=== PATIENT | female | born 1935 | race Hispanic/Latino ===

== ENCOUNTER 2019-07-14 15:23 | Inpatient (IN) | payer MEDICARE ==
[~2019-07-14] VITALS: Ht 154.9 cm; Wt 62.1 kg
--- OUTSIDE RECORDS SUMMARY | 2019-07-14 15:27 | XMS REPORT ---
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 Allergies, Adverse Reactions, Alerts Allergy Name Allergy Type Status Severity Reaction(s) Onset Date Inactive Date Treating Clinician Comments No Known Allergies DA Active U 2013-03-26 00:00:00 Medications This patient has no known medications. Results Test Description Test Time Test Comments Text Results Atomic Results Result Comments GALLBLADDER 2018-11-18 13:09:00 RUN DATE: 11/18/18 [employer] [facility] PAGE 1 RUN TIME: 1309 Specimen Inquiry RUN USER: INTERFACE PATIENT: NICOLE TAN LOC: BRODIE Moul[place] #: [id number] AGE/SX: 83/F ROOM: 2055 RE11/06/18REG DR: Jerman Haas MD : 33 BED: B DIS: STATUS: ADM IN TLOC: SPEC #: [id number] RECD: 11/17/18 STATUS: SAMAN RE #: [id number] APRIL: 11/16/181504 [facility] DR: Daniele Purdy MD ENTERED: 11/17/18 SP TYPE: GALLBLADD OTHR DR: Juan Anguiano MD, William W DO Gopalakrishnan, Thandavarajan M Hampel, Ori Z MD Lam, David N MDORDERED: GROSS COPIES TO: Juan Anguiano MD [address] [facility] [place] [address] [place] [address] Tyler Ye DO [address] [place] [address] Hallie Emmanuel [address] [place] [address] Vernon Tineo MD [address] [place] [address] Daniele Purdy MD [address] [place] [address] MARKERS: ABNORMAL TISSUE, GALLBLADDER PROCEDURES: GROSS (11/18/18) TISSUES: GALLBLADDER, NOS CONTINUED ON NEXT PAGE RUN DATE: 11/18/18 [employer] [facility] PAGE 2 RUN TIME: 1309 Specimen Inquiry RUN USER: INTERFACE SPEC #: [id number] PATIENT: NICOLE TAN #[id number] (Continued) CLINICAL HISTORY COLLECTION DATE: 11/16/2018 CHOLECYSTITIS FINAL DIAGNOSIS Gallbladder, cholecystectomy: ACUTE AND CHRONIC CHOLECYSTITIS WITH ULCERATION AND NECROSIS, EXTENDING TO THE CYSTIC DUCT MARGIN ONE PARACYSTIC DUCT BENIGN LYMPH NODE IDENTIFIED (0/1) CHOLELITHIASIS NEGATIVE FOR MALIGNANCY FA/sm A 68439 MACROSCOPIC The specimen is received in formalin, labeled with the patient's name, and identified as "gallbladder". It consists of a gallbladder which has a mottled appearance and has been previously incised. It measures 7.3 x 4.5 x 1.3 cm. Within the gallbladder there is a curled teal colored catheter measuring 14 cm in length by 0.3 cm in diameter. It has five openings. Also present within the gallbladder is a portion of thread like material measuring 17 cm in length. The gallbladder contains multiple black irregular pigment-type gallstones measuring from less than 0.1 to 0.9 cm. The gallbladder mucosa is partially smooth and partially velvety. The gallbladder wall measures from 0.2 to 0.8 cm in thickness. 1.2 cm of cystic duct is attached to the gallbladder. Samples of the specimen are submitted for microscopic evaluation in cassettes (1A 1B). GROSS PERFORMED AT [facility] [address] [facility] [place] [address] (p)[phone] MICROSCOPIC Sections of the gallbladder shows acute and chronic inflammatory infiltrates, mucosal necrosis, extensive ulceration, rare thrombosed vessels, microhemorrhage and vascular congestion. The inflammation extends to the cystic duct margin. No malignancy is identified. All of the stains, including any controls performed, stain CONTINUED ON NEXT PAGE RUN DATE: 11/18/18 [employer] [facility] PAGE 3 RUN TIME: 1309 Specimen Inquiry RUN USER: INTERFACE SPEC #: [id number] PATIENT: NICOLE TAN #[id number] (Continued) MICROSCOPIC (Continued) appropriately. MICROSCOPIC PERFORMED AT [facility] [address] [facility] [place] [address] [phone])[phone] PERFORMING SITE Diagnosis performed at: [facility] [address] [place] [address] Signed SIGNATURE ON FILE Jf Rodriguez MD 11/18/18 1309 END OF REPORT COMPREHENSIVE METABOLIC PANEL 2018-11-17 06:19:00 SODIUM (test code=NA) 144 mmol/L 136-145 POTASSIUM (test code=K) 4.7 mmol/L 3.5-5.1 CHLORIDE (test code=CL) 110.0 mmol/L 98-107 CARBON DIOXIDE (test code=CO2) 26.0 mmol/L 21-32 ANION GAP (test code=GAP) 12.7 10-20 GLUCOSE (test code=GLU) 172 mg/dL 74-106 BLOOD UREA NITROGEN (test code=BUN) 17 mg/dL 7-18 GLOMERULAR FILTRATION RATE (test code=GFR) 47 mL/min >=60 Estimated GFR by using Modified MDRD formula.Chronic kidney disease is defined as either kidney damageor GFR <60 mL/min/1.73 m2 for >3 months. CREATININE (test code=CREAT) 1.10 mg/dL 0.55-1.02 Note change in reference range due to change in reagent. BUN/CREATININE RATIO (test code=BUN/CREA) 15.5 10-20 TOTAL PROTEIN (test code=PROT) 5.0 gram/dL 6.4-8.2 ALBUMIN (test code=ALB) 1.7 g/dL 3.4-5.0 GLOBULIN (test code=GLOB) 3.3 gram/dL 2.7-4.2 ALBUMIN/GLOBULIN RATIO (test code=A/G) 0.5 0.75-1.50 CALCIUM (test code=CA) 7.3 mg/dL 8.5-10.1 BILIRUBIN TOTAL (test code=BILT) 0.20 mg/dL 0.0-1.0 SGOT/AST (test code=AST) 51 IUnit/L 15-37 SGPT/ALT (test code=ALT) 38 IUnit/L 12-78 ALKALINE PHOSPHATASE TOTAL (test code=ALKP) 59 IUnit/L 45-117 Note change in reference range due to change in reagent. [id number] 06:19:00* Test Item Value Reference Range Comments MAGNESIUM (test code=MAG) 1.8 mg/dL 1.8-2.4 CBC W/O [id number] 05:00:00* Test Item Value Reference Range Comments WHITE BLOOD CELL (test code=WBC) 10.2 K/mm3 4.5-12.5 RED BLOOD CELL (test code=RBC) 2.64 mill/mm3 3.7-5.2 HEMOGLOBIN (test code=HGB) 8.6 gram/dL 11.5-15.5 HEMATOCRIT (test code=HCT) 28.1 % 36.0-46.0 MEAN CELL VOLUME (test code=MCV) 106.4 fL 80-98 MEAN CELL HGB (test code=MCH) 32.6 picogram 27.0-33.0 MEAN CELL HGB CONCETRATION (test code=MCHC) 30.6 gram/dL 33.0-36.0 RED CELL DISTRIBUTION WIDTH (test code=RDW) 15.4 % 11.6-16.2 PLATELET COUNT (test code=PLT) 239 K/mm3 150-450 MEAN PLATELET VOLUME (test code=MPV) 11.3 fL 6.7-11.0 BASIC METABOLIC [id number] 11:38:00* Test Item Value Reference Range Comments SODIUM (test code=NA) 142 mmol/L 136-145 POTASSIUM (test code=K) 3.4 mmol/L 3.5-5.1 CHLORIDE (test code=CL) 109.0 mmol/L 98-107 CARBON DIOXIDE (test code=CO2) 28.0 mmol/L 21-32 ANION GAP (test code=GAP) 8.4 10-20 GLUCOSE (test code=GLU) 127 mg/dL 74-106 BLOOD UREA NITROGEN (test code=BUN) 17 mg/dL 7-18 GLOMERULAR FILTRATION RATE (test code=GFR) 53 mL/min >=60 Estimated GFR by using Modified MDRD formula.Chronic kidney disease is defined as either kidney damageor GFR <60 mL/min/1.73 m2 for >3 months. CREATININE (test code=CREAT) 1.00 mg/dL 0.55-1.02 Note change in reference range due to change in reagent. BUN/CREATININE RATIO (test code=BUN/CREA) 17.9 10-20 CALCIUM (test code=CA) 7.4 mg/dL 8.5-10.1 COME BACK TARAS ARZOLA V.LAB.[facility] 11/15/18 [id number] 11:38:00* Test Item Value Reference Range Comments PHOSPHORUS (test code=PHOS) 2.2 mg/dL 2.5-4.9 COME BACK TARAS ARZOLA [facility] 11/15/18 [id number] 11:38:00* Test Item Value Reference Range Comments MAGNESIUM (test code=MAG) 1.8 mg/dL 1.8-2.4 COME BACK TARAS ARZOLA [facility] 11/15/18 0607FE W/TOTAL IRON BINDING CAP.2018-11-15 11:38:00* Test Item Value Reference Range Comments SERUM IRON (test code=IRON) 45 ug/dL 50-175 TOTAL IRON BINDING CAPACITY (test code=TIBC) 273 mcg/dL 250-450 IRON SATURATION (test code=FESAT) 16.48 % 13-45 COME BACK TARAS ARZOLA [facility] 11/15/18 0607VITAMIN [id number] 11:38:00* Test Item Value Reference Range Comments VITAMIN B12 (test code=VITB12) 354 pg/mL 193-986 COME BACK TARAS ARZOLA [facility] 11/15/18 0607FOLIC [id number] 11:38:00* Test Item Value Reference Range Comments FOLIC ACID (test code=FOL) 4.5 ng/mL 3.10-17.50 COME BACK TARAS LovettLAB.[facility] 11/15/18 0607THYROID PROFILE [id number] 11:38:00* Test Item Value Reference Range Comments T3 UPTAKE (test code=T3UP) 36.0 % 30.0-40.0 T4 (THYROXINE) (test code=T4) 5.2 ug/dL 4.5-13.9 T7 (FREE THYROXINE INDEX) (test code=T7) 1.87 FTI 1.3-5.1 THYROID STIMULATING HORMONE (test code=TSH) 3.540 uIU/mL 0.36-3.74 TSH REFERENCE RANGES: EUTHYROID: 0.35 - 4.3 mIU/mL HYPO : > 5.5 mIU/mL HYPER : < 0.35 mIU/mL COME BACK TARAS [facility]ettLAB.[facility] 11/15/18 [id number] 11:38:00* Test Item Value Reference Range Comments FERRITIN (test code=JONH) 248 ng/mL 8-388 COME BACK TARAS [facility]ett[facility] 11/15/18 0607PROTHROMBIN [id number] 11:05:00* Test Item Value Reference Range Comments PROTHROMBIN TIME PATIENT (test code=PTP) 12.4 seconds 9.0-14.0 INTERNATIONAL NORMAL RATIO (test code=INR) 1.1 0.8-1.2 The therapeutic range for oral anticoagulant therapy formost indications is an international normalized ratio (INR)of between 2.0 and 3.0. The recommended therapeutic INRrange for various clinical situations is listed below: Clinical Situation INR range Pulmonary e mbolism treatment (2.0-3.0)Venous thrombosis treatmentVenous thrombosis prophylaxis (high risk surgery)Prevention of systemic embolism from: Acute myocardial infarction Valvular heart disease Atrial fibrillation Mechanical prosthetic heart valves (2.5-3.5) COME BACK TARAS ZIMMERMAN.[facility] 11/15/18 0608IS PATIENT ON ANTICOAGULANTS? N THROMBOPLASTIN TIME [id number] 11:05:00* Test Item Value Reference Range Comments THROMBOPLASTIN TIME PARTIAL (test code=PTT) 27.0 seconds 25.0-36.5 COME BACK TARAS ZIMMERMAN.[facility] 11/15/18 0608IS PATIENT ON ANTICOAGULANTS? NBASIC METABOLIC [id number] 11:03:00* Test Item Value Reference Range Comments SODIUM (test code=NA) 142 mmol/L 136-145 POTASSIUM (test code=K) 3.4 mmol/L 3.5-5.1 CHLORIDE (test code=CL) 109.0 mmol/L 98-107 CARBON DIOXIDE (test code=CO2) mmol/L 21-32 ANION GAP (test code=GAP) 10-20 GLUCOSE (test code=GLU) mg/dL 74-106 BLOOD UREA NITROGEN (test code=BUN) mg/dL 7-18 GLOMERULAR FILTRATION RATE (test code=GFR) mL/min >=60 CREATININE (test code=CREAT) mg/dL 0.55-1.02 BUN/CREATININE RATIO (test code=BUN/CREA) 10-20 CALCIUM (test code=CA) mg/dL 8.5-10.1 COME BACK TARAS ZIMMERMAN.[facility] 11/15/18 [id number] 11:03:00* Test Item Value Reference Range Comments PHOSPHORUS (test code=PHOS) mg/dL 2.5-4.9 COME BACK TARAS ZIMMERMAN.[facility] 11/15/18 [id number] 11:03:00* Test Item Value Reference Range Comments MAGNESIUM (test code=MAG) mg/dL 1.8-2.4 COME BACK TARAS ZIMMERMAN.[facility] 11/15/18 0607FE W/TOTAL IRON BINDING CAP.2018-11-15 11:03:00* Test Item Value Reference Range Comments SERUM IRON (test code=IRON) ug/dL 50-175 TOTAL IRON BINDING CAPACITY (test code=TIBC) mcg/dL 250-450 IRON SATURATION (test code=FESAT) % 13-45 COME BACK [facility] V.LAB.[facility] 11/15/18 0607VITAMIN [id number] 11:03:00* Test Item Value Reference Range Comments VITAMIN B12 (test code=VITB12) pg/mL 193-986 COME BACK [facility] 11/15/18 0607FOLIC [id number] 11:03:00* Test Item Value Reference Range Comments FOLIC ACID (test code=FOL) ng/mL 3.10-17.50 COME BACK [facility] 11/15/18 0607THYROID PROFILE [id number] 11:03:00* Test Item Value Reference Range Comments T3 UPTAKE (test code=T3UP) % 30.0-40.0 T4 (THYROXINE) (test code=T4) ug/dL 4.5-13.9 T7 (FREE THYROXINE INDEX) (test code=T7) FTI 1.3-5.1 THYROID STIMULATING HORMONE (test code=TSH) uIU/mL 0.36-3.74 COME BACK [facility] 11/15/18 [id number] 11:03:00* Test Item Value Reference Range Comments FERRITIN (test code=JONH) ng/mL 8-388 COME BACK [facility] 11/15/18 0607- XR CHEST 1 [id number] 08:07:00 FAX: Juan Beavers MD [phone] [place]: St: [facility] FAX: Jerman Rodriguez I [phone] FAX: Lele Romero MD [phone] --------- Name: NICOLE TAN [facility] : 1935 Age/S: 83/F [address] it #: [id number] Loc: V.2055 [place] [address] Phys: Lele Rosa MD Acct: [id number] Dis Date: Status: ADM IN ONE #: [phone] Exam Date: 11/15/2018 0751 FAX #: [phone] Reason: chf EXAMS: CPT CODE: [id number] XR CHEST 1 V 18364 HISTORY: chf TECHNIQUE: AP chest x-ray COMPARISON: 11/06/18 FINDINGS: Low lung volumes. No airspace consolidation or pl eural effusion. Elevated right hemidiaphragm with basilar subsegmental ate lectasis. Normal heart size. Tortuous thoracic aorta with vascular c alcification. Thoracic spondylosis. Implanted left vagal nerve stimulator. IMPRESSION: No acute findings or significant interval change. 19 at 0807 Reported and signed by: Georgette Franco D.O. CC: Juan Anguiano; Jerman Haas MD; Lele Rosa MD Techno logist: LEONID VALLE JR; STUDENT TECHNOLOGIST Trnscrd Date/Time /By: 11/15/2018 (0807) : By: [email or web address] Orig Print D/T: S: 11/15/2018 ( 0810) PAGE 1 Signed Report BASIC METABOLIC [id number] 06:21:00* Test Item Value Reference Range Comments SODIUM (test code=NA) 144 mmol/L 136-145 POTASSIUM (test code=K) 3.2 mmol/L 3.5-5.1 CHLORIDE (test code=CL) 108.0 mmol/L 98-107 CARBON DIOXIDE (test code=CO2) 27.0 mmol/L 21-32 ANION GAP (test code=GAP) 12.2 10-20 GLUCOSE (test code=GLU) 207 mg/dL 74-106 BLOOD UREA NITROGEN (test code=BUN) 19 mg/dL 7-18 GLOMERULAR FILTRATION RATE (test code=GFR) 47 mL/min >=60 Estimated GFR by using Modified MDRD formula.Chronic kidney disease is defined as either kidney damageor GFR <60 mL/min/1.73 m2 for >3 months. CREATININE (test code=CREAT) 1.10 mg/dL 0.55-1.02 Note change in reference range due to change in reagent. BUN/CREATININE RATIO (test code=BUN/CREA) 16.7 10-20 CALCIUM (test code=CA) 7.6 mg/dL 8.5-10.1 [id number] 06:21:00* Test Item Value Reference Range Comments PHOSPHORUS (test code=PHOS) 0.7 mg/dL 2.5-4.9 [id number] 06:21:00* Test Item Value Reference Range Comments MAGNESIUM (test code=MAG) 1.5 mg/dL 1.8-2.4 CBC W/AUTO [id number] 06:00:00* Test Item Value Reference Range Comments WHITE BLOOD CELL (test code=WBC) 5.8 K/mm3 4.5-12.5 RED BLOOD CELL (test code=RBC) 2.80 mill/mm3 3.7-5.2 HEMOGLOBIN (test code=HGB) 9.1 gram/dL 11.5-15.5 RESULT VERIFIED BY REPEAT ANALYSIS HEMATOCRIT (test code=HCT) 28.1 % 36.0-46.0 MEAN CELL VOLUME (test code=MCV) 100.4 fL 80-98 RESULT VERIFIED BY REPEAT ANALYSIS MEAN CELL HGB (test code=MCH) 32.5 picogram 27.0-33.0 MEAN CELL HGB CONCETRATION (test code=MCHC) 32.4 gram/dL 33.0-36.0 RED CELL DISTRIBUTION WIDTH (test code=RDW) 15.0 % 11.6-16.2 RED CELL DISTRIBUTION WIDTH SD (test code=RDW-SD) 55.0 fL 37.0-51.0 PLATELET COUNT (test code=PLT) 190 K/mm3 150-450 MEAN PLATELET VOLUME (test code=MPV) 10.5 fL 6.7-11.0 NEUTROPHIL % (test code=NT%) 66.9 % 39.0-69.0 IMMATURE GRANULOCYTE % (test code=IG%) 0.7 % 0.0-5.0 LYMPHOCYTE % (test code=LY%) 23.1 % 25.0-55.0 MONOCYTE % (test code=MO%) 7.1 % 0.0-10.0 EOSINOPHIL % (test code=EO%) 1.9 % 0.0-5.0 BASOPHIL % (test code=BA%) 0.3 % 0.0-1.0 NUCLEATED RBC % (test code=NRBC%) 0.0 % 0-0 NEUTROPHIL # (test code=NT#) 3.87 K/mm3 1.8-7.7 IMMATURE GRANULOCYTE # (test code=IG#) 0.04 x10 3/uL 0-0.03 LYMPHOCYTE # (test code=LY#) 1.34 K/mm3 1.0-5.0 MONOCYTE # (test code=MO#) 0.41 K/mm3 0-0.8 EOSINOPHIL # (test code=EO#) 0.11 K/mm3 0.0-0.5 BASOPHIL # (test code=BA#) 0.02 K/mm3 0.0-0.2 NUCLEATED RBC # (test code=NRBC#) 0.00 K/mm3 0.0-0.1 BASIC METABOLIC [id number] 11:03:00* Test Item Value Reference Range Comments SODIUM (test code=NA) 142 mmol/L 136-145 POTASSIUM (test code=K) 2.7 mmol/L 3.5-5.1 Results called to JENNY [id number] by ALEXIS 11/13/18 1059Critical results verified and read back by Nurse? Y CHLORIDE (test code=CL) 110.0 mmol/L 98-107 CARBON DIOXIDE (test code=CO2) 26.0 mmol/L 21-32 ANION GAP (test code=GAP) 8.7 10-20 GLUCOSE (test code=GLU) 120 mg/dL 74-106 BLOOD UREA NITROGEN (test code=BUN) 13 mg/dL 7-18 GLOMERULAR FILTRATION RATE (test code=GFR) 49 mL/min >=60 Estimated GFR by using Modified MDRD formula.Chronic kidney disease is defined as either kidney damageor GFR <60 mL/min/1.73 m2 for >3 months. CREATININE (test code=CREAT) 1.07 mg/dL 0.55-1.02 Note change in reference range due to change in reagent. BUN/CREATININE RATIO (test code=BUN/CREA) 12.1 10-20 CALCIUM (test code=CA) 7.7 mg/dL 8.5-10.1 [id number] 11:03:00* Test Item Value Reference Range Comments PHOSPHORUS (test code=PHOS) 0.7 mg/dL 2.5-4.9 [id number] 11:03:00* Test Item Value Reference Range Comments MAGNESIUM (test code=MAG) 1.5 mg/dL 1.8-2.4 CBC W/AUTO [id number] 08:29:00* Test Item Value Reference Range Comments WHITE BLOOD CELL (test code=WBC) 12.3 K/mm3 4.5-12.5 RED BLOOD CELL (test code=RBC) 3.82 mill/mm3 3.7-5.2 HEMOGLOBIN (test code=HGB) 11.2 gram/dL 11.5-15.5 HEMATOCRIT (test code=HCT) 35.8 % 36.0-46.0 MEAN CELL VOLUME (test code=MCV) 93.7 fL 80-98 MEAN CELL HGB (test code=MCH) 29.3 picogram 27.0-33.0 MEAN CELL HGB CONCETRATION (test code=MCHC) 31.3 gram/dL 33.0-36.0 RED CELL DISTRIBUTION WIDTH (test code=RDW) 13.4 % 11.6-16.2 RED CELL DISTRIBUTION WIDTH SD (test code=RDW-SD) 46.2 fL 37.0-51.0 PLATELET COUNT (test code=PLT) 184 K/mm3 150-450 MEAN PLATELET VOLUME (test code=MPV) 11.2 fL 6.7-11.0 NEUTROPHIL % (test code=NT%) 85.1 % 39.0-69.0 IMMATURE GRANULOCYTE % (test code=IG%) 0.7 % 0.0-5.0 LYMPHOCYTE % (test code=LY%) 6.5 % 25.0-55.0 MONOCYTE % (test code=MO%) 7.5 % 0.0-10.0 EOSINOPHIL % (test code=EO%) 0.0 % 0.0-5.0 BASOPHIL % (test code=BA%) 0.2 % 0.0-1.0 NUCLEATED RBC % (test code=NRBC%) 0.0 % 0-0 NEUTROPHIL # (test code=NT#) 10.47 K/mm3 1.8-7.7 IMMATURE GRANULOCYTE # (test code=IG#) 0.08 x10 3/uL 0-0.03 LYMPHOCYTE # (test code=LY#) 0.80 K/mm3 1.0-5.0 MONOCYTE # (test code=MO#) 0.92 K/mm3 0-0.8 EOSINOPHIL # (test code=EO#) 0.00 K/mm3 0.0-0.5 BASOPHIL # (test code=BA#) 0.02 K/mm3 0.0-0.2 NUCLEATED RBC # (test code=NRBC#) 0.00 K/mm3 0.0-0.1 BASIC METABOLIC [id number] 05:46:00* Test Item Value Reference Range Comments SODIUM (test code=NA) 145 mmol/L 136-145 POTASSIUM (test code=K) 2.6 mmol/L 3.5-5.1 Results called to [id number] by V.LAB.AG1 11/12/18 0544Critical results verified and read back by Nurse? Y CHLORIDE (test code=CL) 112.0 mmol/L 98-107 CARBON DIOXIDE (test code=CO2) 26.0 mmol/L 21-32 ANION GAP (test code=GAP) 9.6 10-20 GLUCOSE (test code=GLU) 188 mg/dL 74-106 BLOOD UREA NITROGEN (test code=BUN) 15 mg/dL 7-18 GLOMERULAR FILTRATION RATE (test code=GFR) 39 mL/min >=60 Estimated GFR by using Modified MDRD formula.Chronic kidney disease is defined as either kidney damageor GFR <60 mL/min/1.73 m2 for >3 months. CREATININE (test code=CREAT) 1.30 mg/dL 0.55-1.02 Note change in reference range due to change in reagent. BUN/CREATININE RATIO (test code=BUN/CREA) 11.5 10-20 CALCIUM (test code=CA) 7.7 mg/dL 8.5-10.1 [id number] 05:46:00* Test Item Value Reference Range Comments PHOSPHORUS (test code=PHOS) 1.1 mg/dL 2.5-4.9 [id number] 05:46:00* Test Item Value Reference Range Comments MAGNESIUM (test code=MAG) 1.8 mg/dL 1.8-2.4 CBC W/AUTO [id number] 05:18:00* Test Item Value Reference Range Comments WHITE BLOOD CELL (test code=WBC) 5.3 K/mm3 4.5-12.5 RED BLOOD CELL (test code=RBC) 2.93 mill/mm3 3.7-5.2 HEMOGLOBIN (test code=HGB) 9.4 gram/dL 11.5-15.5 HEMATOCRIT (test code=HCT) 28.7 % 36.0-46.0 MEAN CELL VOLUME (test code=MCV) 98.0 fL 80-98 MEAN CELL HGB (test code=MCH) 32.1 picogram 27.0-33.0 MEAN CELL HGB CONCETRATION (test code=MCHC) 32.8 gram/dL 33.0-36.0 RED CELL DISTRIBUTION WIDTH (test code=RDW) 14.8 % 11.6-16.2 RED CELL DISTRIBUTION WIDTH SD (test code=RDW-SD) 53.3 fL 37.0-51.0 PLATELET COUNT (test code=PLT) 160 K/mm3 150-450 RESULT VERIFIED BY REPEAT ANALYSIS MEAN PLATELET VOLUME (test code=MPV) 10.9 fL 6.7-11.0 NEUTROPHIL % (test code=NT%) 69.4 % 39.0-69.0 IMMATURE GRANULOCYTE % (test code=IG%) 0.4 % 0.0-5.0 LYMPHOCYTE % (test code=LY%) 18.8 % 25.0-55.0 MONOCYTE % (test code=MO%) 9.5 % 0.0-10.0 EOSINOPHIL % (test code=EO%) 1.5 % 0.0-5.0 BASOPHIL % (test code=BA%) 0.4 % 0.0-1.0 NUCLEATED RBC % (test code=NRBC%) 0.0 % 0-0 NEUTROPHIL # (test code=NT#) 3.65 K/mm3 1.8-7.7 IMMATURE GRANULOCYTE # (test code=IG#) 0.02 x10 3/uL 0-0.03 LYMPHOCYTE # (test code=LY#) 0.99 K/mm3 1.0-5.0 MONOCYTE # (test code=MO#) 0.50 K/mm3 0-0.8 EOSINOPHIL # (test code=EO#) 0.08 K/mm3 0.0-0.5 BASOPHIL # (test code=BA#) 0.02 K/mm3 0.0-0.2 NUCLEATED RBC # (test code=NRBC#) 0.00 K/mm3 0.0-0.1 BASIC METABOLIC [id number] 06:06:00* Test Item Value Reference Range Comments SODIUM (test code=NA) 145 mmol/L 136-145 POTASSIUM (test code=K) 2.4 mmol/L 3.5-5.1 Results called to [id number] by [email or web address] 11/11/18 0605Critical results verified and read back by Nurse? Y CHLORIDE (test code=CL) 113.0 mmol/L 98-107 CARBON DIOXIDE (test code=CO2) 23.0 mmol/L 21-32 ANION GAP (test code=GAP) 11.4 10-20 GLUCOSE (test code=GLU) 75 mg/dL 74-106 BLOOD UREA NITROGEN (test code=BUN) 12 mg/dL 7-18 GLOMERULAR FILTRATION RATE (test code=GFR) 47 mL/min >=60 Estimated GFR by using Modified MDRD formula.Chronic kidney disease is defined as either kidney damageor GFR <60 mL/min/1.73 m2 for >3 months. CREATININE (test code=CREAT) 1.10 mg/dL 0.55-1.02 Note change in reference range due to change in reagent. BUN/CREATININE RATIO (test code=BUN/CREA) 10.8 10-20 CALCIUM (test code=CA) 7.5 mg/dL 8.5-10.1 [id number] 06:06:00* Test Item Value Reference Range Comments PHOSPHORUS (test code=PHOS) 2.3 mg/dL 2.5-4.9 [id number] 06:06:00* Test Item Value Reference Range Comments MAGNESIUM (test code=MAG) 2.0 mg/dL 1.8-2.4 CBC W/AUTO [id number] 05:38:00* Test Item Value Reference Range Comments WHITE BLOOD CELL (test code=WBC) 6.7 K/mm3 4.5-12.5 RED BLOOD CELL (test code=RBC) 2.68 mill/mm3 3.7-5.2 HEMOGLOBIN (test code=HGB) 8.7 gram/dL 11.5-15.5 HEMATOCRIT (test code=HCT) 26.7 % 36.0-46.0 MEAN CELL VOLUME (test code=MCV) 99.6 fL 80-98 MEAN CELL HGB (test code=MCH) 32.5 picogram 27.0-33.0 MEAN CELL HGB CONCETRATION (test code=MCHC) 32.6 gram/dL 33.0-36.0 RED CELL DISTRIBUTION WIDTH (test code=RDW) 14.9 % 11.6-16.2 RED CELL DISTRIBUTION WIDTH SD (test code=RDW-SD) 54.4 fL 37.0-51.0 PLATELET COUNT (test code=PLT) 123 K/mm3 150-450 MEAN PLATELET VOLUME (test code=MPV) 10.7 fL 6.7-11.0 NEUTROPHIL % (test code=NT%) 69.0 % 39.0-69.0 IMMATURE GRANULOCYTE % (test code=IG%) 0.4 % 0.0-5.0 LYMPHOCYTE % (test code=LY%) 16.9 % 25.0-55.0 MONOCYTE % (test code=MO%) 12.3 % 0.0-10.0 EOSINOPHIL % (test code=EO%) 1.0 % 0.0-5.0 BASOPHIL % (test code=BA%) 0.4 % 0.0-1.0 NUCLEATED RBC % (test code=NRBC%) 0.0 % 0-0 NEUTROPHIL # (test code=NT#) 4.61 K/mm3 1.8-7.7 IMMATURE GRANULOCYTE # (test code=IG#) 0.03 x10 3/uL 0-0.03 LYMPHOCYTE # (test code=LY#) 1.13 K/mm3 1.0-5.0 MONOCYTE # (test code=MO#) 0.82 K/mm3 0-0.8 EOSINOPHIL # (test code=EO#) 0.07 K/mm3 0.0-0.5 BASOPHIL # (test code=BA#) 0.03 K/mm3 0.0-0.2 NUCLEATED RBC # (test code=NRBC#) 0.00 K/mm3 0.0-0.1 BASIC METABOLIC [id number] 08:03:00* Test Item Value Reference Range Comments SODIUM (test code=NA) 144 mmol/L 136-145 POTASSIUM (test code=K) 3.0 mmol/L 3.5-5.1 CHLORIDE (test code=CL) 112.0 mmol/L 98-107 CARBON DIOXIDE (test code=CO2) 25.0 mmol/L 21-32 ANION GAP (test code=GAP) 10.0 10-20 GLUCOSE (test code=GLU) 74 mg/dL 74-106 BLOOD UREA NITROGEN (test code=BUN) 14 mg/dL 7-18 GLOMERULAR FILTRATION RATE (test code=GFR) 53 mL/min >=60 Estimated GFR by using Modified MDRD formula.Chronic kidney disease is defined as either kidney damageor GFR <60 mL/min/1.73 m2 for >3 months. CREATININE (test code=CREAT) 1.00 mg/dL 0.55-1.02 Note change in reference range due to change in reagent. BUN/CREATININE RATIO (test code=BUN/CREA) 13.5 10-20 CALCIUM (test code=CA) 7.7 mg/dL 8.5-10.1 [id number] 08:03:00* Test Item Value Reference Range Comments PHOSPHORUS (test code=PHOS) 2.5 mg/dL 2.5-4.9 [id number] 08:03:00* Test Item Value Reference Range Comments MAGNESIUM (test code=MAG) 2.2 mg/dL 1.8-2.4 BASIC METABOLIC [id number] 07:36:00* Test Item Value Reference Range Comments SODIUM (test code=NA) 144 mmol/L 136-145 POTASSIUM (test code=K) 3.0 mmol/L 3.5-5.1 CHLORIDE (test code=CL) 112.0 mmol/L 98-107 CARBON DIOXIDE (test code=CO2) mmol/L 21-32 ANION GAP (test code=GAP) 10-20 GLUCOSE (test code=GLU) mg/dL 74-106 BLOOD UREA NITROGEN (test code=BUN) mg/dL 7-18 GLOMERULAR FILTRATION RATE (test code=GFR) mL/min >=60 CREATININE (test code=CREAT) mg/dL 0.55-1.02 BUN/CREATININE RATIO (test code=BUN/CREA) 10-20 CALCIUM (test code=CA) mg/dL 8.5-10.1 [id number] 07:36:00* Test Item Value Reference Range Comments PHOSPHORUS (test code=PHOS) mg/dL 2.5-4.9 [id number] 07:36:00* Test Item Value Reference Range Comments MAGNESIUM (test code=MAG) mg/dL 1.8-2.4 CBC W/MANUAL [id number] 07:31:00* Test Item Value Reference Range Comments WHITE BLOOD CELL (test code=WBC) 6.8 K/mm3 4.5-12.5 RED BLOOD CELL (test code=RBC) 2.92 mill/mm3 3.7-5.2 HEMOGLOBIN (test code=HGB) 9.4 gram/dL 11.5-15.5 HEMATOCRIT (test code=HCT) 28.6 % 36.0-46.0 MEAN CELL VOLUME (test code=MCV) 97.9 fL 80-98 MEAN CELL HGB (test code=MCH) 32.2 picogram 27.0-33.0 MEAN CELL HGB CONCETRATION (test code=MCHC) 32.9 gram/dL 33.0-36.0 RED CELL DISTRIBUTION WIDTH (test code=RDW) 14.9 % 11.6-16.2 RED CELL DISTRIBUTION WIDTH SD (test code=RDW-SD) 53.9 fL 37.0-51.0 PLATELET COUNT (test code=PLT) 141 K/mm3 150-450 MEAN PLATELET VOLUME (test code=MPV) 11.0 fL 6.7-11.0 IMMATURE GRANULOCYTE % (test code=IG%) 0.3 % 0.0-5.0 NUCLEATED RBC % (test code=NRBC%) 0.0 % 0-0 NEUTROPHIL # (test code=NT#) 5.33 K/mm3 1.8-7.7 IMMATURE GRANULOCYTE # (test code=IG#) 0.02 x10 3/uL 0-0.03 LYMPHOCYTE # (test code=LY#) 0.89 K/mm3 1.0-5.0 MONOCYTE # (test code=MO#) 0.49 K/mm3 0-0.8 EOSINOPHIL # (test code=EO#) 0.07 K/mm3 0.0-0.5 BASOPHIL # (test code=BA#) 0.02 K/mm3 0.0-0.2 NUCLEATED RBC # (test code=NRBC#) 0.00 K/mm3 0.0-0.1 MANUAL DIFF REQUIRED (test code=MDIFF) YES STAIN ACCEPTABILITY (test code=STN ACCEPTABLE) STAIN ACCEPTABLE TOTAL CELLS COUNTED (test code=TCC) 115 #CELLS SEGMENTED NEUTROPHILS (test code=SEG) 80.0 % 39-69 BAND NEUTROPHIL (test code=BAND) 7.0 % 0-10 LYMPHOCYTE (test code=LYMPH) 7.8 % 25-55 REACTIVE LYMPH (test code=RELYMPH) 0 % MONOCYTE (test code=MON) 4.3 % 0-10 EOSINOPHIL (test code=EOS) 0 % 0.0-5.0 BASOPHIL (test code=BASO) 0.9 % 0-1.0 METAMYELOCYTE (test code=META) 0 % 0-0 MYELOCYTE (test code=MYELO) 0 % 0.0-0.0 PROMYELOCYTE (test code=PROM) 0 % 0-0 POIKILOCYTOSIS (test code=POIK) 2+ ANISOCYTOSIS (test code=ANISO) 1+ MACROCYTOSIS (test code=MACR) 1+ PLATELET ESTIMATE (test code=PLTEST) ADEQUATE PLATELET MORPHOLOGY (test code=PLTMORPH) NORMAL IMMATURE FORMS (test code=IMMAT) 0 % 0-0 CBC W/MANUAL [id number] 06:55:00* Test Item Value Reference Range Comments WHITE BLOOD CELL (test code=WBC) 6.8 K/mm3 4.5-12.5 RED BLOOD CELL (test code=RBC) 2.92 mill/mm3 3.7-5.2 HEMOGLOBIN (test code=HGB) 9.4 gram/dL 11.5-15.5 HEMATOCRIT (test code=HCT) 28.6 % 36.0-46.0 MEAN CELL VOLUME (test code=MCV) 97.9 fL 80-98 MEAN CELL HGB (test code=MCH) 32.2 picogram 27.0-33.0 MEAN CELL HGB CONCETRATION (test code=MCHC) 32.9 gram/dL 33.0-36.0 RED CELL DISTRIBUTION WIDTH (test code=RDW) 14.9 % 11.6-16.2 RED CELL DISTRIBUTION WIDTH SD (test code=RDW-SD) 53.9 fL 37.0-51.0 PLATELET COUNT (test code=PLT) 141 K/mm3 150-450 MEAN PLATELET VOLUME (test code=MPV) 11.0 fL 6.7-11.0 IMMATURE GRANULOCYTE % (test code=IG%) 0.3 % 0.0-5.0 NUCLEATED RBC % (test code=NRBC%) 0.0 % 0-0 NEUTROPHIL # (test code=NT#) 5.33 K/mm3 1.8-7.7 IMMATURE GRANULOCYTE # (test code=IG#) 0.02 x10 3/uL 0-0.03 LYMPHOCYTE # (test code=LY#) 0.89 K/mm3 1.0-5.0 MONOCYTE # (test code=MO#) 0.49 K/mm3 0-0.8 EOSINOPHIL # (test code=EO#) 0.07 K/mm3 0.0-0.5 BASOPHIL # (test code=BA#) 0.02 K/mm3 0.0-0.2 NUCLEATED RBC # (test code=NRBC#) 0.00 K/mm3 0.0-0.1 MANUAL DIFF REQUIRED (test code=MDIFF) YES STAIN ACCEPTABILITY (test code=STN ACCEPTABLE) TOTAL CELLS COUNTED (test code=TCC) #CELLS SEGMENTED NEUTROPHILS (test code=SEG) % 39-69 LYMPHOCYTE (test code=LYMPH) % 25-55 MONOCYTE (test code=MON) % 0-10 EOSINOPHIL (test code=EOS) % 0.0-5.0 CABOT RINGS (test code=CAB) MORPHOLOGY COMMENT (test code=MOC) PLATELET ESTIMATE (test code=PLTEST) PLATELET MORPHOLOGY (test code=PLTMORPH) CBC W/MANUAL [id number] 06:55:00* Test Item Value Reference Range Comments WHITE BLOOD CELL (test code=WBC) 6.8 K/mm3 4.5-12.5 RED BLOOD CELL (test code=RBC) 2.92 mill/mm3 3.7-5.2 HEMOGLOBIN (test code=HGB) 9.4 gram/dL 11.5-15.5 HEMATOCRIT (test code=HCT) 28.6 % 36.0-46.0 MEAN CELL VOLUME (test code=MCV) 97.9 fL 80-98 MEAN CELL HGB (test code=MCH) 32.2 picogram 27.0-33.0 MEAN CELL HGB CONCETRATION (test code=MCHC) 32.9 gram/dL 33.0-36.0 RED CELL DISTRIBUTION WIDTH (test code=RDW) 14.9 % 11.6-16.2 RED CELL DISTRIBUTION WIDTH SD (test code=RDW-SD) 53.9 fL 37.0-51.0 PLATELET COUNT (test code=PLT) 141 K/mm3 150-450 MEAN PLATELET VOLUME (test code=MPV) 11.0 fL 6.7-11.0 IMMATURE GRANULOCYTE % (test code=IG%) 0.3 % 0.0-5.0 NUCLEATED RBC % (test code=NRBC%) 0.0 % 0-0 NEUTROPHIL # (test code=NT#) 5.33 K/mm3 1.8-7.7 IMMATURE GRANULOCYTE # (test code=IG#) 0.02 x10 3/uL 0-0.03 LYMPHOCYTE # (test code=LY#) 0.89 K/mm3 1.0-5.0 MONOCYTE # (test code=MO#) 0.49 K/mm3 0-0.8 EOSINOPHIL # (test code=EO#) 0.07 K/mm3 0.0-0.5 BASOPHIL # (test code=BA#) 0.02 K/mm3 0.0-0.2 NUCLEATED RBC # (test code=NRBC#) 0.00 K/mm3 0.0-0.1 MANUAL DIFF REQUIRED (test code=MDIFF) YES STAIN ACCEPTABILITY (test code=STN ACCEPTABLE) TOTAL CELLS COUNTED (test code=TCC) #CELLS SEGMENTED NEUTROPHILS (test code=SEG) % 39-69 LYMPHOCYTE (test code=LYMPH) % 25-55 MONOCYTE (test code=MON) % 0-10 EOSINOPHIL (test code=EOS) % 0.0-5.0 CABOT RINGS (test code=CAB) MORPHOLOGY COMMENT (test code=MOC) PLATELET ESTIMATE (test code=PLTEST) PLATELET MORPHOLOGY (test code=PLTMORPH) CBC W/MANUAL [id number] 06:55:00* Test Item Value Reference Range Comments WHITE BLOOD CELL (test code=WBC) 6.8 K/mm3 4.5-12.5 RED BLOOD CELL (test code=RBC) 2.92 mill/mm3 3.7-5.2 HEMOGLOBIN (test code=HGB) 9.4 gram/dL 11.5-15.5 HEMATOCRIT (test code=HCT) 28.6 % 36.0-46.0 MEAN CELL VOLUME (test code=MCV) 97.9 fL 80-98 MEAN CELL HGB (test code=MCH) 32.2 picogram 27.0-33.0 MEAN CELL HGB CONCETRATION (test code=MCHC) 32.9 gram/dL 33.0-36.0 RED CELL DISTRIBUTION WIDTH (test code=RDW) 14.9 % 11.6-16.2 RED CELL DISTRIBUTION WIDTH SD (test code=RDW-SD) 53.9 fL 37.0-51.0 PLATELET COUNT (test code=PLT) 141 K/mm3 150-450 MEAN PLATELET VOLUME (test code=MPV) 11.0 fL 6.7-11.0 IMMATURE GRANULOCYTE % (test code=IG%) 0.3 % 0.0-5.0 NUCLEATED RBC % (test code=NRBC%) 0.0 % 0-0 NEUTROPHIL # (test code=NT#) 5.33 K/mm3 1.8-7.7 IMMATURE GRANULOCYTE # (test code=IG#) 0.02 x10 3/uL 0-0.03 LYMPHOCYTE # (test code=LY#) 0.89 K/mm3 1.0-5.0 MONOCYTE # (test code=MO#) 0.49 K/mm3 0-0.8 EOSINOPHIL # (test code=EO#) 0.07 K/mm3 0.0-0.5 BASOPHIL # (test code=BA#) 0.02 K/mm3 0.0-0.2 NUCLEATED RBC # (test code=NRBC#) 0.00 K/mm3 0.0-0.1 MANUAL DIFF REQUIRED (test code=MDIFF) YES STAIN ACCEPTABILITY (test code=STN ACCEPTABLE) TOTAL CELLS COUNTED (test code=TCC) #CELLS SEGMENTED NEUTROPHILS (test code=SEG) % 39-69 LYMPHOCYTE (test code=LYMPH) % 25-55 MONOCYTE (test code=MON) % 0-10 EOSINOPHIL (test code=EOS) % 0.0-5.0 MORPHOLOGY COMMENT (test code=MOC) PLATELET ESTIMATE (test code=PLTEST) PLATELET MORPHOLOGY (test code=PLTMORPH) CBC W/MANUAL [id number] 06:55:00* Test Item Value Reference Range Comments WHITE BLOOD CELL (test code=WBC) 6.8 K/mm3 4.5-12.5 RED BLOOD CELL (test code=RBC) 2.92 mill/mm3 3.7-5.2 HEMOGLOBIN (test code=HGB) 9.4 gram/dL 11.5-15.5 HEMATOCRIT (test code=HCT) 28.6 % 36.0-46.0 MEAN CELL VOLUME (test code=MCV) 97.9 fL 80-98 MEAN CELL HGB (test code=MCH) 32.2 picogram 27.0-33.0 MEAN CELL HGB CONCETRATION (test code=MCHC) 32.9 gram/dL 33.0-36.0 RED CELL DISTRIBUTION WIDTH (test code=RDW) 14.9 % 11.6-16.2 RED CELL DISTRIBUTION WIDTH SD (test code=RDW-SD) 53.9 fL 37.0-51.0 PLATELET COUNT (test code=PLT) 141 K/mm3 150-450 MEAN PLATELET VOLUME (test code=MPV) 11.0 fL 6.7-11.0 IMMATURE GRANULOCYTE % (test code=IG%) 0.3 % 0.0-5.0 NUCLEATED RBC % (test code=NRBC%) 0.0 % 0-0 NEUTROPHIL # (test code=NT#) 5.33 K/mm3 1.8-7.7 IMMATURE GRANULOCYTE # (test code=IG#) 0.02 x10 3/uL 0-0.03 LYMPHOCYTE # (test code=LY#) 0.89 K/mm3 1.0-5.0 MONOCYTE # (test code=MO#) 0.49 K/mm3 0-0.8 EOSINOPHIL # (test code=EO#) 0.07 K/mm3 0.0-0.5 BASOPHIL # (test code=BA#) 0.02 K/mm3 0.0-0.2 NUCLEATED RBC # (test code=NRBC#) 0.00 K/mm3 0.0-0.1 MANUAL DIFF REQUIRED (test code=MDIFF) YES STAIN ACCEPTABILITY (test code=STN ACCEPTABLE) TOTAL CELLS COUNTED (test code=TCC) #CELLS SEGMENTED NEUTROPHILS (test code=SEG) % 39-69 LYMPHOCYTE (test code=LYMPH) % 25-55 MONOCYTE (test code=MON) % 0-10 MORPHOLOGY COMMENT (test code=MOC) PLATELET ESTIMATE (test code=PLTEST) PLATELET MORPHOLOGY (test code=PLTMORPH) CBC W/MANUAL [id number] 06:55:00* Test Item Value Reference Range Comments WHITE BLOOD CELL (test code=WBC) 6.8 K/mm3 4.5-12.5 RED BLOOD CELL (test code=RBC) 2.92 mill/mm3 3.7-5.2 HEMOGLOBIN (test code=HGB) 9.4 gram/dL 11.5-15.5 HEMATOCRIT (test code=HCT) 28.6 % 36.0-46.0 MEAN CELL VOLUME (test code=MCV) 97.9 fL 80-98 MEAN CELL HGB (test code=MCH) 32.2 picogram 27.0-33.0 MEAN CELL HGB CONCETRATION (test code=MCHC) 32.9 gram/dL 33.0-36.0 RED CELL DISTRIBUTION WIDTH (test code=RDW) 14.9 % 11.6-16.2 RED CELL DISTRIBUTION WIDTH SD (test code=RDW-SD) 53.9 fL 37.0-51.0 PLATELET COUNT (test code=PLT) 141 K/mm3 150-450 MEAN PLATELET VOLUME (test code=MPV) 11.0 fL 6.7-11.0 IMMATURE GRANULOCYTE % (test code=IG%) 0.3 % 0.0-5.0 NUCLEATED RBC % (test code=NRBC%) 0.0 % 0-0 NEUTROPHIL # (test code=NT#) 5.33 K/mm3 1.8-7.7 IMMATURE GRANULOCYTE # (test code=IG#) 0.02 x10 3/uL 0-0.03 LYMPHOCYTE # (test code=LY#) 0.89 K/mm3 1.0-5.0 MONOCYTE # (test code=MO#) 0.49 K/mm3 0-0.8 EOSINOPHIL # (test code=EO#) 0.07 K/mm3 0.0-0.5 BASOPHIL # (test code=BA#) 0.02 K/mm3 0.0-0.2 NUCLEATED RBC # (test code=NRBC#) 0.00 K/mm3 0.0-0.1 MANUAL DIFF REQUIRED (test code=MDIFF) YES STAIN ACCEPTABILITY (test code=STN ACCEPTABLE) TOTAL CELLS COUNTED (test code=TCC) #CELLS SEGMENTED NEUTROPHILS (test code=SEG) % 39-69 LYMPHOCYTE (test code=LYMPH) % 25-55 MONOCYTE (test code=MON) % 0-10 EOSINOPHIL (test code=EOS) % 0.0-5.0 CABOT RINGS (test code=CAB) MORPHOLOGY COMMENT (test code=MOC) PLATELET ESTIMATE (test code=PLTEST) PLATELET MORPHOLOGY (test code=PLTMORPH) CBC W/MANUAL [id number] 08:52:00* Test Item Value Reference Range Comments WHITE BLOOD CELL (test code=WBC) 7.2 K/mm3 4.5-12.5 RED BLOOD CELL (test code=RBC) 2.83 mill/mm3 3.7-5.2 HEMOGLOBIN (test code=HGB) 9.1 gram/dL 11.5-15.5 HEMATOCRIT (test code=HCT) 28.6 % 36.0-46.0 MEAN CELL VOLUME (test code=MCV) 101.1 fL 80-98 MEAN CELL HGB (test code=MCH) 32.2 picogram 27.0-33.0 MEAN CELL HGB CONCETRATION (test code=MCHC) 31.8 gram/dL 33.0-36.0 RED CELL DISTRIBUTION WIDTH (test code=RDW) 14.8 % 11.6-16.2 RED CELL DISTRIBUTION WIDTH SD (test code=RDW-SD) 55.0 fL 37.0-51.0 PLATELET COUNT (test code=PLT) 134 K/mm3 150-450 MEAN PLATELET VOLUME (test code=MPV) 11.1 fL 6.7-11.0 IMMATURE GRANULOCYTE % (test code=IG%) 0.6 % 0.0-5.0 NUCLEATED RBC % (test code=NRBC%) 0.0 % 0-0 NEUTROPHIL # (test code=NT#) 6.09 K/mm3 1.8-7.7 IMMATURE GRANULOCYTE # (test code=IG#) 0.04 x10 3/uL 0-0.03 LYMPHOCYTE # (test code=LY#) 0.70 K/mm3 1.0-5.0 MONOCYTE # (test code=MO#) 0.34 K/mm3 0-0.8 EOSINOPHIL # (test code=EO#) 0.03 K/mm3 0.0-0.5 BASOPHIL # (test code=BA#) 0.02 K/mm3 0.0-0.2 NUCLEATED RBC # (test code=NRBC#) 0.00 K/mm3 0.0-0.1 MANUAL DIFF REQUIRED (test code=MDIFF) YES STAIN ACCEPTABILITY (test code=STN ACCEPTABLE) STAIN ACCEPTABLE TOTAL CELLS COUNTED (test code=TCC) 114 #CELLS SEGMENTED NEUTROPHILS (test code=SEG) 84.2 % 39-69 BAND NEUTROPHIL (test code=BAND) 3.5 % 0-10 LYMPHOCYTE (test code=LYMPH) 8.8 % 25-55 REACTIVE LYMPH (test code=RELYMPH) 0 % MONOCYTE (test code=MON) 1.7 % 0-10 EOSINOPHIL (test code=EOS) 0.9 % 0.0-5.0 BASOPHIL (test code=BASO) 0.9 % 0-1.0 METAMYELOCYTE (test code=META) 0 % 0-0 MYELOCYTE (test code=MYELO) 0 % 0.0-0.0 PROMYELOCYTE (test code=PROM) 0 % 0-0 POIKILOCYTOSIS (test code=POIK) 2+ ANISOCYTOSIS (test code=ANISO) 2+ MACROCYTOSIS (test code=MACR) 1+ CRENATED CELLS (test code=CREN) 1+ SAMMY CELLS (test code=SAMMY) 2+ NONE PLATELET ESTIMATE (test code=PLTEST) ADEQUATE PLATELET MORPHOLOGY (test code=PLTMORPH) NORMAL IMMATURE FORMS (test code=IMMAT) 0 % 0-0 COMPREHENSIVE METABOLIC [id number] 07:40:00* Test Item Value Reference Range Comments SODIUM (test code=NA) 143 mmol/L 136-145 POTASSIUM (test code=K) 2.7 mmol/L 3.5-5.1 Results called to [id number] by QING 11/09/18 0740Critical results verified and read back by Nurse? Y CHLORIDE (test code=CL) 112.0 mmol/L 98-107 CARBON DIOXIDE (test code=CO2) 23.0 mmol/L 21-32 ANION GAP (test code=GAP) 10.7 10-20 GLUCOSE (test code=GLU) 114 mg/dL 74-106 BLOOD UREA NITROGEN (test code=BUN) 17 mg/dL 7-18 GLOMERULAR FILTRATION RATE (test code=GFR) 53 mL/min >=60 Estimated GFR by using Modified MDRD formula.Chronic kidney disease is defined as either kidney damageor GFR <60 mL/min/1.73 m2 for >3 months. CREATININE (test code=CREAT) 1.00 mg/dL 0.55-1.02 Note change in reference range due to change in reagent. BUN/CREATININE RATIO (test code=BUN/CREA) 17.3 10-20 TOTAL PROTEIN (test code=PROT) 5.2 gram/dL 6.4-8.2 ALBUMIN (test code=ALB) 1.7 g/dL 3.4-5.0 GLOBULIN (test code=GLOB) 3.5 gram/dL 2.7-4.2 ALBUMIN/GLOBULIN RATIO (test code=A/G) 0.5 0.75-1.50 CALCIUM (test code=CA) 7.5 mg/dL 8.5-10.1 BILIRUBIN TOTAL (test code=BILT) 0.50 mg/dL 0.0-1.0 SGOT/AST (test code=AST) 66 IUnit/L 15-37 SGPT/ALT (test code=ALT) 24 IUnit/L 12-78 ALKALINE PHOSPHATASE TOTAL (test code=ALKP) 68 IUnit/L 45-117 Note change in reference range due to change in reagent. [id number] 07:40:00* Test Item Value Reference Range Comments PHOSPHORUS (test code=PHOS) 2.7 mg/dL 2.5-4.9 [id number] 07:40:00* Test Item Value Reference Range Comments MAGNESIUM (test code=MAG) 2.2 mg/dL 1.8-2.4 CBC W/MANUAL [id number] 07:28:00* Test Item Value Reference Range Comments WHITE BLOOD CELL (test code=WBC) 7.2 K/mm3 4.5-12.5 RED BLOOD CELL (test code=RBC) 2.83 mill/mm3 3.7-5.2 HEMOGLOBIN (test code=HGB) 9.1 gram/dL 11.5-15.5 HEMATOCRIT (test code=HCT) 28.6 % 36.0-46.0 MEAN CELL VOLUME (test code=MCV) 101.1 fL 80-98 MEAN CELL HGB (test code=MCH) 32.2 picogram 27.0-33.0 MEAN CELL HGB CONCETRATION (test code=MCHC) 31.8 gram/dL 33.0-36.0 RED CELL DISTRIBUTION WIDTH (test code=RDW) 14.8 % 11.6-16.2 RED CELL DISTRIBUTION WIDTH SD (test code=RDW-SD) 55.0 fL 37.0-51.0 PLATELET COUNT (test code=PLT) 134 K/mm3 150-450 MEAN PLATELET VOLUME (test code=MPV) 11.1 fL 6.7-11.0 IMMATURE GRANULOCYTE % (test code=IG%) 0.6 % 0.0-5.0 NUCLEATED RBC % (test code=NRBC%) 0.0 % 0-0 NEUTROPHIL # (test code=NT#) 6.09 K/mm3 1.8-7.7 IMMATURE GRANULOCYTE # (test code=IG#) 0.04 x10 3/uL 0-0.03 LYMPHOCYTE # (test code=LY#) 0.70 K/mm3 1.0-5.0 MONOCYTE # (test code=MO#) 0.34 K/mm3 0-0.8 EOSINOPHIL # (test code=EO#) 0.03 K/mm3 0.0-0.5 BASOPHIL # (test code=BA#) 0.02 K/mm3 0.0-0.2 NUCLEATED RBC # (test code=NRBC#) 0.00 K/mm3 0.0-0.1 MANUAL DIFF REQUIRED (test code=MDIFF) YES STAIN ACCEPTABILITY (test code=STN ACCEPTABLE) TOTAL CELLS COUNTED (test code=TCC) #CELLS SEGMENTED NEUTROPHILS (test code=SEG) % 39-69 LYMPHOCYTE (test code=LYMPH) % 25-55 MONOCYTE (test code=MON) % 0-10 EOSINOPHIL (test code=EOS) % 0.0-5.0 CABOT RINGS (test code=CAB) MORPHOLOGY COMMENT (test code=MOC) PLATELET ESTIMATE (test code=PLTEST) PLATELET MORPHOLOGY (test code=PLTMORPH) CBC W/MANUAL [id number] 07:28:00* Test Item Value Reference Range Comments WHITE BLOOD CELL (test code=WBC) 7.2 K/mm3 4.5-12.5 RED BLOOD CELL (test code=RBC) 2.83 mill/mm3 3.7-5.2 HEMOGLOBIN (test code=HGB) 9.1 gram/dL 11.5-15.5 HEMATOCRIT (test code=HCT) 28.6 % 36.0-46.0 MEAN CELL VOLUME (test code=MCV) 101.1 fL 80-98 MEAN CELL HGB (test code=MCH) 32.2 picogram 27.0-33.0 MEAN CELL HGB CONCETRATION (test code=MCHC) 31.8 gram/dL 33.0-36.0 RED CELL DISTRIBUTION WIDTH (test code=RDW) 14.8 % 11.6-16.2 RED CELL DISTRIBUTION WIDTH SD (test code=RDW-SD) 55.0 fL 37.0-51.0 PLATELET COUNT (test code=PLT) 134 K/mm3 150-450 MEAN PLATELET VOLUME (test code=MPV) 11.1 fL 6.7-11.0 IMMATURE GRANULOCYTE % (test code=IG%) 0.6 % 0.0-5.0 NUCLEATED RBC % (test code=NRBC%) 0.0 % 0-0 NEUTROPHIL # (test code=NT#) 6.09 K/mm3 1.8-7.7 IMMATURE GRANULOCYTE # (test code=IG#) 0.04 x10 3/uL 0-0.03 LYMPHOCYTE # (test code=LY#) 0.70 K/mm3 1.0-5.0 MONOCYTE # (test code=MO#) 0.34 K/mm3 0-0.8 EOSINOPHIL # (test code=EO#) 0.03 K/mm3 0.0-0.5 BASOPHIL # (test code=BA#) 0.02 K/mm3 0.0-0.2 NUCLEATED RBC # (test code=NRBC#) 0.00 K/mm3 0.0-0.1 MANUAL DIFF REQUIRED (test code=MDIFF) YES STAIN ACCEPTABILITY (test code=STN ACCEPTABLE) TOTAL CELLS COUNTED (test code=TCC) #CELLS SEGMENTED NEUTROPHILS (test code=SEG) % 39-69 LYMPHOCYTE (test code=LYMPH) % 25-55 MONOCYTE (test code=MON) % 0-10 EOSINOPHIL (test code=EOS) % 0.0-5.0 CABOT RINGS (test code=CAB) MORPHOLOGY COMMENT (test code=MOC) PLATELET ESTIMATE (test code=PLTEST) PLATELET MORPHOLOGY (test code=PLTMORPH) CBC W/MANUAL [id number] 07:28:00* Test Item Value Reference Range Comments WHITE BLOOD CELL (test code=WBC) 7.2 K/mm3 4.5-12.5 RED BLOOD CELL (test code=RBC) 2.83 mill/mm3 3.7-5.2 HEMOGLOBIN (test code=HGB) 9.1 gram/dL 11.5-15.5 HEMATOCRIT (test code=HCT) 28.6 % 36.0-46.0 MEAN CELL VOLUME (test code=MCV) 101.1 fL 80-98 MEAN CELL HGB (test code=MCH) 32.2 picogram 27.0-33.0 MEAN CELL HGB CONCETRATION (test code=MCHC) 31.8 gram/dL 33.0-36.0 RED CELL DISTRIBUTION WIDTH (test code=RDW) 14.8 % 11.6-16.2 RED CELL DISTRIBUTION WIDTH SD (test code=RDW-SD) 55.0 fL 37.0-51.0 PLATELET COUNT (test code=PLT) 134 K/mm3 150-450 MEAN PLATELET VOLUME (test code=MPV) 11.1 fL 6.7-11.0 IMMATURE GRANULOCYTE % (test code=IG%) 0.6 % 0.0-5.0 NUCLEATED RBC % (test code=NRBC%) 0.0 % 0-0 NEUTROPHIL # (test code=NT#) 6.09 K/mm3 1.8-7.7 IMMATURE GRANULOCYTE # (test code=IG#) 0.04 x10 3/uL 0-0.03 LYMPHOCYTE # (test code=LY#) 0.70 K/mm3 1.0-5.0 MONOCYTE # (test code=MO#) 0.34 K/mm3 0-0.8 EOSINOPHIL # (test code=EO#) 0.03 K/mm3 0.0-0.5 BASOPHIL # (test code=BA#) 0.02 K/mm3 0.0-0.2 NUCLEATED RBC # (test code=NRBC#) 0.00 K/mm3 0.0-0.1 MANUAL DIFF REQUIRED (test code=MDIFF) YES STAIN ACCEPTABILITY (test code=STN ACCEPTABLE) TOTAL CELLS COUNTED (test code=TCC) #CELLS SEGMENTED NEUTROPHILS (test code=SEG) % 39-69 LYMPHOCYTE (test code=LYMPH) % 25-55 MONOCYTE (test code=MON) % 0-10 EOSINOPHIL (test code=EOS) % 0.0-5.0 MORPHOLOGY COMMENT (test code=MOC) PLATELET ESTIMATE (test code=PLTEST) PLATELET MORPHOLOGY (test code=PLTMORPH) CBC W/MANUAL [id number] 07:28:00* Test Item Value Reference Range Comments WHITE BLOOD CELL (test code=WBC) 7.2 K/mm3 4.5-12.5 RED BLOOD CELL (test code=RBC) 2.83 mill/mm3 3.7-5.2 HEMOGLOBIN (test code=HGB) 9.1 gram/dL 11.5-15.5 HEMATOCRIT (test code=HCT) 28.6 % 36.0-46.0 MEAN CELL VOLUME (test code=MCV) 101.1 fL 80-98 MEAN CELL HGB (test code=MCH) 32.2 picogram 27.0-33.0 MEAN CELL HGB CONCETRATION (test code=MCHC) 31.8 gram/dL 33.0-36.0 RED CELL DISTRIBUTION WIDTH (test code=RDW) 14.8 % 11.6-16.2 RED CELL DISTRIBUTION WIDTH SD (test code=RDW-SD) 55.0 fL 37.0-51.0 PLATELET COUNT (test code=PLT) 134 K/mm3 150-450 MEAN PLATELET VOLUME (test code=MPV) 11.1 fL 6.7-11.0 IMMATURE GRANULOCYTE % (test code=IG%) 0.6 % 0.0-5.0 NUCLEATED RBC % (test code=NRBC%) 0.0 % 0-0 NEUTROPHIL # (test code=NT#) 6.09 K/mm3 1.8-7.7 IMMATURE GRANULOCYTE # (test code=IG#) 0.04 x10 3/uL 0-0.03 LYMPHOCYTE # (test code=LY#) 0.70 K/mm3 1.0-5.0 MONOCYTE # (test code=MO#) 0.34 K/mm3 0-0.8 EOSINOPHIL # (test code=EO#) 0.03 K/mm3 0.0-0.5 BASOPHIL # (test code=BA#) 0.02 K/mm3 0.0-0.2 NUCLEATED RBC # (test code=NRBC#) 0.00 K/mm3 0.0-0.1 MANUAL DIFF REQUIRED (test code=MDIFF) YES STAIN ACCEPTABILITY (test code=STN ACCEPTABLE) TOTAL CELLS COUNTED (test code=TCC) #CELLS SEGMENTED NEUTROPHILS (test code=SEG) % 39-69 LYMPHOCYTE (test code=LYMPH) % 25-55 MONOCYTE (test code=MON) % 0-10 MORPHOLOGY COMMENT (test code=MOC) PLATELET ESTIMATE (test code=PLTEST) PLATELET MORPHOLOGY (test code=PLTMORPH) CBC W/MANUAL [id number] 07:28:00* Test Item Value Reference Range Comments WHITE BLOOD CELL (test code=WBC) 7.2 K/mm3 4.5-12.5 RED BLOOD CELL (test code=RBC) 2.83 mill/mm3 3.7-5.2 HEMOGLOBIN (test code=HGB) 9.1 gram/dL 11.5-15.5 HEMATOCRIT (test code=HCT) 28.6 % 36.0-46.0 MEAN CELL VOLUME (test code=MCV) 101.1 fL 80-98 MEAN CELL HGB (test code=MCH) 32.2 picogram 27.0-33.0 MEAN CELL HGB CONCETRATION (test code=MCHC) 31.8 gram/dL 33.0-36.0 RED CELL DISTRIBUTION WIDTH (test code=RDW) 14.8 % 11.6-16.2 RED CELL DISTRIBUTION WIDTH SD (test code=RDW-SD) 55.0 fL 37.0-51.0 PLATELET COUNT (test code=PLT) 134 K/mm3 150-450 MEAN PLATELET VOLUME (test code=MPV) 11.1 fL 6.7-11.0 IMMATURE GRANULOCYTE % (test code=IG%) 0.6 % 0.0-5.0 NUCLEATED RBC % (test code=NRBC%) 0.0 % 0-0 NEUTROPHIL # (test code=NT#) 6.09 K/mm3 1.8-7.7 IMMATURE GRANULOCYTE # (test code=IG#) 0.04 x10 3/uL 0-0.03 LYMPHOCYTE # (test code=LY#) 0.70 K/mm3 1.0-5.0 MONOCYTE # (test code=MO#) 0.34 K/mm3 0-0.8 EOSINOPHIL # (test code=EO#) 0.03 K/mm3 0.0-0.5 BASOPHIL # (test code=BA#) 0.02 K/mm3 0.0-0.2 NUCLEATED RBC # (test code=NRBC#) 0.00 K/mm3 0.0-0.1 MANUAL DIFF REQUIRED (test code=MDIFF) YES STAIN ACCEPTABILITY (test code=STN ACCEPTABLE) TOTAL CELLS COUNTED (test code=TCC) #CELLS SEGMENTED NEUTROPHILS (test code=SEG) % 39-69 LYMPHOCYTE (test code=LYMPH) % 25-55 MONOCYTE (test code=MON) % 0-10 EOSINOPHIL (test code=EOS) % 0.0-5.0 CABOT RINGS (test code=CAB) MORPHOLOGY COMMENT (test code=MOC) PLATELET ESTIMATE (test code=PLTEST) PLATELET MORPHOLOGY (test code=PLTMORPH) BODY FLUID CELL [id number] 13:52:00* Test Item Value Reference Range Comments FLUID SOURCE (test code=SOURCEFL) BILE FLUID COLOR (test code=COLFL) BROWN COLORLESS FLUID APPEARANCE (test code=APPFL) HAZY FLUID UNCORR WBC (test code=UNCWBCFL) 0 per mm3 FLUID WBC (test code=WBCFL) 4 per mm3 0-150 QC performed - Cell count on both sides of chamber agreeswithin 20% ? Y FLUID RBC (test code=RBCFL) 7 per mm3 0-50 FLUID POLY (test code=POLYFL) 0.0 % FLUID LYMPHOCYTE (test code=LYMPHFL) 100.0 % TOTAL CELLS COUNTED ON DIFF (test code=TOTCELLFL) 7 cells REVIEWED BY (test code=REVIEW) PATHOLOGIST Reviewed by Pathologist, Dr PARRY. BACTERIA PRESENT (? CONTAMINATION) SPECIMEN COMMENTS: BILE- CT ABD PELVIS W/O [id number] 12:05:00 Name: NICOLE TAN [facility] : 1935 Age/S: 83 / F [address] [facility] Unit #: [id number] Loc: [place] [address] Phys: Shahid Gonzalez Acct: [id number] Di s Date: Status: ADM IN PHONE #: Exam Date: 11/08/2018 1149 FAX #: [phone] Reason: abdominal pain, abd distention, dilation colon/ EXAMS: CPT CODE: [id number] CT ABD PELVIS W/O CONT [id number] HISTORY: Abdominal pain a nd distention with dilatation of the colon and rectum. FREDERICK RISON: CT scan from November 06, 2018. CT of abdomen and pelvis: Stone protocol. Automated exposure control. CT of abdomen: The lung bases demonstrating small bilateral pleural effusions with biba shawna segmental atelectasis, greater on the right. The hepatic paren chyma is extensively obscured by artifact from patient's arm resulting in extensive beam hardening artifact. No gross parenchymal mass on this nonco ntrast exam. The liver measured 15 cm in length. Pigtail catheter within t he gallbladder which is decompressed when compared to the previous examina tion. Unremarkable spleen. The stomach distended incompletely yeboah kristy it is normal in appearance. The noncontrast pancreas and adrenals are normal with hyperplasia on the left. Kidneys a re free from hydroureteronephrosis. Enhancement is noted from prior contra st administration suggesting medical renal disease with renal insufficienc y. Correlate with renal function tests. No pathologic adenopathy. Heavy atherosclerotic change of the abdominal and pelvic vasculature. No bowel obstruction or colitis or diverticulitis or enteritis. Constipation. CT PELVIS: Appendix is now seen but no inflammation. Pelvic bowel loops are unobstructed. Mild fecal impaction in the rectosigmoid colon with mild wall thickening suggestive of chronic s tercoral colitis. Decompressed urinary bladder with Lopez catheter and contrast material. Patient is post hysterectomy. Small free fluid. No free air is noted. Phleboliths. No pelvic pathologic adenopathy. Mild subcutaneous edema of the subcutaneous tissues. Battery pack in P AGE 1 Signed Report (CONTINUED) Name : NIOCLE TAN [facility] : [birth year] Age/S: 83 / F [address] [facility] Unit #: [id number] Loc: [place] [address] Phys: Camron Gonzalez Acct: [id number] Dis Date: Status: ADM IN PHONE #: [phone] Exam Date: 11/08/2018 1149 FAX #: [phone] Reason: abdominal pain, abd distention, dilation colon/ EXAMS: CPT CODE: [id number] CT ABD PELVIS W/O CONT 68332 <Continued> the anterior left abdominal wall without drainable fluid collection. No lytic or blastic lesions are noted within the bony skeleton DJD and osteoporosis. IMPRESSION: No bowel obstruction. No bowel distention. Stercoral colitis with wall thickening of chronic fecal impaction. Appendix is not seen but no inflammation. Small bowel loops are unremarkable Decompressed gallbladder with pigtail catheter. No drainable fluid collection. Small free fluid. No free air. at 1207 Reported and signed by: Neil Casiano M.D. CC: Juan Anguiano; Camron Gonzalez; Jerman Haas MD Technologist:Jovanna Xiong,RT(R),CT CTDI: DLP: Trnscb Date/Time: 11/08/2018 (5248) [email or web address] Orig Print D/T: S: 11/08/2018 (1575) PAGE 2 Signed Report - XR ABDOMEN AP 1 [id number] 10:25:00 FAX: Juan Beavers MD [phone] [place]: St: ADM FAX: Daniele New MD [phone] FAX: Jerman Rodriguez I [phone] Name: NICOLE TAN [facility] : 1935 Age/S: 83/F [address] [facility] Unit #: [id number] Loc: V.S17 [place] [address] Phys: Daniele Purdy MD Acct: [id number] Dis Date: Status: ADM IN [facility] #: [phone] Exam Date: 11/08/2018 1010 FAX #: [phone] Reason: lower abdominal pain EXAMS: CPT CODE: [id number] XR ABDOMEN AP 1 V [id number] HISTORY: Septic shock. COMPARISON: CT abdomen and pelvis from November 06, 2018. Left battery pack within the lead extending to the upper abdominal location which is not included. Mild distention of the large b owel. No small bowel distention. No bowel obstruction. No pathologic calci fications. IMPRESSION: No bowel obstruction. M ild constipation. Electronically Signed by Radha Casiano on 10/25 at 1025 Reported and signed by: Jose Elias Sosa CC: Juan Anguiano; Daniele Purdy MD; Jerman Lam MD Technologist: RT HELEN(R) Trnsc rd Date/Time/By: 11/08/2018 (1025) : By: [email or web address] Orig Print D/T: S: 11/08/2018 (1027) PAGE 1 Signed R eport - USG NDL PLACEMENT (Bxg/Asp)2018-11-08 08:58:00 Name: NICOLE TAN [facility] : 1935 Age/S: 83 / F [address] [facility] Unit #: [id number] Loc: [place] [address] Phys: Bert Patel MD Acct: [id number] Dis Date: Status: ADM IN PHONE #: [phone] Exam Date: 11/07/2018 0100 FAX #: [phone] Reason: CHOLECYSTOMY TUBE PLACEMENT EXAMS: CPT CODE: [id number] USG NDL PLACEMENT (Bxg/Asp) [id number] REASON FOR EXAM: Sepsis, acute cholecystitis EXAM ORDER DATE: 11/07/2018 12:06 AM Attending Radha: Linden Linton MD Anesthesia: General Anesthesiologist: Dr. Godoy PROCEDURE: Percutaneous placement of cholecystostomy tube FINDINGS: The patient was brought to special procedures and placed supine on the table. Informed consent was obtained from patient's son prior to the procedure. The abdomen was prepped and draped in the usual sterile fashion. Ultrasound demonstrates a moderately distended gallbladder with thickened wall. Under direct ultrasound guidance, an 18-gauge Chiba needle was advanced directly into the dilated gallbladder. Cloudy infected appearing fluid was obtained. Samples were submitted to the lab for analysis. A guidewire was inserted and the tract was dilated to accept a 10 [place] drainage tube. The tube was sutured to the subcutaneous tissue and connected to a drainage bag. The patient was transported to ICU in stable condition. MEDICATIONS: None Complications: No immediate Blood loss: Less than 5 cc IMPRESSION: Successful placement of a 10 [place]une[place] drainage tube for treatment of acute cholecystitis at 0858 Reported and signed by: Linden Linton M.D. CC: Juan Anguiano; Bert Patel MD Technologist: Susanna Myrick RT(S), RDUT Trnprb Date/Time: 11/08/2018 (08) Rukhsana Orig Print D/T: S: 11/08/2018 (901) Probe: PAGE 1 Signed Report - [facility] BILIARY [id number] 08:58:00 Name: NICOLE TAN [facility] : 1935 Age/S: 83 / F [address] [facility] Unit #: [id number] Loc: [place] [address] Phys: Bert Patel MD Acct: [id number] Dis Date: Status: ADM IN PHONE #: [phone] Exam Date: 11/07/2018 0107 FAX #: [phone] Reason: CHOLY TUBE PLACEMENT EXAMS: CPT CODE: [id number] [facility] BILIARY CATH 26091 Fluoro Time: 43 DAP (Gy m2): 2.77 Air Kerma (mGy): 6 REASON FOR EXAM: Sepsis, acute cholecystitis EXAM ORDER DATE: 11/07/2018 12:06 AM Attending Radha: Linden Linton MD Anesthesia: General Anesthesiologist: Dr. Godoy PROCEDURE: Percutaneous placement of cholecystostomy tube FINDINGS: The patient was brought to special procedures and placed supine on the table. Informed consent was obtained from patient's son prior to the procedure. The abdomen was prepped and draped in the usual sterile fashion. Ultrasound demonstrates a moderately distended gallbladder with thickened wall. Under direct ultrasound guidance, an 18-gauge Chiba needle was advanced directly into the dilated gallbladder. Cloudy infected appearing fluid was obtained. Samples were submitted to the lab for analysis. A guidewire was inserted and the tract was dilated to accept a 10 [place]une[place] drainage tube. The tube was sutured to the subcutaneous tissue and connected to a drainage bag. The patient was transported to ICU in stable condition. MEDICATIONS: None Complications: No imme diate Blood loss: Less than 5 cc IMPRESSION: Succe ssful placement of a 10 Brune[place] drainage tube for treatment of acute chol ecystitis at 085 8 Reported and signed by: Linden Linton M.D. CC: Juan Ellis; Bert Patel MD Technologist: Jackson Marcial RT(R) Trnscb Date/Time: 11/08/2018 (0858) t. [email or web address].VTL Orig Print D/T: S: 11/08/2018 (09) PAGE 1 Signed Report - INJ CHOLANG EXST ACCES [id number] 08:58:00 Name: NICOLE TAN [facility] : 1935 Age/S: 83 / F [address] [facility] Unit #: [id number] Loc: [place] [address] Phys: Bert Patel MD Acct: [id number] Dis Date: Status: ADM IN PHONE #: [phone] Exam Date: 11/07/2018 0107 FAX #: [phone] Reason: CHOLY TUBE PLACEMENT EXAMS: CPT CODE: [id number] [place] [address] Fluoro Time: 43 DAP (Gy m2): 2.77 Air Kerma (mGy): 6 REASON FOR EXAM: Sepsis, acute cholecystitis EXAM ORDER DATE: 11/07/2018 12:06 AM Attending Radha: Linden Linton MD Anesthesia: General Anesthesiologist: Dr. Godoy PROCEDURE: Percutaneous placement of cholecystostomy tube FINDINGS: The patient was brought to special procedures and placed supine on the table. Informed consent was obtained from patient's son prior to the procedure. The abdomen was prepped and draped in the usual sterile fashion. Ultrasound demonstrates a moderately distended gallbladder with thickened wall. Under direct ultrasound guidance, an 18-gauge Chiba needle was advanced directly into the dilated gallbladder. Cloudy infected appearing fluid was obtained. Samples were submitted to the lab for analysis. A guidewire was inserted and the tract was dilated to accept a 10 [place]une[place] drainage tube. The tube was sutured to the subcutaneous tissue and connected to a drainage bag. The patient was transported to ICU in stable condition. MEDICATIONS: None Complications: No imme diate Blood loss: Less than 5 cc IMPRESSION: Succe ssful placement of a 10 Brune[place] drainage tube for treatment of acute chol ecystitis at 085 8 Reported and signed by: Linden Linton M.D. CC: Juan Ellis; Bert Patel MD Technologist: Jackson Marcial RT(R) Trnscb Date/Time: 11/08/2018 (0858) tJosh [email or web address] Orig Print D/T: S: 11/08/2018 (0902) PAGE 1 Signed Report - US ABDOMEN [id number] 08:58:00 Name: NICOLE TAN [facility] : 1935 Age/S: 83 / F [address] [facility] Unit #: [id number] Loc: [place] [address] Phys: Linden Linton MD Acct: [id number] Dis Date: Status: ADM IN PHONE #: [phone] Exam Date: 11/07/2018 0100 FAX #: [phone] Reason: CHOLECYSTOMY TUBE PLACEMENT. EXAMS: CPT CODE: [id number] ABDOMEN LTD 18[address] REASON FOR EXAM: Sepsis, acute cholecystitis EXAM ORDER DATE: 11/07/2018 12:06 AM Attending Radha: Linden Linton MD Anesthesia: General Anesthesiologist: Dr. Godoy PROCEDURE: Percutaneous placement of cholecystostomy tube FINDINGS: The patient was brought to special procedures and placed supine on the table. Informed consent was obtained from patient's son prior to the procedure. The abdomen was prepped and draped in the usual sterile fashion. Ultrasound demonstrates a moderately distended gallbladder with thickened wall. Under direct ultrasound guidance, an 18-gauge Chiba needle was advanced directly into the dilated gallbladder. Cloudy infected appearing fluid was obtained. Samples were submitted to the lab for analysis. A guidewire was inserted and the tract was dilated to accept a 10 [place]une[place] drainage tube. The tube was sutured to the subcutaneous tissue and connected to a drainage bag. The patient was transported to ICU in stable condition. MEDICATIONS: None Complications: No immediate Blood loss: Less than 5 cc IMPRESSION: Successful placement of a 10 [place]une[place] drainage tube for treatment of acute cholecystitis at 0858 Reported and signed by: Linden Linton M.D. CC: Juan Anguiano; Bert Patel MD Technologist: Susanna Myrick RT(S), KYLER Trnscb Date/Time: 11/08/2018 (0858) [email or web address] Orig Print D/T: S: 11/08/2018 (901) Probe: PAGE 1 Signed Report CBC W/MANUAL [id number] 06:16:00* Test Item Value Reference Range Comments WHITE BLOOD CELL (test code=WBC) 12.3 K/mm3 4.5-12.5 RED BLOOD CELL (test code=RBC) 3.22 mill/mm3 3.7-5.2 HEMOGLOBIN (test code=HGB) 10.5 gram/dL 11.5-15.5 HEMATOCRIT (test code=HCT) 33.2 % 36.0-46.0 MEAN CELL VOLUME (test code=MCV) 103.1 fL 80-98 MEAN CELL HGB (test code=MCH) 32.6 picogram 27.0-33.0 MEAN CELL HGB CONCETRATION (test code=MCHC) 31.6 gram/dL 33.0-36.0 RED CELL DISTRIBUTION WIDTH (test code=RDW) 14.7 % 11.6-16.2 RED CELL DISTRIBUTION WIDTH SD (test code=RDW-SD) 55.6 fL 37.0-51.0 PLATELET COUNT (test code=PLT) 186 K/mm3 150-450 MEAN PLATELET VOLUME (test code=MPV) 10.6 fL 6.7-11.0 IMMATURE GRANULOCYTE % (test code=IG%) 1.1 % 0.0-5.0 NUCLEATED RBC % (test code=NRBC%) 0.0 % 0-0 NEUTROPHIL # (test code=NT#) 10.27 K/mm3 1.8-7.7 IMMATURE GRANULOCYTE # (test code=IG#) 0.13 x10 3/uL 0-0.03 LYMPHOCYTE # (test code=LY#) 1.17 K/mm3 1.0-5.0 MONOCYTE # (test code=MO#) 0.65 K/mm3 0-0.8 EOSINOPHIL # (test code=EO#) 0.01 K/mm3 0.0-0.5 BASOPHIL # (test code=BA#) 0.05 K/mm3 0.0-0.2 NUCLEATED RBC # (test code=NRBC#) 0.00 K/mm3 0.0-0.1 MANUAL DIFF REQUIRED (test code=MDIFF) YES STAIN ACCEPTABILITY (test code=STN ACCEPTABLE) STAIN ACCEPTABLE TOTAL CELLS COUNTED (test code=TCC) 115 #CELLS SEGMENTED NEUTROPHILS (test code=SEG) 78.3 % 39-69 BAND NEUTROPHIL (test code=BAND) 7.8 % 0-10 LYMPHOCYTE (test code=LYMPH) 10.4 % 25-55 REACTIVE LYMPH (test code=RELYMPH) 0 % MONOCYTE (test code=MON) 3.5 % 0-10 EOSINOPHIL (test code=EOS) 0 % 0.0-5.0 BASOPHIL (test code=BASO) 0 % 0-1.0 METAMYELOCYTE (test code=META) 0 % 0-0 MYELOCYTE (test code=MYELO) 0 % 0.0-0.0 PROMYELOCYTE (test code=PROM) 0 % 0-0 POIKILOCYTOSIS (test code=POIK) 1+ SAMMY CELLS (test code=SAMMY) 1+ NONE PLATELET ESTIMATE (test code=PLTEST) ADEQUATE PLATELET MORPHOLOGY (test code=PLTMORPH) NORMAL IMMATURE FORMS (test code=IMMAT) 0 % 0-0 COMPREHENSIVE METABOLIC [id number] 05:41:00* Test Item Value Reference Range Comments SODIUM (test code=NA) 143 mmol/L 136-145 POTASSIUM (test code=K) 3.0 mmol/L 3.5-5.1 CHLORIDE (test code=CL) 112.0 mmol/L 98-107 CARBON DIOXIDE (test code=CO2) 20.0 mmol/L 21-32 ANION GAP (test code=GAP) 14.0 10-20 GLUCOSE (test code=GLU) 141 mg/dL 74-106 BLOOD UREA NITROGEN (test code=BUN) 18 mg/dL 7-18 GLOMERULAR FILTRATION RATE (test code=GFR) 53 mL/min >=60 Estimated GFR by using Modified MDRD formula.Chronic kidney disease is defined as either kidney damageor GFR <60 mL/min/1.73 m2 for >3 months. CREATININE (test code=CREAT) 1.00 mg/dL 0.55-1.02 Note change in reference range due to change in reagent. BUN/CREATININE RATIO (test code=BUN/CREA) 18.0 10-20 TOTAL PROTEIN (test code=PROT) 5.6 gram/dL 6.4-8.2 ALBUMIN (test code=ALB) 2.0 g/dL 3.4-5.0 GLOBULIN (test code=GLOB) 3.6 gram/dL 2.7-4.2 ALBUMIN/GLOBULIN RATIO (test code=A/G) 0.6 0.75-1.50 CALCIUM (test code=CA) 7.4 mg/dL 8.5-10.1 BILIRUBIN TOTAL (test code=BILT) 0.50 mg/dL 0.0-1.0 SGOT/AST (test code=AST) 29 IUnit/L 15-37 SGPT/ALT (test code=ALT) 14 IUnit/L 12-78 ALKALINE PHOSPHATASE TOTAL (test code=ALKP) 62 IUnit/L 45-117 Note change in reference range due to change in reagent. [id number] 05:41:00* Test Item Value Reference Range Comments PHOSPHORUS (test code=PHOS) 3.7 mg/dL 2.5-4.9 [id number] 05:41:00* Test Item Value Reference Range Comments MAGNESIUM (test code=MAG) 1.6 mg/dL 1.8-2.4 COMPREHENSIVE METABOLIC [id number] 05:25:00* Test Item Value Reference Range Comments SODIUM (test code=NA) 143 mmol/L 136-145 POTASSIUM (test code=K) 3.0 mmol/L 3.5-5.1 CHLORIDE (test code=CL) 112.0 mmol/L 98-107 CARBON DIOXIDE (test code=CO2) mmol/L 21-32 ANION GAP (test code=GAP) 10-20 GLUCOSE (test code=GLU) mg/dL 74-106 BLOOD UREA NITROGEN (test code=BUN) mg/dL 7-18 GLOMERULAR FILTRATION RATE (test code=GFR) mL/min >=60 CREATININE (test code=CREAT) mg/dL 0.55-1.02 BUN/CREATININE RATIO (test code=BUN/CREA) 10-20 TOTAL PROTEIN (test code=PROT) gram/dL 6.4-8.2 ALBUMIN (test code=ALB) g/dL 3.4-5.0 GLOBULIN (test code=GLOB) gram/dL 2.7-4.2 ALBUMIN/GLOBULIN RATIO (test code=A/G) 0.75-1.50 CALCIUM (test code=CA) mg/dL 8.5-10.1 BILIRUBIN TOTAL (test code=BILT) mg/dL 0.0-1.0 SGOT/AST (test code=AST) IUnit/L 15-37 SGPT/ALT (test code=ALT) IUnit/L 12-78 ALKALINE PHOSPHATASE TOTAL (test code=ALKP) IUnit/L 45-117 [id number] 05:25:00* Test Item Value Reference Range Comments PHOSPHORUS (test code=PHOS) mg/dL 2.5-4.9 [id number] 05:25:00* Test Item Value Reference Range Comments MAGNESIUM (test code=MAG) mg/dL 1.8-2.4 CBC W/MANUAL [id number] 05:04:00* Test Item Value Reference Range Comments WHITE BLOOD CELL (test code=WBC) 12.3 K/mm3 4.5-12.5 RED BLOOD CELL (test code=RBC) 3.22 mill/mm3 3.7-5.2 HEMOGLOBIN (test code=HGB) 10.5 gram/dL 11.5-15.5 HEMATOCRIT (test code=HCT) 33.2 % 36.0-46.0 MEAN CELL VOLUME (test code=MCV) 103.1 fL 80-98 MEAN CELL HGB (test code=MCH) 32.6 picogram 27.0-33.0 MEAN CELL HGB CONCETRATION (test code=MCHC) 31.6 gram/dL 33.0-36.0 RED CELL DISTRIBUTION WIDTH (test code=RDW) 14.7 % 11.6-16.2 RED CELL DISTRIBUTION WIDTH SD (test code=RDW-SD) 55.6 fL 37.0-51.0 PLATELET COUNT (test code=PLT) 186 K/mm3 150-450 MEAN PLATELET VOLUME (test code=MPV) 10.6 fL 6.7-11.0 IMMATURE GRANULOCYTE % (test code=IG%) 1.1 % 0.0-5.0 NUCLEATED RBC % (test code=NRBC%) 0.0 % 0-0 NEUTROPHIL # (test code=NT#) 10.27 K/mm3 1.8-7.7 IMMATURE GRANULOCYTE # (test code=IG#) 0.13 x10 3/uL 0-0.03 LYMPHOCYTE # (test code=LY#) 1.17 K/mm3 1.0-5.0 MONOCYTE # (test code=MO#) 0.65 K/mm3 0-0.8 EOSINOPHIL # (test code=EO#) 0.01 K/mm3 0.0-0.5 BASOPHIL # (test code=BA#) 0.05 K/mm3 0.0-0.2 NUCLEATED RBC # (test code=NRBC#) 0.00 K/mm3 0.0-0.1 MANUAL DIFF REQUIRED (test code=MDIFF) YES STAIN ACCEPTABILITY (test code=STN ACCEPTABLE) TOTAL CELLS COUNTED (test code=TCC) #CELLS SEGMENTED NEUTROPHILS (test code=SEG) % 39-69 LYMPHOCYTE (test code=LYMPH) % 25-55 MONOCYTE (test code=MON) % 0-10 EOSINOPHIL (test code=EOS) % 0.0-5.0 CABOT RINGS (test code=CAB) MORPHOLOGY COMMENT (test code=MOC) PLATELET ESTIMATE (test code=PLTEST) PLATELET MORPHOLOGY (test code=PLTMORPH) CBC W/MANUAL [id number] 05:04:00* Test Item Value Reference Range Comments WHITE BLOOD CELL (test code=WBC) 12.3 K/mm3 4.5-12.5 RED BLOOD CELL (test code=RBC) 3.22 mill/mm3 3.7-5.2 HEMOGLOBIN (test code=HGB) 10.5 gram/dL 11.5-15.5 HEMATOCRIT (test code=HCT) 33.2 % 36.0-46.0 MEAN CELL VOLUME (test code=MCV) 103.1 fL 80-98 MEAN CELL HGB (test code=MCH) 32.6 picogram 27.0-33.0 MEAN CELL HGB CONCETRATION (test code=MCHC) 31.6 gram/dL 33.0-36.0 RED CELL DISTRIBUTION WIDTH (test code=RDW) 14.7 % 11.6-16.2 RED CELL DISTRIBUTION WIDTH SD (test code=RDW-SD) 55.6 fL 37.0-51.0 PLATELET COUNT (test code=PLT) 186 K/mm3 150-450 MEAN PLATELET VOLUME (test code=MPV) 10.6 fL 6.7-11.0 IMMATURE GRANULOCYTE % (test code=IG%) 1.1 % 0.0-5.0 NUCLEATED RBC % (test code=NRBC%) 0.0 % 0-0 NEUTROPHIL # (test code=NT#) 10.27 K/mm3 1.8-7.7 IMMATURE GRANULOCYTE # (test code=IG#) 0.13 x10 3/uL 0-0.03 LYMPHOCYTE # (test code=LY#) 1.17 K/mm3 1.0-5.0 MONOCYTE # (test code=MO#) 0.65 K/mm3 0-0.8 EOSINOPHIL # (test code=EO#) 0.01 K/mm3 0.0-0.5 BASOPHIL # (test code=BA#) 0.05 K/mm3 0.0-0.2 NUCLEATED RBC # (test code=NRBC#) 0.00 K/mm3 0.0-0.1 MANUAL DIFF REQUIRED (test code=MDIFF) YES STAIN ACCEPTABILITY (test code=STN ACCEPTABLE) TOTAL CELLS COUNTED (test code=TCC) #CELLS SEGMENTED NEUTROPHILS (test code=SEG) % 39-69 LYMPHOCYTE (test code=LYMPH) % 25-55 MONOCYTE (test code=MON) % 0-10 EOSINOPHIL (test code=EOS) % 0.0-5.0 CABOT RINGS (test code=CAB) MORPHOLOGY COMMENT (test code=MOC) PLATELET ESTIMATE (test code=PLTEST) PLATELET MORPHOLOGY (test code=PLTMORPH) CBC W/MANUAL [id number] 05:04:00* Test Item Value Reference Range Comments WHITE BLOOD CELL (test code=WBC) 12.3 K/mm3 4.5-12.5 RED BLOOD CELL (test code=RBC) 3.22 mill/mm3 3.7-5.2 HEMOGLOBIN (test code=HGB) 10.5 gram/dL 11.5-15.5 HEMATOCRIT (test code=HCT) 33.2 % 36.0-46.0 MEAN CELL VOLUME (test code=MCV) 103.1 fL 80-98 MEAN CELL HGB (test code=MCH) 32.6 picogram 27.0-33.0 MEAN CELL HGB CONCETRATION (test code=MCHC) 31.6 gram/dL 33.0-36.0 RED CELL DISTRIBUTION WIDTH (test code=RDW) 14.7 % 11.6-16.2 RED CELL DISTRIBUTION WIDTH SD (test code=RDW-SD) 55.6 fL 37.0-51.0 PLATELET COUNT (test code=PLT) 186 K/mm3 150-450 MEAN PLATELET VOLUME (test code=MPV) 10.6 fL 6.7-11.0 IMMATURE GRANULOCYTE % (test code=IG%) 1.1 % 0.0-5.0 NUCLEATED RBC % (test code=NRBC%) 0.0 % 0-0 NEUTROPHIL # (test code=NT#) 10.27 K/mm3 1.8-7.7 IMMATURE GRANULOCYTE # (test code=IG#) 0.13 x10 3/uL 0-0.03 LYMPHOCYTE # (test code=LY#) 1.17 K/mm3 1.0-5.0 MONOCYTE # (test code=MO#) 0.65 K/mm3 0-0.8 EOSINOPHIL # (test code=EO#) 0.01 K/mm3 0.0-0.5 BASOPHIL # (test code=BA#) 0.05 K/mm3 0.0-0.2 NUCLEATED RBC # (test code=NRBC#) 0.00 K/mm3 0.0-0.1 MANUAL DIFF REQUIRED (test code=MDIFF) YES STAIN ACCEPTABILITY (test code=STN ACCEPTABLE) TOTAL CELLS COUNTED (test code=TCC) #CELLS SEGMENTED NEUTROPHILS (test code=SEG) % 39-69 LYMPHOCYTE (test code=LYMPH) % 25-55 MONOCYTE (test code=MON) % 0-10 EOSINOPHIL (test code=EOS) % 0.0-5.0 MORPHOLOGY COMMENT (test code=MOC) PLATELET ESTIMATE (test code=PLTEST) PLATELET MORPHOLOGY (test code=PLTMORPH) CBC W/MANUAL [id number] 05:04:00* Test Item Value Reference Range Comments WHITE BLOOD CELL (test code=WBC) 12.3 K/mm3 4.5-12.5 RED BLOOD CELL (test code=RBC) 3.22 mill/mm3 3.7-5.2 HEMOGLOBIN (test code=HGB) 10.5 gram/dL 11.5-15.5 HEMATOCRIT (test code=HCT) 33.2 % 36.0-46.0 MEAN CELL VOLUME (test code=MCV) 103.1 fL 80-98 MEAN CELL HGB (test code=MCH) 32.6 picogram 27.0-33.0 MEAN CELL HGB CONCETRATION (test code=MCHC) 31.6 gram/dL 33.0-36.0 RED CELL DISTRIBUTION WIDTH (test code=RDW) 14.7 % 11.6-16.2 RED CELL DISTRIBUTION WIDTH SD (test code=RDW-SD) 55.6 fL 37.0-51.0 PLATELET COUNT (test code=PLT) 186 K/mm3 150-450 MEAN PLATELET VOLUME (test code=MPV) 10.6 fL 6.7-11.0 IMMATURE GRANULOCYTE % (test code=IG%) 1.1 % 0.0-5.0 NUCLEATED RBC % (test code=NRBC%) 0.0 % 0-0 NEUTROPHIL # (test code=NT#) 10.27 K/mm3 1.8-7.7 IMMATURE GRANULOCYTE # (test code=IG#) 0.13 x10 3/uL 0-0.03 LYMPHOCYTE # (test code=LY#) 1.17 K/mm3 1.0-5.0 MONOCYTE # (test code=MO#) 0.65 K/mm3 0-0.8 EOSINOPHIL # (test code=EO#) 0.01 K/mm3 0.0-0.5 BASOPHIL # (test code=BA#) 0.05 K/mm3 0.0-0.2 NUCLEATED RBC # (test code=NRBC#) 0.00 K/mm3 0.0-0.1 MANUAL DIFF REQUIRED (test code=MDIFF) YES STAIN ACCEPTABILITY (test code=STN ACCEPTABLE) TOTAL CELLS COUNTED (test code=TCC) #CELLS SEGMENTED NEUTROPHILS (test code=SEG) % 39-69 LYMPHOCYTE (test code=LYMPH) % 25-55 MONOCYTE (test code=MON) % 0-10 MORPHOLOGY COMMENT (test code=MOC) PLATELET ESTIMATE (test code=PLTEST) PLATELET MORPHOLOGY (test code=PLTMORPH) CBC W/MANUAL [id number] 05:04:00* Test Item Value Reference Range Comments WHITE BLOOD CELL (test code=WBC) 12.3 K/mm3 4.5-12.5 RED BLOOD CELL (test code=RBC) 3.22 mill/mm3 3.7-5.2 HEMOGLOBIN (test code=HGB) 10.5 gram/dL 11.5-15.5 HEMATOCRIT (test code=HCT) 33.2 % 36.0-46.0 MEAN CELL VOLUME (test code=MCV) 103.1 fL 80-98 MEAN CELL HGB (test code=MCH) 32.6 picogram 27.0-33.0 MEAN CELL HGB CONCETRATION (test code=MCHC) 31.6 gram/dL 33.0-36.0 RED CELL DISTRIBUTION WIDTH (test code=RDW) 14.7 % 11.6-16.2 RED CELL DISTRIBUTION WIDTH SD (test code=RDW-SD) 55.6 fL 37.0-51.0 PLATELET COUNT (test code=PLT) 186 K/mm3 150-450 MEAN PLATELET VOLUME (test code=MPV) 10.6 fL 6.7-11.0 IMMATURE GRANULOCYTE % (test code=IG%) 1.1 % 0.0-5.0 NUCLEATED RBC % (test code=NRBC%) 0.0 % 0-0 NEUTROPHIL # (test code=NT#) 10.27 K/mm3 1.8-7.7 IMMATURE GRANULOCYTE # (test code=IG#) 0.13 x10 3/uL 0-0.03 LYMPHOCYTE # (test code=LY#) 1.17 K/mm3 1.0-5.0 MONOCYTE # (test code=MO#) 0.65 K/mm3 0-0.8 EOSINOPHIL # (test code=EO#) 0.01 K/mm3 0.0-0.5 BASOPHIL # (test code=BA#) 0.05 K/mm3 0.0-0.2 NUCLEATED RBC # (test code=NRBC#) 0.00 K/mm3 0.0-0.1 MANUAL DIFF REQUIRED (test code=MDIFF) YES STAIN ACCEPTABILITY (test code=STN ACCEPTABLE) TOTAL CELLS COUNTED (test code=TCC) #CELLS SEGMENTED NEUTROPHILS (test code=SEG) % 39-69 LYMPHOCYTE (test code=LYMPH) % 25-55 MONOCYTE (test code=MON) % 0-10 EOSINOPHIL (test code=EOS) % 0.0-5.0 CABOT RINGS (test code=CAB) MORPHOLOGY COMMENT (test code=MOC) PLATELET ESTIMATE (test code=PLTEST) PLATELET MORPHOLOGY (test code=PLTMORPH) CBC W/MANUAL [id number] 07:35:00* Test Item Value Reference Range Comments WHITE BLOOD CELL (test code=WBC) 9.1 K/mm3 4.5-12.5 RED BLOOD CELL (test code=RBC) 3.04 mill/mm3 3.7-5.2 HEMOGLOBIN (test code=HGB) 10.0 gram/dL 11.5-15.5 HEMATOCRIT (test code=HCT) 32.0 % 36.0-46.0 MEAN CELL VOLUME (test code=MCV) 105.3 fL 80-98 MEAN CELL HGB (test code=MCH) 32.9 picogram 27.0-33.0 MEAN CELL HGB CONCETRATION (test code=MCHC) 31.3 gram/dL 33.0-36.0 RED CELL DISTRIBUTION WIDTH (test code=RDW) 14.7 % 11.6-16.2 RED CELL DISTRIBUTION WIDTH SD (test code=RDW-SD) 57.0 fL 37.0-51.0 PLATELET COUNT (test code=PLT) 155 K/mm3 150-450 MEAN PLATELET VOLUME (test code=MPV) 10.4 fL 6.7-11.0 IMMATURE GRANULOCYTE % (test code=IG%) 0.7 % 0.0-5.0 NUCLEATED RBC % (test code=NRBC%) 0.0 % 0-0 NEUTROPHIL # (test code=NT#) 7.71 K/mm3 1.8-7.7 IMMATURE GRANULOCYTE # (test code=IG#) 0.06 x10 3/uL 0-0.03 LYMPHOCYTE # (test code=LY#) 1.00 K/mm3 1.0-5.0 MONOCYTE # (test code=MO#) 0.33 K/mm3 0-0.8 EOSINOPHIL # (test code=EO#) 0.00 K/mm3 0.0-0.5 BASOPHIL # (test code=BA#) 0.02 K/mm3 0.0-0.2 NUCLEATED RBC # (test code=NRBC#) 0.00 K/mm3 0.0-0.1 MANUAL DIFF REQUIRED (test code=MDIFF) YES STAIN ACCEPTABILITY (test code=STN ACCEPTABLE) STAIN ACCEPTABLE TOTAL CELLS COUNTED (test code=TCC) 115 #CELLS SEGMENTED NEUTROPHILS (test code=SEG) 72.2 % 39-69 BAND NEUTROPHIL (test code=BAND) 13.0 % 0-10 LYMPHOCYTE (test code=LYMPH) 9.6 % 25-55 REACTIVE LYMPH (test code=RELYMPH) 0 % MONOCYTE (test code=MON) 5.2 % 0-10 EOSINOPHIL (test code=EOS) 0 % 0.0-5.0 BASOPHIL (test code=BASO) 0 % 0-1.0 METAMYELOCYTE (test code=META) 0 % 0-0 MYELOCYTE (test code=MYELO) 0 % 0.0-0.0 PROMYELOCYTE (test code=PROM) 0 % 0-0 HYPOCHROMIA (test code=HYPO) 1+ POIKILOCYTOSIS (test code=POIK) 1+ ANISOCYTOSIS (test code=ANISO) 1+ MACROCYTOSIS (test code=MACR) 1+ PLATELET ESTIMATE (test code=PLTEST) ADEQUATE PLATELET MORPHOLOGY (test code=PLTMORPH) NORMAL IMMATURE FORMS (test code=IMMAT) 0 % 0-0 COMPREHENSIVE METABOLIC [id number] 06:33:00* Test Item Value Reference Range Comments SODIUM (test code=NA) 143 mmol/L 136-145 POTASSIUM (test code=K) 3.1 mmol/L 3.5-5.1 CHLORIDE (test code=CL) 113.0 mmol/L 98-107 CARBON DIOXIDE (test code=CO2) 22.0 mmol/L 21-32 ANION GAP (test code=GAP) 11.1 10-20 GLUCOSE (test code=GLU) 140 mg/dL 74-106 BLOOD UREA NITROGEN (test code=BUN) 20 mg/dL 7-18 GLOMERULAR FILTRATION RATE (test code=GFR) > 60 mL/min >=60 Estimated GFR by using Modified MDRD formula.Chronic kidney disease is defined as either kidney damageor GFR <60 mL/min/1.73 m2 for >3 months. CREATININE (test code=CREAT) 0.80 mg/dL 0.55-1.02 Note change in reference range due to change in reagent. BUN/CREATININE RATIO (test code=BUN/CREA) 25.0 10-20 TOTAL PROTEIN (test code=PROT) 5.4 gram/dL 6.4-8.2 ALBUMIN (test code=ALB) 1.9 g/dL 3.4-5.0 GLOBULIN (test code=GLOB) 3.5 gram/dL 2.7-4.2 ALBUMIN/GLOBULIN RATIO (test code=A/G) 0.5 0.75-1.50 CALCIUM (test code=CA) 6.9 mg/dL 8.5-10.1 BILIRUBIN TOTAL (test code=BILT) 0.50 mg/dL 0.0-1.0 SGOT/AST (test code=AST) 27 IUnit/L 15-37 SGPT/ALT (test code=ALT) 12 IUnit/L 12-78 ALKALINE PHOSPHATASE TOTAL (test code=ALKP) 57 IUnit/L 45-117 Note change in reference range due to change in reagent. [id number] 06:33:00* Test Item Value Reference Range Comments PHOSPHORUS (test code=PHOS) 2.1 mg/dL 2.5-4.9 [id number] 06:33:00* Test Item Value Reference Range Comments MAGNESIUM (test code=MAG) 1.5 mg/dL 1.8-2.4 LACTIC [id number] 06:33:00* Test Item Value Reference Range Comments LACTIC ACID (test code=LACT) 1.6 mmol/L 0.4-1.9 CBC W/MANUAL [id number] 06:22:00* Test Item Value Reference Range Comments WHITE BLOOD CELL (test code=WBC) 9.1 K/mm3 4.5-12.5 RED BLOOD CELL (test code=RBC) 3.04 mill/mm3 3.7-5.2 HEMOGLOBIN (test code=HGB) 10.0 gram/dL 11.5-15.5 HEMATOCRIT (test code=HCT) 32.0 % 36.0-46.0 MEAN CELL VOLUME (test code=MCV) 105.3 fL 80-98 MEAN CELL HGB (test code=MCH) 32.9 picogram 27.0-33.0 MEAN CELL HGB CONCETRATION (test code=MCHC) 31.3 gram/dL 33.0-36.0 RED CELL DISTRIBUTION WIDTH (test code=RDW) 14.7 % 11.6-16.2 RED CELL DISTRIBUTION WIDTH SD (test code=RDW-SD) 57.0 fL 37.0-51.0 PLATELET COUNT (test code=PLT) 155 K/mm3 150-450 MEAN PLATELET VOLUME (test code=MPV) 10.4 fL 6.7-11.0 IMMATURE GRANULOCYTE % (test code=IG%) 0.7 % 0.0-5.0 NUCLEATED RBC % (test code=NRBC%) 0.0 % 0-0 NEUTROPHIL # (test code=NT#) 7.71 K/mm3 1.8-7.7 IMMATURE GRANULOCYTE # (test code=IG#) 0.06 x10 3/uL 0-0.03 LYMPHOCYTE # (test code=LY#) 1.00 K/mm3 1.0-5.0 MONOCYTE # (test code=MO#) 0.33 K/mm3 0-0.8 EOSINOPHIL # (test code=EO#) 0.00 K/mm3 0.0-0.5 BASOPHIL # (test code=BA#) 0.02 K/mm3 0.0-0.2 NUCLEATED RBC # (test code=NRBC#) 0.00 K/mm3 0.0-0.1 MANUAL DIFF REQUIRED (test code=MDIFF) YES STAIN ACCEPTABILITY (test code=STN ACCEPTABLE) TOTAL CELLS COUNTED (test code=TCC) #CELLS SEGMENTED NEUTROPHILS (test code=SEG) % 39-69 LYMPHOCYTE (test code=LYMPH) % 25-55 MONOCYTE (test code=MON) % 0-10 EOSINOPHIL (test code=EOS) % 0.0-5.0 CABOT RINGS (test code=CAB) MORPHOLOGY COMMENT (test code=MOC) PLATELET ESTIMATE (test code=PLTEST) PLATELET MORPHOLOGY (test code=PLTMORPH) CBC W/MANUAL [id number] 06:22:00* Test Item Value Reference Range Comments WHITE BLOOD CELL (test code=WBC) 9.1 K/mm3 4.5-12.5 RED BLOOD CELL (test code=RBC) 3.04 mill/mm3 3.7-5.2 HEMOGLOBIN (test code=HGB) 10.0 gram/dL 11.5-15.5 HEMATOCRIT (test code=HCT) 32.0 % 36.0-46.0 MEAN CELL VOLUME (test code=MCV) 105.3 fL 80-98 MEAN CELL HGB (test code=MCH) 32.9 picogram 27.0-33.0 MEAN CELL HGB CONCETRATION (test code=MCHC) 31.3 gram/dL 33.0-36.0 RED CELL DISTRIBUTION WIDTH (test code=RDW) 14.7 % 11.6-16.2 RED CELL DISTRIBUTION WIDTH SD (test code=RDW-SD) 57.0 fL 37.0-51.0 PLATELET COUNT (test code=PLT) 155 K/mm3 150-450 MEAN PLATELET VOLUME (test code=MPV) 10.4 fL 6.7-11.0 IMMATURE GRANULOCYTE % (test code=IG%) 0.7 % 0.0-5.0 NUCLEATED RBC % (test code=NRBC%) 0.0 % 0-0 NEUTROPHIL # (test code=NT#) 7.71 K/mm3 1.8-7.7 IMMATURE GRANULOCYTE # (test code=IG#) 0.06 x10 3/uL 0-0.03 LYMPHOCYTE # (test code=LY#) 1.00 K/mm3 1.0-5.0 MONOCYTE # (test code=MO#) 0.33 K/mm3 0-0.8 EOSINOPHIL # (test code=EO#) 0.00 K/mm3 0.0-0.5 BASOPHIL # (test code=BA#) 0.02 K/mm3 0.0-0.2 NUCLEATED RBC # (test code=NRBC#) 0.00 K/mm3 0.0-0.1 MANUAL DIFF REQUIRED (test code=MDIFF) YES STAIN ACCEPTABILITY (test code=STN ACCEPTABLE) TOTAL CELLS COUNTED (test code=TCC) #CELLS SEGMENTED NEUTROPHILS (test code=SEG) % 39-69 LYMPHOCYTE (test code=LYMPH) % 25-55 MONOCYTE (test code=MON) % 0-10 EOSINOPHIL (test code=EOS) % 0.0-5.0 MORPHOLOGY COMMENT (test code=MOC) PLATELET ESTIMATE (test code=PLTEST) PLATELET MORPHOLOGY (test code=PLTMORPH) CBC W/MANUAL [id number] 06:22:00* Test Item Value Reference Range Comments WHITE BLOOD CELL (test code=WBC) 9.1 K/mm3 4.5-12.5 RED BLOOD CELL (test code=RBC) 3.04 mill/mm3 3.7-5.2 HEMOGLOBIN (test code=HGB) 10.0 gram/dL 11.5-15.5 HEMATOCRIT (test code=HCT) 32.0 % 36.0-46.0 MEAN CELL VOLUME (test code=MCV) 105.3 fL 80-98 MEAN CELL HGB (test code=MCH) 32.9 picogram 27.0-33.0 MEAN CELL HGB CONCETRATION (test code=MCHC) 31.3 gram/dL 33.0-36.0 RED CELL DISTRIBUTION WIDTH (test code=RDW) 14.7 % 11.6-16.2 RED CELL DISTRIBUTION WIDTH SD (test code=RDW-SD) 57.0 fL 37.0-51.0 PLATELET COUNT (test code=PLT) 155 K/mm3 150-450 MEAN PLATELET VOLUME (test code=MPV) 10.4 fL 6.7-11.0 IMMATURE GRANULOCYTE % (test code=IG%) 0.7 % 0.0-5.0 NUCLEATED RBC % (test code=NRBC%) 0.0 % 0-0 NEUTROPHIL # (test code=NT#) 7.71 K/mm3 1.8-7.7 IMMATURE GRANULOCYTE # (test code=IG#) 0.06 x10 3/uL 0-0.03 LYMPHOCYTE # (test code=LY#) 1.00 K/mm3 1.0-5.0 MONOCYTE # (test code=MO#) 0.33 K/mm3 0-0.8 EOSINOPHIL # (test code=EO#) 0.00 K/mm3 0.0-0.5 BASOPHIL # (test code=BA#) 0.02 K/mm3 0.0-0.2 NUCLEATED RBC # (test code=NRBC#) 0.00 K/mm3 0.0-0.1 MANUAL DIFF REQUIRED (test code=MDIFF) YES STAIN ACCEPTABILITY (test code=STN ACCEPTABLE) TOTAL CELLS COUNTED (test code=TCC) #CELLS SEGMENTED NEUTROPHILS (test code=SEG) % 39-69 LYMPHOCYTE (test code=LYMPH) % 25-55 MONOCYTE (test code=MON) % 0-10 MORPHOLOGY COMMENT (test code=MOC) PLATELET ESTIMATE (test code=PLTEST) PLATELET MORPHOLOGY (test code=PLTMORPH) COMPREHENSIVE METABOLIC [id number] 06:21:00* Test Item Value Reference Range Comments SODIUM (test code=NA) 143 mmol/L 136-145 POTASSIUM (test code=K) 3.1 mmol/L 3.5-5.1 CHLORIDE (test code=CL) 113.0 mmol/L 98-107 CARBON DIOXIDE (test code=CO2) mmol/L 21-32 ANION GAP (test code=GAP) 10-20 GLUCOSE (test code=GLU) mg/dL 74-106 BLOOD UREA NITROGEN (test code=BUN) mg/dL 7-18 GLOMERULAR FILTRATION RATE (test code=GFR) mL/min >=60 CREATININE (test code=CREAT) mg/dL 0.55-1.02 BUN/CREATININE RATIO (test code=BUN/CREA) 10-20 TOTAL PROTEIN (test code=PROT) gram/dL 6.4-8.2 ALBUMIN (test code=ALB) g/dL 3.4-5.0 GLOBULIN (test code=GLOB) gram/dL 2.7-4.2 ALBUMIN/GLOBULIN RATIO (test code=A/G) 0.75-1.50 CALCIUM (test code=CA) mg/dL 8.5-10.1 BILIRUBIN TOTAL (test code=BILT) mg/dL 0.0-1.0 SGOT/AST (test code=AST) IUnit/L 15-37 SGPT/ALT (test code=ALT) IUnit/L 12-78 ALKALINE PHOSPHATASE TOTAL (test code=ALKP) IUnit/L 45-117 [id number] 06:21:00* Test Item Value Reference Range Comments PHOSPHORUS (test code=PHOS) mg/dL 2.5-4.9 [id number] 06:21:00* Test Item Value Reference Range Comments MAGNESIUM (test code=MAG) mg/dL 1.8-2.4 CBC W/MANUAL [id number] 06:21:00* Test Item Value Reference Range Comments WHITE BLOOD CELL (test code=WBC) 9.1 K/mm3 4.5-12.5 RED BLOOD CELL (test code=RBC) 3.04 mill/mm3 3.7-5.2 HEMOGLOBIN (test code=HGB) 10.0 gram/dL 11.5-15.5 HEMATOCRIT (test code=HCT) 32.0 % 36.0-46.0 MEAN CELL VOLUME (test code=MCV) 105.3 fL 80-98 MEAN CELL HGB (test code=MCH) 32.9 picogram 27.0-33.0 MEAN CELL HGB CONCETRATION (test code=MCHC) 31.3 gram/dL 33.0-36.0 RED CELL DISTRIBUTION WIDTH (test code=RDW) 14.7 % 11.6-16.2 RED CELL DISTRIBUTION WIDTH SD (test code=RDW-SD) 57.0 fL 37.0-51.0 PLATELET COUNT (test code=PLT) 155 K/mm3 150-450 MEAN PLATELET VOLUME (test code=MPV) 10.4 fL 6.7-11.0 IMMATURE GRANULOCYTE % (test code=IG%) 0.7 % 0.0-5.0 NUCLEATED RBC % (test code=NRBC%) 0.0 % 0-0 NEUTROPHIL # (test code=NT#) 7.71 K/mm3 1.8-7.7 IMMATURE GRANULOCYTE # (test code=IG#) 0.06 x10 3/uL 0-0.03 LYMPHOCYTE # (test code=LY#) 1.00 K/mm3 1.0-5.0 MONOCYTE # (test code=MO#) 0.33 K/mm3 0-0.8 EOSINOPHIL # (test code=EO#) 0.00 K/mm3 0.0-0.5 BASOPHIL # (test code=BA#) 0.02 K/mm3 0.0-0.2 NUCLEATED RBC # (test code=NRBC#) 0.00 K/mm3 0.0-0.1 MANUAL DIFF REQUIRED (test code=MDIFF) YES STAIN ACCEPTABILITY (test code=STN ACCEPTABLE) TOTAL CELLS COUNTED (test code=TCC) #CELLS SEGMENTED NEUTROPHILS (test code=SEG) % 39-69 LYMPHOCYTE (test code=LYMPH) % 25-55 MONOCYTE (test code=MON) % 0-10 EOSINOPHIL (test code=EOS) % 0.0-5.0 CABOT RINGS (test code=CAB) MORPHOLOGY COMMENT (test code=MOC) PLATELET ESTIMATE (test code=PLTEST) PLATELET MORPHOLOGY (test code=PLTMORPH) CBC W/MANUAL [id number] 06:21:00* Test Item Value Reference Range Comments WHITE BLOOD CELL (test code=WBC) 9.1 K/mm3 4.5-12.5 RED BLOOD CELL (test code=RBC) 3.04 mill/mm3 3.7-5.2 HEMOGLOBIN (test code=HGB) 10.0 gram/dL 11.5-15.5 HEMATOCRIT (test code=HCT) 32.0 % 36.0-46.0 MEAN CELL VOLUME (test code=MCV) 105.3 fL 80-98 MEAN CELL HGB (test code=MCH) 32.9 picogram 27.0-33.0 MEAN CELL HGB CONCETRATION (test code=MCHC) 31.3 gram/dL 33.0-36.0 RED CELL DISTRIBUTION WIDTH (test code=RDW) 14.7 % 11.6-16.2 RED CELL DISTRIBUTION WIDTH SD (test code=RDW-SD) 57.0 fL 37.0-51.0 PLATELET COUNT (test code=PLT) 155 K/mm3 150-450 MEAN PLATELET VOLUME (test code=MPV) 10.4 fL 6.7-11.0 IMMATURE GRANULOCYTE % (test code=IG%) 0.7 % 0.0-5.0 NUCLEATED RBC % (test code=NRBC%) 0.0 % 0-0 NEUTROPHIL # (test code=NT#) 7.71 K/mm3 1.8-7.7 IMMATURE GRANULOCYTE # (test code=IG#) 0.06 x10 3/uL 0-0.03 LYMPHOCYTE # (test code=LY#) 1.00 K/mm3 1.0-5.0 MONOCYTE # (test code=MO#) 0.33 K/mm3 0-0.8 EOSINOPHIL # (test code=EO#) 0.00 K/mm3 0.0-0.5 BASOPHIL # (test code=BA#) 0.02 K/mm3 0.0-0.2 NUCLEATED RBC # (test code=NRBC#) 0.00 K/mm3 0.0-0.1 MANUAL DIFF REQUIRED (test code=MDIFF) YES STAIN ACCEPTABILITY (test code=STN ACCEPTABLE) TOTAL CELLS COUNTED (test code=TCC) #CELLS SEGMENTED NEUTROPHILS (test code=SEG) % 39-69 LYMPHOCYTE (test code=LYMPH) % 25-55 MONOCYTE (test code=MON) % 0-10 EOSINOPHIL (test code=EOS) % 0.0-5.0 CABOT RINGS (test code=CAB) MORPHOLOGY COMMENT (test code=MOC) PLATELET ESTIMATE (test code=PLTEST) PLATELET MORPHOLOGY (test code=PLTMORPH) BODY FLUID CELL [id number] 04:27:00* Test Item Value Reference Range Comments FLUID SOURCE (test code=SOURCEFL) BILE FLUID COLOR (test code=COLFL) BROWN COLORLESS FLUID APPEARANCE (test code=APPFL) HAZY FLUID UNCORR WBC (test code=UNCWBCFL) 0 per mm3 FLUID WBC (test code=WBCFL) 4 per mm3 0-150 QC performed - Cell count on both sides of chamber agreeswithin 20% ? Y FLUID RBC (test code=RBCFL) 7 per mm3 0-50 FLUID POLY (test code=POLYFL) 0.0 % FLUID LYMPHOCYTE (test code=LYMPHFL) 100.0 % TOTAL CELLS COUNTED ON DIFF (test code=TOTCELLFL) 7 cells REVIEWED BY (test code=REVIEW) PATHOLOGIST SPECIMEN COMMENTS: BILEBODY FLUID CELL [id number] 04:26:00* Test Item Value Reference Range Comments FLUID SOURCE (test code=SOURCEFL) FLUID COLOR (test code=COLFL) COLORLESS FLUID APPEARANCE (test code=APPFL) FLUID WBC (test code=WBCFL) per mm3 0-150 FLUID RBC (test code=RBCFL) per mm3 0-50 FLUID POLY (test code=POLYFL) 0.0 % FLUID LYMPHOCYTE (test code=LYMPHFL) 100.0 % TOTAL CELLS COUNTED ON DIFF (test code=TOTCELLFL) 7 cells REVIEWED BY (test code=REVIEW) PATHOLOGIST SPECIMEN COMMENTS: BILELACTIC [id number] 03:31:00* Test Item Value Reference Range Comments LACTIC ACID (test code=LACT) 2.0 mmol/L 0.4-1.9 Results called to [id number] by V.LAB.RADHA 11/07/18 0328Critical results verified and read back by Nurse? Y LACTIC [id number] 01:18:00* Test Item Value Reference Range Comments LACTIC ACID (test code=LACT) 2.3 mmol/L 0.4-1.9 Results called to [id number] by V.LAB.RADHA 11/07/18 0118Critical results verified and read back by Nurse? YSPECIMEN 4+ HEMOLYSIS - XR CHEST 1 [id number] 23:05:00 FAX: Juan Beavers MD [phone] [place]: St: ADM FAX: Heriberto Monroe MD [phone] FAX: Bert Patel MD [phone] Name: NICOLE TAN [facility] : 1935 Age/S: 83/F [address] Unit #: [id number] Loc: [place] [address] Phys: Heriberto Monroe MD Acct: [id number] Dis Date: Status: ADM IN PH ONE #: [phone] Exam Date: 11/06/2018 2301 FAX #: [phone] Reason: cough EXAMS: CPT CODE: [id number] XR CHEST 1 V 16823 HISTOR Y: Cough Location: C3 COMPARISON:11/06/2018 FINDINGS: Left approach central line is present with tip overlying the SVC. Aortic calcifications are present. Heart mildly prominent. Perihilar and streaky basilar opacities are noted. No pneumothorax. No other ch anges. IMPRESSION: 1. Interval placement of le ft approach central line. No pneumothorax. 2. Vascular and perihilar p rominence slightly increased from prior exam. at 2305 Report ed and signed by: Darrel Matamoros MD CC: Juan Anguiano; Heriberto Monroe MD; Bert Patel MD Technologist: DANILO CARNES, RT(R); [facility]Randi Lewis Trnscrd Date/Time/By: 11/06/2018 (2305) : By: [email or web address] Orig Print D/T: S: 11/06/2018 (3112) PAGE 1 Signed Report - US ABDOMEN LTD 2018-11-06 21:54:00 Name: NICOLE TAN [facility] : 1935 Age/S: 83 / F [address] Unit #: [id number] Loc: [place] [address] Phys: Donnell Junior MD Acct: [id number] Dis Date: Status: ADM IN PHONE #: [phone] Exam Date: 11/06/20182108 FAX #: [phone] Reason: PER RADS DILATED GB EXAMS: CPT CODE: [id number] US ABDOMEN LTD 86820 HISTORY: Dilated gallbladder. COMPARISON: CT scan from same day. The liver is mildly hyperechogenic suggesting mild fibrofatty infiltration which limited evaluation for intrahepatic mass however no discrete lesions. The liver is suboptimally visualized on this exam due to patient debility. No intrahepatic biliary ductal dilatation. CBD measures 9.4 mm which is within normal limits for patient's age. No obstructing stones are visible but correlate with lab values as well. Markedly distended gallbladder with mildly thickened wall at 4 mm. No gallstones. This could represent acalculus cholecystitis. No ascites. Main portal vein is patent with hepatopedal flow and normal spectral waveform. Rest of the exam is limited due to patient debility. Right kidney is not visible. The aorta, pancreas and IVC are not visible. IMPRESSION: Limited examination due to patient's debility. Markedly distended gallbladder with thickened wall at 4 mm. No gallstones are visible. This could suggest acalculus cholecystitis. Correlate with lab values. CBD measures 9.4 mm which could be within normal limits for patient's age. But correlate with lab values. Rest of the detail is very limited on this exam. at 2154 Reported and signed by: Neil Casiano M.D. CC: Juan Anguiano; Donnell Junior MD Technologist: Susanna Myrick RT(S), RDMS Trnscb Date/Time: 11/06/2018 (2153) [email or web address] Orig Print D/T: S: 11/06/2018 (890) Probe: PAGE 1 Signed Report URINALYSIS [id number] 20:07:00* Test Item Value Reference Range Comments UA COLOR (test code=COLU) Light-Yellow YELLOW UA APPEARANCE (test code=APPU) CLEAR CLEAR UA GLUCOSE DIPSTICK (test code=DGLUU) NEGATIVE mg/dL NEGATIVE UA BILIRUBIN DIPSTICK (test code=BILU) NEGATIVE mg/dL NEGATIVE UA KETONE DIPSTICK (test code=KETU) NEGATIVE mg/dL NEGATIVE UA SPECIFIC GRAVITY (test code=SGU) 1.032 1.001-1.035 UA BLOOD DIPSTICK (test code=CHRISTINE) 0.1 mg/dL (1+) mg/dL NEGATIVE UA PH DIPSTICK (test code=DALILA) 6.5 5.0-8.0 UA PROTEIN DIPSTICK (test code=PROU) 30 (1+) mg/dL NEGATIVE UA UROBILINIOGEN DIPSTICK (test code=URO) Normal mg/dL NEGATIVE UA NITRITE DIPSTICK (test code=LELA) NEGATIVE NEGATIVE UA LEUKOCYTE ESTERASE W REFLEX (test code=LEUUR) NEGATIVE Rayshawn/uL NEGATIVE UA WBC (test code=WBCU) 0-5 per HPF 0-5 UA RBC (test code=RBCU) 6-10 #/HPF 0-5 UA EPITHELIAL CELLS (test code=EPIU) FEW per HPF FEW UA BACTERIA (test code=BACU) NONE SEEN #/HPF NONE UA MUCUS (test code=MUCU) FEW #/LPF FEW Urine Source? Clean CatchURINALYSIS [id number] 20:01:00* Test Item Value Reference Range Comments UA COLOR (test code=COLU) Light-Yellow YELLOW UA APPEARANCE (test code=APPU) CLEAR CLEAR UA GLUCOSE DIPSTICK (test code=DGLUU) NEGATIVE mg/dL NEGATIVE UA BILIRUBIN DIPSTICK (test code=BILU) NEGATIVE mg/dL NEGATIVE UA KETONE DIPSTICK (test code=KETU) NEGATIVE mg/dL NEGATIVE UA SPECIFIC GRAVITY (test code=SGU) 1.032 1.001-1.035 UA BLOOD DIPSTICK (test code=CHRISTINE) 0.1 mg/dL (1+) mg/dL NEGATIVE UA PH DIPSTICK (test code=DALILA) 6.5 5.0-8.0 UA PROTEIN DIPSTICK (test code=PROU) 30 (1+) mg/dL NEGATIVE UA UROBILINIOGEN DIPSTICK (test code=URO) Normal mg/dL NEGATIVE UA NITRITE DIPSTICK (test code=LELA) NEGATIVE NEGATIVE UA LEUKOCYTE ESTERASE W REFLEX (test code=LEUUR) NEGATIVE Rayshawn/uL NEGATIVE UA WBC (test code=WBCU) per HPF 0-5 UA RBC (test code=RBCU) per HPF 0-5 UA EPITHELIAL CELLS (test code=EPIU) per HPF Few UA BACTERIA (test code=BACU) per HPF NONE Urine Source? Clean CatchLACTIC [id number] 19:30:00* Test Item Value Reference Range Comments LACTIC ACID (test code=LACT) 4.7 mmol/L 0.4-1.9 Results called to [id number] by [email or web address] 11/06/181929Critical results verified and read back by Nurse? Y - CT ABD PELVIS [id number] 18:36:00 Name: NICOLE TAN [facility] : 1935 Age/S: 83 / F [address] [facility] Unit #: [id number] Loc: [place] [address] Phys: Donnell Junior MD Acct: [id number] Dis Date: Status: REG ER PHONE #: [phone] Exam Date: 11/06/2018 1810 FAX #: [phone] Reason: abd pain, sesis EXAMS: CPT CODE: [id number] CT ABD PELVIS W/CONT 73335 HISTORY: Abdominal pain and sepsis. COMPARISON: None available. CT of abdomen and pelvis with IV contrast: 100 mL of Isovue-370. Automated exposure control. CT of abdomen: The lung bases demonstrating dependent changes bilaterally. Hepatic parenchyma demonstrating patchy fatty infiltration. No discrete parenchymal mass. Study is limited due to beam hardening artifact from patient's arms. Liver measured 16 cm in length. Portal vein and hepatic artery remain patent. Markedly distended gallbladder measuring 10 cm in length. No radiopaque stones seen. Correlate for cholecystitis. Unremarkable spleen. Low-attenuation lesion in the inferior pole of the spleen posteriorly measuring 2.2 cm may represent a splenic hemangioma. Average Hounsfield unit measurement of 12. Stomach is well distended with fluid and is unremarkable. Pancreas is enhancing homogeneously. Hyperplastic left adrenal. Right adrenal is unremarkable. No hydroureteronephrosis with homogeneous enhancement. Bilateral excretion. Bosniak 2 lesion in the posterior right interpolar region measuring 1.8 cm with average Hounsfield unit measurement ranging up to 20. Subcentimeter lesion is well in the anterior lateral right interpolar region is too small to characterize. No pathologic adenopathy. Heavy atherosclerotic calcifications of the abdominal and pelvic vasculature. No bowel obstruction or colitis or diverticulitis or enteritis. Constipation. CT PELVIS: Appendix is not visible with certainty but no inflammation. Pelvic bowel loops are unobstructed unobstructed. Constipation with fecal impaction in the rectosigmoid colon. Patient is post hysterectomy. Unremarkable urinary bladder. PAGE 1 Signed Report (CONTINUED) Name: NICOLE TAN [facility] : 1935 Age/S: 83 / F [address] [facility] Unit #: [id number] Loc: [facility] [place] [address] Phys: Donnell Junior MD Acct: [id number] Dis Date: Status: REG ER PHONE #: [phone] Exam Date: 11/06/2018 1810 FAX #: [phone] Reason: abd pain, sesis EXAMS: CPT CODE: [id number] CT ABD PELVIS W/CONT 11281 < Continued> Phleboliths. No pelvic pathologic adenopathy. No free fluid or free air or abscess. Subcutaneous tissues and the musculature are normal with battery pack within the left anterior abdominal wall. Battery pack as well within the left anterior chest wall. No lytic or blastic lesions are noted within the bony skeleton. DJD. IMPRESSION: Markedly distended gallbladder measuring 10 cm in length without radiopaque stones. Correlate for acalculus cholecystitis however correlate with ultrasound to evaluate for gallstones. Appendix is not visible but no inflammation. Fecal impaction in the rectosigmoid colon. No bowel obstruction or colitis or diverticulitis or enteritis. No free fluid or free air or abscess either. at 1836 Reported and signed by: Neil Casiano M.D. CC: Juan Anguiano; Donnell Junior MD Technologist:Malu Hines RT(R),CT CTDI: DLP: Trnscb Date/Time: 11/06/2018 (1835) Sun.TH4 Orig Print D/T: S: 11/06/2018 (1838) PAGE 2 Signed Report PROCALCITONIN (PCT)2018-11-06 17:30:00* Test Item Value Reference Range Comments PROCALCITONIN (PCT) (test code=PROCAL) 1.74 ng/ml Concentration Interpretation (ng/mL) <0.51 Sepsis is not likely. Local bacterial infection is possible. (LOW RISK for progression to Sepsis) 0.51 - 2.00 Sepsis is possible, but other conditions are known to elevate PCT as well. (MODERATE RISK for progression to Sepsis) > 2.00 Sepsis is likely, unless other causes are known. (HIGH RISK for progression to Severe Sepsis or Septic Shock) 10.00 High likelihood of Severe Sepsis or Septic or higher Shock. *Increased PCT levels may not always be related to systemic bacterial infection.*Low PCT levels do not automatically exclude the presence of bacterial infection.*All results should be interpreted taking into account the patients history. POC LACTIC [id number] 16:56:00* Test Item Value Reference Range Comments POC LACTIC ACID (test code=POCLAC) 2.09 MMOL/L 0.4-2.2 BASIC METABOLIC [id number] 16:56:00* Test Item Value Reference Range Comments SODIUM (test code=NA) 139 mmol/L 136-145 POTASSIUM (test code=K) 2.2 mmol/L 3.5-5.1 Results called to [id number] by PARIS 11/06/18 1654Critical results verified and read back by Nurse? Y CHLORIDE (test code=CL) 102.0 mmol/L 98-107 CARBON DIOXIDE (test code=CO2) 28.0 mmol/L 21-32 ANION GAP (test code=GAP) 11.2 10-20 GLUCOSE (test code=GLU) 198 mg/dL 74-106 BLOOD UREA NITROGEN (test code=BUN) 23 mg/dL 7-18 GLOMERULAR FILTRATION RATE (test code=GFR) 60 mL/min >=60 Estimated GFR by using Modified MDRD formula.Chronic kidney disease is defined as either kidney damageor GFR <60 mL/min/1.73 m2 for >3 months. CREATININE (test code=CREAT) 0.90 mg/dL 0.55-1.02 Note change in reference range due to change in reagent. BUN/CREATININE RATIO (test code=BUN/CREA) 25.6 10-20 CALCIUM (test code=CA) 7.7 mg/dL 8.5-10.1 HEPATIC FUNCTION [id number] 16:56:00* Test Item Value Reference Range Comments TOTAL PROTEIN (test code=PROT) 6.2 gram/dL 6.4-8.2 ALBUMIN (test code=ALB) 2.3 g/dL 3.4-5.0 GLOBULIN (test code=GLOB) 3.9 gram/dL 2.7-4.2 ALBUMIN/GLOBULIN RATIO (test code=A/G) 0.6 0.75-1.50 BILIRUBIN TOTAL (test code=BILT) 0.50 mg/dL 0.0-1.0 BILIRUBIN DIRECT (test code=BILD) 0.22 mg/dL 0.0-0.20 SGOT/AST (test code=AST) 16 IUnit/L 15-37 SGPT/ALT (test code=ALT) 9 IUnit/L 12-78 ALKALINE PHOSPHATASE TOTAL (test code=ALKP) 70 IUnit/L 45-117 Note change in reference range due to change in reagent. [id number] 16:56:00* Test Item Value Reference Range Comments TROPONIN-I (test code=TROPI) 0.024 ng/mL 0-0.045 LACTIC [id number] 16:56:00* Test Item Value Reference Range Comments LACTIC ACID (test code=LACT) 2.0 mmol/L 0.4-1.9 Results called to [id number] by [email or web address] 11/06/18 1656Critical results verified and read back by Nurse? Y CBC W/AUTO [id number] 16:31:00* Test Item Value Reference Range Comments WHITE BLOOD CELL (test code=WBC) 11.9 K/mm3 4.5-12.5 RED BLOOD CELL (test code=RBC) 3.19 mill/mm3 3.7-5.2 HEMOGLOBIN (test code=HGB) 10.4 gram/dL 11.5-15.5 HEMATOCRIT (test code=HCT) 32.3 % 36.0-46.0 MEAN CELL VOLUME (test code=MCV) 101.3 fL 80-98 MEAN CELL HGB (test code=MCH) 32.6 picogram 27.0-33.0 MEAN CELL HGB CONCETRATION (test code=MCHC) 32.2 gram/dL 33.0-36.0 RED CELL DISTRIBUTION WIDTH (test code=RDW) 14.3 % 11.6-16.2 RED CELL DISTRIBUTION WIDTH SD (test code=RDW-SD) 52.5 fL 37.0-51.0 PLATELET COUNT (test code=PLT) 155 K/mm3 150-450 MEAN PLATELET VOLUME (test code=MPV) 10.0 fL 6.7-11.0 NEUTROPHIL % (test code=NT%) 85.5 % 39.0-69.0 IMMATURE GRANULOCYTE % (test code=IG%) 0.8 % 0.0-5.0 LYMPHOCYTE % (test code=LY%) 4.7 % 25.0-55.0 MONOCYTE % (test code=MO%) 8.8 % 0.0-10.0 EOSINOPHIL % (test code=EO%) 0.0 % 0.0-5.0 BASOPHIL % (test code=BA%) 0.2 % 0.0-1.0 NUCLEATED RBC % (test code=NRBC%) 0.0 % 0-0 NEUTROPHIL # (test code=NT#) 10.15 K/mm3 1.8-7.7 IMMATURE GRANULOCYTE # (test code=IG#) 0.10 x10 3/uL 0-0.03 LYMPHOCYTE # (test code=LY#) 0.56 K/mm3 1.0-5.0 MONOCYTE # (test code=MO#) 1.05 K/mm3 0-0.8 EOSINOPHIL # (test code=EO#) 0.00 K/mm3 0.0-0.5 BASOPHIL # (test code=BA#) 0.02 K/mm3 0.0-0.2 NUCLEATED RBC # (test code=NRBC#) 0.00 K/mm3 0.0-0.1 - XR CHEST 1 [id number] 16:15:00 FAX: Juan Beavers MD [phone] [place]: St: REG FAX: Donnell Junior MD [phone] Name: NICOLE TAN [facility] : 1935 Age/S: 83/F [address] Unit #: [id number] Loc: [place] [address] Phys: Donnell Junior MD Acct: [id number] Dis Date: Status: REG ER PHONE #: [phone] Exam Date: 11/06/2018 1602 FAX #: [phone] Reason: CODE SEPSIS EXAMS: CPT CODE: [id number] XR CHEST 1 V 82241 HISTORY: Sepsis. COMPARISON: May 06, 2013. Left ICD is unchanged in position. No acute infiltrates, effusion or congestion is noted. Suboptimal inspiration with dependent changes. With elevated right hemidiaphragm. Cardiomegaly. IMPRESSION: No acute infiltrates, effusion or congestion. at 1615 Reported and signed by: Neil Casiano M.D. CC: Juan Anguiano; Donnell Junior MD Technologist: Randi Gallegos Trnscrd Date/Time/By: 11/06/2018 (9588) : By: [email or web address] Orig Print D/T: S: 11/06/2018 (6456) PAGE 1 Signed Report
[2019-07-14 15:53] LABS: BASOPHILS % 0.5 % (0.0-1.0); EOSINOPHILS # (AUTO) 0.1 (0.0-0.4); EOSINOPHILS % 1.3 % (0.0-6.0); HEMOGLOBIN 8.4 g/dL (12.0-16.0); LYMPHOCYTES # (AUTO) 1.5 (1.0-3.2); LYMPHOCYTES % 19.6 % (18.0-39.1); MEAN CORPUSCULAR HEMOGLOBIN 31.9 pg (28-32); MEAN CORPUSCULAR HGB CONC 32.3 g/dL (31-35); MEAN CORPUSCULAR VOLUME 98.9 fL (81-99); MONOCYTES # (AUTO) 0.5 (0.2-0.8); MONOCYTES % 6.3 % (4.4-11.3); NEUTROPHILS # (AUTO) 5.6 (2.1-6.9); NEUTROPHILS % 71.8 % (38.7-80.0); PLATELET COUNT 252 x10e3/uL (140-360); RED BLOOD COUNT 2.63 x10e6/uL (3.6-5.1)
[2019-07-14 16:18] LABS: ALBUMIN 2.4 g/dL (3.5-5.0); ALBUMIN/GLOBULIN RATIO 0.6 (0.8-2.0); ALKALINE PHOSPHATASE 102 IU/L (40-150); ANION GAP 12.6 mmol/L (8-16); BLOOD UREA NITROGEN 23 mg/dL (7-26); BUN/CREATININE RATIO 15 (6-25); CALCIUM 7.9 mg/dL (8.4-10.2); CARBON DIOXIDE 34 mmol/L (22-29); CHLORIDE 91 mmol/L (98-107); CREATINE KINASE 46 IU/L (29-168); CREATININE, SERUM 1.57 mg/dL (0.57-1.11); EST GLOMERULAR FILTRATION RATE 31 ML/MIN (60-); GLUCOSE 120 mg/dL (74-118); SODIUM 135 mmol/L (136-145)
[2019-07-14] MEDS ORDERED: SODIUM CHLORIDE 0.9% 1000ML 1,000 ML IV STA (16:39)
[2019-07-14 16:44] LABS: ALANINE AMINOTRANSFERASE < 6 IU/L (0-55)
[2019-07-14 16:45] LABS: POTASSIUM 2.6 mmol/L (3.5-5.1)
[2019-07-14] MEDS ORDERED: ESIDRIX25 MG (16:53)
[2019-07-14] MEDS ORDERED: PAROXETINE HCL10 MG (16:53)
[2019-07-14] MEDS ORDERED: CARBIDOPA-LEVO1 EAC1 (16:53)
[2019-07-14] MEDS ORDERED: OMEPRAZOLE20 MG (16:53)
[2019-07-14] MEDS ORDERED: JANUVIA50 MG (16:53)
[2019-07-14] MEDS ORDERED: MYSOLINE50 MG (16:53)
[2019-07-14] MEDS ORDERED: ROSUVASTATIN CA40 MG (16:53)
[2019-07-14] MEDS ORDERED: METOPROLOL SUCC25 MG (16:53)
[2019-07-14] MEDS ORDERED: LEVOTHYROXINE125 MCG (16:53)
[2019-07-14] MEDS ORDERED: FLUCONAZOLE150 MG (16:53)
[2019-07-14] MEDS ORDERED: ALLOPURINOL300 MG (16:53)
[2019-07-14] MEDS ORDERED: POTASSIUM CHLORIDE 20MEQ/15ML UDC PO ONE (17:00)
[2019-07-14] MEDS ORDERED: PIPER-TAZ 3.375 GM 50 ML IV SCH (18:00)
[2019-07-14] MEDS ORDERED: POTASSIUM CHLORIDE 10MEQ/100ML 100 ML IV ONE (18:00)
--- NOTE | 2019-07-14 18:00 | NUR ---
pt arrived to unit via stretcher, resp even unlabored, no distress noted at this time. pt accompanied by her daughter , pt oriented to room and call light, bed rail sup x2, be in lowest position, call light in reach.
[2019-07-14 18:18] VITALS: BP 98/58
--- NOTE | 2019-07-14 19:00 | NUR ---
Patient visited in room during nursing rounds. Patient was a new admit from ED and arrived around 1800 as reported by [facility] nurse (Victorina). Pt is alert and oriented x0-1 and cambodian speaking only. Pt is bed bound and both feet contracted. Multiple wound noted: Sacrum stage 3 ulcer, small ulcer on left calf and DTI on both heels. Will change and apply new Allevyn foam dressings tonight. Plan to transfer pt to [facility] to be closer to the nurse's station and for patient safety. Bed alarm active. Call gaona within reach.
--- NOTE | 2019-07-14 19:28 | Diagnostic Imaging Report ---
EXAM: CHEST SINGLE (PORTABLE) DATE: 07/14/2019 6:10 PM INDICATION: ^WEAK COMPARISON: None FINDINGS: Lines and tubes: There is an implanted generator device projected on the left lower chest. The lead appears to extend cephalad toward cervical region. There is also tubing vertically traversing the left hemithorax which may be outside the patient or may represent a ventriculoperitoneal shunt. The heart is upper normal size allowing for low lung volumes. There is no focal pulmonary opacity, pleural effusion or pneumothorax. The left lung base is partially obscured by the overlying electronic device. Upper abdomen unremarkable. Cholecystectomy clips are seen. No acute bony abnormality. IMPRESSION: No evidence for acute disease. Signed by: Dr. Donnell Trevino M.D. on 07/14/2019 7:24 PM
--- NOTE | 2019-07-14 19:30 | NUR ---
After notifying Twisting Frame Changer (Julisa Elias), pt was successfully transferred from Rm 289 to Rm 299. Pt was cleaned perineally and sacral wound covered with Allevyn foam dressing before new diaper was put on. Wound on left calf with clean Allevyn foam. Deep tissue injury (DTI) to bilateral heels covered with Allevyn foam, kerlix and applied with heel support. Both legs were elevated with pillow.
[2019-07-14 20:00] VITALS: BP 87/42
--- NOTE | 2019-07-14 20:00 | NUR ---
Nurse (Carlos) spoke with Santana Torres (emergency personal consultant) and obtained patient medical information since pt is confused (i.e. poor historian) and speaks khmer language only. Santana mentioned he will let his brother (Alex Torres) bring tomorrow patient's home medication list to update in system.
[2019-07-14] MEDS: SODIUM CHLORIDE 0.9% 1000ML 1,000 ML IV SCH (20:03)
--- NOTE | 2019-07-14 20:07 | NUR ---
walking rounds complete, report given to oncoming nurse.
--- NOTE | 2019-07-14 20:22 | NUR ---
Nurse (Carlos) spoke with Dr. Celeste ( covering for Dr. Razo) and was notified of new consult order regarding renal failure. Dr Celeste stated she will see patient tomorrow and order Mg level tomorrow morning.
[2019-07-14 21:00] VITALS: BP 87/42
--- NOTE | 2019-07-14 22:10 | NUR ---
Pt clearly confused and ripped off peripheral IV (20g left FA). New IV (22 gauge) on left forearm placed and was wrapped with kerlix for extra protection from pulling.
[2019-07-15] VITALS (7 sets, daily range): BP systolic 83–106; BP diastolic 42–53
[2019-07-15] MEDS: PIPER-TAZ 3.375 GM 50 ML IV SCH ×4 (01:56→20:00)
[2019-07-15] MEDS: SODIUM CHLORIDE 0.9% 1000ML 1,000 ML IV SCH ×2 (05:50→16:46)
[2019-07-15 06:14] LABS: BASOPHILS % 0.7 % (0.0-1.0); EOSINOPHILS # (AUTO) 0.1 (0.0-0.4); HEMATOCRIT 23.5 % (34.2-44.1); HEMOGLOBIN 7.5 g/dL (12.0-16.0); LYMPHOCYTES # (AUTO) 1.4 (1.0-3.2); LYMPHOCYTES % 23.4 % (18.0-39.1); MEAN CORPUSCULAR HEMOGLOBIN 31.9 pg (28-32); MEAN CORPUSCULAR HGB CONC 31.9 g/dL (31-35); MONOCYTES # (AUTO) 0.5 (0.2-0.8); MONOCYTES % 7.4 % (4.4-11.3); PLATELET COUNT 228 x10e3/uL (140-360); RED BLOOD COUNT 2.35 x10e6/uL (3.6-5.1); RED CELL DISTRIBUTION WIDTH 15.1 % (11.7-14.4)
[2019-07-15 06:30] LABS: ALBUMIN 2.1 g/dL (3.5-5.0); ALBUMIN/GLOBULIN RATIO 0.6 (0.8-2.0); ALKALINE PHOSPHATASE 91 IU/L (40-150); ANION GAP 9.9 mmol/L (8-16); BLOOD UREA NITROGEN 20 mg/dL (7-26); BUN/CREATININE RATIO 15 (6-25); CALCIUM 7.6 mg/dL (8.4-10.2); CARBON DIOXIDE 33 mmol/L (22-29); CHLORIDE 97 mmol/L (98-107); CREATININE, SERUM 1.33 mg/dL (0.57-1.11); EST GLOMERULAR FILTRATION RATE 38 ML/MIN (60-); GLUCOSE 97 mg/dL (74-118); SODIUM 137 mmol/L (136-145)
[2019-07-15 06:35] LABS: CREATINE KINASE MB 0.9 ng/mL (0-5.0)
[2019-07-15 06:38] LABS: ALANINE AMINOTRANSFERASE < 6 IU/L (0-55); POTASSIUM 2.9 mmol/L (3.5-5.1)
--- NOTE | 2019-07-15 07:35 | NUR ---
PATIENT IN BED RESTING WITH HEAD OF BED ELEVATED. MULTIPLE WOUNDS TO BODY. LOWER EXTREMITIES CONTRACTED, HEEL PROTECTOR APPLIED. BED IN LOWER POSITION, CALL LIGHT AT REACH.
[2019-07-15] MEDS ORDERED: POTASSIUM CHLORIDE 20MEQ/100ML 100 ML IV ONE ×3 (09:30→15:00)
--- NOTE | 2019-07-15 10:00 | NUR ---
NOTIFIED OF ABNORMAL LAB RESULT, NEW ORDER RECEIVED.
--- NOTE | 2019-07-15 12:33 | NUR ---
WOUND CARE NURSE INITIAL CONSULTATION. 83 YEAR OLD FEMALE ADMITTED TO [facility] WITH DX OF WEAKNESS AND HYPOKALEMIA. HEAD TO TOE SKIN ASSESSMENT PERFORMED. PT PRESENTS WITH 1X1CM LEFT HEEL HEALING DTI, 0.5X0.5X0.1CM LEFT POSTERIOR CALF ABRASION, 4.5X6X0.2 UNSTAGEABLE PRESSURE ULCER, SACRUM, 100% SLOUGH WITH DTI TO SURROUNDING TISSUE, 1X1CM UNSTAGEABLE PRESSURE ULCER, RIGHT BUTTOCK. 100% FIBRIN/SLOUGH. 2X1X0.2CM UNSTAGEABLE PRESSURE ULCER, LEFT BUTTOCK WITH A 7x2CM DTI SURROUNDING TISSUE. THERE ARE NO OTHER AREAS OF CONCERN NOTED AT THIS TIME. NO S/S OF ACTIVE INFECTION NOTED. LABS: WBC:6.06 ALB: 2.1 GLUCOSE: 96 RECOMMENDATIONS: PROVIDE PT ALTERNATING LOW AIR LOSS MATTRESS. CONTINUE WITH BILATERAL HEEL PROTECTORS AND PILLOW SUSPENSIONS. REPOSITION PT EVERY TWO HOURS AND PRN. APPLY VENELEX OINTMENT TO LEFT HEEL AND LEFT POSTERIOR CALF ABRASION DAILY. CLEAN BILATERAL BUTTOCKS, AND SACRAL PRESSURE ULCERS WITH NS, APPLY SANTYL TO NECROTIC AREAS AND VENELEX OINTMENT TO DTI AREAS THEN COVE WITH ALLEVYN FOAM. CHANGE DRESSING DAILY AND PRN. THANKS FOR THIS CONSULTATION. Addendum: 07/15/19 at 1245 by Gina Baugh RN Amended: Links added.
[2019-07-15] MEDS: COLLAGENASE OINTMENT 30 GM TUBE TP SCH (15:04)
[2019-07-15] MEDS: BALSAM PERU/CASTOR OIL 60 GM OINT...G. TP SCH (15:04)
--- NOTE | 2019-07-15 19:52 | NUR ---
RECEIVED PT IN BED AOX1 .NO RESPIRATORY DISTRESS NOTED STAGE 3 CALL LIGHT WITH IN REACH ..CONTINUE TO MONITOR
--- NOTE | 2019-07-15 19:55 | Consultation ---
DATE OF CONSULTATION: REASON FOR CONSULTATION: Acute kidney injury, hypokalemia. HISTORY OF PRESENT ILLNESS: The patient is an 83-year-old female with past medical history of hypertension, dementia, and Parkinson disease, was admitted with generalized weakness and found to have hypokalemia with potassium of 2.7 and acute kidney injury with creatinine of 1.57. The patient was started on IV fluid and was given a potassium supplement. This morning, potassium was 2.9 and creatinine came down to 1.33. The patient was on hydrochlorothiazide at home, which was put on hold. The patient was also running low blood pressure, although blood pressure medicine put on hold. The patient denies having any nausea, vomiting, or diarrhea. PAST MEDICAL HISTORY: As above. PAST SURGICAL HISTORY: Brain surgery. SOCIAL HISTORY: Lives at home. No history of tobacco, alcohol, or intravenous drug abuse. ALLERGIES: NO KNOWN DRUG ALLERGIES. FAMILY HISTORY: No history of any kidney disease. MEDICATIONS: Allopurinol, carbidopa, hydrochlorothiazide, Levoxyl, metoprolol, omeprazole, paroxetine, primidone, rosuvastatin, and Januvia. REVIEW OF SYSTEMS: GENERAL: Positive fatigue. No fever. No chills. HEENT: No headache. No blurry vision. NECK: No dysphagia. CARDIOVASCULAR: No chest pain, PND, or orthopnea. RESPIRATORY: No shortness of breath. No dyspnea on exertion. No cough or hemoptysis. GI: No nausea, vomiting, diarrhea, constipation, hematemesis, or melena. MUSCULOSKELETAL: No ankle swelling. NEUROLOGIC: No numbness or tingling. SKIN: No new rash. PHYSICAL EXAMINATION: VITAL SIGNS: Blood pressure 92/44, pulse of 87, respirations 20, temperature 98.6, and 98% on room air. GENERAL: Awake and alert, not in apparent distress. HEENT: PERRLA. Extraocular muscles are intact. NECK: No elevated JVD. HEART: S1 and S2. LUNGS: Clear to auscultate bilaterally. ABDOMEN: Soft and nontender. Bowel sounds positive. EXTREMITIES: No edema. NEUROLOGICAL: No focal deficit. SKIN: No new rash. LABORATORY DATA: Sodium 137, potassium 2.9, chloride 97, CO2 33, BUN 20, creatinine 1.33, glucose 97, calcium 7.6, and albumin 2.1. LFTs within normal range. White count 6.06, hemoglobin 7.5, and platelet count is 228. Chest x-ray, no acute disease. Magnesium 1.5. ASSESSMENT AND PLAN: 1. Acute kidney injury, likely secondary to prerenal insufficiency from diuretics and poor p.o. intake. Hold hydrochlorothiazide. Currently, creatinine is improving. Continue with IV fluids for now. Repeat the labs in the morning. Avoid nephrotoxic medication. 2. Hypokalemia, likely secondary to poor p.o. intake and hydrochlorothiazide. Hydrochlorothiazide is on hold. Replace p.o. and IV. Repeat lab in the morning. 3. Hypertension. BP currently is low. Hold blood pressure medicines for now. 4. History of gout. Continue with the allopurinol. Thank you, Dr. Polanco, for the consult. MD SANDRA Menendez/MODL /[id number]
[2019-07-15] MEDS ORDERED: BISACODYL 5 MG TAB EC PO ONE ×3 (22:45→23:45)
[2019-07-16] VITALS (7 sets, daily range): BP systolic 106–128; BP diastolic 50–58
[2019-07-16] MEDS: PIPER-TAZ 3.375 GM 50 ML IV SCH ×4 (02:32→21:00)
[2019-07-16] MEDS: SODIUM CHLORIDE 0.9% 1000ML 1,000 ML IV SCH ×4 (02:32→22:46)
[2019-07-16] MEDS ORDERED: CITRATE OF MAGNESIA 300ML BOTTLE PO ONE (05:00)
--- NOTE | 2019-07-16 06:39 | NUR ---
PT RESTED DURING THE NIGHT .PT IS NPO AFTER BREAKFAST FOR EGD.PT REFUSED DUCOLAX AND MAG CITRATE .DR STOUT KNEW ABOUT IT .CALL LIGHT WITH IN REACH BEDSIDE REPORT GIVEN TO THE ONCOMING NURSE
--- NOTE | 2019-07-16 07:22 | NUR ---
PATIENT IN BED RESTING WITH EYES CLOSED, NO S/S OF DISTRESS NOTED. BED IN LOWER POSITION AND LOCKED, CALL LIGHT AT REACH. BED ALARM ACTIVATED.
[2019-07-16 07:40] LABS: BASOPHILS % 0.9 % (0.0-1.0); EOSINOPHILS # (AUTO) 0.1 (0.0-0.4); HEMATOCRIT 23.2 % (34.2-44.1); HEMOGLOBIN 7.3 g/dL (12.0-16.0); LYMPHOCYTES # (AUTO) 1.4 (1.0-3.2); LYMPHOCYTES % 30.2 % (18.0-39.1); MEAN CORPUSCULAR HEMOGLOBIN 31.7 pg (28-32); MEAN CORPUSCULAR HGB CONC 31.5 g/dL (31-35); MEAN CORPUSCULAR VOLUME 100.9 fL (81-99); MONOCYTES # (AUTO) 0.4 (0.2-0.8); MONOCYTES % 8.3 % (4.4-11.3); NEUTROPHILS # (AUTO) 2.7 (2.1-6.9); NEUTROPHILS % 57.2 % (38.7-80.0); PLATELET COUNT 217 x10e3/uL (140-360); RED CELL DISTRIBUTION WIDTH 15.2 % (11.7-14.4); RETICULOCYTE % 1.8 % (0.8-2.2)
[2019-07-16 08:04] LABS: ANION GAP 8.6 mmol/L (8-16); CALCIUM 7.6 mg/dL (8.4-10.2); CREATININE, SERUM 1.16 mg/dL (0.57-1.11); MAGNESIUM 1.5 MG/DL (1.3-2.1)
[2019-07-16 08:10] LABS: POTASSIUM 2.6 mmol/L (3.5-5.1)
[2019-07-16 08:44] LABS: FERRITIN 201.51 ng/mL (4.63-204.00)
--- NOTE | 2019-07-16 09:11 | NUR ---
SPOKE WITH MD REGARDING ABNORMAL LAB RESULT. NEW ORDER RECEIVED.
[2019-07-16] MEDS ORDERED: POTASSIUM CHLORIDE 20MEQ/100ML 100 ML IV ONE ×3 (09:30→14:30)
[2019-07-16] MEDS: BALSAM PERU/CASTOR OIL 60 GM OINT...G. TP SCH (10:18)
[2019-07-16] MEDS: COLLAGENASE OINTMENT 30 GM TUBE TP SCH (10:18)
--- NOTE | 2019-07-16 11:26 | NUR ---
TREATMENT DONE TO MULTIPLE WOUNDS ORDERED. PATIENT REPOSITIONED IN BED. CALL LIGHT AT REACH.
--- NOTE | 2019-07-16 14:24 | NUR ---
Day 2 observation. Meets inpatient status, and have requested inpatient order. Awaiting response
--- NOTE | 2019-07-16 15:02 | Progress Note ---
DATE: Internal Medicine Progress Note SUBJECTIVE: The patient came here with anemia. EGD has been postponed because of hypokalemia, potassium has been replaced. We are going to recheck the potassium today and then most likely EGD will be done tomorrow. We will do a CBC tomorrow. The patient also has no clinical evidence of any bleeding. No vomiting of blood. No blood in the stools. No black stools. No abdominal pain. PHYSICAL EXAMINATION: VITAL SIGNS: Blood pressure 107/51, temperature 97.3, heart rate 88 per minute, respiratory rate 18 per minute, and oxygen saturation 98%. HEART: Regular rhythm. Normal S1 and S2 sound. LUNGS: Clear bilaterally. ABDOMEN: Soft. EXTREMITIES: No evidence of cyanosis or hematoma. LABORATORY DATA: On the BMP; sodium 139, potassium 2.6, chloride 103, CO2 of 30, BUN 14, creatinine 1.16, and glucose 78. On CBC, white blood count 4.70, hemoglobin 7.3, hematocrit 23.2, and platelet count 217,000. AST 15, ALT 6, total bilirubin 0.2, and alkaline phosphatase 91. FINAL IMPRESSION: 1. Acute anemia, rule out gastrointestinal bleed. 2. Hypertension. 3. Parkinson disease. 4. Severe hypokalemia. PLAN OF TREATMENT: As I said, we are going to do an EGD tomorrow once the potassium back to normal. Continue potassium supplement. Continue normal saline 125 mL an hour. Balsam Holden/castor oil one application daily. 5 g daily. We are going to recheck potassium and magnesium levels and colonoscopy hopefully tomorrow. MD SABINO Higginbotham/CHEMAL /[id number]
--- NOTE | 2019-07-16 15:21 | NUR ---
PATIENT'S PROCEDURE CANCELLED DUE TO LOW POTASSIUM. IV POTASSIUM IN PROGRESS.
--- NOTE | 2019-07-16 16:14 | NUR ---
Nutrition Screen Note RD Recommendation for Physician: - Continue cardiac diet as ordered Plan of Care: RD following, monitoring for tolerance and adequacy Nutrition reason for involvement: Nutrition Risk Trigger MST Primary Diagnose(s): Acute anemia, rule out gastrointestinal bleed PMH: hypertension, dementia, and Parkinson disease Ht: 61in Wt: 134lb BMI: 25.3kg/m2 IBW: 105lb +/-10% RD Assessment: (07/15) Chart reviewed. Labs and meds reviewed. 83yo F, who was admitted for acute anemia. EGD has been postponed because of hypokalemia, potassium has been replaced. Visited pt in the room. Pt ate >50% of her lunch today. Poor historian, unable to obtain much info. No family on bedside. PCT stated that pt ate fine without any GI complains. +BM. Please consult if nutrition status changes. Current Diet: cardiac diet Malnutrition Evaluation (07/16/2019) Unable to evaluate poor historian, no family on bedside Diet Education Needs Assessment: Diet education not indicated. Nutrition Care Level: low Signed: Jenifer Peters, , RD, LD
--- NOTE | 2019-07-16 18:15 | NUR ---
Received patient transfer from [facility] to room 104. Respiration even and unlabored without SOB.
--- NOTE | 2019-07-16 18:20 | NUR ---
PATIENT TRANSFERRED TO MED SURG 1 . REPORT CALLED AND GIVEN TO RECEIVING NURSE. ALL PERSONAL ITEMS TAKEN WITH PATIENT.
[2019-07-16] MEDS ORDERED: ACETAMINOPHEN 325 MG TAB PO PRN (19:00)
[2019-07-16 19:02] LABS: CALCIUM 7.7 mg/dL (8.4-10.2); CREATININE, SERUM 1.11 mg/dL (0.57-1.11)
--- NOTE | 2019-07-16 19:10 | NUR ---
Report given to night nurse. respiration even and unlabored without SOB. Call light in reach.
--- NOTE | 2019-07-16 20:36 | NUR ---
SPOKE TO DR. GEORGES AT THIS TIME REGARDING PATIENT BMP RESULT. NO NEW ORDER.
[2019-07-16] MEDS: HYDROCODONE/APAP 5MG-325MG TAB PO PRN (21:20)
--- NOTE | 2019-07-16 22:00 | NUR ---
NOTIFIED DR. Jael STOUT OF PATIENT COMPLAINING OF NAUSEA. NEW ORDER RECEIVED FOR PRN IV ZOFRAN
[2019-07-16] MEDS: ONDANSETRON HCL INJ 2MG/ML 2ML 2 MG/ML VIAL IV PRN (22:27)
[2019-07-17] VITALS (8 sets, daily range): BP systolic 104–129; BP diastolic 48–72
[2019-07-17] MEDS ORDERED: CYANOCOBALAMIN INJ 1,000 MCG/ML VIAL IM STA (02:28)
[2019-07-17] MEDS: PIPER-TAZ 3.375 GM 50 ML IV SCH ×4 (02:30→23:00)
--- NOTE | 2019-07-17 07:00 | NUR ---
Lying in bed with eyes open. Respiration even and unlabored without SOB. Call light in reach.
[2019-07-17 07:05] LABS: BASOPHILS # (AUTO) 0.1 (0.0-0.1); BASOPHILS % 0.8 % (0.0-1.0); EOSINOPHILS # (AUTO) 0.2 (0.0-0.4); EOSINOPHILS % 2.7 % (0.0-6.0); HEMATOCRIT 25.5 % (34.2-44.1); HEMOGLOBIN 7.9 g/dL (12.0-16.0); LYMPHOCYTES # (AUTO) 1.8 (1.0-3.2); LYMPHOCYTES % 30.7 % (18.0-39.1); MEAN CORPUSCULAR HEMOGLOBIN 31.6 pg (28-32); MONOCYTES # (AUTO) 0.6 (0.2-0.8); MONOCYTES % 9.6 % (4.4-11.3); NEUTROPHILS # (AUTO) 3.3 (2.1-6.9); PLATELET COUNT 237 x10e3/uL (140-360); RED CELL DISTRIBUTION WIDTH 15.6 % (11.7-14.4)
[2019-07-17 07:21] LABS: ANION GAP 13.1 mmol/L (8-16); CALCIUM 7.7 mg/dL (8.4-10.2); CREATININE, SERUM 1.12 mg/dL (0.57-1.11); POTASSIUM 3.1 mmol/L (3.5-5.1)
--- NOTE | 2019-07-17 08:40 | NUR ---
Notified Dr. Celeste about potassium level of 3.1. Verbal order to give KCL 20meq IV times 3 doses.
[2019-07-17] MEDS: COLLAGENASE OINTMENT 30 GM TUBE TP SCH (09:04)
[2019-07-17] MEDS: CYANOCOBALAMIN INJ 1,000 MCG/ML VIAL IM SCH (09:04)
[2019-07-17] MEDS: BALSAM PERU/CASTOR OIL 60 GM OINT...G. TP SCH (09:05)
[2019-07-17] MEDS: POTASSIUM CHLORIDE 20MEQ/100ML 100 ML IV SCH ×3 (10:35→14:30)
[2019-07-17] MEDS ORDERED: POTASSIUM CHLORIDE 20 MEQ TAB CR PO NR (12:11)
--- NOTE | 2019-07-17 13:01 | Progress Note ---
DATE: Internal Medicine Progress Note SUBJECTIVE: The patient is doing well, little bit confused today. PHYSICAL EXAMINATION: HEART: Showed regular rhythm. Normal S1, S2 sounds. LUNGS: Clear bilaterally. ABDOMEN: Soft. VITAL SIGNS: Blood pressure 111/48, temperature 98, heart rate 87 per minute, respiratory rate 18 per minute, oxygen saturation 100%. LABORATORY DATA: On the CBC, white blood count 5.96, hemoglobin 7.9, hematocrit 25.5, MCV is 102, platelet count 237,000. On the BMP; sodium 143, potassium 3.1, chloride 109, CO2 of 24, BUN 11, creatinine 1.12, glucose 72, calcium 7.7. IMPRESSION: 1. Acute anemia. 2. Hypertension. 3. Parkinson disease. 4. Hypokalemia. PLAN OF TREATMENT: Potassium is going to be replaced. We are going to recheck the potassium level today. Magnesium level is normal. Normal saline has been discontinued. Continue Zosyn 3.375 g IV q.6 hours, collagenase ointment daily, vitamin B12 1000 mcg IM has been given daily, Hundred 5/325 q.4 hours as needed for severe pain, Zofran 4 mg IV q.4 hours as needed. She is scheduled to have EGD and colonoscopy tomorrow by Dr. Alan Zamudio. MD SABINO Higginbotham/KAROLINA /[id number]
[2019-07-17] MEDS: HYDROCODONE/APAP 5MG-325MG TAB PO PRN ×2 (16:39→23:00)
[2019-07-17 18:07] LABS: CALCIUM 7.6 mg/dL (8.4-10.2); CREATININE, SERUM 1.08 mg/dL (0.57-1.11)
[2019-07-17] MEDS ORDERED: CITRATE OF MAGNESIA 300ML BOTTLE PO NR ×2 (18:31→20:00)
--- NOTE | 2019-07-17 18:38 | NUR ---
Verbal order given by Dr. Luann Zamudio to give magnesium citrate times two bottle.
--- NOTE | 2019-07-17 19:13 | NUR ---
Report given to night nurse. respiration even and unlabored without SOB. Call light in reach.
[2019-07-17] MEDS: ONDANSETRON HCL INJ 2MG/ML 2ML 2 MG/ML VIAL IV PRN (23:50)
[2019-07-18] VITALS (8 sets, daily range): BP systolic 83–119; BP diastolic 49–71
[2019-07-18] MEDS: PIPER-TAZ 3.375 GM 50 ML IV SCH ×4 (04:46→22:36)
--- NOTE | 2019-07-18 07:27 | NUR ---
MD CHAVARRIA INTO SEE PT,DISCUSSED POC
--- NOTE | 2019-07-18 07:59 | Progress Note ---
DATE: 07/18/2019 SUBJECTIVE: Ms. Torres is an 83-year-old female with history of hypertension, dementia, Parkinson disease, multiple decubiti, who came to the emergency room because she was feeling weak. She was found to be hypokalemic, had several multiple decubiti, anemic. She is going to go for EGD and colonoscopy today. PHYSICAL EXAMINATION: GENERAL: She is awake and alert. She follows commands. She answers questions. VITAL SIGNS: Temperature is 96.2 and blood pressure 98/57. HEART: Regular rate. LUNGS: Poor inspiratory effort. ABDOMEN: Distended and soft. LABORATORY DATA: On the blood work, white count is 5.96, hemoglobin 7.9, hematocrit 25.5. Potassium 4.0, creatinine is 1.08. Stool culture came back negative. Chest x-ray on admission shows no acute findings. ASSESSMENT: 1. Hypokalemia, resolved. 2. Anemia. 3. Parkinson disease. 4. Multiple decubiti. 5. Dementia. PLAN: At the present time is to continue to monitor hemoglobin and hematocrit. Replace potassium as needed. Renal function improved. Potassium through. The patient is still anemic. She is going to go for EGD and colonoscopy today. Continue wound care. This patient is going to need a placement when stable, but she looks better. MD DAGMAR Johnson/KAROLINA /[id number]
[2019-07-18] MEDS: CYANOCOBALAMIN INJ 1,000 MCG/ML VIAL IM SCH (09:00)
[2019-07-18] MEDS: BALSAM PERU/CASTOR OIL 60 GM OINT...G. TP SCH (09:00)
--- NOTE | 2019-07-18 09:10 | NUR ---
TELEPHONED MD CHAVARRIA TO MAKE AWARE OF GLUCOSE AT 76 AND NO FLUIDS, PT IS NPO PENDING EGD/COLONOSCOPY, AWAITING CALL BACK
[2019-07-18] MEDS ORDERED: SODIUM CHLORIDE 0.9% 1000ML 1,000 ML ONE (09:48)
[2019-07-18] MEDS: COLLAGENASE OINTMENT 30 GM TUBE TP SCH (10:00)
--- NOTE | 2019-07-18 10:30 | NUR ---
2ND CALL TO DR LEMONS TO MAKE AWARE OF LOW GLUCOSE, AWAITING CALL BACK
--- NOTE | 2019-07-18 11:33 | NUR ---
PT WHEELED OFF UNIT VIA BED FOR EGD/COLONSCOPY, NO CHANGE IN CONDITION, OR TECH SPOKE WITH FAMILY, "SON IS SUPPOSED TO CALL BACK"
[2019-07-18] MEDS ORDERED: DEXTROSE 5%/0.45% SOD CHL 1,000 ML IV ONE (11:43)
--- NOTE | 2019-07-18 12:44 | NUR ---
PT RETURNED TO UNIT VIA STRETCHER , PER OR NURSE PER ANESTHESIOLOGIST PT MUST HAVE A NOTE FROM ATTENDING STATING THAT THE ITEM IN CHEST IS NOT A PACEMAKER AND OKAY TO HAVE EGD/COLONOSCOPY, TELEPHONED MD CHAVARRIA AGAIN, AWAITING CALL BACK, ACCORDING TO SON PT HAS "NERVE STIMULATOR PLACED IN [place] AND HAS BEEN DEACTIVATED FOR OVER 10 YEARS ", "NOT A PACEMAKER", ARASH GRAJEDA IN OR NOTIFIED TO LET ANESTHESIOLOGIST KNOW Addendum: 07/18/19 at 1250 by Antonette Kramer RN PT AWAKENS TO VOICE, GLUCOSE 79 THIS TIME Addendum: 07/18/19 at 1909 by Antonette Kramer RN SONNY ([facility]) [phone] CON[facility] ([facility]) [phone]
--- NOTE | 2019-07-18 15:05 | NUR ---
SPOKE WITH DR Jael STOUT, MADE AWARE THAT WE ARE STILL PENDING CALL BACK FROM DR BOYLE FOR A NOTE FOR OR TO DO EGD/COLONOSCOPY, ORDERS NOTED FOR CLEAR LIQUID
[2019-07-18] MEDS ORDERED: SODIUM CHLORIDE 0.9% 250ML 250 ML ONE (18:01)
--- NOTE | 2019-07-18 19:16 | NUR ---
Received bedside report from day nurse. Patient resting in bed with both eyes closed, arousable via touch and voice, no s/s of distress at this time. Bed locked and in low position, call light placed within reach. All safety measures in place. Will continue to monitor.
--- NOTE | 2019-07-18 23:27 | NUR ---
Dr. Zamudio on unit. Received orders to consult Dr. Cardenas in the morning to identify device implanted in left chest.
[2019-07-19] VITALS (8 sets, daily range): BP systolic 92–119; BP diastolic 49–60
[2019-07-19] MEDS: COLLAGENASE OINTMENT 30 GM TUBE TP SCH (04:34)
[2019-07-19] MEDS: BALSAM PERU/CASTOR OIL 60 GM OINT...G. TP SCH (04:34)
[2019-07-19] MEDS: PIPER-TAZ 3.375 GM 50 ML IV SCH ×4 (04:53→22:22)
--- NOTE | 2019-07-19 06:16 | NUR ---
Spoke with Dr. Tyler Xiong regarding routine consult for Dr. Cardenas. Stated someone will be in to see patient.
--- NOTE | 2019-07-19 07:00 | NUR ---
received bedside report. pt is sleeping, no s/s of distress. call light within reach and bed safety in place
--- NOTE | 2019-07-19 07:03 | NUR ---
Bedside report given to day nurse. Patient resting in bed, no s/s of distress at this time. Bed locked and in low position, call light placed within reach. All safety measures in place.
[2019-07-19 08:24] LABS: HEMATOCRIT 24.4 % (34.2-44.1); HEMOGLOBIN 7.7 g/dL (12.0-16.0); MEAN CORPUSCULAR HEMOGLOBIN 31.8 pg (28-32); MEAN CORPUSCULAR HGB CONC 31.6 g/dL (31-35); MEAN CORPUSCULAR VOLUME 100.8 fL (81-99); PLATELET COUNT 206 x10e3/uL (140-360); RED BLOOD COUNT 2.42 x10e6/uL (3.6-5.1)
[2019-07-19 08:47] LABS: CALCIUM 8.2 mg/dL (8.4-10.2); CREATININE, SERUM 1.09 mg/dL (0.57-1.11)
[2019-07-19] MEDS: HYDROCODONE/APAP 5MG-325MG TAB PO PRN (08:54)
--- NOTE | 2019-07-19 08:57 | Progress Note ---
DATE: 07/19/2019 SUBJECTIVE: Ms. Torres is an 83-year-old female with history of Parkinson disease, dementia, hypertension, bedridden with multiple decubiti, who came to the emergency room because she was feeling weak. She was found to be hypokalemic and have several multiple decubiti as well as anemic. Stool guaiac came back negative. Apparently they found yesterday. An EGD and colonoscopy were put on hold. PHYSICAL EXAMINATION: GENERAL: Today, she is awake and alert. She is complaining of pain of her foot. VITAL SIGNS: Temperature is 97.8, blood pressure 92/49. HEART: Regular rate. LUNGS: Poor inspiratory effort. ABDOMEN: Soft. She has a stage III decubitus in the sacral area. EXTREMITIES: She has multiple decubiti in the calf and on her heels. She has contracture of her lower extremities. LABORATORY DATA: On the blood work, white count 5.96, hemoglobin 7.9, hematocrit 25.5. Sugar was 93. ASSESSMENT AND PLAN: 1. Hypokalemia, resolved. 2. Anemia. 3. Parkinson disease. 4. Multiple decubiti. 5. Dementia. 6. Bedridden. PLAN: At present time is to repeat the CBC. EGD and colonoscopy are on hold. If hemoglobin and hematocrit are stable and since stool guaiac is negative, we may hold the EGD and colonoscopy and do them as an outpatient. Continue wound care. Continue pain management. All this was discussed with nurse. All questions were answered to satisfaction. MD DAGMAR Johnson/MODL /[id number]
--- NOTE | 2019-07-19 10:18 | NUR ---
SPOKE WITH PT, SHE IS CONFUSED AND DOESNT REMEMBER WHERE SHE LIVES, CALLED AND LEFT VOICE MAIL FOR SON SONNY FOR SNF CHOICE. [phone]. LEFT COVID ASSESSMENT ON CHART FOR MD SIGNATURE.
--- NOTE | 2019-07-19 10:32 | NUR ---
CALLED AND LEFT MESSAGE FOR [facility] SON [phone] TO RETURN CALL.
[2019-07-19] MEDS: CYANOCOBALAMIN INJ 1,000 MCG/ML VIAL IM SCH (11:53)
--- NOTE | 2019-07-19 15:20 | NUR ---
Nutrition Intervention Note RD Recommendation(s) for Physician: - Recommend Ensure Clear TID while on CL diet for adequacy - When feasible, ADAT to goal of GI Soft, Low Sodium diet, change supplement to Ensure Compact TID - Recommend Arsh 1 packet BID to promote wound healing - Recommend MVI with minerals, Vitamin C, and Zinc Sulfate to promote wound healing Plan of Care: RD following, monitoring for tolerance and adequacy, diet and ONS rec's Nutrition reason for involvement: PU documented RD Assessment 07/18: Follow up. Pt with stage III sacral decub documented. Pt currently on CL diet x 1 day, EGD and colonoscopy postponed. Pt sleeping at time of visit and poor historian, no family at bedside. Chart reviewed. Pt discussed during am MDR. Will continue to monitor. (07/15) Chart reviewed. Labs and meds reviewed. 83yo F, who was admitted for acute anemia. EGD has been postponed because of hypokalemia, potassium has been replaced. Visited pt in the room. Pt ate >50% of her lunch today. Poor historian, unable to obtain much info. No family on bedside. PCT stated that pt ate fine without any GI complains. +BM. Please consult if nutrition status changes. Primary Diagnose(s): Acute anemia, rule out gastrointestinal bleed PMH: hypertension, dementia, and Parkinson disease GI: LBM 07/18- liquid Skin: sacral stage III PU Labs: 07/18: Na 141, K 3, BUN 7, Cr 1.09, Gluc 65, Ca 8.2 Meds: vitamin B12, abx, norco, zofran Ht: 61in Wt: 134lb BMI: 25.3kg/m2 IBW: 105lb +/-10% Malnutrition Evaluation (07/16/19) The patient does not meet criteria for a specified degree of malnutrition at this time. Will re-evaluate at follow-up as appropriate. Unable to evaluate poor historian, no family on bedside Nutrition Prescription (Diet Order): Clear Liquids Estimated Nutritional Needs: 9142-4371 calories/day (18-22 kcal/kg CBW) 65-117 g protein/day (1-1.8 g pro/kg CBW)- increased needs for wound healing Diet Adequacy: Not meeting calorie needs, Not meeting protein needs Diet Tolerance: tolerating CL Diet Education Needs Assessment: Diet education not indicated, patient on temporary/transition diet. Nutrition Care Level: Moderate Nutrition Diagnosis: Increased nutrient needs (protein, vitamins/minerals) related to skin integrity as evidenced by stage III PU to sacrum. Goal: Patient will meet 75-100% of estimated needs by follow up Progress: N/A Interventions: -Fat/mineral modified diet, Commercial beverage, Multivitamin/mineral supplement therapy, collaboration with other providers Monitoring/Evaluation: -Total energy intake, Total protein intake, Prescription medication, Modified diet, Liquid supplement Signed: Pattie Larios RD, [place], [facility]
[2019-07-19] MEDS ORDERED: POTASSIUM CHLORIDE 20 MEQ TAB CR PO SCH ×2 (15:40→17:45)
--- NOTE | 2019-07-19 16:55 | Consultation ---
DATE OF CONSULTATION: Cardiology Consultation REASON FOR CONSULTATION: Possible cardiac device and need for clarification. HISTORY OF PRESENT ILLNESS: This is an 83-year-old woman with hypertension, dementia, and Parkinson disease, who was brought in for failure to thrive, malnutrition, anemia, and possible gastrointestinal bleed. I was asked to evaluate the patient for possible cardiac device. I cannot obtain history, as the patient has severe dementia, cannot provide me the exact details of her past medical history or presenting symptoms. No family is available and I have called the number on the chart with no answer. REVIEW OF SYSTEMS: Unable to be obtained. PAST MEDICAL HISTORY: As stated above. PAST SURGICAL HISTORY: Unknown. PAST FAMILY HISTORY: Noncontributory of the current illness. ALLERGIES: NO DRUG ALLERGIES. SOCIAL HISTORY: No illicit drug, alcohol, or tobacco use. MEDICATIONS: See medication reconciliation form. PHYSICAL EXAMINATION: VITAL SIGNS: Temperature is 98, heart rate is 88, respirations are 20, blood pressure is 117/50, and oxygen saturation 99% on room air. GENERAL: She is a chronically ill-appearing elderly woman, lying comfortably in bed. No apparent distress. Alert, not oriented. HEAD: Normocephalic and atraumatic. EYES: The extraocular muscles are intact. Conjunctivae are clear. NECK: No JVD. No bruits. CHEST: A device was palpated over the left anterior wall with a wire tracking to the cervical region. CARDIOVASCULAR: Regular rate and rhythm. No murmurs. LUNGS: Clear to auscultation. ABDOMEN: Soft, nontender, and nondistended. EXTREMITIES: No clubbing, cyanosis, or edema. VASCULAR: Diminished pulses. SKIN: Warm, dry, and intact. NEUROLOGIC: The patient is awake, moving all extremities with tremor. LABORATORY DATA: Reviewed. Hemoglobin is 7.7. Creatinine is 1.09. Troponin is normal. Telemetry monitoring showed normal sinus rhythm. Electrocardiogram reviewed. IMPRESSION: 1. Parkinson disease, status post deep brain stimulator. 2. Anemia. 3. Hypertension. 4. Dementia. RECOMMENDATIONS: The patient does not have a cardiac defibrillator. On review of the chest x-ray, she likely has a deep brain stimulator where the wire extends up to the cervical region. There were no wires tracking into the cardiac chambers. Thank you for the consultation. Please call back with further questions. [place] DO AMBREEN Cardenas/KAROLINA /[id number]
--- NOTE | 2019-07-19 19:14 | NUR ---
Received bedside from day nurse. Patient awake and resting in bed, no s/s of distress at this time. Bed locked and in low position, call light placed within reach. All safety measures in place. Will continue to monitor.
--- NOTE | 2019-07-19 20:52 | NUR ---
Gave patient 4 oz of orange juice for blood glucose level of 71. Patient awake and oriented, vital signs stable, no s/s of distress at this time. All safety measures in place. Will continue to monitor.
--- NOTE | 2019-07-19 23:20 | NUR ---
Dr. Zamudio here to see patient. Reviewed Dr. Cardenas's notes clarifying that patient does not have cardiac defibrillator. Will proceed with EGD and colonoscopy tomorrow per Dr. Zamudio. Received orders to give 20 mg Dulcolax PO Q30x2 starting now, one bottle of mag citrate at 5AM, and to encourage patient to drink plenty of fluids. Will call and notify family.
--- NOTE | 2019-07-19 23:26 | NUR ---
Called and spoke with patient's son, Santana, to let him know plan for EGD and colonoscopy tomorrow. Son verbalized understanding. Will continue to monitor patient.
--- NOTE | 2019-07-19 23:28 | NUR ---
Received orders from Dr. Zamudio to order BMP in the morning.
[2019-07-19] MEDS ORDERED: BISACODYL 5 MG TAB EC PO ONE (23:30)
[2019-07-20] VITALS (8 sets, daily range): BP systolic 98–151; BP diastolic 50–90
[2019-07-20] MEDS ORDERED: BISACODYL 5 MG TAB EC PO ONE
[2019-07-20] MEDS: PIPER-TAZ 3.375 GM 50 ML IV SCH ×4 (04:09→22:43)
[2019-07-20] MEDS ORDERED: CITRATE OF MAGNESIA 300ML BOTTLE PO ONE (05:00)
[2019-07-20] MEDS: HYDROCODONE/APAP 5MG-325MG TAB PO PRN ×3 (05:28→22:55)
[2019-07-20 06:04] LABS: ANION GAP 10.5 mmol/L (8-16); CALCIUM 7.6 mg/dL (8.4-10.2); CREATININE, SERUM 1.03 mg/dL (0.57-1.11)
[2019-07-20 06:18] LABS: POTASSIUM 2.5 mmol/L (3.5-5.1)
--- NOTE | 2019-07-20 06:22 | NUR ---
Called Dr. Zamudio regarding potassium level of 2.5. Received orders to give 40 mEq KCl PO now, again in 1 hour, and again at 8AM for a total of [address] Zamudio, encourage patient to drink plenty of water until 8AM, after which she should remain NPO. Received orders to recheck potassium at 11AM.
[2019-07-20] MEDS: BALSAM PERU/CASTOR OIL 60 GM OINT...G. TP SCH (06:37)
[2019-07-20] MEDS: COLLAGENASE OINTMENT 30 GM TUBE TP SCH (06:37)
[2019-07-20] MEDS ORDERED: POTASSIUM CHLORIDE 20 MEQ TAB CR PO ONE ×3 (06:45→08:00)
--- NOTE | 2019-07-20 07:05 | NUR ---
Bedside report given to day nurse. Patient awake and resting in bed, no s/s of distress at this time. All safety measures in place.
--- NOTE | 2019-07-20 08:18 | Progress Note ---
DATE: 07/20/2019 SUBJECTIVE: Ms. Torres is an 83-year-old female with history of Parkinson disease, dementia, hypertension, bedridden with multiple decubiti, who came to the emergency room because she was feeling weak. She was found to have multiple decubiti. She was anemic and she was hypokalemic. Stool guaiac came back negative, but the patient is going to go for EGD and colonoscopy today. PHYSICAL EXAMINATION: GENERAL: She is awake. She is alert. She follows simple commands. VITAL SIGNS: Temperature is 96.8, blood pressure 100/64. HEART: Regular rate. LUNGS: Poor inspiratory effort. ABDOMEN: Distended and soft. LABORATORY DATA: On the blood work, white count is 4.69, hemoglobin 7.7, hematocrit 24.4. Potassium 2.5 today. Creatinine is 1.03. ASSESSMENT: 1. Hypokalemia. 2. Anemia. 3. Parkinson disease. 4. Multiple decubiti. 5. Dementia. 6. Bedbound. PLAN: At present time is to replace potassium. Continue to monitor hemoglobin and hematocrit. EGD and colonoscopy once we will replace the potassium. Continue wound care. Once the patient is stable, she is going to require SNF. MD DAGMAR Johnson/KAROLINA /[id number]
[2019-07-20] MEDS ORDERED: SODIUM CHLORIDE 0.9% 250ML 250 ML ONE ×2 (08:35→22:37)
[2019-07-20] MEDS ORDERED: POTASSIUM CHLORIDE 20MEQ/100ML 200 ML IV ONE (08:40)
[2019-07-20] MEDS: CYANOCOBALAMIN INJ 1,000 MCG/ML VIAL IM SCH (08:43)
[2019-07-20 15:02] LABS: CALCIUM 7.8 mg/dL (8.4-10.2); CREATININE, SERUM 1.13 mg/dL (0.57-1.11)
--- NOTE | 2019-07-20 19:10 | NUR ---
Patient visited in room during nursing rounds. Patient alert and oriented x0-1. No distress or discomfort noted. Pt khmer speaking only. Patient non-ambulatory and contracted on both feet. Multiple wounds to sacrum (stage 3 ulcer), small ulcer to left calf and DTI's on bilateral heels all covered with Allevyn foam dressing. Both heels with heel support and elevated with pillows. Pt incontinent and diapered. Bed alarm active. Call gaona within reach.
[2019-07-20] MEDS ORDERED: DEXTROSE 50% SYRINGE 50 ML IV PRN (20:15)
--- NOTE | 2019-07-20 22:20 | NUR ---
Dr. Alan Zamudio came to the unit and ordered to give patient Dulcolax 20mg x1 STAT and another 20mg dose at 0000 in preparation for planned EGD and Colonoscopy tomorrow (07/22/19). MD also allowed pt do drink water till 0600 then keep pt strictly NPO after 0600.
[2019-07-20] MEDS ORDERED: BISACODYL 5 MG TAB EC PO STA (22:22)
--- NOTE | 2019-07-20 23:00 | NUR ---
Called and obtained telephone consent from Santana Torres (patient's son) to sign consent form for EGD and Colonoscopy tomorrow.
[2019-07-21] VITALS (8 sets, daily range): BP systolic 97–108; BP diastolic 51–61
[2019-07-21] MEDS ORDERED: BISACODYL 5 MG TAB EC PO ONE
--- NOTE | 2019-07-21 | NUR ---
Pt drank a total of 3 cups of water since 2199. Pt tolerated drinking water fine.
--- NOTE | 2019-07-21 02:18 | NUR ---
Dr. Luann Zamudio came to unit and ordered to continue giving pt cups of water.
--- NOTE | 2019-07-21 02:23 | NUR ---
Dr. Luann Zamudio at bedside and witness pt feeling nauseated after 1/2 cup of drinking water. MD ordered to give pt Zofran 4mg IV now.
[2019-07-21] MEDS: ONDANSETRON HCL INJ 2MG/ML 2ML 2 MG/ML VIAL IV PRN (02:26)
--- NOTE | 2019-07-21 02:26 | NUR ---
Pt had vomited a little clear fluid on emesis bag. Pt given Zofran 4mg IV as per MD order. HOB was elevated close to 90 degrees. Pt appear to be ok at this time. Bed alarm active. Dr Zamudio requested not to give her anymore water at this time due to nausea.
--- NOTE | 2019-07-21 02:30 | NUR ---
Verbally mentioned to Dr. Luann Zamudio that patient had several bowel movements yesterday on dayshift (as report received from dayshift RN).
[2019-07-21] MEDS: HYDROCODONE/APAP 5MG-325MG TAB PO PRN (02:58)
[2019-07-21] MEDS: PIPER-TAZ 3.375 GM 50 ML IV SCH ×4 (05:21→23:04)
[2019-07-21 05:32] LABS: ANION GAP 9.9 mmol/L (8-16); CALCIUM 7.7 mg/dL (8.4-10.2); CREATININE, SERUM 1.03 mg/dL (0.57-1.11); POTASSIUM 4.9 mmol/L (3.5-5.1)
--- NOTE | 2019-07-21 07:25 | NUR ---
Rcvd patient in report this am. Patient is asleep in bed at this time. NO s/s of distress noted
--- NOTE | 2019-07-21 09:04 | Progress Note ---
DATE: 07/21/2019 SUBJECTIVE: Ms. Torres is an 83-year-old female with history of hypertension, dementia, Parkinson disease, bedridden with multiple decubitus, who was brought to the emergency room because she was feeling weak. She was found to be hypokalemic and anemic. She was going to go for EGD and colonoscopy yesterday, but her potassium was very low, so she is going to go today. PHYSICAL EXAMINATION: GENERAL: She is awake and alert. She follows commands. VITAL SIGNS: Temperature is 98.8, blood pressure 97/61. HEART: Regular rate. LUNGS: Poor inspiratory effort. ABDOMEN: Soft. LABORATORY DATA: On the blood work; white count is 4.69, hemoglobin 7.7, hematocrit 24.4. Potassium today is 4.9, creatinine is 0.03, glucose is 79. ASSESSMENT AND PLAN: 1. Hypokalemia, resolved. 2. Anemia for EGD and colonoscopy today. 3. Parkinson disease. 4. Multiple decubiti, on wound care. 5. Dementia. 6. Bedbound. PLAN: At present time is to continue to monitor potassium, hemoglobin, and hematocrit. She is going to go for EGD and colonoscopy today and already discussed with Case Management, placement for this patient for SNF, probably discharge tomorrow if colonoscopy is okay and hemoglobin and hematocrit are stable and once we have SNF approval. MD DAGMAR Johnson/KAROLINA /[id number]
[2019-07-21] MEDS: BALSAM PERU/CASTOR OIL 60 GM OINT...G. TP SCH (09:20)
[2019-07-21] MEDS: CYANOCOBALAMIN INJ 1,000 MCG/ML VIAL IM SCH (09:20)
--- NOTE | 2019-07-21 10:01 | NUR ---
Patient went to OR at this time.
[2019-07-21] MEDS ORDERED: PANTOPRAZOLE 40 MG 10ML VIAL IV SCH (11:45)
[2019-07-21] MEDS ORDERED: SODIUM CHLORIDE 0.9% 50ML 50 ML ONE (11:55)
--- NOTE | 2019-07-21 11:59 | Operative Report ---
DATE OF PROCEDURE: 07/21/2019 SURGEON: Alan Zamudio MD PROCEDURES: EGD with biopsies and colonoscopy. INDICATIONS FOR EGD: Anemia. INDICATIONS FOR COLONOSCOPY: Anemia. MEDICATIONS: The patient was done under MAC, please see anesthesiologist's note. PROCEDURE IN DETAIL: With the patient in the left lateral decubitus position, the flexible fiberoptic Olympus gastroscope was introduced into the esophagus under direct visualization without any difficulty. There was some patchy erythema noted in distal esophagus. The scope was then advanced with ease into the stomach traversing a small sliding hiatal hernia. Mucosa overlying the antrum and the body revealed some patchy erythema and low-grade to moderate edema, and biopsies were obtained and sent to stain for H. pylori. There was some coffee-ground stains also noted in the stomach. Pylorus was intubated with ease and the scope was advanced all the way to the second portion of the duodenum. The scope was then withdrawn slowly and mucosa overlying the proximal second portion and duodenal bulb grossly appeared to be within normal limits. The scope was then retroflexed, mucosa overlying the fundus and the cardia appeared to be within normal limits. The scope was then straightened out, it was subsequently withdrawn, and the patient tolerated the procedure well. IMPRESSION: 1. Mild distal esophagitis. 2. Small sliding hiatal hernia. 3. Gastritis, biopsied, biopsies sent to stain for Helicobacter pylori. Coffee-ground stains were noted in the body and the antrum of the stomach. PLAN: Follow up histology. Initiate Protonix 40 mg 1 p.o. before meals b.i.d. The patient was then turned around and after adequate lubrication of the anal canal, a flexible fiberoptic Olympus colonoscope was inserted into the rectum and advanced all the way to about 50 cm from the anal verge. It could not be advanced any further, as the colon was sharply angulated and somewhat fixed. The scope was then withdrawn slowly and diverticular disease was noted in the sigmoid colon. The rectum appeared to be within normal limits. The scope was then retroflexed into the distal rectum and the area around the dentate line appeared to be within normal limits. The scope was then straightened out, it was subsequently withdrawn, and the patient tolerated the procedure well. IMPRESSION: 1. Colonoscopy to approximately 50 cm from the anal verge, could not advance any further due to sharp angulation of colon. 2. Diverticulosis. PLAN: We will initiate full liquid diet and advance as tolerated. MD CARROLL Jara/CHEMAL /[id number] cc: Manasa Polanco MD
--- NOTE | 2019-07-21 12:19 | NUR ---
Nutrition Intervention Note RD Recommendation(s) for Physician: - When feasible, ADAT to goal of GI Soft, Low Sodium diet, Ensure Compact TID - Recommend Arsh 1 packet BID to promote wound healing - Recommend MVI with minerals, Vitamin C, and Zinc Sulfate to promote wound healing Plan of Care: RD following, monitoring for tolerance and adequacy, diet and ONS rec's Nutrition reason for involvement: f/u RD Assessment 07/20: Follow up: Pt was seen resting in bed, she is somewhat confused at the time. She is currently NPO, she was supposed to go to a EGD and colonoscopy yesterday , but her K was too low, so she is going toay. SNF placement is pending, possible d/c tmrw. Per FS- pt has been consuming 50-75% of her meals. Pt was recently advanced to full liquids, recommend Ensure Compact BID. Will continue to monitor. 07/18: Follow up. Pt with stage III sacral decub documented. Pt currently on CL diet x 1 day, EGD and colonoscopy postponed. Pt sleeping at time of visit and poor historian, no family at bedside. Chart reviewed. Pt discussed during am MDR. Will continue to monitor. (07/15) Chart reviewed. Labs and meds reviewed. 83yo F, who was admitted for acute anemia. EGD has been postponed because of hypokalemia, potassium has been replaced. Visited pt in the room. Pt ate >50% of her lunch today. Poor historian, unable to obtain much info. No family on bedside. PCT stated that pt ate fine without any GI complains. +BM. Please consult if nutrition status changes. Primary Diagnose(s): Acute anemia, rule out gastrointestinal bleed PMH: hypertension, dementia, and Parkinson disease GI: LBM 07/20- liquid Skin: sacral stage III PU Labs: 07/20: Cl 116, CO2 18, Ca 7.7 07/18: Na 141, K 3, BUN 7, Cr 1.09, Gluc 65, Ca 8.2 Meds: vitamin B12, abx, norco, zofran Ht: 61in Wt: 134lb 07/20 :137 BMI: 25.3kg/m2 IBW: 105lb +/-10% Malnutrition Evaluation (07/16/19) The patient does not meet criteria for a specified degree of malnutrition at this time. Will re-evaluate at follow-up as appropriate. Unable to evaluate poor historian, no family on bedside Nutrition Prescription (Diet Order): full liquids Estimated Nutritional Needs: 9367-1240 calories/day (18-22 kcal/kg CBW) 65-117 g protein/day (1-1.8 g pro/kg CBW)- increased needs for wound healing Diet Adequacy: Not meeting calorie needs, Not meeting protein needs Diet Tolerance: full liquids Diet Education Needs Assessment: Diet education not indicated, patient on temporary/transition diet. Nutrition Care Level: Moderate Nutrition Diagnosis: Increased nutrient needs (protein, vitamins/minerals) related to skin integrity as evidenced by stage III PU to sacrum. Goal: Patient will meet 75-100% of estimated needs by follow up Progress: progressing Interventions: -Fat/mineral modified diet, Commercial beverage, Multivitamin/mineral supplement therapy, collaboration with other providers Monitoring/Evaluation: -Total energy intake, Total protein intake, Prescription medication, Modified diet, Liquid supplement Signed: Jyothi Amato RD,[place]
--- NOTE | 2019-07-21 12:26 | NUR ---
Patient returned from OR at this time. Patient is to be on a full liquid diet. NO bleeding found.
[2019-07-21] MEDS ORDERED: PANTOPRAZOLE 40 MG 10ML VIAL IV ONE (12:30)
--- NOTE | 2019-07-21 14:09 | NUR ---
WOUND CARE SCREENING PT FOLLOW UP. 83 YEAR OLD FEMALE ADMITTED TO [facility] WITH DX OF WEAKNESS AND HYPOKALEMIA. HEAD TO TOE SKIN ASSESSMENT PERFORMED. PT PRESENTS WITH 1) 1X1CM LEFT HEEL HEALING DTI, NON BLANCHABLE, SOGGY HEEL. 2) 1X1.5 CM RIGHT HEEL DTI; NON BLANCHABLE, SOGGY HEEL. 3) 0.5X0.5X0.1CM LEFT POSTERIOR CALF ABRASION 4) 4.5X6X0.2 UNSTAGEABLE PRESSURE ULCER, SACRUM, 100% SLOUGH WITH DTI TO SURROUNDING TISSUE. 5) 1X1CM UNSTAGEABLE PRESSURE ULCER, RIGHT BUTTOCK. 100% FIBRIN/SLOUGH. 6) 2X1X0.2CM UNSTAGEABLE PRESSURE ULCER, 100% FIBRIN/SLOUGH; LEFT BUTTOCK WITH A 7x2CM DTI SURROUNDING TISSUE. THERE ARE NO OTHER AREAS OF CONCERN NOTED AT THIS TIME. NO S/S OF ACTIVE INFECTION NOTED. LABS: WBC: 4.69 HGB 7.7 GLUCOSE: 76 CONTINUE WITH WOUND CARE RECOMMENDATIONS: -PROVIDE PT ALTERNATING LOW AIR LOSS MATTRESS. -CONTINUE WITH BILATERAL HEEL PROTECTORS AND PILLOW SUSPENSIONS. -REPOSITION PT EVERY TWO HOURS AND PRN. -APPLY VENELEX OINTMENT TO LEFT HEEL AND RIGHT HEEL AND LEFT POSTERIOR CALF ABRASION DAILY AND COVER WITH ALLEVYN FOAM. -CLEAN BILATERAL BUTTOCKS, AND SACRAL PRESSURE ULCERS WITH NS, APPLY SANTYL TO NECROTIC AREAS AND VENELEX OINTMENT TO DTI AREAS THEN COVE WITH ALLEVYN FOAM. CHANGE DRESSING DAILY AND PRN. THANKS FOR THIS CONSULTATION. Addendum: 07/21/19 at 1445 by Chinyere Olivo RN Amended: Links added.
[2019-07-21] MEDS ORDERED: PROPOFOL IV EMULSION 10 MG/ML 50 ML VIAL ONE (14:13)
[2019-07-21] MEDS ORDERED: VASOPRESSIN INJ 20 UNIT/ML VIAL ONE (14:13)
[2019-07-21] MEDS ORDERED: LIDOCAINE HCL 2% LOCAL INJ 5 ML SDV VIAL INJ ONE (14:13)
--- NOTE | 2019-07-21 19:10 | NUR ---
Patient visited in room during nursing rounds. Patient alert and oriented x0-1. No distress or discomfort noted. Pt lao speaking only. Patient non-ambulatory and contracted on both feet. Multiple wounds to sacrum (stage 3 ulcer), small abrasion to left calf and DTI's on bilateral heels all covered with Allevyn foam dressing. Both heels with heel support and elevated with pillows. Pt incontinent and diapered. Bed alarm active. Call gaona within reach.
[2019-07-21] MEDS ORDERED: SODIUM CHLORIDE 0.9% 250ML 250 ML ONE (20:49)
[2019-07-21] MEDS: PANTOPRAZOLE 40 MG 10ML VIAL IV SCH (20:54)
--- NOTE | 2019-07-22 00:30 | NUR ---
Patient's diaper changed. New allevyn foam applied on sacral wound.
[2019-07-22 00:33] VITALS: BP 111/42
[2019-07-22] MEDS: HYDROCODONE/APAP 5MG-325MG TAB PO PRN (01:28)
[2019-07-22 04:37] VITALS: BP 108/51
[2019-07-22] MEDS: PIPER-TAZ 3.375 GM 50 ML IV SCH ×3 (05:27→16:28)
[2019-07-22 06:41] LABS: BASOPHILS # (AUTO) 0.1 (0.0-0.1); EOSINOPHILS # (AUTO) 0.2 (0.0-0.4); HEMATOCRIT 23.9 % (34.2-44.1); HEMOGLOBIN 7.5 g/dL (12.0-16.0); MEAN CORPUSCULAR HEMOGLOBIN 31.4 pg (28-32); MEAN CORPUSCULAR HGB CONC 31.4 g/dL (31-35); MONOCYTES # (AUTO) 0.4 (0.2-0.8); NEUTROPHILS # (AUTO) 3.1 (2.1-6.9); PLATELET COUNT 252 x10e3/uL (140-360); RED BLOOD COUNT 2.39 x10e6/uL (3.6-5.1); RED CELL DISTRIBUTION WIDTH 16.4 % (11.7-14.4)
[2019-07-22 07:01] LABS: ANION GAP 12.1 mmol/L (8-16); CALCIUM 7.6 mg/dL (8.4-10.2); CREATININE, SERUM 1.01 mg/dL (0.57-1.11); POTASSIUM 4.1 mmol/L (3.5-5.1)
--- NOTE | 2019-07-22 07:54 | NUR ---
CALLED SON SONNY LEFT MESSAGE MOTHER WOULD BE MOVED TO FOCUSED CARE TODAY, EDUCATED ABOUT IMM AND FILED IN CHART.
[2019-07-22 08:13] VITALS: BP 104/51
[2019-07-22] MEDS ORDERED: COLLAGENASE OINTMENT 30 GM TUBE TP SCH (09:00)
[2019-07-22 09:35] LABS: EOSINOPHILS % (MANUAL) 3 % (0-7); LYMPHOCYTES % (MANUAL) 35 % (19-48); MONOCYTES % (MANUAL) 6 % (3.4-9.0); NEUTROPHILS % (MANUAL) 56 % (40-74)
[2019-07-22 09:36] LABS: OVALOCYTES FEW; PLATELET ESTIMATE ADEQUATE; PLATELET MORPHOLOGY COMMENT NORMAL
--- NOTE | 2019-07-22 09:38 | Discharge Summary ---
HISTORY: Ms. Torres is an 83-year-old female with history of dementia, hypertension, Parkinson disease, bedridden with multiple decubitus, came to the emergency room because she was feeling weak. She was found to have anemia and hypokalemia. Potassium was replaced. The patient had EGD and a colonoscopy done yesterday and the plan is to transfer her to SNF to continue wound care. PHYSICAL EXAMINATION: GENERAL: She is awake and alert. She responds to the simple orders. VITAL SIGNS: Temperature is 98.8, blood pressure 104/51. HEART: Regular rate. LUNGS: Poor inspiratory effort. ABDOMEN: Soft. LABORATORY DATA: On the blood work; hemoglobin is 7.5, hematocrit 23.9. Potassium is 4.1, creatinine is 0.01. DISCHARGE DIAGNOSES: On this patient: 1. Hypokalemia, resolved. 2. Anemia, status post EGD and colonoscopy. 3. Parkinson disease. 4. Multiple decubitus. 5. Dementia. 6. Bed-bound. PLAN: At the present time, her potassium is normal. Hemoglobin and hematocrit still low, so she is going to have to be monitored if needed. EGD and colonoscopy did not show any active bleeding and continue home medications. Continue wound care. Please see home medication reconciliation list. All this was discussed with nurse. MD DAGMAR Johnson/KAROLINA /[id number]
[2019-07-22 09:49] LABS: RBC MORPHOLOGY COMMENT NORMAL
[2019-07-22] MEDS: PANTOPRAZOLE 40 MG 10ML VIAL IV SCH (10:42)
[2019-07-22] MEDS: BALSAM PERU/CASTOR OIL 60 GM OINT...G. TP SCH (10:42)
[2019-07-22] MEDS: CYANOCOBALAMIN INJ 1,000 MCG/ML VIAL IM SCH (10:42)
--- NOTE | 2019-07-22 11:24 | NUR ---
[facility] DISCHARGE INFORMATION PATIENT HAS BEEN ACCEPTED TO: NAME: KRISTA WALTER ADDRESS:[id number] [place] [address] [place] ACCEPTING [employer] OFFICER: JEFFERSON TIPTON ACCEPTING MD:TA ROOM:[id number] NURSE CALL REPORT TO: [phone] IMM SIGNED AND OBTAINED (if applicable): IMM THE FOLLOWING DOCUMENTS MUST ACCOMPANY PATIENT FOR TRANSFER: COPIED CHART: PACKET
[2019-07-22 11:58] VITALS: BP 104/57
--- NOTE | 2019-07-22 15:16 | NUR ---
REPORT CALLED TO JEFFREY LECHUGA RN AT [facility] AT APPROXIMATELY 0305.
[2019-07-22 16:00] VITALS: BP 122/57
== END 2019-07-22 17:20 | DRG 682 ==
LOC: ER 15:23 → ERHOLD 16:46 → MED/SURG3 17:43 → OBSVTOIN 07-16 15:12 → MED/SURG 07-16 18:00
PROVIDERS: ADMIT Internal Medicine; ATTEND Internal Medicine
PROC: 0DB78ZX Excision of Stomach, Pylorus, Via Natural or Artificial Opening Endoscopic, Diagnostic (ICD-10-PCS; principal; 2019-07-21 10:50)
PROC: 0DJD8ZZ Inspection of Lower Intestinal Tract, Via Natural or Artificial Opening Endoscopic (ICD-10-PCS; 2019-07-21 10:50)
DX: N17.9 Acute kidney failure, unspecified (principal); L89.153 Pressure ulcer of sacral region, stage 3; K29.71 Gastritis, unspecified, with bleeding; G20 Parkinson's disease; E87.6 Hypokalemia; F03.90 Unspecified dementia, unspecified severity, without behavioral disturbance, psychotic disturbance, mood disturbance, and anxiety; K20.9 Esophagitis, unspecified; Z74.01 Bed confinement status; K44.9 Diaphragmatic hernia without obstruction or gangrene; I12.9 Hypertensive chronic kidney disease with stage 1 through stage 4 chronic kidney disease, or unspecified chronic kidney disease; N18.3 Chronic kidney disease, stage 3 (moderate); M10.9 Gout, unspecified; Z95.0 Presence of cardiac pacemaker
CPT/HCPCS: 36415; 43235; 45378; 71045; 80048; 80053; 82270; 82550; 82553; 82607; 82728; 82746; 82948; 83540; 83735; 84132; 84466; 84484; 85007; 85025; 85027; 85045; 88305; 88312; 93005; 96361; 97139; 99251; 99284; G0378; J2001; J2405; J2543; J3420; J3480; J7030; J7050; J7799

== ENCOUNTER 2019-09-12 18:29 | Inpatient (IN) | payer MEDICARE, OTHER ==
[~2019-09-12] VITALS: Ht 307.3 cm; Wt 63.7 kg
[~2019-09-12 18:29] MED LIST: ALLOPURINOL300 MG; CARBIDOPA-LEVO1 EAC1; ESIDRIX25 MG; FLUCONAZOLE150 MG; JANUVIA50 MG; LEVOTHYROXINE125 MCG; METOPROLOL SUCC25 MG; MYSOLINE50 MG; OMEPRAZOLE20 MG; PAROXETINE HCL10 MG; ROSUVASTATIN CA40 MG
[2019-09-12] MEDS ORDERED: SODIUM CHLORIDE 0.9% 1000ML 1,000 ML IV STA ×3 (18:31→18:43)
--- OUTSIDE RECORDS SUMMARY | 2019-09-12 18:33 | XMS REPORT ---
Author Author [facility] t Organization [facility] Address [address] [place] [address] Phone Unavailable Care Team Providers Care Radiology Tech Name Role Phone NO, PCP PCP Unavailable TOO CHAVARRIA Attphys Unavailable TOO CHAVARRIA Admphys Unavailable Payers Payer Name Policy Type Policy Number Effective Date Expiration Date Celestine harris Medicare A & B [id number] 1998 00:00:00 [facility] Problems This patient has no known problems. Allergies, Adverse Reactions, Alerts Allergy Name Allergy Type Status Severity Reaction(s) Onset Date Inacti ve Date Treating Clinician Comments Source No Known Allergies DA Active U 2013-03-26 00:00:00 [facility] Medications Ordered Medication Name Filled Medication Name Start Date Stop Da te Current Medication? Ordering Clinician Indication Dosage Frequency Signature (SIG) Comments Components Source Allopurinol 300 Mg Tablet Allopurinol 300 Mg Tablet Yes [facility] Carbidopa/Levodopa (Carbidopa-Levodopa 25-100 Tab) 1 E ach Tablet Carbidopa/Levodopa (Carbidopa-Levodopa 25-100 Tab) 1 Each Tablet Yes [facility] Fluconazole 150 Mg Tablet Fluconazole 150 Mg Tablet Yes [facility] Hydrochlorothiazide (Esidrix*) 25 Mg Tab Hydrochloroth iazide (Esidrix*) 25 Mg Tab Yes [facility] Levothyroxine Sodium 125 Mcg Tablet Levothyroxine Sodium 125 Mcg Tabl et Yes [facility] Metoprolol Succinate 25 Mg Tab.er.24h Metoprolol Succinate 25 Mg Ta b.er.24h Yes [facility] Omeprazole 20 Mg Capsule. Omeprazole 20 Mg Capsule. Yes [facility] Paroxetine Hcl 10 Mg Tablet Paroxetine Hcl 10 Mg Tablet Yes [facility] Primidone (Mysoline) 50 Mg Tablet Primidone (Mysoline) 50 Mg Tablet Yes [facility] Rosuvastatin Calcium 40 Mg Tablet Rosuvastatin Calcium 40 Mg Tablet Yes [facility] Sitagliptin Phosphate (Januvia) 50 Mg Tablet Sitaglipt in Phosphate (Januvia) 50 Mg Tablet Yes [facility] Procedures Procedure Date / Time Performed Performing Clinician [facility] e EGD (esophagogastroduodenoscopy) 2019-07-21 00:00:00 RAUL STOUT [facility] EGD with biopsy 2019-07-18 00:00:00 ARIES STOUT [facility] Encounters Start Date/Time End Date/Time [facility]counter [facility] ID Source 2019-07-16 15:12:00 2019-07-22 17:20:00 Discharged Inpatient 1 TOO CHAVARRIA [facility] [id number] [facility] Results Test Description Test Time Test Comments Results Result Comments Source Bedside Glucose 2019-07-22 16:16:00 Test Item Bedside Glucose (test code = 73586-1) 89 70-120 Meter ID: [id number] AustinRed Cell Morphology Ztvuvdr3226-78-29 09:49:00* Test Item Value Reference Range Interpretation Comments Red Cell Morphology Comment (test code = 6742-1) NORMAL [facility]Different[facility] Total Cells Counted 2019-07-22 09:37:00* Test Item Value Reference Range Interpretation Comments Differential Total Cells Counted (test code = Shelton tial Total Cells Counted) 100 [facility] HospitalNeutrophils % (Manual)2019-07-22 09:37:00 * Test Item Value Reference Range Interpretation Comments Neutrophils % (Manual) (test code = 26768-8) 56 40-74 [facility] HospitalLymphocytes % (Manual)2019-07-22 09:37:00 * Test Item Value Reference Range Interpretation Comments Lymphocytes % (Manual) (test code = 737-7) 35 19-48 [facility]Monocytes % (Manual)2019-07-22 09:37:00* Test Item Value Reference Range Interpretation Comments Monocytes % (Manual) (test code = 744-3) 6 3.4-9.0 [facility] HospitalEosinophils % (Manual)2019-07-22 09:37:00 * Test Item Value Reference Range Interpretation Comments Eosinophils % (Manual) (test code = 714-6) 3 0-7 [facility] HospitalPlatelet Fllkdqbv8034-07-07 09:37:00* Test Item Value Reference Range Interpretation Comments Platelet Estimate (test code = 48075-2) ADEQUATE [facility] HospitalPlatelet Morphology Cungsvu4738-69-62 09:37:00* Test Item Value Reference Range Interpretation Comments Platelet Morphology Comment (test code = 72905-2) NORMAL [facility] HospitalMacrocytosis2020-03-27 09:37:00* Test Item Value Reference Range Interpretation Comments Macrocytosis (test code = 738-5) SLIGHT [facility] HospitalOvalocytes2020-03-27 09:37:00* Test Item Value Reference Range Interpretation Comments Ovalocytes (test code = 774-0) FEW [facility] Vxsrq2326-52-93 07:03:00* Test Item Value Reference Range Interpretation Comments Sodium Level (test code = 2951-2) 140 136-145 [facility] HospitalPotassium Spcbu0288-98-57 07:03:00* Test Item Value Reference Range Interpretation Comments Potassium Level (test code = 2823-3) 4.1 3.5-5.1 [facility] HospitalChloride Erqsx8685-15-51 07:03:00* Test Item Value Reference Range Interpretation Comments Chloride Level (test code = 2075-0) 114 98-107 [facility] HospitalCarbon Dioxide Pgors4581-36-77 07:03:00* Test Item Value Reference Range Interpretation Comments Carbon Dioxide Level (test code = 2028-9) 18 22-29 [facility] HospitalAnion Xvy3717-82-12 07:03:00* Test Item Value Reference Range Interpretation Comments Anion Gap (test code = 95476-1) 12.1 8-16 [facility] HospitalBlood Urea Xchrehmv3738-31-39 07:03:00* Test Item Value Reference Range Interpretation Comments Blood Urea Nitrogen (test code = 3094-0) 6 7- [facility] HospitalCreatinine2020-03-27 07:03:00* Test Item Value Reference Range Interpretation Comments Creatinine (test code = 2160-0) 1.01 0.57-1.11 [facility] HospitalBUN/Creatinine Okuul4316-10-63 07:03:00* Test Item Value Reference Range Interpretation Comments BUN/Creatinine Ratio (test code = 3097-3) 6 6-25 [facility] HospitalEstimat Glomerular Filtration Rate 2019-07-22 07:03:00* Test Item Value Reference Range Interpretation Comments Estimat Glomerular Filtration Rate (test code = 054352761) 52 >60 Ranges were taken from the National Kidney Disease Education Program and the [facility] literature.Reference ranges:60 or greater: Qquago61-03 ( for 3 consecutive months): Chronic kidney disease 15 or less: Kidney failureParkview Regional HospitalGlucose Yuijn2083-55-40 07:03:00* Test Item Value Reference Range Interpretation Comments Glucose Level (test code = JOY0047) 61 74-118 [facility] HospitalCalcium Wqaei3692-11-91 07:03:00* Test Item Value Reference Range Interpretation Comments Calcium Level (test code = 42850-5) 7.6 8.4-10.2 [facility] HospitalWhite Blood Sbmvi0592-01-12 06:53:00* Test Item Value Reference Range Interpretation Comments White Blood Count (test code = 6690-2) 5.66 4.8-10.8 [facility] HospitalRed Blood Rqlkk4612-58-49 06:53:00* Test Item Value Reference Range Interpretation Comments Red Blood Count (test code = 789-8) 2.39 3.6-5.1 [facility] HospitalHemoglobin2020-03-27 06:53:00* Test Item Value Reference Range Interpretation Comments Hemoglobin (test code = 77362-1) 7.5 12.0-16.0 [facility] HospitalHematocrit2020-03-27 06:53:00* Test Item Value Reference Range Interpretation Comments Hematocrit (test code = 4544-3) 23.9 34.2-44.1 [facility] HospitalMean Corpuscular Jjehct4324-34-34 06:53:00* Test Item Value Reference Range Interpretation Comments Mean Corpuscular Volume (test code = 787-2) 100.0 81-99 [facility] HospitalMean Corpuscular Itskrxxsuv9422-51-20 06:53:00* Test Item Value Reference Range Interpretation Comments Mean Corpuscular Hemoglobin (test code = 785-6) 31.4 28-32 [facility] HospitalMean Corpuscular Hemoglobin Concent 2019-07-22 06:53:00* Test Item Value Reference Range Interpretation Comments Mean Corpuscular Hemoglobin Concent (test code = 786-4) 31.4 31-35 [facility] HospitalRed Cell Distribution Qcmke8790-10-73 06:53:00* Test Item Value Reference Range Interpretation Comments Red Cell Distribution Width (test code = 37589-7) 16.4 11.7 -14.4 [facility] HospitalPlatelet Akewp5572-70-13 06:53:00* Test Item Value Reference Range Interpretation Comments Platelet Count (test code = 777-3) 252 140-360 [facility] HospitalNeutrophils # (Auto)2019-07-22 06:53:00* Test Item Value Reference Range Interpretation Comments Neutrophils # (Auto) (test code = 751-8) 3.1 2.1-6.9 [facility] HospitalLymphocytes # (Auto)2019-07-22 06:53:00* Test Item Value Reference Range Interpretation Comments Lymphocytes # (Auto) (test code = 26416-1) 2.0 1.0-3.2 [facility] HospitalMonocytes # (Auto)2019-07-22 06:53:00* Test Item Value Reference Range Interpretation Comments Monocytes # (Auto) (test code = 742-7) 0.4 0.2-0.8 [facility] HospitalEosinophils # (Auto)2019-07-22 06:53:00* Test Item Value Reference Range Interpretation Comments Eosinophils # (Auto) (test code = 711-2) 0.2 0.0-0.4 [facility] HospitalBasophils # (Auto)2019-07-22 06:53:00* Test Item Value Reference Range Interpretation Comments Basophils # (Auto) (test code = 704-7) 0.1 0.0-0.1 [facility] HospitalAbsolute Immature Granulocyte (auto 2019-07-22 06:53:00* Test Item Value Reference Range Interpretation Comments Absolute Immature Granulocyte (auto (anna t code = Absolute Immature Granulocyte (auto) 0.02 0-0.1 [facility] HospitalFolate2020-03-24 05:14:00* Test Item Value Reference Range Interpretation Comments Folate (test code = 2284-8) 2.7 >3.0 A serum folate concentration of less than 3.1 ng/mL isconsidered to represent cl inical deficiency.Performed at: [facility] Lab[address] [id number] Director: Moises Hanson MD, Phone: [phone] Health Harris Methodist Hospital Cleburnetool Occult Eaaqf5839-54-65 07:39:00* Test Item Value Reference Range Interpretation Comments Stool Occult Blood (test code = 2335-8) NEGATIVE NEGATIVE [facility] HospitalNeutrophils (%) (Auto)2019-07-17 07:07:00 * Test Item Value Reference Range Interpretation Comments Neutrophils (%) (Auto) (test code = 06722-9) 56.0 38.7-80.0 [facility] HospitalLymphocytes (%) (Auto)2019-07-17 07:07:00 * Test Item Value Reference Range Interpretation Comments Lymphocytes (%) (Auto) (test code = 736-9) 30.7 18.0-39.1 [facility] HospitalMonocytes (%) (Auto)2019-07-17 07:07:00* Test Item Value Reference Range Interpretation Comments Monocytes (%) (Auto) (test code = 5905-5) 9.6 4.4-11.3 [facility] HospitalEosinophils (%) (Auto)2019-07-17 07:07:00 * Test Item Value Reference Range Interpretation Comments Eosinophils (%) (Auto) (test code = 713-8) 2.7 0.0-6.0 [facility] HospitalBasophils (%) (Auto)2019-07-17 07:07:00* Test Item Value Reference Range Interpretation Comments Basophils (%) (Auto) (test code = 706-2) 0.8 0.0-1.0 [facility] HospitalIM GRANULOCYTES %2019-07-17 07:07:00* Test Item Value Reference Range Interpretation Comments IM GRANULOCYTES % (test code = IM GRANULOCYTES %) 0.2 0.0- 1.0 [facility] HospitalFerritin2020-03-21 08:53:00* Test Item Value Reference Range Interpretation Comments Ferritin (test code = 2276-4) 201.51 4.63-204.00 [facility] HospitalVitamin B12 Pbhoz4219-99-37 08:53:00* Test Item Value Reference Range Interpretation Comments Vitamin B12 Level (test code = 51753-5) 245 213-816 [facility] HospitalIron Cbkeb6807-94-83 08:33:00* Test Item Value Reference Range Interpretation Comments Iron Level (test code = 2498-4) 64 50-170 [facility] HospitalTotal Iron Binding Osdfxsvl4531-31-23 08:33:00* Test Item Value Reference Range Interpretation Comments Total Iron Binding Capacity (test code = 2500-7) 126 261-4 78 [facility] HospitalPercent Iron Wxjaxwoapw9994-17-06 08:33:00* Test Item Value Reference Range Interpretation Comments Percent Iron Saturation (test code = 2502-3) 51 15-50 [facility] HospitalTransferrin2020-03-21 08:33:00* Test Item Value Reference Range Interpretation Comments Transferrin (test code = 3034-6) 90 180-382 [facility] HospitalMagnesium Xiuwx7038-24-02 08:10:00* Test Item Value Reference Range Interpretation Comments Magnesium Level (test code = 19230-6) 1.5 1.3-2.1 [facility] HospitalPercent Reticulocyte Etgru1174-97-81 07:42:00* Test Item Value Reference Range Interpretation Comments Percent Reticulocyte Count (test code = 92299-3) 1.8 0.8-2 .2 [facility] HospitalTojordan [facility] center Ckhdukdji2359-11-24 06:38:00* Test Item Value Reference Range Interpretation Comments Total Bilirubin (test code = 1975-2) 0.2 0.2-1.2 [facility] HospitalAspartate Amino Transf (AST/SGOT) 2019-07-15 06:38:00* Test Item Value Reference Range Interpretation Comments Aspartate Amino Transf (AST/SGOT) (test code = Aspartate Amino Transf (AST/SGOT)) 15 5-34 [facility] HospitalAlanine Aminotransferase (ALT/SGPT) 2019-07-15 06:38:00* Test Item Value Reference Range Interpretation Comments Alanine Aminotransferase (ALT/SGPT) (test code = 1742-6) < 6 0-55 [facility] HospitalTotal Vuykdfy7731-15-82 06:38:00* Test Item Value Reference Range Interpretation Comments Total Protein (test code = 2885-2) 5.8 6.5-8.1 [facility] HospitalAlbumin2020-03-20 06:38:00* Test Item Value Reference Range Interpretation Comments Albumin (test code = 1751-7) 2.1 3.5-5.0 [facility] HospitalGlobulin2020-03-20 06:38:00* Test Item Value Reference Range Interpretation Comments Globulin (test code = 23093-5) 3.7 2.3-3.5 [facility] HospitalAlbumin/Globulin Gjpvt6548-41-11 06:38:00 * Test Item Value Reference Range Interpretation Comments Albumin/Globulin Ratio (test code = 1759-0) 0.6 0.8-2.0 [facility] HospitalAlkaline Wrrfgbpedwc9880-57-88 06:38:00* Test Item Value Reference Range Interpretation Comments Alkaline Phosphatase (test code = 6768-6) 91 40-150 [facility] HospitalCreatine Fuhyrh8945-81-92 06:38:00* Test Item Value Reference Range Interpretation Comments Creatine Kinase (test code = 2157-6) 48 29-168 [facility] HospitalCreatine Kinase BS2215-80-66 06:38:00* Test Item Value Reference Range Interpretation Comments Creatine Kinase MB (test code = 26819-6) 0.90 0-5.0 [facility] HospitalTroponin B2101-06-23 06:38:00* Test Item Value Reference Range Interpretation Comments Troponin I (test code = EVM9916) 0.040 0-0.300 [facility] HospitalCHEST SINGLE (PORTABLE)2019-07-14 19:22:00 [place] [address] Patient Name: NICOLE TAN MR #: [id number] : 1935 Age/Sex: 83/F Req #: [id number] Adm Physician: TOO CHAVARRIA MD Ordered by: JITENDRA FOWLER DO Report #: [id number] Location: MED/SURG3 Room/Bed: [facility] Procedure: [id number] DX/ CHEST SINGLE (PORTABLE) Exam Date: Exam Time: REPORT STATUS: Signed EXAM: CHEST S SHERITA (PORTABLE) DATE: 07/14/2019 6:10 PM INDICATION: WEAK COMPARISON: None FINDINGS: Lines and tubes: There is an implant ed generator device projected on the left lower chest. The lead appears to ext end cephalad toward cervical region. There is also tubing vertically traversin g the left hemithorax which may be outside the patient or may represent a vent riculoperitoneal shunt. The heart is upper normal size allowing for low jhon g volumes. There is no focal pulmonary opacity, pleural effusion or pneumothor ax. The left lung base is partially obscured by the overlying electronic devic e. Upper abdomen unremarkable. Cholecystectomy clips are seen. No acute bon y abnormality. IMPRESSION: No evidence for acute disease. Signed b y: Dr. Eleanor Trevino M.D. on 07/14/2019 7:24 PM Dictated By: ELEANOR Mejia MD 23 Transcribed B y: QUIQUE on 07/14/191923 COPY TO: JITENDRA FOWLER DO GALLBLADDER 2018-11-18 13:09:00 RUN DATE: 11/18/18 [employer] [facility] PAGE 1 RUN TIME: 1309 Specimen Inqui ry RUN USER: INTERFACE PATIENT: NICOLE TAN ACCT #: [id number] LOC: BRODIE U #: [id number] AGE/SX: 83/F ROOM: [facility] RE11/06/18[facility] DR: Jerman Haas MD : [birth year] BED: B DIS: STATUS: ADM IN TLOC: SPEC #: [id number] RECD: 11/17/18 STATUS: SAMAN REQ #: [id number] APRIL: 11/16/181504 [facility] DR: Daniele Purdy MD ENTERED: 11/17/18 SP TYPE: GALLBLADD OTHR DR: Juan Lama MD, William W DO Gopalakrishnan, Thandavarajan M Hampel, Ori Z MD Lam, David N MDORDERED: GROSS COPIES TO: Juan Anguiano MD [address] [facility] [place] [address] Tyler Ye DO [address] [place] [address] G Hallie lynn [address] [place] [address] [phone] Vernon Tineo MD [address] [place] [address] Daniele Purdy MD [address] [place] [address] YOUSIF RS: ABNORMAL TISSUE, GALLBLADDER PROCEDURES: GROSS (11/18/18-944) TISSUES: GALLBLADDER, NOS CONTINUED ON NEXT P AGE RUN DATE: 11/18/18 [facility] PAGE 2 RUN TIME: 1309 Specimen Inquiry RUN USER: INTERFACE SPEC #: [id number] PATIENT: NICOLE NATHAN #[id number] (Continued) CLINICA L HISTORY COLLECTION DATE: 11/16/2018 CHOLECYSTITIS FINAL DIAGN OSIS Gallbladder, cholecystectomy: ACUTE AND CHRONIC CHOLECYSTITIS WIT H ULCERATION AND NECROSIS, EXTENDING TO THE CYSTIC DUCT MARGIN O NE PARACYSTIC DUCT BENIGN LYMPH NODE IDENTIFIED (0/1) CHOLELITHIASIS NEGATIVE FOR MALIGNANCY FA/sm A 64056 MACROSCOPIC The specimen is received in formalin, labeled with the patient's name, and asia ntified as "gallbladder". It consists of a gallbladder which has a mottled ap pearance and has been previously incised. It measures 7.3 x 4.5 x 1.3 cm. Wi thin the gallbladder there is a curled teal colored catheter measuring 14 cm i n length by 0.3 cm in diameter. It has five openings. Also present within e gallbladder is a portion of thread like material measuring 17 cm in length. The gallbladder contains multiple black irregular pigment-type gallstones katie uring from less than 0.1 to 0.9 cm. The gallbladder mucosa is partially gabby h and partially velvety. The gallbladder wall measures from 0.2 to 0.8 cm in thickness. 1.2 cm of cystic duct is attached to the gallbladder. Samples of the specimen are submitted for microscopic evaluation in cassettes (1A 1B). GROSS PERFORMED AT [facility] [employer] [address] [place] [address] [phone] MICROSCOPIC Sections of the gallbladder shows acute and chronic inflammato ry infiltrates, mucosal necrosis, extensive ulceration, rare thrombosed vessel s, microhemorrhage and vascular congestion. The inflammation extends to the cystic duct margin. No malignancy is identified. All of the stains, including any controls performed, stain CONT INUED ON NEXT PAGE RUN DATE: 11/18/18 [place] - Lab PAGE 3 RUN TIME: 1309 Specimen Inquiry RUN USER: INTERFACE SPEC #: [id number] PATIENT: NICOLE TAN #[id number] (Continued) MICROSCOPIC (Continued) appropriately. MICROSCOPIC PERFORMED AT [facility] [address] [place] [address] [phone])[phone] PERFORMING SITE Aysha gnosis performed at: [facility] [employer] [address] [facility], [place] [address] Signed SIGNATURE ON FILE Jf Gan MD 11/18/18 1309 END OF REPORT COMPREHENSIVE METABOLIC PANEL 2018-11-17 06:19:00* Test Item Value Reference Range Interpretation Comments SODIUM (test code = NA) 144 mmol/L 136-145 N POTASSIUM (test code = K) 4.7 mmol/L 3.5-5.1 N CHLORIDE (test code = CL) 110.0 mmol/L 98-107 H CARBON DIOXIDE (test code = CO2) 26.0 mmol/L 21-32 N ANION GAP (test code = GAP) 12.7 10-20 N GLUCOSE (test code = GLU) 172 mg/dL 74-106 H BLOOD UREA NITROGEN (test code = BUN) 17 mg/dL 7-18 N GLOMERULAR FILTRATION RATE (test code = GFR) 47 mL/min >=60 Estimated GFR by using Modified MDRD formula.Chronic kidney disease is defined as either kidney damageor GFR <60 mL/min/1.73 m2 for >3 months. CREATININE (test code = CREAT) 1.10 mg/dL 0.55-1.02 H Note change in reference range due to change in reagent. BUN/CREATININE RATIO (test code = BUN/CREA) 15.5 10-20 N TOTAL PROTEIN (test code = PROT) 5.0 gram/dL 6.4-8.2 L ALBUMIN (test code = ALB) 1.7 g/dL 3.4-5.0 L GLOBULIN (test code = GLOB) 3.3 gram/dL 2.7-4.2 N ALBUMIN/GLOBULIN RATIO (test code = A/G) 0.5 0.75-1.50 L CALCIUM (test code = CA) 7.3 mg/dL 8.5-10.1 L BILIRUBIN TOTAL (test code = BILT) 0.20 mg/dL 0.0-1.0 N SGOT/AST (test code = AST) 51 IUnit/L 15-37 H SGPT/ALT (test code = ALT) 38 IUnit/L 12-78 N ALKALINE PHOSPHATASE TOTAL (test code = ALKP) 59 IUnit/L 45-117 N Note change in reference range due to change in reagent. [id number] 06:19:00* Test Item Value Reference Range Interpretation Comments MAGNESIUM (test code = MAG) 1.8 mg/dL 1.8-2.4 N CBC W/O [id number] 05:00:00* Test Item Value Reference Range Interpretation Comments WHITE BLOOD CELL (test code = WBC) 10.2 K/mm3 4.5-12.5 N RED BLOOD CELL (test code = RBC) 2.64 mill/mm3 3.7-5.2 L HEMOGLOBIN (test code = HGB) 8.6 gram/dL 11.5-15.5 L HEMATOCRIT (test code = HCT) 28.1 % 36.0-46.0 L MEAN CELL VOLUME (test code = MCV) 106.4 fL 80-98 H MEAN CELL HGB (test code = MCH) 32.6 picogram 27.0-33.0 N MEAN CELL HGB CONCETRATION (test code = MCHC) 30.6 gram/dL 33.0-36. 0 L RED CELL DISTRIBUTION WIDTH (test code = RDW) 15.4 % 11.6-16. 2 N PLATELET COUNT (test code = PLT) 239 K/mm3 150-450 N MEAN PLATELET VOLUME (test code = MPV) 11.3 fL 6.7-11.0 H BASIC METABOLIC [id number] 11:38:00* Test Item Value Reference Range Interpretation Comments SODIUM (test code = NA) 142 mmol/L 136-145 N POTASSIUM (test code = K) 3.4 mmol/L 3.5-5.1 L CHLORIDE (test code = CL) 109.0 mmol/L 98-107 H CARBON DIOXIDE (test code = CO2) 28.0 mmol/L 21-32 N ANION GAP (test code = GAP) 8.4 10-20 L GLUCOSE (test code = GLU) 127 mg/dL 74-106 H BLOOD UREA NITROGEN (test code = BUN) 17 mg/dL 7-18 N GLOMERULAR FILTRATION RATE (test code = GFR) 53 mL/min >=60 Estimated GFR by using Modified MDRD formula.Chronic kidney disease is defined as either kidney damageor GFR <60 mL/min/1.73 m2 for >3 months. CREATININE (test code = CREAT) 1.00 mg/dL 0.55-1.02 N Note change in reference range due to change in reagent. BUN/CREATININE RATIO (test code = BUN/CREA) 17.9 10-20 N CALCIUM (test code = CA) 7.4 mg/dL 8.5-10.1 L COME BACK TARAS [facility]ettLAB.[facility] [place] [place] 11/15/18 [id number] 11:38:00* Test Item Value Reference Range Interpretation Comments PHOSPHORUS (test code = PHOS) 2.2 mg/dL 2.5-4.9 L COME BACK TARAS LovettLAB.[facility] [place] [place] 11/15/18 [id number] 11:38:00* Test Item Value Reference Range Interpretation Comments MAGNESIUM (test code = MAG) 1.8 mg/dL 1.8-2.4 N COME BACK TARAS ZIMMERMAN.[facility] [place] [place] 11/15/1807FE W/TOTAL IRON BINDING CAP.2018-11-15 11:38:00* Test Item Value Reference Range Interpretation Comments SERUM IRON (test code = IRON) 45 ug/dL 50-175 L TOTAL IRON BINDING CAPACITY (test code = TIBC) 273 mcg/dL 250-450 N IRON SATURATION (test code = FESAT) 16.48 % 13-45 N COME BACK TARAS ARZOLA V.[facility] [place] [place] 11/15/18 0607VITAMIN [id number] 11:38:00* Test Item Value Reference Range Interpretation Comments VITAMIN B12 (test code = VITB12) 354 pg/mL 193-986 N COME BACK NESS V.[facility] [place] [place] 11/15/18 0607FOLIC [id number] 11:38:00* Test Item Value Reference Range Interpretation Comments FOLIC ACID (test code = FOL) 4.5 ng/mL 3.10-17.50 N COME BACK NESS V.[facility] [place] [place] 11/15/18 0607THYROID PROFILE [id number] 11:38:00* Test Item Value Reference Range Interpretation Comments T3 UPTAKE (test code = T3UP) 36.0 % 30.0-40.0 N T4 (THYROXINE) (test code = T4) 5.2 ug/dL 4.5-13.9 N T7 (FREE THYROXINE INDEX) (test code = T7) 1.87 FTI 1.3-5.1 N THYROID STIMULATING HORMONE (test code = TSH) 3.540 uIU/mL 0.36-3.7 4 N TSH REFERENCE RANGES: EUTHYROID: 0.35 - 4.3 mIU/mL HYPO : > 5.5 mIU/mL HYPER : < 0.35 mIU/mL COME BACK TARAS ARZOLA V.LAB.[facility] [place], [place] 11/15/18 [id number] 11:38:00* Test Item Value Reference Range Interpretation Comments FERRITIN (test code = JONH) 248 ng/mL 8-388 N COME BACK TARAS ARZOLA V.LAB.[facility] [place], [place] 11/15/18 0607PROTHROMBIN [id number] 11:05:00* Test Item Value Reference Range Interpretation Comments PROTHROMBIN TIME PATIENT (test code = PTP) 12.4 seconds 9.0-14.0 N INTERNATIONAL NORMAL RATIO (test code = INR) 1.1 0.8-1.2 N The therapeutic range for oral anticoagulant therapy [...] prosthetic heart valves (2.5-3.5) [facility] [place] [place] 11/15/18 0608IS PATIENT ON ANTICOAGULANTS? N THROMBOPLASTIN TIME [id number] 11:05:00* Test Item Value Reference Range Interpretation Comments THROMBOPLASTIN TIME PARTIAL (test code = PTT) 27.0 seconds 25.0-36. 5 N [facility] [place] [place] 11/15/18 0608IS PATIENT ON ANTICOAGULANTS? NBASIC METABOLIC [id number] 11:03:00* Test Item Value Reference Range Interpretation Comments SODIUM (test code = NA) 142 mmol/L 136-145 N POTASSIUM (test code = K) 3.4 mmol/L 3.5-5.1 L CHLORIDE (test code = CL) 109.0 mmol/L 98-107 H CARBON DIOXIDE (test code = CO2) mmol/L 21-32 ANION GAP (test code = GAP) 10-20 GLUCOSE (test code = GLU) mg/dL 74-106 BLOOD UREA NITROGEN (test code = BUN) mg/dL 7-18 GLOMERULAR FILTRATION RATE (test code = GFR) mL/min >=60 CREATININE (test code = CREAT) mg/dL 0.55-1.02 BUN/CREATININE RATIO (test code = BUN/CREA) 10-20 CALCIUM (test code = CA) mg/dL 8.5-10.1 COME BACK NESS [place].LAB.[facility] [place], [place] 11/15/18 [id number] 11:03:00* Test Item Value Reference Range Interpretation Comments PHOSPHORUS (test code = PHOS) mg/dL 2.5-4.9 COME BACK NESS [place].[facility] [place] [place] 11/15/18 [id number] 11:03:00* Test Item Value Reference Range Interpretation Comments MAGNESIUM (test code = MAG) mg/dL 1.8-2.4 COME BACK [facility] [place] [place] 11/15/18 0607FE W/TOTAL IRON BINDING CAP.2018-11-15 11:03:00* Test Item Value Reference Range Interpretation Comments SERUM IRON (test code = IRON) ug/dL 50-175 TOTAL IRON BINDING CAPACITY (test code = TIBC) mcg/dL 250-450 IRON SATURATION (test code = FESAT) % 13-45 COME BACK NESS .LAB.[facility] [place] [place] 11/15/18 0607VITAMIN [id number] 11:03:00* Test Item Value Reference Range Interpretation Comments VITAMIN B12 (test code = VITB12) pg/mL 193-986 COME BACK [facility] [place] [place] 11/15/18 0607FOLIC [id number] 11:03:00* Test Item Value Reference Range Interpretation Comments FOLIC ACID (test code = FOL) ng/mL 3.10-17.50 COME BACK NESS .[facility] [place] [place] 11/15/18 0607THYROID PROFILE [id number] 11:03:00* Test Item Value Reference Range Interpretation Comments T3 UPTAKE (test code = T3UP) % 30.0-40.0 T4 (THYROXINE) (test code = T4) ug/dL 4.5-13.9 T7 (FREE THYROXINE INDEX) (test code = T7) FTI 1.3-5.1 THYROID STIMULATING HORMONE (test code = TSH) uIU/mL 0.36-3.7 4 COME BACK NESS V.LAB.[facility] [place] [place] 11/15/18 [id number] 11:03:00* Test Item Value Reference Range Interpretation Comments FERRITIN (test code = JONH) ng/mL 8-388 COME BACK TARAS ZIMMERMAN.ID1 11/15/18 0607- XR CHEST 1 [id number] 08:07:00 FAX: Juan Beavers MD [phone] [place]: St: [facility] FAX: Jerman Rodriguez I [phone] FAX: Lele Romero MD --------- Name: NICOLE TAN [facility] : 1935 Age/S: 83/F [address] [facility] it #: [id number] Loc: [address] [place] [address] Phys: Lele Rosa MD Acct: [id number] Dis Date: Status: ADM IN ONE #: [phone] Exam Date: 11/15/2018 0751 FAX #: [phone] Reason: chf EXAMS: CPT CODE: [id number] XR CHEST 1 V 86555 HISTORY: chf TECHNIQUE: AP chest x-ray COMPARISON: [...] [id number] Orig Print D/T: S: 11/15/2018 ( [id number]) PAGE 1 Signed Report BASIC METABOLIC [id number] 06:21:00* Test Item Value Reference Range Interpretation Comments SODIUM (test code = NA) 144 mmol/L 136-145 N POTASSIUM (test code = K) 3.2 mmol/L 3.5-5.1 L CHLORIDE (test code = CL) 108.0 mmol/L 98-107 H CARBON DIOXIDE (test code = CO2) 27.0 mmol/L 21-32 N ANION GAP (test code = GAP) 12.2 10-20 N GLUCOSE (test code = GLU) 207 mg/dL 74-106 H BLOOD UREA NITROGEN (test code = BUN) 19 mg/dL 7-18 H GLOMERULAR FILTRATION RATE (test code = GFR) 47 mL/min >=60 Estimated GFR by using Modified MDRD formula.Chronic kidney disease is defined as either kidney damageor GFR <60 mL/min/1.73 m2 for >3 months. CREATININE (test code = CREAT) 1.10 mg/dL 0.55-1.02 H Note change in reference range due to change in reagent. BUN/CREATININE RATIO (test code = BUN/CREA) 16.7 10-20 N CALCIUM (test code = CA) 7.6 mg/dL 8.5-10.1 L [id number] 06:21:00* Test Item Value Reference Range Interpretation Comments PHOSPHORUS (test code = PHOS) 0.7 mg/dL 2.5-4.9 L [id number] 06:21:00* Test Item Value Reference Range Interpretation Comments MAGNESIUM (test code = MAG) 1.5 mg/dL 1.8-2.4 L CBC W/AUTO [id number] 06:00:00* Test Item Value Reference Range Interpretation Comments WHITE BLOOD CELL (test code = WBC) 5.8 K/mm3 4.5-12.5 N RED BLOOD CELL (test code = RBC) 2.80 mill/mm3 3.7-5.2 L HEMOGLOBIN (test code = HGB) 9.1 gram/dL 11.5-15.5 L RESULT VERIFIED BY REPEAT ANALYSIS HEMATOCRIT (test code = HCT) 28.1 % 36.0-46.0 L MEAN CELL VOLUME (test code = MCV) 100.4 fL 80-98 H RESULT VERIFIED BY REPEAT ANALYSIS MEAN CELL HGB (test code = MCH) 32.5 picogram 27.0-33.0 N MEAN CELL HGB CONCETRATION (test code = MCHC) 32.4 gram/dL 33.0-36. 0 L RED CELL DISTRIBUTION WIDTH (test code = RDW) 15.0 % 11.6-16. 2 N RED CELL DISTRIBUTION WIDTH SD (test code = RDW-SD) 55.0 fL 37 .0-51.0 H PLATELET COUNT (test code = PLT) 190 K/mm3 150-450 N MEAN PLATELET VOLUME (test code = MPV) 10.5 fL 6.7-11.0 N NEUTROPHIL % (test code = NT%) 66.9 % 39.0-69.0 N IMMATURE GRANULOCYTE % (test code = IG%) 0.7 % 0.0-5.0 N LYMPHOCYTE % (test code = LY%) 23.1 % 25.0-55.0 L MONOCYTE % (test code = MO%) 7.1 % 0.0-10.0 N EOSINOPHIL % (test code = EO%) 1.9 % 0.0-5.0 N BASOPHIL % (test code = BA%) 0.3 % 0.0-1.0 N NUCLEATED RBC % (test code = NRBC%) 0.0 % 0-0 N NEUTROPHIL # (test code = NT#) 3.87 K/mm3 1.8-7.7 N IMMATURE GRANULOCYTE # (test code = IG#) 0.04 x10 3/uL 0-0.03 H LYMPHOCYTE # (test code = LY#) 1.34 K/mm3 1.0-5.0 N MONOCYTE # (test code = MO#) 0.41 K/mm3 0-0.8 N EOSINOPHIL # (test code = EO#) 0.11 K/mm3 0.0-0.5 N BASOPHIL # (test code = BA#) 0.02 K/mm3 0.0-0.2 N NUCLEATED RBC # (test code = NRBC#) 0.00 K/mm3 0.0-0.1 N BASIC METABOLIC [id number] 11:03:00* Test Item Value Reference Range Interpretation Comments SODIUM (test code = NA) 142 mmol/L 136-145 N POTASSIUM (test code = K) 2.7 mmol/L 3.5-5.1 Lucille casas called to JENNY [id number] by V.LAB.[facility] 11/13/18 1059Critical results verified and read back by Nurse? Y CHLORIDE (test code = CL) 110.0 mmol/L 98-107 H CARBON DIOXIDE (test code = CO2) 26.0 mmol/L 21-32 N ANION GAP (test code = GAP) 8.7 10-20 L GLUCOSE (test code = GLU) 120 mg/dL 74-106 H BLOOD UREA NITROGEN (test code = BUN) 13 mg/dL 7-18 N GLOMERULAR FILTRATION RATE (test code = GFR) 49 mL/min >=60 Estimated GFR by using Modified MDRD formula.Chronic kidney disease is defined as either kidney damageor GFR <60 mL/min/1.73 m2 for >3 months. CREATININE (test code = CREAT) 1.07 mg/dL 0.55-1.02 H Note change in reference range due to change in reagent. BUN/CREATININE RATIO (test code = BUN/CREA) 12.1 10-20 N CALCIUM (test code = CA) 7.7 mg/dL 8.5-10.1 L [id number] 11:03:00* Test Item Value Reference Range Interpretation Comments PHOSPHORUS (test code = PHOS) 0.7 mg/dL 2.5-4.9 L [id number] 11:03:00* Test Item Value Reference Range Interpretation Comments MAGNESIUM (test code = MAG) 1.5 mg/dL 1.8-2.4 L CBC W/AUTO [id number] 08:29:00* Test Item Value Reference Range Interpretation Comments WHITE BLOOD CELL (test code = WBC) 12.3 K/mm3 4.5-12.5 N RED BLOOD CELL (test code = RBC) 3.82 mill/mm3 3.7-5.2 N HEMOGLOBIN (test code = HGB) 11.2 gram/dL 11.5-15.5 L HEMATOCRIT (test code = HCT) 35.8 % 36.0-46.0 L MEAN CELL VOLUME (test code = MCV) 93.7 fL 80-98 N MEAN CELL HGB (test code = MCH) 29.3 picogram 27.0-33.0 N MEAN CELL HGB CONCETRATION (test code = MCHC) 31.3 gram/dL 33.0-36. 0 L RED CELL DISTRIBUTION WIDTH (test code = RDW) 13.4 % 11.6-16. 2 N RED CELL DISTRIBUTION WIDTH SD (test code = RDW-SD) 46.2 fL 37 .0-51.0 N PLATELET COUNT (test code = PLT) 184 K/mm3 150-450 N MEAN PLATELET VOLUME (test code = MPV) 11.2 fL 6.7-11.0 H NEUTROPHIL % (test code = NT%) 85.1 % 39.0-69.0 H IMMATURE GRANULOCYTE % (test code = IG%) 0.7 % 0.0-5.0 N LYMPHOCYTE % (test code = LY%) 6.5 % 25.0-55.0 L MONOCYTE % (test code = MO%) 7.5 % 0.0-10.0 N EOSINOPHIL % (test code = EO%) 0.0 % 0.0-5.0 N BASOPHIL % (test code = BA%) 0.2 % 0.0-1.0 N NUCLEATED RBC % (test code = NRBC%) 0.0 % 0-0 N NEUTROPHIL # (test code = NT#) 10.47 K/mm3 1.8-7.7 H IMMATURE GRANULOCYTE # (test code = IG#) 0.08 x10 3/uL 0-0.03 H LYMPHOCYTE # (test code = LY#) 0.80 K/mm3 1.0-5.0 L MONOCYTE # (test code = MO#) 0.92 K/mm3 0-0.8 H EOSINOPHIL # (test code = EO#) 0.00 K/mm3 0.0-0.5 N BASOPHIL # (test code = BA#) 0.02 K/mm3 0.0-0.2 N NUCLEATED RBC # (test code = NRBC#) 0.00 K/mm3 0.0-0.1 N BASIC METABOLIC [id number] 05:46:00* Test Item Value Reference Range Interpretation Comments SODIUM (test code = NA) 145 mmol/L 136-145 N POTASSIUM (test code = K) 2.6 mmol/L 3.5-5.1 Re sults called to [id number] by JONHAG1 11/12/18 0544Critical results verified and read back by Nurse? Y CHLORIDE (test code = CL) 112.0 mmol/L 98-107 H CARBON DIOXIDE (test code = CO2) 26.0 mmol/L 21-32 N ANION GAP (test code = GAP) 9.6 10-20 L GLUCOSE (test code = GLU) 188 mg/dL 74-106 H BLOOD UREA NITROGEN (test code = BUN) 15 mg/dL 7-18 N GLOMERULAR FILTRATION RATE (test code = GFR) 39 mL/min >=60 Estimated GFR by using Modified MDRD formula.Chronic kidney disease is defined as either kidney damageor GFR <60 mL/min/1.73 m2 for >3 months. CREATININE (test code = CREAT) 1.30 mg/dL 0.55-1.02 H Note change in reference range due to change in reagent. BUN/CREATININE RATIO (test code = BUN/CREA) 11.5 10-20 N CALCIUM (test code = CA) 7.7 mg/dL 8.5-10.1 L [id number] 05:46:00* Test Item Value Reference Range Interpretation Comments PHOSPHORUS (test code = PHOS) 1.1 mg/dL 2.5-4.9 L [id number] 05:46:00* Test Item Value Reference Range Interpretation Comments MAGNESIUM (test code = MAG) 1.8 mg/dL 1.8-2.4 N CBC W/AUTO [id number] 05:18:00* Test Item Value Reference Range Interpretation Comments WHITE BLOOD CELL (test code = WBC) 5.3 K/mm3 4.5-12.5 N RED BLOOD CELL (test code = RBC) 2.93 mill/mm3 3.7-5.2 L HEMOGLOBIN (test code = HGB) 9.4 gram/dL 11.5-15.5 L HEMATOCRIT (test code = HCT) 28.7 % 36.0-46.0 L MEAN CELL VOLUME (test code = MCV) 98.0 fL 80-98 N MEAN CELL HGB (test code = MCH) 32.1 picogram 27.0-33.0 N MEAN CELL HGB CONCETRATION (test code = MCHC) 32.8 gram/dL 33.0-36. 0 L RED CELL DISTRIBUTION WIDTH (test code = RDW) 14.8 % 11.6-16. 2 N RED CELL DISTRIBUTION WIDTH SD (test code = RDW-SD) 53.3 fL 37 .0-51.0 H PLATELET COUNT (test code = PLT) 160 K/mm3 150-450 RESULT VERIFIED BY REPEAT ANALYSIS MEAN PLATELET VOLUME (test code = MPV) 10.9 fL 6.7-11.0 N NEUTROPHIL % (test code = NT%) 69.4 % 39.0-69.0 H IMMATURE GRANULOCYTE % (test code = IG%) 0.4 % 0.0-5.0 N LYMPHOCYTE % (test code = LY%) 18.8 % 25.0-55.0 L MONOCYTE % (test code = MO%) 9.5 % 0.0-10.0 N EOSINOPHIL % (test code = EO%) 1.5 % 0.0-5.0 N BASOPHIL % (test code = BA%) 0.4 % 0.0-1.0 N NUCLEATED RBC % (test code = NRBC%) 0.0 % 0-0 N NEUTROPHIL # (test code = NT#) 3.65 K/mm3 1.8-7.7 N IMMATURE GRANULOCYTE # (test code = IG#) 0.02 x10 3/uL 0-0.03 N LYMPHOCYTE # (test code = LY#) 0.99 K/mm3 1.0-5.0 L MONOCYTE # (test code = MO#) 0.50 K/mm3 0-0.8 N EOSINOPHIL # (test code = EO#) 0.08 K/mm3 0.0-0.5 N BASOPHIL # (test code = BA#) 0.02 K/mm3 0.0-0.2 N NUCLEATED RBC # (test code = NRBC#) 0.00 K/mm3 0.0-0.1 N BASIC METABOLIC [id number] 06:06:00* Test Item Value Reference Range Interpretation Comments SODIUM (test code = NA) 145 mmol/L 136-145 N POTASSIUM (test code = K) 2.4 mmol/L 3.5-5.1 Re sults called to [id number] by V.LAB.AG1 11/11/18 0605Critical results verified and read back by Nurse? Y CHLORIDE (test code = CL) 113.0 mmol/L 98-107 H CARBON DIOXIDE (test code = CO2) 23.0 mmol/L 21-32 N ANION GAP (test code = GAP) 11.4 10-20 N GLUCOSE (test code = GLU) 75 mg/dL 74-106 N BLOOD UREA NITROGEN (test code = BUN) 12 mg/dL 7-18 N GLOMERULAR FILTRATION RATE (test code = GFR) 47 mL/min >=60 Estimated GFR by using Modified MDRD formula.Chronic kidney disease is defined as either kidney damageor GFR <60 mL/min/1.73 m2 for >3 months. CREATININE (test code = CREAT) 1.10 mg/dL 0.55-1.02 H Note change in reference range due to change in reagent. BUN/CREATININE RATIO (test code = BUN/CREA) 10.8 10-20 N CALCIUM (test code = CA) 7.5 mg/dL 8.5-10.1 L [id number] 06:06:00* Test Item Value Reference Range Interpretation Comments PHOSPHORUS (test code = PHOS) 2.3 mg/dL 2.5-4.9 L [id number] 06:06:00* Test Item Value Reference Range Interpretation Comments MAGNESIUM (test code = MAG) 2.0 mg/dL 1.8-2.4 N CBC W/AUTO [id number] 05:38:00* Test Item Value Reference Range Interpretation Comments WHITE BLOOD CELL (test code = WBC) 6.7 K/mm3 4.5-12.5 N RED BLOOD CELL (test code = RBC) 2.68 mill/mm3 3.7-5.2 L HEMOGLOBIN (test code = HGB) 8.7 gram/dL 11.5-15.5 L HEMATOCRIT (test code = HCT) 26.7 % 36.0-46.0 L MEAN CELL VOLUME (test code = MCV) 99.6 fL 80-98 H MEAN CELL HGB (test code = MCH) 32.5 picogram 27.0-33.0 N MEAN CELL HGB CONCETRATION (test code = MCHC) 32.6 gram/dL 33.0-36. 0 L RED CELL DISTRIBUTION WIDTH (test code = RDW) 14.9 % 11.6-16. 2 N RED CELL DISTRIBUTION WIDTH SD (test code = RDW-SD) 54.4 fL 37 .0-51.0 H PLATELET COUNT (test code = PLT) 123 K/mm3 150-450 L MEAN PLATELET VOLUME (test code = MPV) 10.7 fL 6.7-11.0 N NEUTROPHIL % (test code = NT%) 69.0 % 39.0-69.0 N IMMATURE GRANULOCYTE % (test code = IG%) 0.4 % 0.0-5.0 N LYMPHOCYTE % (test code = LY%) 16.9 % 25.0-55.0 L MONOCYTE % (test code = MO%) 12.3 % 0.0-10.0 H EOSINOPHIL % (test code = EO%) 1.0 % 0.0-5.0 N BASOPHIL % (test code = BA%) 0.4 % 0.0-1.0 N NUCLEATED RBC % (test code = NRBC%) 0.0 % 0-0 N NEUTROPHIL # (test code = NT#) 4.61 K/mm3 1.8-7.7 N IMMATURE GRANULOCYTE # (test code = IG#) 0.03 x10 3/uL 0-0.03 N LYMPHOCYTE # (test code = LY#) 1.13 K/mm3 1.0-5.0 N MONOCYTE # (test code = MO#) 0.82 K/mm3 0-0.8 H EOSINOPHIL # (test code = EO#) 0.07 K/mm3 0.0-0.5 N BASOPHIL # (test code = BA#) 0.03 K/mm3 0.0-0.2 N NUCLEATED RBC # (test code = NRBC#) 0.00 K/mm3 0.0-0.1 N BASIC METABOLIC [id number] 08:03:00* Test Item Value Reference Range Interpretation Comments SODIUM (test code = NA) 144 mmol/L 136-145 N POTASSIUM (test code = K) 3.0 mmol/L 3.5-5.1 L CHLORIDE (test code = CL) 112.0 mmol/L 98-107 H CARBON DIOXIDE (test code = CO2) 25.0 mmol/L 21-32 N ANION GAP (test code = GAP) 10.0 10-20 N GLUCOSE (test code = GLU) 74 mg/dL 74-106 N BLOOD UREA NITROGEN (test code = BUN) 14 mg/dL 7-18 N GLOMERULAR FILTRATION RATE (test code = GFR) 53 mL/min >=60 Estimated GFR by using Modified MDRD formula.Chronic kidney disease is defined as either kidney damageor GFR <60 mL/min/1.73 m2 for >3 months. CREATININE (test code = CREAT) 1.00 mg/dL 0.55-1.02 N Note change in reference range due to change in reagent. BUN/CREATININE RATIO (test code = BUN/CREA) 13.5 10-20 N CALCIUM (test code = CA) 7.7 mg/dL 8.5-10.1 L [id number] 08:03:00* Test Item Value Reference Range Interpretation Comments PHOSPHORUS (test code = PHOS) 2.5 mg/dL 2.5-4.9 N [id number] 08:03:00* Test Item Value Reference Range Interpretation Comments MAGNESIUM (test code = MAG) 2.2 mg/dL 1.8-2.4 N BASIC METABOLIC [id number] 07:36:00* Test Item Value Reference Range Interpretation Comments SODIUM (test code = NA) 144 mmol/L 136-145 N POTASSIUM (test code = K) 3.0 mmol/L 3.5-5.1 L CHLORIDE (test code = CL) 112.0 mmol/L 98-107 H CARBON DIOXIDE (test code = CO2) mmol/L 21-32 ANION GAP (test code = GAP) 10-20 GLUCOSE (test code = GLU) mg/dL 74-106 BLOOD UREA NITROGEN (test code = BUN) mg/dL 7-18 GLOMERULAR FILTRATION RATE (test code = GFR) mL/min >=60 CREATININE (test code = CREAT) mg/dL 0.55-1.02 BUN/CREATININE RATIO (test code = BUN/CREA) 10-20 CALCIUM (test code = CA) mg/dL 8.5-10.1 [id number] 07:36:00* Test Item Value Reference Range Interpretation Comments PHOSPHORUS (test code = PHOS) mg/dL 2.5-4.9 [id number] 07:36:00* Test Item Value Reference Range Interpretation Comments MAGNESIUM (test code = MAG) mg/dL 1.8-2.4 CBC W/MANUAL [id number] 07:31:00* Test Item Value Reference Range Interpretation Comments WHITE BLOOD CELL (test code = WBC) 6.8 K/mm3 4.5-12.5 N RED BLOOD CELL (test code = RBC) 2.92 mill/mm3 3.7-5.2 L HEMOGLOBIN (test code = HGB) 9.4 gram/dL 11.5-15.5 L HEMATOCRIT (test code = HCT) 28.6 % 36.0-46.0 L MEAN CELL VOLUME (test code = MCV) 97.9 fL 80-98 N MEAN CELL HGB (test code = MCH) 32.2 picogram 27.0-33.0 N MEAN CELL HGB CONCETRATION (test code = MCHC) 32.9 gram/dL 33.0-36. 0 L RED CELL DISTRIBUTION WIDTH (test code = RDW) 14.9 % 11.6-16. 2 N RED CELL DISTRIBUTION WIDTH SD (test code = RDW-SD) 53.9 fL 37 .0-51.0 H PLATELET COUNT (test code = PLT) 141 K/mm3 150-450 L MEAN PLATELET VOLUME (test code = MPV) 11.0 fL 6.7-11.0 N IMMATURE GRANULOCYTE % (test code = IG%) 0.3 % 0.0-5.0 N NUCLEATED RBC % (test code = NRBC%) 0.0 % 0-0 N NEUTROPHIL # (test code = NT#) 5.33 K/mm3 1.8-7.7 N IMMATURE GRANULOCYTE # (test code = IG#) 0.02 x10 3/uL 0-0.03 N LYMPHOCYTE # (test code = LY#) 0.89 K/mm3 1.0-5.0 L MONOCYTE # (test code = MO#) 0.49 K/mm3 0-0.8 N EOSINOPHIL # (test code = EO#) 0.07 K/mm3 0.0-0.5 N BASOPHIL # (test code = BA#) 0.02 K/mm3 0.0-0.2 N NUCLEATED RBC # (test code = NRBC#) 0.00 K/mm3 0.0-0.1 N MANUAL DIFF REQUIRED (test code = MDIFF) YES STAIN ACCEPTABILITY (test code = STN ACCEPTABLE) STAIN ACCEPTABLE TOTAL CELLS COUNTED (test code = TCC) 115 #CELLS SEGMENTED NEUTROPHILS (test code = SEG) 80.0 % 39-69 H BAND NEUTROPHIL (test code = BAND) 7.0 % 0-10 N LYMPHOCYTE (test code = LYMPH) 7.8 % 25-55 L REACTIVE LYMPH (test code = RELYMPH) 0 % MONOCYTE (test code = MON) 4.3 % 0-10 N EOSINOPHIL (test code = EOS) 0 % 0.0-5.0 N BASOPHIL (test code = BASO) 0.9 % 0-1.0 N METAMYELOCYTE (test code = META) 0 % 0-0 N MYELOCYTE (test code = MYELO) 0 % 0.0-0.0 N PROMYELOCYTE (test code = PROM) 0 % 0-0 N POIKILOCYTOSIS (test code = POIK) 2+ ANISOCYTOSIS (test code = ANISO) 1+ MACROCYTOSIS (test code = MACR) 1+ PLATELET ESTIMATE (test code = PLTEST) ADEQUATE PLATELET MORPHOLOGY (test code = PLTMORPH) NORMAL IMMATURE FORMS (test code = IMMAT) 0 % 0-0 N CBC W/MANUAL [id number] 06:55:00* Test Item Value Reference Range Interpretation Comments WHITE BLOOD CELL (test code = WBC) 6.8 K/mm3 4.5-12.5 N RED BLOOD CELL (test code = RBC) 2.92 mill/mm3 3.7-5.2 L HEMOGLOBIN (test code = HGB) 9.4 gram/dL 11.5-15.5 L HEMATOCRIT (test code = HCT) 28.6 % 36.0-46.0 L MEAN CELL VOLUME (test code = MCV) 97.9 fL 80-98 N MEAN CELL HGB (test code = MCH) 32.2 picogram 27.0-33.0 N MEAN CELL HGB CONCETRATION (test code = MCHC) 32.9 gram/dL 33.0-36. 0 L RED CELL DISTRIBUTION WIDTH (test code = RDW) 14.9 % 11.6-16. 2 N RED CELL DISTRIBUTION WIDTH SD (test code = RDW-SD) 53.9 fL 37 .0-51.0 H PLATELET COUNT (test code = PLT) 141 K/mm3 150-450 L MEAN PLATELET VOLUME (test code = MPV) 11.0 fL 6.7-11.0 N IMMATURE GRANULOCYTE % (test code = IG%) 0.3 % 0.0-5.0 N NUCLEATED RBC % (test code = NRBC%) 0.0 % 0-0 N NEUTROPHIL # (test code = NT#) 5.33 K/mm3 1.8-7.7 N IMMATURE GRANULOCYTE # (test code = IG#) 0.02 x10 3/uL 0-0.03 N LYMPHOCYTE # (test code = LY#) 0.89 K/mm3 1.0-5.0 L MONOCYTE # (test code = MO#) 0.49 K/mm3 0-0.8 N EOSINOPHIL # (test code = EO#) 0.07 K/mm3 0.0-0.5 N BASOPHIL # (test code = BA#) 0.02 K/mm3 0.0-0.2 N NUCLEATED RBC # (test code = NRBC#) 0.00 K/mm3 0.0-0.1 N MANUAL DIFF REQUIRED (test code = MDIFF) YES STAIN ACCEPTABILITY (test code = STN ACCEPTABLE) TOTAL CELLS COUNTED (test code = TCC) #CELLS SEGMENTED NEUTROPHILS (test code = SEG) % 39-69 LYMPHOCYTE (test code = LYMPH) % 25-55 MONOCYTE (test code = MON) % 0-10 EOSINOPHIL (test code = EOS) % 0.0-5.0 CABOT RINGS (test code = CAB) MORPHOLOGY COMMENT (test code = MOC) PLATELET ESTIMATE (test code = PLTEST) PLATELET MORPHOLOGY (test code = PLTMORPH) CBC W/MANUAL [id number] 06:55:00* Test Item Value Reference Range Interpretation Comments WHITE BLOOD CELL (test code = WBC) 6.8 K/mm3 4.5-12.5 N RED BLOOD CELL (test code = RBC) 2.92 mill/mm3 3.7-5.2 L HEMOGLOBIN (test code = HGB) 9.4 gram/dL 11.5-15.5 L HEMATOCRIT (test code = HCT) 28.6 % 36.0-46.0 L MEAN CELL VOLUME (test code = MCV) 97.9 fL 80-98 N MEAN CELL HGB (test code = MCH) 32.2 picogram 27.0-33.0 N MEAN CELL HGB CONCETRATION (test code = MCHC) 32.9 gram/dL 33.0-36. 0 L RED CELL DISTRIBUTION WIDTH (test code = RDW) 14.9 % 11.6-16. 2 N RED CELL DISTRIBUTION WIDTH SD (test code = RDW-SD) 53.9 fL 37 .0-51.0 H PLATELET COUNT (test code = PLT) 141 K/mm3 150-450 L MEAN PLATELET VOLUME (test code = MPV) 11.0 fL 6.7-11.0 N IMMATURE GRANULOCYTE % (test code = IG%) 0.3 % 0.0-5.0 N NUCLEATED RBC % (test code = NRBC%) 0.0 % 0-0 N NEUTROPHIL # (test code = NT#) 5.33 K/mm3 1.8-7.7 N IMMATURE GRANULOCYTE # (test code = IG#) 0.02 x10 3/uL 0-0.03 N LYMPHOCYTE # (test code = LY#) 0.89 K/mm3 1.0-5.0 L MONOCYTE # (test code = MO#) 0.49 K/mm3 0-0.8 N EOSINOPHIL # (test code = EO#) 0.07 K/mm3 0.0-0.5 N BASOPHIL # (test code = BA#) 0.02 K/mm3 0.0-0.2 N NUCLEATED RBC # (test code = NRBC#) 0.00 K/mm3 0.0-0.1 N MANUAL DIFF REQUIRED (test code = MDIFF) YES STAIN ACCEPTABILITY (test code = STN ACCEPTABLE) TOTAL CELLS COUNTED (test code = TCC) #CELLS SEGMENTED NEUTROPHILS (test code = SEG) % 39-69 LYMPHOCYTE (test code = LYMPH) % 25-55 MONOCYTE (test code = MON) % 0-10 EOSINOPHIL (test code = EOS) % 0.0-5.0 CABOT RINGS (test code = CAB) MORPHOLOGY COMMENT (test code = MOC) PLATELET ESTIMATE (test code = PLTEST) PLATELET MORPHOLOGY (test code = PLTMORPH) CBC W/MANUAL [id number] 06:55:00* Test Item Value Reference Range Interpretation Comments WHITE BLOOD CELL (test code = WBC) 6.8 K/mm3 4.5-12.5 N RED BLOOD CELL (test code = RBC) 2.92 mill/mm3 3.7-5.2 L HEMOGLOBIN (test code = HGB) 9.4 gram/dL 11.5-15.5 L HEMATOCRIT (test code = HCT) 28.6 % 36.0-46.0 L MEAN CELL VOLUME (test code = MCV) 97.9 fL 80-98 N MEAN CELL HGB (test code = MCH) 32.2 picogram 27.0-33.0 N MEAN CELL HGB CONCETRATION (test code = MCHC) 32.9 gram/dL 33.0-36. 0 L RED CELL DISTRIBUTION WIDTH (test code = RDW) 14.9 % 11.6-16. 2 N RED CELL DISTRIBUTION WIDTH SD (test code = RDW-SD) 53.9 fL 37 .0-51.0 H PLATELET COUNT (test code = PLT) 141 K/mm3 150-450 L MEAN PLATELET VOLUME (test code = MPV) 11.0 fL 6.7-11.0 N IMMATURE GRANULOCYTE % (test code = IG%) 0.3 % 0.0-5.0 N NUCLEATED RBC % (test code = NRBC%) 0.0 % 0-0 N NEUTROPHIL # (test code = NT#) 5.33 K/mm3 1.8-7.7 N IMMATURE GRANULOCYTE # (test code = IG#) 0.02 x10 3/uL 0-0.03 N LYMPHOCYTE # (test code = LY#) 0.89 K/mm3 1.0-5.0 L MONOCYTE # (test code = MO#) 0.49 K/mm3 0-0.8 N EOSINOPHIL # (test code = EO#) 0.07 K/mm3 0.0-0.5 N BASOPHIL # (test code = BA#) 0.02 K/mm3 0.0-0.2 N NUCLEATED RBC # (test code = NRBC#) 0.00 K/mm3 0.0-0.1 N MANUAL DIFF REQUIRED (test code = MDIFF) YES STAIN ACCEPTABILITY (test code = STN ACCEPTABLE) TOTAL CELLS COUNTED (test code = TCC) #CELLS SEGMENTED NEUTROPHILS (test code = SEG) % 39-69 LYMPHOCYTE (test code = LYMPH) % 25-55 MONOCYTE (test code = MON) % 0-10 EOSINOPHIL (test code = EOS) % 0.0-5.0 MORPHOLOGY COMMENT (test code = MOC) PLATELET ESTIMATE (test code = PLTEST) PLATELET MORPHOLOGY (test code = PLTMORPH) CBC W/MANUAL [id number] 06:55:00* Test Item Value Reference Range Interpretation Comments WHITE BLOOD CELL (test code = WBC) 6.8 K/mm3 4.5-12.5 N RED BLOOD CELL (test code = RBC) 2.92 mill/mm3 3.7-5.2 L HEMOGLOBIN (test code = HGB) 9.4 gram/dL 11.5-15.5 L HEMATOCRIT (test code = HCT) 28.6 % 36.0-46.0 L MEAN CELL VOLUME (test code = MCV) 97.9 fL 80-98 N MEAN CELL HGB (test code = MCH) 32.2 picogram 27.0-33.0 N MEAN CELL HGB CONCETRATION (test code = MCHC) 32.9 gram/dL 33.0-36. 0 L RED CELL DISTRIBUTION WIDTH (test code = RDW) 14.9 % 11.6-16. 2 N RED CELL DISTRIBUTION WIDTH SD (test code = RDW-SD) 53.9 fL 37 .0-51.0 H PLATELET COUNT (test code = PLT) 141 K/mm3 150-450 L MEAN PLATELET VOLUME (test code = MPV) 11.0 fL 6.7-11.0 N IMMATURE GRANULOCYTE % (test code = IG%) 0.3 % 0.0-5.0 N NUCLEATED RBC % (test code = NRBC%) 0.0 % 0-0 N NEUTROPHIL # (test code = NT#) 5.33 K/mm3 1.8-7.7 N IMMATURE GRANULOCYTE # (test code = IG#) 0.02 x10 3/uL 0-0.03 N LYMPHOCYTE # (test code = LY#) 0.89 K/mm3 1.0-5.0 L MONOCYTE # (test code = MO#) 0.49 K/mm3 0-0.8 N EOSINOPHIL # (test code = EO#) 0.07 K/mm3 0.0-0.5 N BASOPHIL # (test code = BA#) 0.02 K/mm3 0.0-0.2 N NUCLEATED RBC # (test code = NRBC#) 0.00 K/mm3 0.0-0.1 N MANUAL DIFF REQUIRED (test code = MDIFF) YES STAIN ACCEPTABILITY (test code = STN ACCEPTABLE) TOTAL CELLS COUNTED (test code = TCC) #CELLS SEGMENTED NEUTROPHILS (test code = SEG) % 39-69 LYMPHOCYTE (test code = LYMPH) % 25-55 MONOCYTE (test code = MON) % 0-10 MORPHOLOGY COMMENT (test code = MOC) PLATELET ESTIMATE (test code = PLTEST) PLATELET MORPHOLOGY (test code = PLTMORPH) CBC W/MANUAL [id number] 06:55:00* Test Item Value Reference Range Interpretation Comments WHITE BLOOD CELL (test code = WBC) 6.8 K/mm3 4.5-12.5 N RED BLOOD CELL (test code = RBC) 2.92 mill/mm3 3.7-5.2 L HEMOGLOBIN (test code = HGB) 9.4 gram/dL 11.5-15.5 L HEMATOCRIT (test code = HCT) 28.6 % 36.0-46.0 L MEAN CELL VOLUME (test code = MCV) 97.9 fL 80-98 N MEAN CELL HGB (test code = MCH) 32.2 picogram 27.0-33.0 N MEAN CELL HGB CONCETRATION (test code = MCHC) 32.9 gram/dL 33.0-36. 0 L RED CELL DISTRIBUTION WIDTH (test code = RDW) 14.9 % 11.6-16. 2 N RED CELL DISTRIBUTION WIDTH SD (test code = RDW-SD) 53.9 fL 37 .0-51.0 H PLATELET COUNT (test code = PLT) 141 K/mm3 150-450 L MEAN PLATELET VOLUME (test code = MPV) 11.0 fL 6.7-11.0 N IMMATURE GRANULOCYTE % (test code = IG%) 0.3 % 0.0-5.0 N NUCLEATED RBC % (test code = NRBC%) 0.0 % 0-0 N NEUTROPHIL # (test code = NT#) 5.33 K/mm3 1.8-7.7 N IMMATURE GRANULOCYTE # (test code = IG#) 0.02 x10 3/uL 0-0.03 N LYMPHOCYTE # (test code = LY#) 0.89 K/mm3 1.0-5.0 L MONOCYTE # (test code = MO#) 0.49 K/mm3 0-0.8 N EOSINOPHIL # (test code = EO#) 0.07 K/mm3 0.0-0.5 N BASOPHIL # (test code = BA#) 0.02 K/mm3 0.0-0.2 N NUCLEATED RBC # (test code = NRBC#) 0.00 K/mm3 0.0-0.1 N MANUAL DIFF REQUIRED (test code = MDIFF) YES STAIN ACCEPTABILITY (test code = STN ACCEPTABLE) TOTAL CELLS COUNTED (test code = TCC) #CELLS SEGMENTED NEUTROPHILS (test code = SEG) % 39-69 LYMPHOCYTE (test code = LYMPH) % 25-55 MONOCYTE (test code = MON) % 0-10 EOSINOPHIL (test code = EOS) % 0.0-5.0 CABOT RINGS (test code = CAB) MORPHOLOGY COMMENT (test code = MOC) PLATELET ESTIMATE (test code = PLTEST) PLATELET MORPHOLOGY (test code = PLTMORPH) CBC W/MANUAL [id number] 08:52:00* Test Item Value Reference Range Interpretation Comments WHITE BLOOD CELL (test code = WBC) 7.2 K/mm3 4.5-12.5 N RED BLOOD CELL (test code = RBC) 2.83 mill/mm3 3.7-5.2 L HEMOGLOBIN (test code = HGB) 9.1 gram/dL 11.5-15.5 L HEMATOCRIT (test code = HCT) 28.6 % 36.0-46.0 L MEAN CELL VOLUME (test code = MCV) 101.1 fL 80-98 H MEAN CELL HGB (test code = MCH) 32.2 picogram 27.0-33.0 N MEAN CELL HGB CONCETRATION (test code = MCHC) 31.8 gram/dL 33.0-36. 0 L RED CELL DISTRIBUTION WIDTH (test code = RDW) 14.8 % 11.6-16. 2 N RED CELL DISTRIBUTION WIDTH SD (test code = RDW-SD) 55.0 fL 37 .0-51.0 H PLATELET COUNT (test code = PLT) 134 K/mm3 150-450 L MEAN PLATELET VOLUME (test code = MPV) 11.1 fL 6.7-11.0 H IMMATURE GRANULOCYTE % (test code = IG%) 0.6 % 0.0-5.0 N NUCLEATED RBC % (test code = NRBC%) 0.0 % 0-0 N NEUTROPHIL # (test code = NT#) 6.09 K/mm3 1.8-7.7 N IMMATURE GRANULOCYTE # (test code = IG#) 0.04 x10 3/uL 0-0.03 H LYMPHOCYTE # (test code = LY#) 0.70 K/mm3 1.0-5.0 L MONOCYTE # (test code = MO#) 0.34 K/mm3 0-0.8 N EOSINOPHIL # (test code = EO#) 0.03 K/mm3 0.0-0.5 N BASOPHIL # (test code = BA#) 0.02 K/mm3 0.0-0.2 N NUCLEATED RBC # (test code = NRBC#) 0.00 K/mm3 0.0-0.1 N MANUAL DIFF REQUIRED (test code = MDIFF) YES STAIN ACCEPTABILITY (test code = STN ACCEPTABLE) STAIN ACCEPTABLE TOTAL CELLS COUNTED (test code = TCC) 114 #CELLS SEGMENTED NEUTROPHILS (test code = SEG) 84.2 % 39-69 H BAND NEUTROPHIL (test code = BAND) 3.5 % 0-10 N LYMPHOCYTE (test code = LYMPH) 8.8 % 25-55 L REACTIVE LYMPH (test code = RELYMPH) 0 % MONOCYTE (test code = MON) 1.7 % 0-10 N EOSINOPHIL (test code = EOS) 0.9 % 0.0-5.0 N BASOPHIL (test code = BASO) 0.9 % 0-1.0 N METAMYELOCYTE (test code = META) 0 % 0-0 N MYELOCYTE (test code = MYELO) 0 % 0.0-0.0 N PROMYELOCYTE (test code = PROM) 0 % 0-0 N POIKILOCYTOSIS (test code = POIK) 2+ ANISOCYTOSIS (test code = ANISO) 2+ MACROCYTOSIS (test code = MACR) 1+ CRENATED CELLS (test code = CREN) 1+ SAMMY CELLS (test code = SAMMY) 2+ NONE PLATELET ESTIMATE (test code = PLTEST) ADEQUATE PLATELET MORPHOLOGY (test code = PLTMORPH) NORMAL IMMATURE FORMS (test code = IMMAT) 0 % 0-0 N COMPREHENSIVE METABOLIC [id number] 07:40:00* Test Item Value Reference Range Interpretation Comments SODIUM (test code = NA) 143 mmol/L 136-145 N POTASSIUM (test code = K) 2.7 mmol/L 3.5-5.1 Re sults called to [id number] by QING 11/09/18 0740Critical results verified and read back by Nurse? Y CHLORIDE (test code = CL) 112.0 mmol/L 98-107 H CARBON DIOXIDE (test code = CO2) 23.0 mmol/L 21-32 N ANION GAP (test code = GAP) 10.7 10-20 N GLUCOSE (test code = GLU) 114 mg/dL 74-106 H BLOOD UREA NITROGEN (test code = BUN) 17 mg/dL 7-18 N GLOMERULAR FILTRATION RATE (test code = GFR) 53 mL/min >=60 Estimated GFR by using Modified MDRD formula.Chronic kidney disease is defined as either kidney damageor GFR <60 mL/min/1.73 m2 for >3 months. CREATININE (test code = CREAT) 1.00 mg/dL 0.55-1.02 N Note change in reference range due to change in reagent. BUN/CREATININE RATIO (test code = BUN/CREA) 17.3 10-20 N TOTAL PROTEIN (test code = PROT) 5.2 gram/dL 6.4-8.2 L ALBUMIN (test code = ALB) 1.7 g/dL 3.4-5.0 L GLOBULIN (test code = GLOB) 3.5 gram/dL 2.7-4.2 N ALBUMIN/GLOBULIN RATIO (test code = A/G) 0.5 0.75-1.50 L CALCIUM (test code = CA) 7.5 mg/dL 8.5-10.1 L BILIRUBIN TOTAL (test code = BILT) 0.50 mg/dL 0.0-1.0 N SGOT/AST (test code = AST) 66 IUnit/L 15-37 H SGPT/ALT (test code = ALT) 24 IUnit/L 12-78 N ALKALINE PHOSPHATASE TOTAL (test code = ALKP) 68 IUnit/L 45-117 N Note change in reference range due to change in reagent. [id number] 07:40:00* Test Item Value Reference Range Interpretation Comments PHOSPHORUS (test code = PHOS) 2.7 mg/dL 2.5-4.9 N [id number] 07:40:00* Test Item Value Reference Range Interpretation Comments MAGNESIUM (test code = MAG) 2.2 mg/dL 1.8-2.4 N CBC W/MANUAL [id number] 07:28:00* Test Item Value Reference Range Interpretation Comments WHITE BLOOD CELL (test code = WBC) 7.2 K/mm3 4.5-12.5 N RED BLOOD CELL (test code = RBC) 2.83 mill/mm3 3.7-5.2 L HEMOGLOBIN (test code = HGB) 9.1 gram/dL 11.5-15.5 L HEMATOCRIT (test code = HCT) 28.6 % 36.0-46.0 L MEAN CELL VOLUME (test code = MCV) 101.1 fL 80-98 H MEAN CELL HGB (test code = MCH) 32.2 picogram 27.0-33.0 N MEAN CELL HGB CONCETRATION (test code = MCHC) 31.8 gram/dL 33.0-36. 0 L RED CELL DISTRIBUTION WIDTH (test code = RDW) 14.8 % 11.6-16. 2 N RED CELL DISTRIBUTION WIDTH SD (test code = RDW-SD) 55.0 fL 37 .0-51.0 H PLATELET COUNT (test code = PLT) 134 K/mm3 150-450 L MEAN PLATELET VOLUME (test code = MPV) 11.1 fL 6.7-11.0 H IMMATURE GRANULOCYTE % (test code = IG%) 0.6 % 0.0-5.0 N NUCLEATED RBC % (test code = NRBC%) 0.0 % 0-0 N NEUTROPHIL # (test code = NT#) 6.09 K/mm3 1.8-7.7 N IMMATURE GRANULOCYTE # (test code = IG#) 0.04 x10 3/uL 0-0.03 H LYMPHOCYTE # (test code = LY#) 0.70 K/mm3 1.0-5.0 L MONOCYTE # (test code = MO#) 0.34 K/mm3 0-0.8 N EOSINOPHIL # (test code = EO#) 0.03 K/mm3 0.0-0.5 N BASOPHIL # (test code = BA#) 0.02 K/mm3 0.0-0.2 N NUCLEATED RBC # (test code = NRBC#) 0.00 K/mm3 0.0-0.1 N MANUAL DIFF REQUIRED (test code = MDIFF) YES STAIN ACCEPTABILITY (test code = STN ACCEPTABLE) TOTAL CELLS COUNTED (test code = TCC) #CELLS SEGMENTED NEUTROPHILS (test code = SEG) % 39-69 LYMPHOCYTE (test code = LYMPH) % 25-55 MONOCYTE (test code = MON) % 0-10 EOSINOPHIL (test code = EOS) % 0.0-5.0 CABOT RINGS (test code = CAB) MORPHOLOGY COMMENT (test code = MOC) PLATELET ESTIMATE (test code = PLTEST) PLATELET MORPHOLOGY (test code = PLTMORPH) CBC W/MANUAL [id number] 07:28:00* Test Item Value Reference Range Interpretation Comments WHITE BLOOD CELL (test code = WBC) 7.2 K/mm3 4.5-12.5 N RED BLOOD CELL (test code = RBC) 2.83 mill/mm3 3.7-5.2 L HEMOGLOBIN (test code = HGB) 9.1 gram/dL 11.5-15.5 L HEMATOCRIT (test code = HCT) 28.6 % 36.0-46.0 L MEAN CELL VOLUME (test code = MCV) 101.1 fL 80-98 H MEAN CELL HGB (test code = MCH) 32.2 picogram 27.0-33.0 N MEAN CELL HGB CONCETRATION (test code = MCHC) 31.8 gram/dL 33.0-36. 0 L RED CELL DISTRIBUTION WIDTH (test code = RDW) 14.8 % 11.6-16. 2 N RED CELL DISTRIBUTION WIDTH SD (test code = RDW-SD) 55.0 fL 37 .0-51.0 H PLATELET COUNT (test code = PLT) 134 K/mm3 150-450 L MEAN PLATELET VOLUME (test code = MPV) 11.1 fL 6.7-11.0 H IMMATURE GRANULOCYTE % (test code = IG%) 0.6 % 0.0-5.0 N NUCLEATED RBC % (test code = NRBC%) 0.0 % 0-0 N NEUTROPHIL # (test code = NT#) 6.09 K/mm3 1.8-7.7 N IMMATURE GRANULOCYTE # (test code = IG#) 0.04 x10 3/uL 0-0.03 H LYMPHOCYTE # (test code = LY#) 0.70 K/mm3 1.0-5.0 L MONOCYTE # (test code = MO#) 0.34 K/mm3 0-0.8 N EOSINOPHIL # (test code = EO#) 0.03 K/mm3 0.0-0.5 N BASOPHIL # (test code = BA#) 0.02 K/mm3 0.0-0.2 N NUCLEATED RBC # (test code = NRBC#) 0.00 K/mm3 0.0-0.1 N MANUAL DIFF REQUIRED (test code = MDIFF) YES STAIN ACCEPTABILITY (test code = STN ACCEPTABLE) TOTAL CELLS COUNTED (test code = TCC) #CELLS SEGMENTED NEUTROPHILS (test code = SEG) % 39-69 LYMPHOCYTE (test code = LYMPH) % 25-55 MONOCYTE (test code = MON) % 0-10 EOSINOPHIL (test code = EOS) % 0.0-5.0 CABOT RINGS (test code = CAB) MORPHOLOGY COMMENT (test code = MOC) PLATELET ESTIMATE (test code = PLTEST) PLATELET MORPHOLOGY (test code = PLTMORPH) CBC W/MANUAL [id number] 07:28:00* Test Item Value Reference Range Interpretation Comments WHITE BLOOD CELL (test code = WBC) 7.2 K/mm3 4.5-12.5 N RED BLOOD CELL (test code = RBC) 2.83 mill/mm3 3.7-5.2 L HEMOGLOBIN (test code = HGB) 9.1 gram/dL 11.5-15.5 L HEMATOCRIT (test code = HCT) 28.6 % 36.0-46.0 L MEAN CELL VOLUME (test code = MCV) 101.1 fL 80-98 H MEAN CELL HGB (test code = MCH) 32.2 picogram 27.0-33.0 N MEAN CELL HGB CONCETRATION (test code = MCHC) 31.8 gram/dL 33.0-36. 0 L RED CELL DISTRIBUTION WIDTH (test code = RDW) 14.8 % 11.6-16. 2 N RED CELL DISTRIBUTION WIDTH SD (test code = RDW-SD) 55.0 fL 37 .0-51.0 H PLATELET COUNT (test code = PLT) 134 K/mm3 150-450 L MEAN PLATELET VOLUME (test code = MPV) 11.1 fL 6.7-11.0 H IMMATURE GRANULOCYTE % (test code = IG%) 0.6 % 0.0-5.0 N NUCLEATED RBC % (test code = NRBC%) 0.0 % 0-0 N NEUTROPHIL # (test code = NT#) 6.09 K/mm3 1.8-7.7 N IMMATURE GRANULOCYTE # (test code = IG#) 0.04 x10 3/uL 0-0.03 H LYMPHOCYTE # (test code = LY#) 0.70 K/mm3 1.0-5.0 L MONOCYTE # (test code = MO#) 0.34 K/mm3 0-0.8 N EOSINOPHIL # (test code = EO#) 0.03 K/mm3 0.0-0.5 N BASOPHIL # (test code = BA#) 0.02 K/mm3 0.0-0.2 N NUCLEATED RBC # (test code = NRBC#) 0.00 K/mm3 0.0-0.1 N MANUAL DIFF REQUIRED (test code = MDIFF) YES STAIN ACCEPTABILITY (test code = STN ACCEPTABLE) TOTAL CELLS COUNTED (test code = TCC) #CELLS SEGMENTED NEUTROPHILS (test code = SEG) % 39-69 LYMPHOCYTE (test code = LYMPH) % 25-55 MONOCYTE (test code = MON) % 0-10 EOSINOPHIL (test code = EOS) % 0.0-5.0 MORPHOLOGY COMMENT (test code = MOC) PLATELET ESTIMATE (test code = PLTEST) PLATELET MORPHOLOGY (test code = PLTMORPH) CBC W/MANUAL [id number] 07:28:00* Test Item Value Reference Range Interpretation Comments WHITE BLOOD CELL (test code = WBC) 7.2 K/mm3 4.5-12.5 N RED BLOOD CELL (test code = RBC) 2.83 mill/mm3 3.7-5.2 L HEMOGLOBIN (test code = HGB) 9.1 gram/dL 11.5-15.5 L HEMATOCRIT (test code = HCT) 28.6 % 36.0-46.0 L MEAN CELL VOLUME (test code = MCV) 101.1 fL 80-98 H MEAN CELL HGB (test code = MCH) 32.2 picogram 27.0-33.0 N MEAN CELL HGB CONCETRATION (test code = MCHC) 31.8 gram/dL 33.0-36. 0 L RED CELL DISTRIBUTION WIDTH (test code = RDW) 14.8 % 11.6-16. 2 N RED CELL DISTRIBUTION WIDTH SD (test code = RDW-SD) 55.0 fL 37 .0-51.0 H PLATELET COUNT (test code = PLT) 134 K/mm3 150-450 L MEAN PLATELET VOLUME (test code = MPV) 11.1 fL 6.7-11.0 H IMMATURE GRANULOCYTE % (test code = IG%) 0.6 % 0.0-5.0 N NUCLEATED RBC % (test code = NRBC%) 0.0 % 0-0 N NEUTROPHIL # (test code = NT#) 6.09 K/mm3 1.8-7.7 N IMMATURE GRANULOCYTE # (test code = IG#) 0.04 x10 3/uL 0-0.03 H LYMPHOCYTE # (test code = LY#) 0.70 K/mm3 1.0-5.0 L MONOCYTE # (test code = MO#) 0.34 K/mm3 0-0.8 N EOSINOPHIL # (test code = EO#) 0.03 K/mm3 0.0-0.5 N BASOPHIL # (test code = BA#) 0.02 K/mm3 0.0-0.2 N NUCLEATED RBC # (test code = NRBC#) 0.00 K/mm3 0.0-0.1 N MANUAL DIFF REQUIRED (test code = MDIFF) YES STAIN ACCEPTABILITY (test code = STN ACCEPTABLE) TOTAL CELLS COUNTED (test code = TCC) #CELLS SEGMENTED NEUTROPHILS (test code = SEG) % 39-69 LYMPHOCYTE (test code = LYMPH) % 25-55 MONOCYTE (test code = MON) % 0-10 MORPHOLOGY COMMENT (test code = MOC) PLATELET ESTIMATE (test code = PLTEST) PLATELET MORPHOLOGY (test code = PLTMORPH) CBC W/MANUAL [id number] 07:28:00* Test Item Value Reference Range Interpretation Comments WHITE BLOOD CELL (test code = WBC) 7.2 K/mm3 4.5-12.5 N RED BLOOD CELL (test code = RBC) 2.83 mill/mm3 3.7-5.2 L HEMOGLOBIN (test code = HGB) 9.1 gram/dL 11.5-15.5 L HEMATOCRIT (test code = HCT) 28.6 % 36.0-46.0 L MEAN CELL VOLUME (test code = MCV) 101.1 fL 80-98 H MEAN CELL HGB (test code = MCH) 32.2 picogram 27.0-33.0 N MEAN CELL HGB CONCETRATION (test code = MCHC) 31.8 gram/dL 33.0-36. 0 L RED CELL DISTRIBUTION WIDTH (test code = RDW) 14.8 % 11.6-16. 2 N RED CELL DISTRIBUTION WIDTH SD (test code = RDW-SD) 55.0 fL 37 .0-51.0 H PLATELET COUNT (test code = PLT) 134 K/mm3 150-450 L MEAN PLATELET VOLUME (test code = MPV) 11.1 fL 6.7-11.0 H IMMATURE GRANULOCYTE % (test code = IG%) 0.6 % 0.0-5.0 N NUCLEATED RBC % (test code = NRBC%) 0.0 % 0-0 N NEUTROPHIL # (test code = NT#) 6.09 K/mm3 1.8-7.7 N IMMATURE GRANULOCYTE # (test code = IG#) 0.04 x10 3/uL 0-0.03 H LYMPHOCYTE # (test code = LY#) 0.70 K/mm3 1.0-5.0 L MONOCYTE # (test code = MO#) 0.34 K/mm3 0-0.8 N EOSINOPHIL # (test code = EO#) 0.03 K/mm3 0.0-0.5 N BASOPHIL # (test code = BA#) 0.02 K/mm3 0.0-0.2 N NUCLEATED RBC # (test code = NRBC#) 0.00 K/mm3 0.0-0.1 N MANUAL DIFF REQUIRED (test code = MDIFF) YES STAIN ACCEPTABILITY (test code = STN ACCEPTABLE) TOTAL CELLS COUNTED (test code = TCC) #CELLS SEGMENTED NEUTROPHILS (test code = SEG) % 39-69 LYMPHOCYTE (test code = LYMPH) % 25-55 MONOCYTE (test code = MON) % 0-10 EOSINOPHIL (test code = EOS) % 0.0-5.0 CABOT RINGS (test code = CAB) MORPHOLOGY COMMENT (test code = MOC) PLATELET ESTIMATE (test code = PLTEST) PLATELET MORPHOLOGY (test code = PLTMORPH) BODY FLUID CELL [id number] 13:52:00* Test Item Value Reference Range Interpretation Comments FLUID SOURCE (test code = SOURCEFL) BILE FLUID COLOR (test code = COLFL) BROWN COLORLESS FLUID APPEARANCE (test code = APPFL) HAZY FLUID UNCORR WBC (test code = UNCWBCFL) 0 per mm3 FLUID WBC (test code = WBCFL) 4 per mm3 0-150 N QC performed - Cell count on both sides of chamber agreeswithin 20% ? Y FLUID RBC (test code = RBCFL) 7 per mm3 0-50 N FLUID POLY (test code = POLYFL) 0.0 % FLUID LYMPHOCYTE (test code = LYMPHFL) 100.0 % TOTAL CELLS COUNTED ON DIFF (test code = TOTCELLFL) 7 cells REVIEWED BY (test code = REVIEW) PATHOLOGIST Reviewed by Pathologist, Dr ARBABREVIEWED. BACTERIA PRESENT (? CONTAMINATION) SPECIMEN COMMENTS: BILE- CT ABD PELVIS W/O [id number] 12:05:00 Name: NICOLE TAN [facility] : 1935 Age/S: 83 / F [address] Unit #: [id number] Loc: [place] [address] Phys: Shahid Gonzalez PA Acct: [id number] Di s Date: Status: ADM IN PHONE #: Exam Date: 11/08/2018 114 FAX #: Reason: abdominal pain, abd distention, dilation colon/ EXAMS: CPT CODE: [id number] CT ABD PELVIS W/O CONT 71163 HISTORY: Abdominal pain a nd distention with [...] AGE 1 Signed Report (CONTINUED) Name : NICOLE TAN [facility] : [birth year] Age/S: 83 / F [address] Unit #: [id number] Loc: [place] [address] Phys: Camron Gonzalez Acct: [id number] Dis Date: Status: ADM IN PHONE #: Exam Date: 11/08/2018 1149 FAX #: [phone] Reason: abdominal pain, abd distention, dilation colon/ EXAMS: CPT CODE: [id number] CT ABD PELVIS W/O CONT 15106 <Continued> the anterior left abdominal wall without [...] Small free fluid. No free air. at 1205 Reported and signed by: Neil Casiano M.D. CC: Juan Anguiano; Camron Gonzalez; Jerman Haas MD Technologist:Jvoanna Xiong,RT(R),CT CTDI: DLP: Trnscb Date/Time: 11/08/2018 (6603) [email or web address] Orig Print D/T: S: 11/08/2018 (1229) PAGE 2 Signed Report - XR ABDOMEN AP 1 [id number] 10:25:00 FAX: Juan Beavers MD [phone] [place]: B St: ADM FAX: Daniele New MD [phone] FAX: Jerman Rodriguez I [phone] Name: NICOLE TAN [facility] : 1935 Age/S: 83/F [address] Unit #: [id number] Loc: V.S17 [place] [address] Phys: Daniele Purdy MD Acct: [id number] Dis Date: Status: ADM IN ONE #: [phone] Exam Date: 11/08/2018 1010 FAX #: [phone] Reason: lower abdominal pain EXAMS: CPT CODE: [id number] XR ABDOMEN AP 1 V 58182 HISTORY: Septic shock. COMPARISON: CT abdomen and [...] signed by: Jose Elias Sosa CC: Juan Anguiaon; Daniele Purdy MD; Jerman Lam MD Technologist: RT HELEN(R) Trnsc rd Date/Time/By: 11/08/2018 (1027) : By: [email or web address] Orig Print D/T: S: 11/08/2018 (6984) PAGE 1 Signed R eport - USG NDL PLACEMENT (Bxg/Asp)2018-11-08 08:58:00 Name: NICOLE TAN [facility] : 1935 Age/S: 83 / F [address] Unit #: [id number] Loc: [place] [address] Phys: Bert Patel MD Acct: [id number] Dis Date: Status: ADM IN PHONE #: [phone] Exam Date: 11/07/2018 0100 FAX #: [phone] Reason: CHOLECYSTOMY TUBE PLACEMENT EXAMS: CPT CODE: [id number] USG NDL PLACEMENT (Bxg/Asp) 73618 REASON FOR EXAM: Sepsis, acute cholecystitis EXAM [...] tract was dilated to accept a 10 Russian drainage tube. The tube was sutured to the subcutaneous tissue and connected to a drainage bag. The patient was transported to ICU in stable condition. MEDICATIONS: None Complications: No immediate Blood loss: Less than 5 cc IMPRESSION: Successful placement of a 10 Russian drainage tube for treatment of acute cholecystitis at 0858 Reported and signed by: Linden Linton M.D. CC: Juan Anguiano; Bert Patel MD Technologist: Susanna Myrick RT(S), [facility] Trnscb Date/Time: 11/08/2018 (0858) [email or web address] Orig Print D/T: S: 11/08/2018 (0902) Probe: PAGE 1 Signed Report - [facility] BILIARY [id number] 08:58:00 Name: NICOLE TAN [facility] : 1935 Age/S: 83 / F [address] [facility] Unit #: [id number] Loc: [place] [address] Phys: Bert Patel MD Acct: [id number] Dis Date: Status: ADM IN PHONE #: [phone] Exam Date: 11/07/2018 0107 FAX #: [phone] Reason: CHOLY TUBE PLACEMENT EXAMS: CPT CODE: [id number] [facility] BILIARY CATH 22587 Fluoro Time: 43 DAP (Gy m2): 2.77 [...] tract was dilated to accept a 10 Russian drainage tube. The tube was sutured to the subcutaneous tissue and connected to a drainage bag. The patient was transported to ICU in stable condition. MEDICATIONS: None Complications: No imme diate Blood loss: Less than 5 cc IMPRESSION: Succe ssful placement of a 10 Russian drainage tube for treatment of acute chol ecystitis at 085 8 Reported and signed by: Linden Linton M.D. CC: Juan Ellis; Bert Patel MD Technologist: Jackson Marcial RT(R) Trnsc[facility] Date/Time: 11/08/2018 (0858) tJosh SDR.VTL Orig Print D/T: S: 11/08/2018 (0971) PAGE 1 Signed Report - INJ CHOLANG EXST ACCES [id number] 08:58:00 Name: NICOLE TAN [facility] : 1935 Age/S: 83 / F [address] [facility] Unit #: [id number] Loc: [place] [address] Phys: Bert Patel MD Acct: [id number] Dis Date: Status: ADM IN PHONE #: [phone] Exam Date: 11/07/2018 010 FAX #: [phone] Reason: CHOLY TUBE PLACEMENT EXAMS: CPT CODE: [id number] [place] [address] Fluoro Time: 43 DAP (Gy m2): 2.77 [...] tract was dilated to accept a 10 Russian drainage tube. The tube was sutured to the subcutaneous tissue and connected to a drainage bag. The patient was transported to ICU in stable condition. MEDICATIONS: None Complications: No imme diate Blood loss: Less than 5 cc IMPRESSION: Succe ssful placement of a 10 Russian drainage tube for treatment of acute chol ecystitis at 085 8 Reported and signed by: Linden Linton M.D. CC: Juan Ellis; Bert Patel MD Technologist: Jackson Marcial RT(R) Trnscb Date/Time: 11/08/2018 (0858) lynsey CISNEROS Orig Print D/T: S: 11/08/2018 (0902) PAGE 1 Signed Report - [facility] ABDOMEN [id number] 08:58:00 Name: NICOLE TAN [facility] : 1935 Age/S: 83 / F [address] [facility] Unit #: [id number] Loc: [place] [address] Phys: Linden Linton MD Acct: [id number] Dis Date: Status: ADM IN PHONE #: [phone] Exam Date: 11/07/2018 0100 FAX #: [phone] Reason: CHOLECYSTOMY TUBE PLACEMENT. EXAMS: CPT CODE: [id number] ABDOMEN LTD [address] REASON FOR EXAM: Sepsis, acute cholecystitis EXAM [...] tract was dilated to accept a 10 Russian drainage tube. The tube was sutured to the subcutaneous tissue and connected to a drainage bag. The patient was transported to ICU in stable condition. MEDICATIONS: None Complications: No immediate Blood loss: Less than 5 cc IMPRESSION: Successful placement of a 10 Russian drainage tube for treatment of acute cholecystitis at 0858 Reported and signed by: Linden Linton M.D. CC: Juan Anguiano; Bert Patel MD Technologist: Susanna Myrick RT(S), [facility] Trnprb Date/Time: 11/08/2018 (0858) HaiderVTL Orig Print D/T: S: 11/08/2018 (0902) Probe: PAGE 1 Signed Report CBC W/MANUAL [id number] 06:16:00* Test Item Value Reference Range Interpretation Comments WHITE BLOOD CELL (test code = WBC) 12.3 K/mm3 4.5-12.5 N RED BLOOD CELL (test code = RBC) 3.22 mill/mm3 3.7-5.2 L HEMOGLOBIN (test code = HGB) 10.5 gram/dL 11.5-15.5 L HEMATOCRIT (test code = HCT) 33.2 % 36.0-46.0 L MEAN CELL VOLUME (test code = MCV) 103.1 fL 80-98 H MEAN CELL HGB (test code = MCH) 32.6 picogram 27.0-33.0 N MEAN CELL HGB CONCETRATION (test code = MCHC) 31.6 gram/dL 33.0-36. 0 L RED CELL DISTRIBUTION WIDTH (test code = RDW) 14.7 % 11.6-16. 2 N RED CELL DISTRIBUTION WIDTH SD (test code = RDW-SD) 55.6 fL 37 .0-51.0 H PLATELET COUNT (test code = PLT) 186 K/mm3 150-450 N MEAN PLATELET VOLUME (test code = MPV) 10.6 fL 6.7-11.0 N IMMATURE GRANULOCYTE % (test code = IG%) 1.1 % 0.0-5.0 N NUCLEATED RBC % (test code = NRBC%) 0.0 % 0-0 N NEUTROPHIL # (test code = NT#) 10.27 K/mm3 1.8-7.7 H IMMATURE GRANULOCYTE # (test code = IG#) 0.13 x10 3/uL 0-0.03 H LYMPHOCYTE # (test code = LY#) 1.17 K/mm3 1.0-5.0 N MONOCYTE # (test code = MO#) 0.65 K/mm3 0-0.8 N EOSINOPHIL # (test code = EO#) 0.01 K/mm3 0.0-0.5 N BASOPHIL # (test code = BA#) 0.05 K/mm3 0.0-0.2 N NUCLEATED RBC # (test code = NRBC#) 0.00 K/mm3 0.0-0.1 N MANUAL DIFF REQUIRED (test code = MDIFF) YES STAIN ACCEPTABILITY (test code = STN ACCEPTABLE) STAIN ACCEPTABLE TOTAL CELLS COUNTED (test code = TCC) 115 #CELLS SEGMENTED NEUTROPHILS (test code = SEG) 78.3 % 39-69 H BAND NEUTROPHIL (test code = BAND) 7.8 % 0-10 N LYMPHOCYTE (test code = LYMPH) 10.4 % 25-55 L REACTIVE LYMPH (test code = RELYMPH) 0 % MONOCYTE (test code = MON) 3.5 % 0-10 N EOSINOPHIL (test code = EOS) 0 % 0.0-5.0 N BASOPHIL (test code = BASO) 0 % 0-1.0 N METAMYELOCYTE (test code = META) 0 % 0-0 N MYELOCYTE (test code = MYELO) 0 % 0.0-0.0 N PROMYELOCYTE (test code = PROM) 0 % 0-0 N POIKILOCYTOSIS (test code = POIK) 1+ SAMMY CELLS (test code = SAMMY) 1+ NONE PLATELET ESTIMATE (test code = PLTEST) ADEQUATE PLATELET MORPHOLOGY (test code = PLTMORPH) NORMAL IMMATURE FORMS (test code = IMMAT) 0 % 0-0 N COMPREHENSIVE METABOLIC [id number] 05:41:00* Test Item Value Reference Range Interpretation Comments SODIUM (test code = NA) 143 mmol/L 136-145 N POTASSIUM (test code = K) 3.0 mmol/L 3.5-5.1 L CHLORIDE (test code = CL) 112.0 mmol/L 98-107 H CARBON DIOXIDE (test code = CO2) 20.0 mmol/L 21-32 L ANION GAP (test code = GAP) 14.0 10-20 N GLUCOSE (test code = GLU) 141 mg/dL 74-106 H BLOOD UREA NITROGEN (test code = BUN) 18 mg/dL 7-18 N GLOMERULAR FILTRATION RATE (test code = GFR) 53 mL/min >=60 Estimated GFR by using Modified MDRD formula.Chronic kidney disease is defined as either kidney damageor GFR <60 mL/min/1.73 m2 for >3 months. CREATININE (test code = CREAT) 1.00 mg/dL 0.55-1.02 N Note change in reference range due to change in reagent. BUN/CREATININE RATIO (test code = BUN/CREA) 18.0 10-20 N TOTAL PROTEIN (test code = PROT) 5.6 gram/dL 6.4-8.2 L ALBUMIN (test code = ALB) 2.0 g/dL 3.4-5.0 L GLOBULIN (test code = GLOB) 3.6 gram/dL 2.7-4.2 N ALBUMIN/GLOBULIN RATIO (test code = A/G) 0.6 0.75-1.50 L CALCIUM (test code = CA) 7.4 mg/dL 8.5-10.1 L BILIRUBIN TOTAL (test code = BILT) 0.50 mg/dL 0.0-1.0 N SGOT/AST (test code = AST) 29 IUnit/L 15-37 N SGPT/ALT (test code = ALT) 14 IUnit/L 12-78 N ALKALINE PHOSPHATASE TOTAL (test code = ALKP) 62 IUnit/L 45-117 N Note change in reference range due to change in reagent. [id number] 05:41:00* Test Item Value Reference Range Interpretation Comments PHOSPHORUS (test code = PHOS) 3.7 mg/dL 2.5-4.9 N [id number] 05:41:00* Test Item Value Reference Range Interpretation Comments MAGNESIUM (test code = MAG) 1.6 mg/dL 1.8-2.4 L COMPREHENSIVE METABOLIC [id number] 05:25:00* Test Item Value Reference Range Interpretation Comments SODIUM (test code = NA) 143 mmol/L 136-145 N POTASSIUM (test code = K) 3.0 mmol/L 3.5-5.1 L CHLORIDE (test code = CL) 112.0 mmol/L 98-107 H CARBON DIOXIDE (test code = CO2) mmol/L 21-32 ANION GAP (test code = GAP) 10-20 GLUCOSE (test code = GLU) mg/dL 74-106 BLOOD UREA NITROGEN (test code = BUN) mg/dL 7-18 GLOMERULAR FILTRATION RATE (test code = GFR) mL/min >=60 CREATININE (test code = CREAT) mg/dL 0.55-1.02 BUN/CREATININE RATIO (test code = BUN/CREA) 10-20 TOTAL PROTEIN (test code = PROT) gram/dL 6.4-8.2 ALBUMIN (test code = ALB) g/dL 3.4-5.0 GLOBULIN (test code = GLOB) gram/dL 2.7-4.2 ALBUMIN/GLOBULIN RATIO (test code = A/G) 0.75-1.50 CALCIUM (test code = CA) mg/dL 8.5-10.1 BILIRUBIN TOTAL (test code = BILT) mg/dL 0.0-1.0 SGOT/AST (test code = AST) IUnit/L 15-37 SGPT/ALT (test code = ALT) IUnit/L 12-78 ALKALINE PHOSPHATASE TOTAL (test code = ALKP) IUnit/L 45-117 [id number] 05:25:00* Test Item Value Reference Range Interpretation Comments PHOSPHORUS (test code = PHOS) mg/dL 2.5-4.9 [id number] 05:25:00* Test Item Value Reference Range Interpretation Comments MAGNESIUM (test code = MAG) mg/dL 1.8-2.4 CBC W/MANUAL [id number] 05:04:00* Test Item Value Reference Range Interpretation Comments WHITE BLOOD CELL (test code = WBC) 12.3 K/mm3 4.5-12.5 N RED BLOOD CELL (test code = RBC) 3.22 mill/mm3 3.7-5.2 L HEMOGLOBIN (test code = HGB) 10.5 gram/dL 11.5-15.5 L HEMATOCRIT (test code = HCT) 33.2 % 36.0-46.0 L MEAN CELL VOLUME (test code = MCV) 103.1 fL 80-98 H MEAN CELL HGB (test code = MCH) 32.6 picogram 27.0-33.0 N MEAN CELL HGB CONCETRATION (test code = MCHC) 31.6 gram/dL 33.0-36. 0 L RED CELL DISTRIBUTION WIDTH (test code = RDW) 14.7 % 11.6-16. 2 N RED CELL DISTRIBUTION WIDTH SD (test code = RDW-SD) 55.6 fL 37 .0-51.0 H PLATELET COUNT (test code = PLT) 186 K/mm3 150-450 N MEAN PLATELET VOLUME (test code = MPV) 10.6 fL 6.7-11.0 N IMMATURE GRANULOCYTE % (test code = IG%) 1.1 % 0.0-5.0 N NUCLEATED RBC % (test code = NRBC%) 0.0 % 0-0 N NEUTROPHIL # (test code = NT#) 10.27 K/mm3 1.8-7.7 H IMMATURE GRANULOCYTE # (test code = IG#) 0.13 x10 3/uL 0-0.03 H LYMPHOCYTE # (test code = LY#) 1.17 K/mm3 1.0-5.0 N MONOCYTE # (test code = MO#) 0.65 K/mm3 0-0.8 N EOSINOPHIL # (test code = EO#) 0.01 K/mm3 0.0-0.5 N BASOPHIL # (test code = BA#) 0.05 K/mm3 0.0-0.2 N NUCLEATED RBC # (test code = NRBC#) 0.00 K/mm3 0.0-0.1 N MANUAL DIFF REQUIRED (test code = MDIFF) YES STAIN ACCEPTABILITY (test code = STN ACCEPTABLE) TOTAL CELLS COUNTED (test code = TCC) #CELLS SEGMENTED NEUTROPHILS (test code = SEG) % 39-69 LYMPHOCYTE (test code = LYMPH) % 25-55 MONOCYTE (test code = MON) % 0-10 EOSINOPHIL (test code = EOS) % 0.0-5.0 CABOT RINGS (test code = CAB) MORPHOLOGY COMMENT (test code = MOC) PLATELET ESTIMATE (test code = PLTEST) PLATELET MORPHOLOGY (test code = PLTMORPH) CBC W/MANUAL [id number] 05:04:00* Test Item Value Reference Range Interpretation Comments WHITE BLOOD CELL (test code = WBC) 12.3 K/mm3 4.5-12.5 N RED BLOOD CELL (test code = RBC) 3.22 mill/mm3 3.7-5.2 L HEMOGLOBIN (test code = HGB) 10.5 gram/dL 11.5-15.5 L HEMATOCRIT (test code = HCT) 33.2 % 36.0-46.0 L MEAN CELL VOLUME (test code = MCV) 103.1 fL 80-98 H MEAN CELL HGB (test code = MCH) 32.6 picogram 27.0-33.0 N MEAN CELL HGB CONCETRATION (test code = MCHC) 31.6 gram/dL 33.0-36. 0 L RED CELL DISTRIBUTION WIDTH (test code = RDW) 14.7 % 11.6-16. 2 N RED CELL DISTRIBUTION WIDTH SD (test code = RDW-SD) 55.6 fL 37 .0-51.0 H PLATELET COUNT (test code = PLT) 186 K/mm3 150-450 N MEAN PLATELET VOLUME (test code = MPV) 10.6 fL 6.7-11.0 N IMMATURE GRANULOCYTE % (test code = IG%) 1.1 % 0.0-5.0 N NUCLEATED RBC % (test code = NRBC%) 0.0 % 0-0 N NEUTROPHIL # (test code = NT#) 10.27 K/mm3 1.8-7.7 H IMMATURE GRANULOCYTE # (test code = IG#) 0.13 x10 3/uL 0-0.03 H LYMPHOCYTE # (test code = LY#) 1.17 K/mm3 1.0-5.0 N MONOCYTE # (test code = MO#) 0.65 K/mm3 0-0.8 N EOSINOPHIL # (test code = EO#) 0.01 K/mm3 0.0-0.5 N BASOPHIL # (test code = BA#) 0.05 K/mm3 0.0-0.2 N NUCLEATED RBC # (test code = NRBC#) 0.00 K/mm3 0.0-0.1 N MANUAL DIFF REQUIRED (test code = MDIFF) YES STAIN ACCEPTABILITY (test code = STN ACCEPTABLE) TOTAL CELLS COUNTED (test code = TCC) #CELLS SEGMENTED NEUTROPHILS (test code = SEG) % 39-69 LYMPHOCYTE (test code = LYMPH) % 25-55 MONOCYTE (test code = MON) % 0-10 EOSINOPHIL (test code = EOS) % 0.0-5.0 CABOT RINGS (test code = CAB) MORPHOLOGY COMMENT (test code = MOC) PLATELET ESTIMATE (test code = PLTEST) PLATELET MORPHOLOGY (test code = PLTMORPH) CBC W/MANUAL [id number] 05:04:00* Test Item Value Reference Range Interpretation Comments WHITE BLOOD CELL (test code = WBC) 12.3 K/mm3 4.5-12.5 N RED BLOOD CELL (test code = RBC) 3.22 mill/mm3 3.7-5.2 L HEMOGLOBIN (test code = HGB) 10.5 gram/dL 11.5-15.5 L HEMATOCRIT (test code = HCT) 33.2 % 36.0-46.0 L MEAN CELL VOLUME (test code = MCV) 103.1 fL 80-98 H MEAN CELL HGB (test code = MCH) 32.6 picogram 27.0-33.0 N MEAN CELL HGB CONCETRATION (test code = MCHC) 31.6 gram/dL 33.0-36. 0 L RED CELL DISTRIBUTION WIDTH (test code = RDW) 14.7 % 11.6-16. 2 N RED CELL DISTRIBUTION WIDTH SD (test code = RDW-SD) 55.6 fL 37 .0-51.0 H PLATELET COUNT (test code = PLT) 186 K/mm3 150-450 N MEAN PLATELET VOLUME (test code = MPV) 10.6 fL 6.7-11.0 N IMMATURE GRANULOCYTE % (test code = IG%) 1.1 % 0.0-5.0 N NUCLEATED RBC % (test code = NRBC%) 0.0 % 0-0 N NEUTROPHIL # (test code = NT#) 10.27 K/mm3 1.8-7.7 H IMMATURE GRANULOCYTE # (test code = IG#) 0.13 x10 3/uL 0-0.03 H LYMPHOCYTE # (test code = LY#) 1.17 K/mm3 1.0-5.0 N MONOCYTE # (test code = MO#) 0.65 K/mm3 0-0.8 N EOSINOPHIL # (test code = EO#) 0.01 K/mm3 0.0-0.5 N BASOPHIL # (test code = BA#) 0.05 K/mm3 0.0-0.2 N NUCLEATED RBC # (test code = NRBC#) 0.00 K/mm3 0.0-0.1 N MANUAL DIFF REQUIRED (test code = MDIFF) YES STAIN ACCEPTABILITY (test code = STN ACCEPTABLE) TOTAL CELLS COUNTED (test code = TCC) #CELLS SEGMENTED NEUTROPHILS (test code = SEG) % 39-69 LYMPHOCYTE (test code = LYMPH) % 25-55 MONOCYTE (test code = MON) % 0-10 EOSINOPHIL (test code = EOS) % 0.0-5.0 MORPHOLOGY COMMENT (test code = MOC) PLATELET ESTIMATE (test code = PLTEST) PLATELET MORPHOLOGY (test code = PLTMORPH) CBC W/MANUAL [id number] 05:04:00* Test Item Value Reference Range Interpretation Comments WHITE BLOOD CELL (test code = WBC) 12.3 K/mm3 4.5-12.5 N RED BLOOD CELL (test code = RBC) 3.22 mill/mm3 3.7-5.2 L HEMOGLOBIN (test code = HGB) 10.5 gram/dL 11.5-15.5 L HEMATOCRIT (test code = HCT) 33.2 % 36.0-46.0 L MEAN CELL VOLUME (test code = MCV) 103.1 fL 80-98 H MEAN CELL HGB (test code = MCH) 32.6 picogram 27.0-33.0 N MEAN CELL HGB CONCETRATION (test code = MCHC) 31.6 gram/dL 33.0-36. 0 L RED CELL DISTRIBUTION WIDTH (test code = RDW) 14.7 % 11.6-16. 2 N RED CELL DISTRIBUTION WIDTH SD (test code = RDW-SD) 55.6 fL 37 .0-51.0 H PLATELET COUNT (test code = PLT) 186 K/mm3 150-450 N MEAN PLATELET VOLUME (test code = MPV) 10.6 fL 6.7-11.0 N IMMATURE GRANULOCYTE % (test code = IG%) 1.1 % 0.0-5.0 N NUCLEATED RBC % (test code = NRBC%) 0.0 % 0-0 N NEUTROPHIL # (test code = NT#) 10.27 K/mm3 1.8-7.7 H IMMATURE GRANULOCYTE # (test code = IG#) 0.13 x10 3/uL 0-0.03 H LYMPHOCYTE # (test code = LY#) 1.17 K/mm3 1.0-5.0 N MONOCYTE # (test code = MO#) 0.65 K/mm3 0-0.8 N EOSINOPHIL # (test code = EO#) 0.01 K/mm3 0.0-0.5 N BASOPHIL # (test code = BA#) 0.05 K/mm3 0.0-0.2 N NUCLEATED RBC # (test code = NRBC#) 0.00 K/mm3 0.0-0.1 N MANUAL DIFF REQUIRED (test code = MDIFF) YES STAIN ACCEPTABILITY (test code = STN ACCEPTABLE) TOTAL CELLS COUNTED (test code = TCC) #CELLS SEGMENTED NEUTROPHILS (test code = SEG) % 39-69 LYMPHOCYTE (test code = LYMPH) % 25-55 MONOCYTE (test code = MON) % 0-10 MORPHOLOGY COMMENT (test code = MOC) PLATELET ESTIMATE (test code = PLTEST) PLATELET MORPHOLOGY (test code = PLTMORPH) CBC W/MANUAL [id number] 05:04:00* Test Item Value Reference Range Interpretation Comments WHITE BLOOD CELL (test code = WBC) 12.3 K/mm3 4.5-12.5 N RED BLOOD CELL (test code = RBC) 3.22 mill/mm3 3.7-5.2 L HEMOGLOBIN (test code = HGB) 10.5 gram/dL 11.5-15.5 L HEMATOCRIT (test code = HCT) 33.2 % 36.0-46.0 L MEAN CELL VOLUME (test code = MCV) 103.1 fL 80-98 H MEAN CELL HGB (test code = MCH) 32.6 picogram 27.0-33.0 N MEAN CELL HGB CONCETRATION (test code = MCHC) 31.6 gram/dL 33.0-36. 0 L RED CELL DISTRIBUTION WIDTH (test code = RDW) 14.7 % 11.6-16. 2 N RED CELL DISTRIBUTION WIDTH SD (test code = RDW-SD) 55.6 fL 37 .0-51.0 H PLATELET COUNT (test code = PLT) 186 K/mm3 150-450 N MEAN PLATELET VOLUME (test code = MPV) 10.6 fL 6.7-11.0 N IMMATURE GRANULOCYTE % (test code = IG%) 1.1 % 0.0-5.0 N NUCLEATED RBC % (test code = NRBC%) 0.0 % 0-0 N NEUTROPHIL # (test code = NT#) 10.27 K/mm3 1.8-7.7 H IMMATURE GRANULOCYTE # (test code = IG#) 0.13 x10 3/uL 0-0.03 H LYMPHOCYTE # (test code = LY#) 1.17 K/mm3 1.0-5.0 N MONOCYTE # (test code = MO#) 0.65 K/mm3 0-0.8 N EOSINOPHIL # (test code = EO#) 0.01 K/mm3 0.0-0.5 N BASOPHIL # (test code = BA#) 0.05 K/mm3 0.0-0.2 N NUCLEATED RBC # (test code = NRBC#) 0.00 K/mm3 0.0-0.1 N MANUAL DIFF REQUIRED (test code = MDIFF) YES STAIN ACCEPTABILITY (test code = STN ACCEPTABLE) TOTAL CELLS COUNTED (test code = TCC) #CELLS SEGMENTED NEUTROPHILS (test code = SEG) % 39-69 LYMPHOCYTE (test code = LYMPH) % 25-55 MONOCYTE (test code = MON) % 0-10 EOSINOPHIL (test code = EOS) % 0.0-5.0 CABOT RINGS (test code = CAB) MORPHOLOGY COMMENT (test code = MOC) PLATELET ESTIMATE (test code = PLTEST) PLATELET MORPHOLOGY (test code = PLTMORPH) CBC W/MANUAL [id number] 07:35:00* Test Item Value Reference Range Interpretation Comments WHITE BLOOD CELL (test code = WBC) 9.1 K/mm3 4.5-12.5 N RED BLOOD CELL (test code = RBC) 3.04 mill/mm3 3.7-5.2 L HEMOGLOBIN (test code = HGB) 10.0 gram/dL 11.5-15.5 L HEMATOCRIT (test code = HCT) 32.0 % 36.0-46.0 L MEAN CELL VOLUME (test code = MCV) 105.3 fL 80-98 H MEAN CELL HGB (test code = MCH) 32.9 picogram 27.0-33.0 N MEAN CELL HGB CONCETRATION (test code = MCHC) 31.3 gram/dL 33.0-36. 0 L RED CELL DISTRIBUTION WIDTH (test code = RDW) 14.7 % 11.6-16. 2 N RED CELL DISTRIBUTION WIDTH SD (test code = RDW-SD) 57.0 fL 37 .0-51.0 H PLATELET COUNT (test code = PLT) 155 K/mm3 150-450 N MEAN PLATELET VOLUME (test code = MPV) 10.4 fL 6.7-11.0 N IMMATURE GRANULOCYTE % (test code = IG%) 0.7 % 0.0-5.0 N NUCLEATED RBC % (test code = NRBC%) 0.0 % 0-0 N NEUTROPHIL # (test code = NT#) 7.71 K/mm3 1.8-7.7 H IMMATURE GRANULOCYTE # (test code = IG#) 0.06 x10 3/uL 0-0.03 H LYMPHOCYTE # (test code = LY#) 1.00 K/mm3 1.0-5.0 N MONOCYTE # (test code = MO#) 0.33 K/mm3 0-0.8 N EOSINOPHIL # (test code = EO#) 0.00 K/mm3 0.0-0.5 N BASOPHIL # (test code = BA#) 0.02 K/mm3 0.0-0.2 N NUCLEATED RBC # (test code = NRBC#) 0.00 K/mm3 0.0-0.1 N MANUAL DIFF REQUIRED (test code = MDIFF) YES STAIN ACCEPTABILITY (test code = STN ACCEPTABLE) STAIN ACCEPTABLE TOTAL CELLS COUNTED (test code = TCC) 115 #CELLS SEGMENTED NEUTROPHILS (test code = SEG) 72.2 % 39-69 H BAND NEUTROPHIL (test code = BAND) 13.0 % 0-10 H LYMPHOCYTE (test code = LYMPH) 9.6 % 25-55 L REACTIVE LYMPH (test code = RELYMPH) 0 % MONOCYTE (test code = MON) 5.2 % 0-10 N EOSINOPHIL (test code = EOS) 0 % 0.0-5.0 N BASOPHIL (test code = BASO) 0 % 0-1.0 N METAMYELOCYTE (test code = META) 0 % 0-0 N MYELOCYTE (test code = MYELO) 0 % 0.0-0.0 N PROMYELOCYTE (test code = PROM) 0 % 0-0 N HYPOCHROMIA (test code = HYPO) 1+ POIKILOCYTOSIS (test code = POIK) 1+ ANISOCYTOSIS (test code = ANISO) 1+ MACROCYTOSIS (test code = MACR) 1+ PLATELET ESTIMATE (test code = PLTEST) ADEQUATE PLATELET MORPHOLOGY (test code = PLTMORPH) NORMAL IMMATURE FORMS (test code = IMMAT) 0 % 0-0 N COMPREHENSIVE METABOLIC [id number] 06:33:00* Test Item Value Reference Range Interpretation Comments SODIUM (test code = NA) 143 mmol/L 136-145 N POTASSIUM (test code = K) 3.1 mmol/L 3.5-5.1 L CHLORIDE (test code = CL) 113.0 mmol/L 98-107 H CARBON DIOXIDE (test code = CO2) 22.0 mmol/L 21-32 N ANION GAP (test code = GAP) 11.1 10-20 N GLUCOSE (test code = GLU) 140 mg/dL 74-106 H BLOOD UREA NITROGEN (test code = BUN) 20 mg/dL 7-18 H GLOMERULAR FILTRATION RATE (test code = GFR) > 60 mL/min >=60 Estimated GFR by using Modified MDRD formula.Chronic kidney disease is defined as either kidney damageor GFR <60 mL/min/1.73 m2 for >3 months. CREATININE (test code = CREAT) 0.80 mg/dL 0.55-1.02 N Note change in reference range due to change in reagent. BUN/CREATININE RATIO (test code = BUN/CREA) 25.0 10-20 H TOTAL PROTEIN (test code = PROT) 5.4 gram/dL 6.4-8.2 L ALBUMIN (test code = ALB) 1.9 g/dL 3.4-5.0 L GLOBULIN (test code = GLOB) 3.5 gram/dL 2.7-4.2 N ALBUMIN/GLOBULIN RATIO (test code = A/G) 0.5 0.75-1.50 L CALCIUM (test code = CA) 6.9 mg/dL 8.5-10.1 L BILIRUBIN TOTAL (test code = BILT) 0.50 mg/dL 0.0-1.0 N SGOT/AST (test code = AST) 27 IUnit/L 15-37 N SGPT/ALT (test code = ALT) 12 IUnit/L 12-78 N ALKALINE PHOSPHATASE TOTAL (test code = ALKP) 57 IUnit/L 45-117 N Note change in reference range due to change in reagent. [id number] 06:33:00* Test Item Value Reference Range Interpretation Comments PHOSPHORUS (test code = PHOS) 2.1 mg/dL 2.5-4.9 L [id number] 06:33:00* Test Item Value Reference Range Interpretation Comments MAGNESIUM (test code = MAG) 1.5 mg/dL 1.8-2.4 L LACTIC [id number] 06:33:00* Test Item Value Reference Range Interpretation Comments LACTIC ACID (test code = LACT) 1.6 mmol/L 0.4-1.9 N CBC W/MANUAL [id number] 06:22:00* Test Item Value Reference Range Interpretation Comments WHITE BLOOD CELL (test code = WBC) 9.1 K/mm3 4.5-12.5 N RED BLOOD CELL (test code = RBC) 3.04 mill/mm3 3.7-5.2 L HEMOGLOBIN (test code = HGB) 10.0 gram/dL 11.5-15.5 L HEMATOCRIT (test code = HCT) 32.0 % 36.0-46.0 L MEAN CELL VOLUME (test code = MCV) 105.3 fL 80-98 H MEAN CELL HGB (test code = MCH) 32.9 picogram 27.0-33.0 N MEAN CELL HGB CONCETRATION (test code = MCHC) 31.3 gram/dL 33.0-36. 0 L RED CELL DISTRIBUTION WIDTH (test code = RDW) 14.7 % 11.6-16. 2 N RED CELL DISTRIBUTION WIDTH SD (test code = RDW-SD) 57.0 fL 37 .0-51.0 H PLATELET COUNT (test code = PLT) 155 K/mm3 150-450 N MEAN PLATELET VOLUME (test code = MPV) 10.4 fL 6.7-11.0 N IMMATURE GRANULOCYTE % (test code = IG%) 0.7 % 0.0-5.0 N NUCLEATED RBC % (test code = NRBC%) 0.0 % 0-0 N NEUTROPHIL # (test code = NT#) 7.71 K/mm3 1.8-7.7 H IMMATURE GRANULOCYTE # (test code = IG#) 0.06 x10 3/uL 0-0.03 H LYMPHOCYTE # (test code = LY#) 1.00 K/mm3 1.0-5.0 N MONOCYTE # (test code = MO#) 0.33 K/mm3 0-0.8 N EOSINOPHIL # (test code = EO#) 0.00 K/mm3 0.0-0.5 N BASOPHIL # (test code = BA#) 0.02 K/mm3 0.0-0.2 N NUCLEATED RBC # (test code = NRBC#) 0.00 K/mm3 0.0-0.1 N MANUAL DIFF REQUIRED (test code = MDIFF) YES STAIN ACCEPTABILITY (test code = STN ACCEPTABLE) TOTAL CELLS COUNTED (test code = TCC) #CELLS SEGMENTED NEUTROPHILS (test code = SEG) % 39-69 LYMPHOCYTE (test code = LYMPH) % 25-55 MONOCYTE (test code = MON) % 0-10 EOSINOPHIL (test code = EOS) % 0.0-5.0 CABOT RINGS (test code = CAB) MORPHOLOGY COMMENT (test code = MOC) PLATELET ESTIMATE (test code = PLTEST) PLATELET MORPHOLOGY (test code = PLTMORPH) CBC W/MANUAL [id number] 06:22:00* Test Item Value Reference Range Interpretation Comments WHITE BLOOD CELL (test code = WBC) 9.1 K/mm3 4.5-12.5 N RED BLOOD CELL (test code = RBC) 3.04 mill/mm3 3.7-5.2 L HEMOGLOBIN (test code = HGB) 10.0 gram/dL 11.5-15.5 L HEMATOCRIT (test code = HCT) 32.0 % 36.0-46.0 L MEAN CELL VOLUME (test code = MCV) 105.3 fL 80-98 H MEAN CELL HGB (test code = MCH) 32.9 picogram 27.0-33.0 N MEAN CELL HGB CONCETRATION (test code = MCHC) 31.3 gram/dL 33.0-36. 0 L RED CELL DISTRIBUTION WIDTH (test code = RDW) 14.7 % 11.6-16. 2 N RED CELL DISTRIBUTION WIDTH SD (test code = RDW-SD) 57.0 fL 37 .0-51.0 H PLATELET COUNT (test code = PLT) 155 K/mm3 150-450 N MEAN PLATELET VOLUME (test code = MPV) 10.4 fL 6.7-11.0 N IMMATURE GRANULOCYTE % (test code = IG%) 0.7 % 0.0-5.0 N NUCLEATED RBC % (test code = NRBC%) 0.0 % 0-0 N NEUTROPHIL # (test code = NT#) 7.71 K/mm3 1.8-7.7 H IMMATURE GRANULOCYTE # (test code = IG#) 0.06 x10 3/uL 0-0.03 H LYMPHOCYTE # (test code = LY#) 1.00 K/mm3 1.0-5.0 N MONOCYTE # (test code = MO#) 0.33 K/mm3 0-0.8 N EOSINOPHIL # (test code = EO#) 0.00 K/mm3 0.0-0.5 N BASOPHIL # (test code = BA#) 0.02 K/mm3 0.0-0.2 N NUCLEATED RBC # (test code = NRBC#) 0.00 K/mm3 0.0-0.1 N MANUAL DIFF REQUIRED (test code = MDIFF) YES STAIN ACCEPTABILITY (test code = STN ACCEPTABLE) TOTAL CELLS COUNTED (test code = TCC) #CELLS SEGMENTED NEUTROPHILS (test code = SEG) % 39-69 LYMPHOCYTE (test code = LYMPH) % 25-55 MONOCYTE (test code = MON) % 0-10 EOSINOPHIL (test code = EOS) % 0.0-5.0 MORPHOLOGY COMMENT (test code = MOC) PLATELET ESTIMATE (test code = PLTEST) PLATELET MORPHOLOGY (test code = PLTMORPH) CBC W/MANUAL [id number] 06:22:00* Test Item Value Reference Range Interpretation Comments WHITE BLOOD CELL (test code = WBC) 9.1 K/mm3 4.5-12.5 N RED BLOOD CELL (test code = RBC) 3.04 mill/mm3 3.7-5.2 L HEMOGLOBIN (test code = HGB) 10.0 gram/dL 11.5-15.5 L HEMATOCRIT (test code = HCT) 32.0 % 36.0-46.0 L MEAN CELL VOLUME (test code = MCV) 105.3 fL 80-98 H MEAN CELL HGB (test code = MCH) 32.9 picogram 27.0-33.0 N MEAN CELL HGB CONCETRATION (test code = MCHC) 31.3 gram/dL 33.0-36. 0 L RED CELL DISTRIBUTION WIDTH (test code = RDW) 14.7 % 11.6-16. 2 N RED CELL DISTRIBUTION WIDTH SD (test code = RDW-SD) 57.0 fL 37 .0-51.0 H PLATELET COUNT (test code = PLT) 155 K/mm3 150-450 N MEAN PLATELET VOLUME (test code = MPV) 10.4 fL 6.7-11.0 N IMMATURE GRANULOCYTE % (test code = IG%) 0.7 % 0.0-5.0 N NUCLEATED RBC % (test code = NRBC%) 0.0 % 0-0 N NEUTROPHIL # (test code = NT#) 7.71 K/mm3 1.8-7.7 H IMMATURE GRANULOCYTE # (test code = IG#) 0.06 x10 3/uL 0-0.03 H LYMPHOCYTE # (test code = LY#) 1.00 K/mm3 1.0-5.0 N MONOCYTE # (test code = MO#) 0.33 K/mm3 0-0.8 N EOSINOPHIL # (test code = EO#) 0.00 K/mm3 0.0-0.5 N BASOPHIL # (test code = BA#) 0.02 K/mm3 0.0-0.2 N NUCLEATED RBC # (test code = NRBC#) 0.00 K/mm3 0.0-0.1 N MANUAL DIFF REQUIRED (test code = MDIFF) YES STAIN ACCEPTABILITY (test code = STN ACCEPTABLE) TOTAL CELLS COUNTED (test code = TCC) #CELLS SEGMENTED NEUTROPHILS (test code = SEG) % 39-69 LYMPHOCYTE (test code = LYMPH) % 25-55 MONOCYTE (test code = MON) % 0-10 MORPHOLOGY COMMENT (test code = MOC) PLATELET ESTIMATE (test code = PLTEST) PLATELET MORPHOLOGY (test code = PLTMORPH) COMPREHENSIVE METABOLIC [id number] 06:21:00* Test Item Value Reference Range Interpretation Comments SODIUM (test code = NA) 143 mmol/L 136-145 N POTASSIUM (test code = K) 3.1 mmol/L 3.5-5.1 L CHLORIDE (test code = CL) 113.0 mmol/L 98-107 H CARBON DIOXIDE (test code = CO2) mmol/L 21-32 ANION GAP (test code = GAP) 10-20 GLUCOSE (test code = GLU) mg/dL 74-106 BLOOD UREA NITROGEN (test code = BUN) mg/dL 7-18 GLOMERULAR FILTRATION RATE (test code = GFR) mL/min >=60 CREATININE (test code = CREAT) mg/dL 0.55-1.02 BUN/CREATININE RATIO (test code = BUN/CREA) 10-20 TOTAL PROTEIN (test code = PROT) gram/dL 6.4-8.2 ALBUMIN (test code = ALB) g/dL 3.4-5.0 GLOBULIN (test code = GLOB) gram/dL 2.7-4.2 ALBUMIN/GLOBULIN RATIO (test code = A/G) 0.75-1.50 CALCIUM (test code = CA) mg/dL 8.5-10.1 BILIRUBIN TOTAL (test code = BILT) mg/dL 0.0-1.0 SGOT/AST (test code = AST) IUnit/L 15-37 SGPT/ALT (test code = ALT) IUnit/L 12-78 ALKALINE PHOSPHATASE TOTAL (test code = ALKP) IUnit/L 45-117 [id number] 06:21:00* Test Item Value Reference Range Interpretation Comments PHOSPHORUS (test code = PHOS) mg/dL 2.5-4.9 [id number] 06:21:00* Test Item Value Reference Range Interpretation Comments MAGNESIUM (test code = MAG) mg/dL 1.8-2.4 CBC W/MANUAL [id number] 06:21:00* Test Item Value Reference Range Interpretation Comments WHITE BLOOD CELL (test code = WBC) 9.1 K/mm3 4.5-12.5 N RED BLOOD CELL (test code = RBC) 3.04 mill/mm3 3.7-5.2 L HEMOGLOBIN (test code = HGB) 10.0 gram/dL 11.5-15.5 L HEMATOCRIT (test code = HCT) 32.0 % 36.0-46.0 L MEAN CELL VOLUME (test code = MCV) 105.3 fL 80-98 H MEAN CELL HGB (test code = MCH) 32.9 picogram 27.0-33.0 N MEAN CELL HGB CONCETRATION (test code = MCHC) 31.3 gram/dL 33.0-36. 0 L RED CELL DISTRIBUTION WIDTH (test code = RDW) 14.7 % 11.6-16. 2 N RED CELL DISTRIBUTION WIDTH SD (test code = RDW-SD) 57.0 fL 37 .0-51.0 H PLATELET COUNT (test code = PLT) 155 K/mm3 150-450 N MEAN PLATELET VOLUME (test code = MPV) 10.4 fL 6.7-11.0 N IMMATURE GRANULOCYTE % (test code = IG%) 0.7 % 0.0-5.0 N NUCLEATED RBC % (test code = NRBC%) 0.0 % 0-0 N NEUTROPHIL # (test code = NT#) 7.71 K/mm3 1.8-7.7 H IMMATURE GRANULOCYTE # (test code = IG#) 0.06 x10 3/uL 0-0.03 H LYMPHOCYTE # (test code = LY#) 1.00 K/mm3 1.0-5.0 N MONOCYTE # (test code = MO#) 0.33 K/mm3 0-0.8 N EOSINOPHIL # (test code = EO#) 0.00 K/mm3 0.0-0.5 N BASOPHIL # (test code = BA#) 0.02 K/mm3 0.0-0.2 N NUCLEATED RBC # (test code = NRBC#) 0.00 K/mm3 0.0-0.1 N MANUAL DIFF REQUIRED (test code = MDIFF) YES STAIN ACCEPTABILITY (test code = STN ACCEPTABLE) TOTAL CELLS COUNTED (test code = TCC) #CELLS SEGMENTED NEUTROPHILS (test code = SEG) % 39-69 LYMPHOCYTE (test code = LYMPH) % 25-55 MONOCYTE (test code = MON) % 0-10 EOSINOPHIL (test code = EOS) % 0.0-5.0 CABOT RINGS (test code = CAB) MORPHOLOGY COMMENT (test code = MOC) PLATELET ESTIMATE (test code = PLTEST) PLATELET MORPHOLOGY (test code = PLTMORPH) CBC W/MANUAL [id number] 06:21:00* Test Item Value Reference Range Interpretation Comments WHITE BLOOD CELL (test code = WBC) 9.1 K/mm3 4.5-12.5 N RED BLOOD CELL (test code = RBC) 3.04 mill/mm3 3.7-5.2 L HEMOGLOBIN (test code = HGB) 10.0 gram/dL 11.5-15.5 L HEMATOCRIT (test code = HCT) 32.0 % 36.0-46.0 L MEAN CELL VOLUME (test code = MCV) 105.3 fL 80-98 H MEAN CELL HGB (test code = MCH) 32.9 picogram 27.0-33.0 N MEAN CELL HGB CONCETRATION (test code = MCHC) 31.3 gram/dL 33.0-36. 0 L RED CELL DISTRIBUTION WIDTH (test code = RDW) 14.7 % 11.6-16. 2 N RED CELL DISTRIBUTION WIDTH SD (test code = RDW-SD) 57.0 fL 37 .0-51.0 H PLATELET COUNT (test code = PLT) 155 K/mm3 150-450 N MEAN PLATELET VOLUME (test code = MPV) 10.4 fL 6.7-11.0 N IMMATURE GRANULOCYTE % (test code = IG%) 0.7 % 0.0-5.0 N NUCLEATED RBC % (test code = NRBC%) 0.0 % 0-0 N NEUTROPHIL # (test code = NT#) 7.71 K/mm3 1.8-7.7 H IMMATURE GRANULOCYTE # (test code = IG#) 0.06 x10 3/uL 0-0.03 H LYMPHOCYTE # (test code = LY#) 1.00 K/mm3 1.0-5.0 N MONOCYTE # (test code = MO#) 0.33 K/mm3 0-0.8 N EOSINOPHIL # (test code = EO#) 0.00 K/mm3 0.0-0.5 N BASOPHIL # (test code = BA#) 0.02 K/mm3 0.0-0.2 N NUCLEATED RBC # (test code = NRBC#) 0.00 K/mm3 0.0-0.1 N MANUAL DIFF REQUIRED (test code = MDIFF) YES STAIN ACCEPTABILITY (test code = STN ACCEPTABLE) TOTAL CELLS COUNTED (test code = TCC) #CELLS SEGMENTED NEUTROPHILS (test code = SEG) % 39-69 LYMPHOCYTE (test code = LYMPH) % 25-55 MONOCYTE (test code = MON) % 0-10 EOSINOPHIL (test code = EOS) % 0.0-5.0 CABOT RINGS (test code = CAB) MORPHOLOGY COMMENT (test code = MOC) PLATELET ESTIMATE (test code = PLTEST) PLATELET MORPHOLOGY (test code = PLTMORPH) BODY FLUID CELL [id number] 04:27:00* Test Item Value Reference Range Interpretation Comments FLUID SOURCE (test code = SOURCEFL) BILE FLUID COLOR (test code = COLFL) BROWN COLORLESS FLUID APPEARANCE (test code = APPFL) HAZY FLUID UNCORR WBC (test code = UNCWBCFL) 0 per mm3 FLUID WBC (test code = WBCFL) 4 per mm3 0-150 N QC performed - Cell count on both sides of chamber agreeswithin 20% ? Y FLUID RBC (test code = RBCFL) 7 per mm3 0-50 N FLUID POLY (test code = POLYFL) 0.0 % FLUID LYMPHOCYTE (test code = LYMPHFL) 100.0 % TOTAL CELLS COUNTED ON DIFF (test code = TOTCELLFL) 7 cells REVIEWED BY (test code = REVIEW) PATHOLOGIST SPECIMEN COMMENTS: BILEBODY FLUID CELL [id number] 04:26:00* Test Item Value Reference Range Interpretation Comments FLUID SOURCE (test code = SOURCEFL) FLUID COLOR (test code = COLFL) COLORLESS FLUID APPEARANCE (test code = APPFL) FLUID WBC (test code = WBCFL) per mm3 0-150 FLUID RBC (test code = RBCFL) per mm3 0-50 FLUID POLY (test code = POLYFL) 0.0 % FLUID LYMPHOCYTE (test code = LYMPHFL) 100.0 % TOTAL CELLS COUNTED ON DIFF (test code = TOTCELLFL) 7 cells REVIEWED BY (test code = REVIEW) PATHOLOGIST SPECIMEN COMMENTS: BILELACTIC [id number] 03:31:00* Test Item Value Reference Range Interpretation Comments LACTIC ACID (test code = LACT) 2.0 mmol/L 0.4-1.9 H Results called to [id number] by TAM 11/07/18 0328Critical results verified and read back by Nurse? Y LACTIC [id number] 01:18:00* Test Item Value Reference Range Interpretation Comments LACTIC ACID (test code = LACT) 2.3 mmol/L 0.4-1.9 HH Results called to [id number] by TAM 11/07/18 0118Critical results verified and read back by Nurse? YSPECIMEN 4+ HEMOLYSIS - XR CHEST 1 [id number] 23:05:00 FAX: Juan Beavers MD [phone] [place]: St: ADM FAX: Heriberto Monroe MD [phone] FAX: Bert Patel MD [phone] Name: NICOLE TAN [facility] : 1935 Age/S: 83/F [address] [facility] Unit #: [id number] Loc: [place] [address] Phys: Heriberto Monroe MD Acct: [id number] Dis Date: Status: ADM IN PH ONE #: [phone] Exam Date: 11/06/2018 2301 FAX #: [phone] Reason: cough EXAMS: CPT CODE: [id number] XR CHEST 1 V 75901 HISTOR Y: Cough Location: C3 COMPARISON:11/06/2018 FINDINGS: [...] Bert Patel MD Technologist: DANILO CARNES, RT(R); [facility] Date/Time/By: 11/06/2018 (3301) : By: [email or web address] Orig Print D/T: S: 11/06/2018 (3009) PAGE 1 Signed Report - US ABDOMEN LTD 2018-11-06 21:54:00 Name: NICOLE TAN [facility] : 1935 Age/S: 83 / F [address] [facility] Unit #: [id number] Loc: [place] [address] Phys: Eleanor Junior MD Acct: [id number] Dis Date: Status: ADM IN PHONE #: [phone] Exam Date: 11/06/20182108 FAX #: [phone] Reason: PER RADS DILATED GB EXAMS: CPT CODE: [id number] ABDOMEN LTD 23190 HISTORY: Dilated gallbladder. COMPARISON: CT scan from [...] is very limited on this exam. at 9449 Reported and signed by: Neil Casiano M.D. CC: Juan Anguiano; Eleanor Junior MD Technologist: Susanna Myrick RT(S), RDMS Trnprb Date/Time: 11/06/2018 (2153) [email or web address] Orig Print D/T: S: 11/06/2018 (2157) Probe: PAGE 1 Signed Report URINALYSIS [id number] 20:07:00* Test Item Value Reference Range Interpretation Comments UA COLOR (test code = COLU) Light-Yellow YELLOW UA APPEARANCE (test code = APPU) CLEAR CLEAR UA GLUCOSE DIPSTICK (test code = DGLUU) NEGATIVE mg/dL NEGATIVE UA BILIRUBIN DIPSTICK (test code = BILU) NEGATIVE mg/dL NEGATIVE UA KETONE DIPSTICK (test code = KETU) NEGATIVE mg/dL NEGATIVE UA SPECIFIC GRAVITY (test code = SGU) 1.032 1.001-1.035 UA BLOOD DIPSTICK (test code = CHRISTINE) 0.1 mg/dL (1+) mg/dL NEGATIVE A UA PH DIPSTICK (test code = DALILA) 6.5 5.0-8.0 UA PROTEIN DIPSTICK (test code = PROU) 30 (1+) mg/dL NEGATIVE A UA UROBILINIOGEN DIPSTICK (test code = URO) Normal mg/dL NEGATIVE UA NITRITE DIPSTICK (test code = LELA) NEGATIVE NEGATIVE UA LEUKOCYTE ESTERASE W REFLEX (test code = LEUUR) NEGATIVE Rayshawn/uL NEGATIVE UA WBC (test code = WBCU) 0-5 per HPF 0-5 UA RBC (test code = RBCU) 6-10 #/HPF 0-5 A UA EPITHELIAL CELLS (test code = EPIU) FEW per HPF FEW UA BACTERIA (test code = BACU) NONE SEEN #/HPF NONE UA MUCUS (test code = MUCU) FEW #/LPF FEW Urine Source? Clean CatchURINALYSIS [id number] 20:01:00* Test Item Value Reference Range Interpretation Comments UA COLOR (test code = COLU) Light-Yellow YELLOW UA APPEARANCE (test code = APPU) CLEAR CLEAR UA GLUCOSE DIPSTICK (test code = DGLUU) NEGATIVE mg/dL NEGATIVE UA BILIRUBIN DIPSTICK (test code = BILU) NEGATIVE mg/dL NEGATIVE UA KETONE DIPSTICK (test code = KETU) NEGATIVE mg/dL NEGATIVE UA SPECIFIC GRAVITY (test code = SGU) 1.032 1.001-1.035 UA BLOOD DIPSTICK (test code = CHRISTINE) 0.1 mg/dL (1+) mg/dL NEGATIVE A UA PH DIPSTICK (test code = DALILA) 6.5 5.0-8.0 UA PROTEIN DIPSTICK (test code = PROU) 30 (1+) mg/dL NEGATIVE A UA UROBILINIOGEN DIPSTICK (test code = URO) Normal mg/dL NEGATIVE UA NITRITE DIPSTICK (test code = LELA) NEGATIVE NEGATIVE UA LEUKOCYTE ESTERASE W REFLEX (test code = LEUUR) NEGATIVE Rayshawn/uL NEGATIVE UA WBC (test code = WBCU) per HPF 0-5 UA RBC (test code = RBCU) per HPF 0-5 UA EPITHELIAL CELLS (test code = EPIU) per HPF Few UA BACTERIA (test code = BACU) per HPF NONE Urine Source? Clean CatchLACTIC [id number] 19:30:00* Test Item Value Reference Range Interpretation Comments LACTIC ACID (test code = LACT) 4.7 mmol/L 0.4-1.9 HH Results called to [id number] by [email or web address] 11/06/18 193Critical results verified and read back by Nurse? Y - CT ABD PELVIS [id number] 18:36:00 Name: NICOLE TAN [facility] : 1935 Age/S: 83 / F [address] [facility] Unit #: [id number] Loc: [place] [address] Phys: Eleanor Junior MD Acct: [id number] Dis Date: Status: REG ER PHONE #: [phone] Exam Date: 11/06/2018 1810 FAX #: [phone] Reason: abd pain, sesis EXAMS: CPT CODE: [id number] CT ABD PELVIS W/CONT 60818 HISTORY: Abdominal pain and sepsis. COMPARISON: None [...] 1 Signed Report (CONTINUED) Name: NICOLE TAN [facility] : 1935 Age/S: 83 / F [address] [facility] Unit #: [id number] Loc: [place] [address] Phys: Eleanor Junior MD Acct: [id number] Dis Date: Status: REG ER PHONE #: [phone] Exam Date: 11/06/20181809 FAX #: [phone] Reason: abd pain, sesis EXAMS: CPT CODE: [id number] CT ABD PELVIS W/CONT 07018 < Continued> Phleboliths. No pelvic pathologic adenopathy. [...] by: Neil Casiano M.D. CC: Juan Anguiano; Eleanor Junior MD Technologist:Malu Hines RT(R),CT CTDI: DLP: Trnscb Date/Time: 11/06/2018 (183) [email or web address] Orig Print D/T: S: 11/06/2018 (1838) PAGE 2 Signed Report PROCALCITONIN (PCT)2018-11-06 17:30:00* Test Item Value Reference Range Interpretation Comments PROCALCITONIN (PCT) (test code = PROCAL) 1.74 ng/ml Concentration Interpretation (ng/mL) <0.51 Sepsis [...] into account the patients history. POC LACTIC [id number] 16:56:00* Test Item Value Reference Range Interpretation Comments POC LACTIC ACID (test code = POCLAC) 2.09 MMOL/L 0.4-2.2 N BASIC METABOLIC [id number] 16:56:00* Test Item Value Reference Range Interpretation Comments SODIUM (test code = NA) 139 mmol/L 136-145 N POTASSIUM (test code = K) 2.2 mmol/L 3.5-5.1 LL Re sults called to [id number] by V.[email or web address] 11/06/18 1654Critical results verified and read back by Nurse? Y CHLORIDE (test code = CL) 102.0 mmol/L 98-107 N CARBON DIOXIDE (test code = CO2) 28.0 mmol/L 21-32 N ANION GAP (test code = GAP) 11.2 10-20 N GLUCOSE (test code = GLU) 198 mg/dL 74-106 H BLOOD UREA NITROGEN (test code = BUN) 23 mg/dL 7-18 H GLOMERULAR FILTRATION RATE (test code = GFR) 60 mL/min >=60 Estimated GFR by using Modified MDRD formula.Chronic kidney disease is defined as either kidney damageor GFR <60 mL/min/1.73 m2 for >3 months. CREATININE (test code = CREAT) 0.90 mg/dL 0.55-1.02 N Note change in reference range due to change in reagent. BUN/CREATININE RATIO (test code = BUN/CREA) 25.6 10-20 H CALCIUM (test code = CA) 7.7 mg/dL 8.5-10.1 L HEPATIC FUNCTION [id number] 16:56:00* Test Item Value Reference Range Interpretation Comments TOTAL PROTEIN (test code = PROT) 6.2 gram/dL 6.4-8.2 L ALBUMIN (test code = ALB) 2.3 g/dL 3.4-5.0 L GLOBULIN (test code = GLOB) 3.9 gram/dL 2.7-4.2 N ALBUMIN/GLOBULIN RATIO (test code = A/G) 0.6 0.75-1.50 L BILIRUBIN TOTAL (test code = BILT) 0.50 mg/dL 0.0-1.0 N BILIRUBIN DIRECT (test code = BILD) 0.22 mg/dL 0.0-0.20 H SGOT/AST (test code = AST) 16 IUnit/L 15-37 N SGPT/ALT (test code = ALT) 9 IUnit/L 12-78 L ALKALINE PHOSPHATASE TOTAL (test code = ALKP) 70 IUnit/L 45-117 N Note change in reference range due to change in reagent. [id number] 16:56:00* Test Item Value Reference Range Interpretation Comments TROPONIN-I (test code = TROPI) 0.024 ng/mL 0-0.045 N LACTIC [id number] 16:56:00* Test Item Value Reference Range Interpretation Comments LACTIC ACID (test code = LACT) 2.0 mmol/L 0.4-1.9 H Results called to [id number] by V.[email or web address].LDB 11/06/18 1656Critical results verified and read back by Nurse? Y CBC W/AUTO [id number] 16:31:00* Test Item Value Reference Range Interpretation Comments WHITE BLOOD CELL (test code = WBC) 11.9 K/mm3 4.5-12.5 N RED BLOOD CELL (test code = RBC) 3.19 mill/mm3 3.7-5.2 L HEMOGLOBIN (test code = HGB) 10.4 gram/dL 11.5-15.5 L HEMATOCRIT (test code = HCT) 32.3 % 36.0-46.0 L MEAN CELL VOLUME (test code = MCV) 101.3 fL 80-98 H MEAN CELL HGB (test code = MCH) 32.6 picogram 27.0-33.0 N MEAN CELL HGB CONCETRATION (test code = MCHC) 32.2 gram/dL 33.0-36. 0 L RED CELL DISTRIBUTION WIDTH (test code = RDW) 14.3 % 11.6-16. 2 N RED CELL DISTRIBUTION WIDTH SD (test code = RDW-SD) 52.5 fL 37 .0-51.0 H PLATELET COUNT (test code = PLT) 155 K/mm3 150-450 N MEAN PLATELET VOLUME (test code = MPV) 10.0 fL 6.7-11.0 N NEUTROPHIL % (test code = NT%) 85.5 % 39.0-69.0 H IMMATURE GRANULOCYTE % (test code = IG%) 0.8 % 0.0-5.0 N LYMPHOCYTE % (test code = LY%) 4.7 % 25.0-55.0 L MONOCYTE % (test code = MO%) 8.8 % 0.0-10.0 N EOSINOPHIL % (test code = EO%) 0.0 % 0.0-5.0 N BASOPHIL % (test code = BA%) 0.2 % 0.0-1.0 N NUCLEATED RBC % (test code = NRBC%) 0.0 % 0-0 N NEUTROPHIL # (test code = NT#) 10.15 K/mm3 1.8-7.7 H IMMATURE GRANULOCYTE # (test code = IG#) 0.10 x10 3/uL 0-0.03 H LYMPHOCYTE # (test code = LY#) 0.56 K/mm3 1.0-5.0 L MONOCYTE # (test code = MO#) 1.05 K/mm3 0-0.8 H EOSINOPHIL # (test code = EO#) 0.00 K/mm3 0.0-0.5 N BASOPHIL # (test code = BA#) 0.02 K/mm3 0.0-0.2 N NUCLEATED RBC # (test code = NRBC#) 0.00 K/mm3 0.0-0.1 N - XR CHEST 1 [id number] 16:15:00 FAX: Juan Beavers MD [phone] [place]: St: [facility] FAX: Eleanor Junior MD [phone] Name: NICOLE TAN [facility] : 1935 Age/S: 83/F [address] [facility] Unit #: [id number] Loc: [place] [address] Phys: Eleanor Junior MD Acct: [id number] Dis Date: Status: REG ER PHONE #: [phone] Exam Date: 11/06/2018 1602 FAX #: [phone] Reason: CODE SEPSIS EXAMS: CPT CODE: [id number] XR CHEST 1 V 44876 HISTORY: Sepsis. COMPARISON: May 06, 2013. Left ICD is unchanged in position. No acute infiltrates, effusion or congestion is noted. Suboptimal inspiration with dependent changes. With elevated right hemidiaphragm. Cardiomegaly. IMPRESSION: No acute infiltrates, effusion or congestion. at 1615 Reported and signed by: Neil Casiano M.D. CC: Juan Anguiano; Eleanor Junior MD Technologist: Randi Gallegos Trnscrd Date/Time/By: 11/06/2018 (6581) : By: [email or web address] Orig Print D/T: S: 11/06/2018 (3106) PAGE 1 Signed Report
--- NOTE | 2019-09-12 18:43 | Emergency Department Note ---
History of Present Illnes History of Present Illness Chief Complaint: Neurological History of Present Illness This is a 83 year old female brought by EMS for marked altered mental status. History obtained by EMS but patient had been acting abnormal since this AM. History limited by: condition of the patient Progression: worsening Relieving factors: none Exacerbating factors: none Associated symptoms: weakness (JITENDRA SIMONS DO) Historian: Senior Benefits Specialist/EMS, Medical Record History limited by: condition of the patient Onset (how long ago): day(s) Severity: unable to specify Onset quality: gradual (MAYO ROBERT DO) Past Medical/Family History Physician Review I have reviewed the patient's past medical and family history. Any updates have been documented here. (JITENDRA SIMONS DO) Past Medical History Past Medical History: Hypertension, Diabetes Other Medical History: Parkinson's disease, Alzheimer's disease, Anemia Other Surgery: Brain surgery, Implanted defibrillator (JITENDRA SIMONS DO) Unable to obtain PMH: altered mental status, critical patient Recent Fever: Yes Clinical Suspicion of Infectio: Yes New/Unexplained Change in Ment: Yes (MAYO ROBERT DO) Other Last Tetanus: UNKNOWN (JITENDRA SIMONS DO) Review of Systems ROS Narrative Unable to obtain ROS: altered mental status, critical patient (MAYO ROBERT DO) Review of Systems Review of other systems All other systems reviewed and negative. (JITENDRA SIMONS DO) Physical Exam Related Data Allergies: Coded Allergies: No Known Allergies (Unverified , 07/14/19) Triage Vital Signs Vital Signs Date Time Temp Pulse Resp B/P (MAP) Pulse Ox O2 Delivery O2 Flow Rate FiO2 09/12/19 18:39 93.9 70 16 94/34 100 09/12/19 22:45 Room Air (JITENDRA SIMONS DO) Vital signs reviewed: Yes (MAYO ROBERT DO) Physical Exam CONSTITUTIONAL HENT EYES NECK PULMONARY CARDIOVASCULAR GASTROINTESTINAL GENITOURINARY SKIN MUSCULOSKELETAL NEUROLOGICAL PSYCHOLOGICAL (JITENDRA SIMONS DO) Constitutional: cachectic, ill appearing HENT: normocephalic, atraumatic HENT L/R: left ext ear normal, right ext ear normal Eyes: PERRL Pulmonary: respiratory distress Cardiovascular: regular rhythm Abdominal: soft, nontender Skin: dry Musculoskeletal: edema Neurological: oriented x 3 Psychological: mood/affect normal, behavior normal, thought content normal, judgement normal (MAYO ROBERT DO) Results Laboratory Lab results reviewed: Yes Laboratory comments Laboratory Tests Test 09/12/19 19:02 09/12/19 18:48 Urine Color Yellow (YELLOW) Urine Clarity Sl cloudy (CLEAR) Urine pH 5 (5 - 7) Urine Specific [place] 1.015 (1.010-1.025) Urine Protein 2+ (NEGATIVE) Urine Glucose (UA) Negative (NEGATIVE) Urine Ketones Negative (NEGATIVE) Urine Blood Moderate (NEGATIVE) Urine Nitrite Negative (NEGATIVE) Urine Bilirubin Negative (NEGATIVE) Urine Urobilinogen 0.2 mg/dL (0.2 - 1) Urine Leukocyte Esterase Moderate (NEGATIVE) Urine RBC 6-10 /HPF (0-5) Urine WBC 11-20 /HPF (0-5) Urine Epithelial Cells Rare /LPF (NONE) Urine Transitional Epithelial Cells Few (NONE) Urine Bacteria Many /HPF (NONE) White Blood Count 10.13 x10e3/uL (4.8-10.8) Red Blood Count 2.23 x10e6/uL (3.6-5.1) Hemoglobin 6.7 g/dL (12.0-16.0) Hematocrit 20.4 % (34.2-44.1) Mean Corpuscular Volume 91.5 fL (81-99) Mean Corpuscular Hemoglobin 30.0 pg (28-32) Mean Corpuscular Hemoglobin Concent 32.8 g/dL (31-35) Red Cell Distribution Width 15.8 % (11.7-14.4) Platelet Count 107 x10e3/uL (140-360) Neutrophils (%) (Auto) 86.7 % (38.7-80.0) Lymphocytes (%) (Auto) 10.0 % (18.0-39.1) Monocytes (%) (Auto) 1.9 % (4.4-11.3) Eosinophils (%) (Auto) 0.6 % (0.0-6.0) Basophils (%) (Auto) 0.2 % (0.0-1.0) Neutrophils # (Auto) 8.8 (2.1-6.9) Lymphocytes # (Auto) 1.0 (1.0-3.2) Monocytes # (Auto) 0.2 (0.2-0.8) Eosinophils # (Auto) 0.1 (0.0-0.4) Basophils # (Auto) 0.0 (0.0-0.1) Absolute Immature Granulocyte (auto 0.06 x10e3/uL (0-0.1) Sodium Level 123 mmol/L (136-145) Potassium Level 3.3 mmol/L (3.5-5.1) Chloride Level 85 mmol/L (98-107) Carbon Dioxide Level 16 mmol/L (22-29) Anion Gap 25.3 mmol/L (8-16) Blood Urea Nitrogen 116 mg/dL (7-26) Creatinine 8.13 mg/dL (0.57-1.11) Estimat Glomerular Filtration Rate 5 ML/MIN (60-) BUN/Creatinine Ratio 14 (6-25) Glucose Level 120 mg/dL (74-118) Lactic Acid Level 1.0 mmol/L (0.5-2.0) Calcium Level 7.6 mg/dL (8.4-10.2) Total Bilirubin 0.3 mg/dL (0.2-1.2) Aspartate Amino Transf (AST/SGOT) 32 IU/L (5-34) Alanine Aminotransferase (ALT/SGPT) < 6 IU/L (0-55) Alkaline Phosphatase 76 IU/L (40-150) Creatine Kinase 764 IU/L (29-168) Creatine Kinase MB 16.70 ng/mL (0-5.0) Troponin I 0.026 ng/mL (0-0.300) B-Type Natriuretic Peptide 264.9 pg/mL (0-100) Total Protein 6.1 g/dL (6.5-8.1) Albumin 1.6 g/dL (3.5-5.0) Globulin 4.5 g/dL (2.3-3.5) Albumin/Globulin Ratio 0.4 (0.8-2.0) Lipase 213 U/L (8-78) (ALKAHIR, AMBICA, DO) Imaging Imaging results reviewed: Yes Impressions IMPRESSION: 1. Lines and Tubes: Stable left hemithorax device. 2. Hypoinflated lungs. Bibasilar atelectatic changes. No definite consolidation or effusion. 3. Cardiomediastinal silhouette is normal. Central pulmonary venous congestion due to low lung volumes. 4. No acute bony abnormalities. IMPRESSION: 1. Moderate circumferential wall thickening in the rectum with associated mild surrounding fat stranding. This may represent proctitis, in the appropriate clinical setting. Recommend direct visualization with endoscopy if clinically feasible to exclude neoplasm. No evidence of bowel obstruction. 2. Mild fibrotic and atelectatic changes in bilateral lower lobes. No consolidation or effusion. 3. Mild thickening of bilateral adrenal glands, likely reflecting hyperplasia. No discrete focal lesions are noted. 4. Sigmoid colon diverticulosis, without diverticulitis. Signed by: Dr. Juan Rivas M.D. on 09/12/2019 9:02 PM (MAYO ROBERT DO) Procedures 12 Lead ECG Interpretation Motor Grader Rough Grade: Interpreted by ED physician Date: September 12, 2019 Time: 18:49 Prior GROWTH MEDIA MIXER MUSHROOM tracings: reviewed Rhythm: sinus rhythm QRS axis: normal ST segments depression: V1, V2, V3, V4, V5, V6 Clinical Impression: abnormal ECG (JITENDRA SIMONS DO) Central Line Placement Central Line Location: right femoral Time out performed: Yes Patient Placed on Monitor/Puls: Yes MD Prep: mask, gown, gloves, other Central Line Prep: Povidone-Iodine 1% Ultrasound Used for Placement: No Central Line Lumen Inserted: triple Post Procedure: sutured in place, good blood return, all ports aspirated/flushed/capped, sterile dressing applied Post Procedure X-ray: tip of catheter in good condition Patient tolerated procedure: well Complications: none Additional comments CVC done at 1835 (JITENDRA SIMONS DO) Critical Care Time Subsequent provider I assumed direction of critical care for this patient from another provider of my specialty. (JITENDRA SIMONS DO) Total Critical Care Time (min): 85 Time ED Physician saw patient: 19:10 Critical care time exclusive o: separately billable procedures Critcal care necessary due to: shock Critcal care time spent by me: blood dram for specimens, interpret cardiac output measures (MAYO ROBERT DO) Assessment & Plan Assessment & Plan Problems: (1) Septic shock (2) Renal failure (3) Proctitis (MAYO ROBERT DO) Reassessment Reassessment time: 19:45 Reassessment Bedside volume reassessment, reperfusion done at bedside with no improvement with fluid resus- Leveophed started (MAYO ROBERT DO) Depart Disposition: ADMITTED Home Meds Reported Medications Primidone (MYSOLINE) 50 Mg Tablet 07/14/19 Fluconazole (FLUCONAZOLE) 150 Mg Tablet 07/14/19 Sitagliptin Phosphate (JANUVIA) 50 Mg Tablet 07/14/19 Rosuvastatin Calcium (Rosuvastatin Calcium) 40 Mg Tablet 07/14/19 Metoprolol Succinate (METOPROLOL SUCCINATE) 25 Mg Tab.er.24h 07/14/19 Paroxetine Hcl (PAROXETINE HCL) 10 Mg Tablet 07/14/19 Hydrochlorothiazide* (ESIDRIX*) 25 Mg Tab 07/14/19 Levothyroxine Sodium (LEVOTHYROXINE SODIUM) 125 Mcg Tablet 07/14/19 Carbidopa/Levodopa (CARBIDOPA-LEVODOPA 25-100 TAB) 1 Each Tablet 07/14/19 Allopurinol (ALLOPURINOL) 300 Mg Tablet 07/14/19 Omeprazole (OMEPRAZOLE) 20 Mg Capsule. 07/14/19 Medications in the ED Sodium Chloride 1,000 ml @ 0 mls/hr Q0M STAT IV ; Start 09/12/19 at 18:31; Stop 09/12/19 at 18:32 Piperacillin Sod/ Tazobactam Sod 50 ml @ 50 mls/hr Q6H IV ; Start 09/12/19 at 18:45; Stop 09/19/19 at 18:44 Aspirin 81 mg PRN ONCE PO ; Start 09/12/19 at 18:45; Stop 09/12/19 at 18:46 (JITENDRA SIMONS DO) Attestation Provider Attestation Sign out obtained from Dr. Simons- pt arrived for AMS- unable to provide history. Per EMS/director of veterans affairs Chief Complaint Comment pt brought in via ems from home stating family states pt is ams pt does not respond to questions only moaning pt taken directly to room [address] simons does central line rn does central line dressing, dave insertion with temp gauge and ekg during work up ems ricardo places tablet in rn's face for signature Septic Shock: 1838 1. Source (time: 1935 UA ) 2. SIRS (time: 1838) T 93.9 MAP 54 (94/34) 3. Organ Dysfunction (time: 1945) 8.13 Interventions: Blood cultures collected Lactic acid collected Broad Spectrum antibiotics given Zosyn 1844 Lactic acid #1: 1.0 (time resulted 1933) Lactic acid #2: not indicated 30cc/kg IVF bolus given by IBW ~ 2L Bedside volume reassessment done with NO improvement noted- pt started on Levophed, admitted to ICU Pt in acute renal failure with Cr 8.13, Bicarb given (MAYO ROBERT DO) JITENDRA SIMONS DO September 12, 2019 18:43 MAYO ROBERT DO September 12, 2019 20:15
[2019-09-12] MEDS ORDERED: ASPIRIN 81 MG CHEW TAB PO ONE (18:45)
--- NOTE | 2019-09-12 19:08 | NUR ---
pt presents with wounds to left groin area, left foot, right lower leg, buttocks/sacral area
[2019-09-12] MEDS: PIPER-TAZ 3.375 GM 50 ML IV SCH (19:11)
[2019-09-12 19:21] LABS: BASOPHILS % 0.2 % (0.0-1.0); EOSINOPHILS # (AUTO) 0.1 (0.0-0.4); EOSINOPHILS % 0.6 % (0.0-6.0); MEAN CORPUSCULAR HGB CONC 32.8 g/dL (31-35); MEAN CORPUSCULAR VOLUME 91.5 fL (81-99); MONOCYTES # (AUTO) 0.2 (0.2-0.8); MONOCYTES % 1.9 % (4.4-11.3); NEUTROPHILS # (AUTO) 8.8 (2.1-6.9); NEUTROPHILS % 86.7 % (38.7-80.0); PLATELET COUNT 107 x10e3/uL (140-360); RED BLOOD COUNT 2.23 x10e6/uL (3.6-5.1); RED CELL DISTRIBUTION WIDTH 15.8 % (11.7-14.4)
[2019-09-12 19:22] LABS: HEMATOCRIT 20.4 % (34.2-44.1); HEMOGLOBIN 6.7 g/dL (12.0-16.0)
[2019-09-12 19:23] LABS: BILIRUBIN,URINE NEGATIVE (NEGATIVE); CLARITY,URINE SL CLOUDY (CLEAR); COLOR,URINE YELLOW (YELLOW); KETONES,URINE NEGATIVE (NEGATIVE); LEUKOCYTE ESTERASE ,URINE MODERATE (NEGATIVE); NITRITE,URINE NEGATIVE (NEGATIVE); PROTEIN,URINE DIPSTICK 2+ (NEGATIVE); URINE UROBILINOGEN 0.2 mg/dL (0.2 - 1)
--- NOTE | 2019-09-12 19:29 | NUR ---
ER MD AND PRIMARY RN NOTIFIED AND AWARE OF CRITICAL LAB VALUES, HGB 6.4 AND HCT 20.4.
[2019-09-12 19:35] LABS: BACTERIA,URINE MANY /HPF; EPITHELIAL CELLS,URINE RARE /LPF; TRANSITIONAL EPI CELLS,URINE FEW
[2019-09-12 19:37] LABS: ALBUMIN 1.6 g/dL (3.5-5.0); ALBUMIN/GLOBULIN RATIO 0.4 (0.8-2.0); ALKALINE PHOSPHATASE 76 IU/L (40-150); ANION GAP 25.3 mmol/L (8-16); BLOOD UREA NITROGEN 116 mg/dL (7-26); BUN/CREATININE RATIO 14 (6-25); CALCIUM 7.6 mg/dL (8.4-10.2); CARBON DIOXIDE 16 mmol/L (22-29); CHLORIDE 85 mmol/L (98-107); CREATINE KINASE 764 IU/L (29-168); CREATININE, SERUM 8.13 mg/dL (0.57-1.11); EST GLOMERULAR FILTRATION RATE 5 ML/MIN (60-); GLUCOSE 120 mg/dL (74-118); LIPASE 213 U/L (8-78); POTASSIUM 3.3 mmol/L (3.5-5.1); SODIUM 123 mmol/L (136-145)
[2019-09-12 19:39] LABS: ALANINE AMINOTRANSFERASE < 6 IU/L (0-55)
[2019-09-12] MEDS ORDERED: NOREPINEPHRINE INJ 4MG/4ML 8 MG in DEXTROSE 5% 250ML 250 ML IV STA (19:41)
[2019-09-12] MEDS ORDERED: SODIUM BICARBONATE 8.4% INJ 50 ML SYR IV STA (19:41)
[2019-09-12] MEDS ORDERED: NOREPINEPHRINE 8 MG/D5W 250 ML 250 ML ONE ×2 (19:42→19:50)
--- OUTSIDE RECORDS SUMMARY | 2019-09-12 20:12 | XMS REPORT ---
Author Author [facility] t Organization [facility] Address [address] [place] [address] Phone Unavailable Care Team Providers Care [employer] Officer Name Role Phone NO, PCP PCP Unavailable TOO CHAVARRIA Attphys Unavailable TOO CHAVARRIA Admphys Unavailable Payers Payer Name Policy Type Policy Number Effective Date Expiration Date Celestine harris Medicare A & B [id number] 1998 00:00:00 [facility]ly [facility] Problems This patient has no known problems. Allergies, Adverse Reactions, Alerts Allergy Name Allergy Type Status Severity Reaction(s) Onset Date Inacti ve Date Treating Clinician Comments Source No Known Allergies DA Active U 2013-03-26 00:00:00 [facility] Medications Ordered Medication Name Filled Medication Name Start Date Stop Da te Current Medication? Ordering Clinician Indication Dosage Frequency Signature (SIG) Comments Components Source Allopurinol 300 Mg Tablet Allopurinol 300 Mg Tablet Yes [facility] Carbidopa/Levodopa (Carbidopa-Levodopa 25-100 Tab) 1 E ach Tablet Carbidopa/Levodopa (Carbidopa-Levodopa 25-100 Tab) 1 Each Tablet Yes [facility] Fluconazole 150 Mg Tablet Fluconazole 150 Mg Tablet Yes [facility] Hydrochlorothiazide (Esidrix*) 25 Mg Tab Hydrochloroth iazide (Esidrix*) 25 Mg Tab Yes [facility] Levothyroxine Sodium 125 Mcg Tablet Levothyroxine Sodium 125 Mcg Tabl et Yes [facility] Metoprolol Succinate 25 Mg Tab.er.24h Metoprolol Succinate 25 Mg Ta b.er.24h Yes [facility] Omeprazole 20 Mg Capsule. Omeprazole 20 Mg Capsule. Yes [facility] Paroxetine Hcl 10 Mg Tablet Paroxetine Hcl 10 Mg Tablet Yes [facility] Primidone (Mysoline) 50 Mg Tablet Primidone (Mysoline) 50 Mg Tablet Yes [facility] Rosuvastatin Calcium 40 Mg Tablet Rosuvastatin Calcium 40 Mg Tablet Yes [facility] Sitagliptin Phosphate (Januvia) 50 Mg Tablet Sitaglipt in Phosphate (Januvia) 50 Mg Tablet Yes [facility] Procedures Procedure Date / Time Performed Performing Clinician [facility] e EGD (esophagogastroduodenoscopy) 2019-07-21 00:00:00 RAUL STOUT [facility] EGD with biopsy 2019-07-18 00:00:00 ARIES STOUT [facility] Encounters Start Date/Time End Date/Time Encounter Type [facility] Department Encounter ID Source 2019-07-16 15:12:00 2019-07-22 17:20:00 Discharged Inpatient 1 TOO CHAVARRIA [facility] [id number] [facility] Results Test Description Test Time Test Comments Results Result Comments Source Bedside Glucose 2019-07-22 16:16:00 Test Item Bedside Glucose (test code = 65776-9) 89 70-120 Meter ID: [id number] CenterRed Cell Morphology Vmrvaqz0066-74-06 09:49:00* Test Item Value Reference Range Interpretation Comments Red Cell Morphology Comment (test code = 6742-1) NORMAL [facility] HospitalDifferential Total Cells Counted 2019-07-22 09:37:00* Test Item Value Reference Range Interpretation Comments Differential Total Cells Counted (test code = Shelton blairl Total Cells Counted) 100 [facility] HospitalNeutrophils % (Manual)2019-07-22 09:37:00 * Test Item Value Reference Range Interpretation Comments Neutrophils % (Manual) (test code = 12538-3) 56 40-74 [facility] HospitalLymphocytes % (Manual)2019-07-22 09:37:00 * Test Item Value Reference Range Interpretation Comments Lymphocytes % (Manual) (test code = 737-7) 35 19-48 [facility] HospitalMonocytes % (Manual)2019-07-22 09:37:00* Test Item Value Reference Range Interpretation Comments Monocytes % (Manual) (test code = 744-3) 6 3.4-9.0 [facility] HospitalEosinophils % (Manual)2019-07-22 09:37:00 * Test Item Value Reference Range Interpretation Comments Eosinophils % (Manual) (test code = 714-6) 3 0-7 [facility] HospitalPlatelet Ncgqhzkl9649-03-71 09:37:00* Test Item Value Reference Range Interpretation Comments Platelet Estimate (test code = 26853-6) ADEQUATE [facility] HospitalPlatelet Morphology Djrfcsp1996-08-28 09:37:00* Test Item Value Reference Range Interpretation Comments Platelet Morphology Comment (test code = 66843-3) NORMAL [facility] HospitalMacrocytosis2020-03-27 09:37:00* Test Item Value Reference Range Interpretation Comments Macrocytosis (test code = 738-5) SLIGHT [facility] HospitalOvalocytes2020-03-27 09:37:00* Test Item Value Reference Range Interpretation Comments Ovalocytes (test code = 774-0) FEW [facility]odium Logtv4214-69-70 07:03:00* Test Item Value Reference Range Interpretation Comments Sodium Level (test code = 2951-2) 140 136-145 [facility] HospitalPotassium Yyorg0097-07-09 07:03:00* Test Item Value Reference Range Interpretation Comments Potassium Level (test code = 2823-3) 4.1 3.5-5.1 [facility] HospitalChloride Ibiws2619-57-21 07:03:00* Test Item Value Reference Range Interpretation Comments Chloride Level (test code = 2075-0) 114 98-107 [facility] HospitalCarbon Dioxide Yjobs7239-65-13 07:03:00* Test Item Value Reference Range Interpretation Comments Carbon Dioxide Level (test code = 2028-9) 18 22-29 [facility] HospitalAnion Jbt9863-96-78 07:03:00* Test Item Value Reference Range Interpretation Comments Anion Gap (test code = 16067-0) 12.1 8-16 [facility] HospitalBlood Urea Jiodhspj5825-25-87 07:03:00* Test Item Value Reference Range Interpretation Comments Blood Urea Nitrogen (test code = 3094-0) 6 - [facility] HospitalCreatinine2020-03-27 07:03:00* Test Item Value Reference Range Interpretation Comments Creatinine (test code = 2160-0) 1.01 0.57-1.11 [facility] HospitalBUN/Creatinine Kchia8328-35-35 07:03:00* Test Item Value Reference Range Interpretation Comments BUN/Creatinine Ratio (test code = 3097-3) 6 6-25 [facility] HospitalEstimat Glomerular Filtration Rate 2019-07-22 07:03:00* Test Item Value Reference Range Interpretation Comments Estimat Glomerular Filtration Rate (test code = 323792260) 52 >60 Ranges were taken from the National Kidney Disease Education Program and the [place] Foundation literature.Reference ranges:60 or greater: Isuvnz23-95 ( for 3 consecutive months): Chronic kidney disease 15 or less: Kidney failureFormerly [facility] HospitalGlucose Zbolz5543-10-55 07:03:00* Test Item Value Reference Range Interpretation Comments Glucose Level (test code = KPZ3104) 61 74-118 [facility] HospitalCalcium Zxdon1464-01-08 07:03:00* Test Item Value Reference Range Interpretation Comments Calcium Level (test code = 60279-3) 7.6 8.4-10.2 [facility] HospitalWhite Blood Ldysx6480-90-41 06:53:00* Test Item Value Reference Range Interpretation Comments White Blood Count (test code = 6690-2) 5.66 4.8-10.8 [facility] HospitalRed Blood Epacb9115-38-90 06:53:00* Test Item Value Reference Range Interpretation Comments Red Blood Count (test code = 789-8) 2.39 3.6-5.1 [facility] HospitalHemoglobin2020-03-27 06:53:00* Test Item Value Reference Range Interpretation Comments Hemoglobin (test code = 43318-2) 7.5 12.0-16.0 [facility] HospitalHematocrit2020-03-27 06:53:00* Test Item Value Reference Range Interpretation Comments Hematocrit (test code = 4544-3) 23.9 34.2-44.1 [facility] HospitalMean Corpuscular Iguajv3183-94-59 06:53:00* Test Item Value Reference Range Interpretation Comments Mean Corpuscular Volume (test code = 787-2) 100.0 81-99 [facility] HospitalMean Corpuscular Esgoavpfkw9461-97-19 06:53:00* Test Item Value Reference Range Interpretation Comments Mean Corpuscular Hemoglobin (test code = 785-6) 31.4 28-32 [facility] HospitalMean Corpuscular Hemoglobin Concent 2019-07-22 06:53:00* Test Item Value Reference Range Interpretation Comments Mean Corpuscular Hemoglobin Concent (test code = 786-4) 31.4 31-35 [facility] HospitalRed Cell Distribution Mbyyo2657-19-18 06:53:00* Test Item Value Reference Range Interpretation Comments Red Cell Distribution Width (test code = 34318-1) 16.4 11.7 -14.4 [facility] HospitalPlatelet Uoxec4361-32-98 06:53:00* Test Item Value Reference Range Interpretation Comments Platelet Count (test code = 777-3) 252 140-360 [facility] HospitalNeutrophils # (Auto)2019-07-22 06:53:00* Test Item Value Reference Range Interpretation Comments Neutrophils # (Auto) (test code = 751-8) 3.1 2.1-6.9 [facility] HospitalLymphocytes # (Auto)2019-07-22 06:53:00* Test Item Value Reference Range Interpretation Comments Lymphocytes # (Auto) (test code = 86243-4) 2.0 1.0-3.2 [facility] HospitalMonocytes # (Auto)2019-07-22 06:53:00* Test Item Value Reference Range Interpretation Comments Monocytes # (Auto) (test code = 742-7) 0.4 0.2-0.8 [facility] HospitalEosinophils # (Auto)2019-07-22 06:53:00* Test Item Value Reference Range Interpretation Comments Eosinophils # (Auto) (test code = 711-2) 0.2 0.0-0.4 [facility] HospitalBasophils # (Auto)2019-07-22 06:53:00* Test Item Value Reference Range Interpretation Comments Basophils # (Auto) (test code = 704-7) 0.1 0.0-0.1 [facility] HospitalAbsolute Immature Granulocyte (auto 2019-07-22 06:53:00* Test Item Value Reference Range Interpretation Comments Absolute Immature Granulocyte (auto (anna t code = Absolute Immature Granulocyte (auto) 0.02 0-0.1 [facility] HospitalFolate2020-03-24 05:14:00* Test Item Value Reference Range Interpretation Comments Folate (test code = 2284-8) 2.7 >3.0 A serum folate concentration of less than 3.1 ng/mL isconsidered to represent cl inical deficiency.Performed at: [facility] Lab[address] [id number] Director: Moises Hanson MD, Phone: [phone] Rollins Brooktool Occult Irhoa8392-35-18 07:39:00* Test Item Value Reference Range Interpretation Comments Stool Occult Blood (test code = 2335-8) NEGATIVE NEGATIVE [facility] HospitalNeutrophils (%) (Auto)2019-07-17 07:07:00 * Test Item Value Reference Range Interpretation Comments Neutrophils (%) (Auto) (test code = 30426-8) 56.0 38.7-80.0 [facility] HospitalLymphocytes (%) (Auto)2019-07-17 07:07:00 * Test Item Value Reference Range Interpretation Comments Lymphocytes (%) (Auto) (test code = 736-9) 30.7 18.0-39.1 [facility] HospitalMonocytes (%) (Auto)2019-07-17 07:07:00* Test Item Value Reference Range Interpretation Comments Monocytes (%) (Auto) (test code = 5905-5) 9.6 4.4-11.3 [facility] HospitalEosinophils (%) (Auto)2019-07-17 07:07:00 * Test Item Value Reference Range Interpretation Comments Eosinophils (%) (Auto) (test code = 713-8) 2.7 0.0-6.0 [facility] HospitalBasophils (%) (Auto)2019-07-17 07:07:00* Test Item Value Reference Range Interpretation Comments Basophils (%) (Auto) (test code = 706-2) 0.8 0.0-1.0 [facility] HospitalIM GRANULOCYTES %2019-07-17 07:07:00* Test Item Value Reference Range Interpretation Comments IM GRANULOCYTES % (test code = IM GRANULOCYTES %) 0.2 0.0- 1.0 [facility] HospitalFerritin2020-03-21 08:53:00* Test Item Value Reference Range Interpretation Comments Ferritin (test code = 2276-4) 201.51 4.63-204.00 [facility] HospitalVitamin B12 Ovius8621-56-13 08:53:00* Test Item Value Reference Range Interpretation Comments Vitamin B12 Level (test code = 23147-3) 245 213-816 [facility] HospitalIron Lhqaj5772-29-08 08:33:00* Test Item Value Reference Range Interpretation Comments Iron Level (test code = 2498-4) 64 50-170 [facility] HospitalTotal Iron Binding Ownymlrh8643-58-31 08:33:00* Test Item Value Reference Range Interpretation Comments Total Iron Binding Capacity (test code = 2500-7) 126 261-4 78 [facility] HospitalPercent Iron Ghfselffqi0232-22-56 08:33:00* Test Item Value Reference Range Interpretation Comments Percent Iron Saturation (test code = 2502-3) 51 15-50 [facility] HospitalTransferrin2020-03-21 08:33:00* Test Item Value Reference Range Interpretation Comments Transferrin (test code = 3034-6) 90 180-382 [facility] HospitalMagnesium Qltzt1075-15-13 08:10:00* Test Item Value Reference Range Interpretation Comments Magnesium Level (test code = 18528-3) 1.5 1.3-2.1 [facility] HospitalPercent Reticulocyte Ysvcd1627-17-58 07:42:00* Test Item Value Reference Range Interpretation Comments Percent Reticulocyte Count (test code = 20559-8) 1.8 0.8-2 .2 [facility] HospitalToorem community hospital Mouzfympi7642-44-28 06:38:00* Test Item Value Reference Range Interpretation Comments Total Bilirubin (test code = 1975-2) 0.2 0.2-1.2 [facility] HospitalAspartate Amino Transf (AST/SGOT) 2019-07-15 06:38:00* Test Item Value Reference Range Interpretation Comments Aspartate Amino Transf (AST/SGOT) (test code = Aspartate Amino Transf (AST/SGOT)) 15 5-34 [facility] HospitalAlanine Aminotransferase (ALT/SGPT) 2019-07-15 06:38:00* Test Item Value Reference Range Interpretation Comments Alanine Aminotransferase (ALT/SGPT) (test code = 1742-6) < 6 0-55 [facility] HospitalTotal Xwfhknk9989-68-00 06:38:00* Test Item Value Reference Range Interpretation Comments Total Protein (test code = 2885-2) 5.8 6.5-8.1 [facility] HospitalAlbumin2020-03-20 06:38:00* Test Item Value Reference Range Interpretation Comments Albumin (test code = 1751-7) 2.1 3.5-5.0 [facility] HospitalGlobulin2020-03-20 06:38:00* Test Item Value Reference Range Interpretation Comments Globulin (test code = 36438-2) 3.7 2.3-3.5 [facility] HospitalAlbumin/Globulin Fhqie7534-34-82 06:38:00 * Test Item Value Reference Range Interpretation Comments Albumin/Globulin Ratio (test code = 1759-0) 0.6 0.8-2.0 [facility] HospitalAlkaline Jxmtubjqszr3561-25-75 06:38:00* Test Item Value Reference Range Interpretation Comments Alkaline Phosphatase (test code = 6768-6) 91 40-150 [facility] HospitalCreatine Aprdya8302-61-10 06:38:00* Test Item Value Reference Range Interpretation Comments Creatine Kinase (test code = 2157-6) 48 29-168 [facility] HospitalCreatine Kinase GB1717-47-82 06:38:00* Test Item Value Reference Range Interpretation Comments Creatine Kinase MB (test code = 94745-4) 0.90 0-5.0 [facility] HospitalTroponin Q8422-31-32 06:38:00* Test Item Value Reference Range Interpretation Comments Troponin I (test code = PVH6826) 0.040 0-0.300 [facility] HospitalCHEST SINGLE (PORTABLE)2019-07-14 19:22:00 [facility] [address] [place] [address] Patient Name: NICOLE TAN MR #: [id number] : 1935 Age/Sex: 83/F Req #: [id number] Adm Physician: TOO CHAVARRIA MD Ordered by: JITENDRA FOWLER DO Report #: [id number] Location: MED/SURG3 Room/Bed: [facility] Procedure: 7433-4686 DX/ CHEST SINGLE (PORTABLE) Exam Date: Exam [...] DO GALLBLADDER 2018-11-18 13:09:00 RUN DATE: 11/18/18 [place] [employer] [facility] PAGE 1 RUN TIME: 1309 Specimen Inqui ry RUN USER: INTERFACE PATIENT: NICOLE TAN ACCT #: [id number] LOC: BRODIE U #: [id number] AGE/SX: 83/F ROOM: [facility] RE11/06/[facility] DR: Jerman Haas MD : 31 BED: B DIS: STATUS: ADM IN TLOC: SPEC #: [id number] RECD: 11/17/18 STATUS: SAMAN REQ #: [id number] APRIL: 11/16/181504 [facility] DR: Daniele Purdy MD ENTERED: 11/17/18 SP TYPE: GALLBLADD OTHR DR: Juan Lama MD, William W DO Gopalakrishnan, Thandavarajan M Hampel, Ori Z MD Lam, David N MDORDERED: GROSS COPIES TO: Juan Anguiano MD [address] [facility] [place] [address] Tyler Ye DO [address] [place] [address] G Hallie lynn [address] [place] [address] Vernon Tineo MD [address] [place] [address] Daniele Purdy MD [address] [place] [address] YOUSIF RS: ABNORMAL TISSUE, GALLBLADDER PROCEDURES: GROSS (11/18/18-944) TISSUES: GALLBLADDER, NOS CONTINUED ON NEXT P AGE RUN DATE: 11/18/18 [facility] PAGE 2 RUN TIME: 1309 Specimen Inquiry RUN USER: INTERFACE SPEC #: [id number] PATIENT: NICOLE NATHAN #[id number] (Continued) CLINICA L HISTORY COLLECTION DATE: 11/16/2018 CHOLECYSTITIS FINAL DIAGN OSIS Gallbladder, cholecystectomy: ACUTE AND CHRONIC CHOLECYSTITIS WIT H ULCERATION AND NECROSIS, EXTENDING TO THE CYSTIC DUCT MARGIN O NE PARACYSTIC DUCT BENIGN LYMPH NODE IDENTIFIED (0/1) CHOLELITHIASIS NEGATIVE FOR MALIGNANCY FA/sm A [address] MACROSCOPIC The specimen is received in formalin, [...] in cassettes (1A 1B). GROSS PERFORMED AT [facility] [address] [facility] [address] (p)[phone] MICROSCOPIC Sections of the gallbladder shows acute and chronic inflammato ry infiltrates, mucosal necrosis, extensive ulceration, rare thrombosed vessel s, microhemorrhage and vascular congestion. The inflammation extends to the cystic duct margin. No malignancy is identified. All of the stains, including any controls performed, stain CONT INUED ON NEXT PAGE RUN DATE: 11/18/18 [facility] PAGE 3 RUN TIME: 1309 Specimen Inquiry RUN USER: INTERFACE SPEC #: [id number] PATIENT: NICOLE TAN #[id number] (Continued) MICROSCOPIC (Continued) appropriately. MICROSCOPIC PERFORMED AT [facility] [address] [facility] [place] [address] (P)[phone] PERFORMING SITE Aysha gnosis performed at: [facility] [employer] [employer] [address] [facility], [place] [address] Signed SIGNATURE ON FILE Jf Gan MD [...] reference range due to change in reagent. JISHJAYWX9704-03-33 06:19:00* Test Item Value Reference Range Interpretation Comments MAGNESIUM (test code = MAG) 1.8 mg/dL 1.8-2.4 N CBC W/O JVHG6595-54-38 05:00:00* Test Item Value Reference Range Interpretation [...] MPV) 11.3 fL 6.7-11.0 H BASIC METABOLIC XHTZP5271-79-72 11:38:00* Test Item Value Reference Range Interpretation [...] 7.4 mg/dL 8.5-10.1 L COME BACK TARAS LovettLAB.[facility] 11/15/18 1336BDGHFUKFNE3001-92-51 11:38:00* Test Item Value Reference Range Interpretation Comments PHOSPHORUS (test code = PHOS) 2.2 mg/dL 2.5-4.9 L COME BACK TARAS LovettLAB.[facility] 11/15/18 0774LDKIEJFEY6587-10-82 11:38:00* Test Item Value Reference Range Interpretation Comments MAGNESIUM (test code = MAG) 1.8 mg/dL 1.8-2.4 N COME BACK TARAS ARZOLA V.[facility] 11/15/18 0607FE W/TOTAL IRON BINDING CAP.2018-11-15 11:38:00* Test Item Value Reference Range Interpretation Comments SERUM IRON (test code = IRON) 45 ug/dL 50-175 L TOTAL IRON BINDING CAPACITY (test code = TIBC) 273 mcg/dL 250-450 N IRON SATURATION (test code = FESAT) 16.48 % 13-45 N COME BACK TARAS ARZOLA V.[facility] 11/15/18 0607VITAMIN [id number] 11:38:00* Test Item Value Reference Range Interpretation Comments VITAMIN B12 (test code = VITB12) 354 pg/mL 193-986 N COME BACK NESS V.[facility] 11/15/18 0607FOLIC [id number] 11:38:00* Test Item Value Reference Range Interpretation Comments FOLIC ACID (test code = FOL) 4.5 ng/mL 3.10-17.50 N COME BACK TARAS ARZOLA V.[facility] 11/15/18 0607THYROID PROFILE W/[id number] 11:38:00* Test Item Value Reference Range Interpretation [...] < 0.35 mIU/mL COME BACK TARAS ARZOLA V.[facility] 11/15/18 4436WCDQKBJN7714-35-70 11:38:00* Test Item Value Reference Range Interpretation Comments FERRITIN (test code = JONH) 248 ng/mL 8-388 N COME BACK TARAS ARZOLA V.[facility] 11/15/18 0607PROTHROMBIN [id number] 11:05:00* Test Item Value Reference Range Interpretation [...] prosthetic heart valves (2.5-3.5) COME BACK TARAS [facility]AL[facility] 11/15/18 06IS PATIENT ON ANTICOAGULANTS? N THROMBOPLASTIN TIME ZQEGIRU0315-04-67 11:05:00* Test Item Value Reference Range Interpretation Comments THROMBOPLASTIN TIME PARTIAL (test code = PTT) 27.0 seconds 25.0-36. 5 N COME BACK TARAS [facility]AL[facility] 11/15/1808IS PATIENT ON ANTICOAGULANTS? NBASIC METABOLIC STWEA0476-27-27 11:03:00* Test Item Value Reference Range Interpretation [...] = CA) mg/dL 8.5-10.1 COME BACK NESS V.[facility] 11/15/18 [id number] 11:03:00* Test Item Value Reference Range Interpretation Comments PHOSPHORUS (test code = PHOS) mg/dL 2.5-4.9 COME BACK NESS V.[facility] 11/15/18 [id number] 11:03:00* Test Item Value Reference Range Interpretation Comments MAGNESIUM (test code = MAG) mg/dL 1.8-2.4 COME BACK [facility] V.[facility] 11/15/18 0607FE W/TOTAL IRON BINDING CAP.2018-11-15 11:03:00* Test Item Value Reference Range Interpretation Comments SERUM IRON (test code = IRON) ug/dL 50-175 TOTAL IRON BINDING CAPACITY (test code = TIBC) mcg/dL 250-450 IRON SATURATION (test code = FESAT) % 13-45 COME BACK NESS V.[facility] 11/15/18 0607VITAMIN [id number] 11:03:00* Test Item Value Reference Range Interpretation Comments VITAMIN B12 (test code = VITB12) pg/mL 193-986 COME BACK NESS V.[facility] 11/15/18 0607FOLIC [id number] 11:03:00* Test Item Value Reference Range Interpretation Comments FOLIC ACID (test code = FOL) ng/mL 3.10-17.50 COME BACK NESS V.[facility] 11/15/18 0607THYROID PROFILE W/[id number] 11:03:00* Test Item Value Reference Range Interpretation Comments T3 UPTAKE (test code = T3UP) % 30.0-40.0 T4 (THYROXINE) (test code = T4) ug/dL 4.5-13.9 T7 (FREE THYROXINE INDEX) (test code = T7) FTI 1.3-5.1 THYROID STIMULATING HORMONE (test code = TSH) uIU/mL 0.36-3.7 4 COME BACK NESS V.[facility] 11/15/18 [id number] 11:03:00* Test Item Value Reference Range Interpretation Comments FERRITIN (test code = JONH) ng/mL 8-388 COME BACK TARAS ZIMMERMAN.SC1 11/15/18 0607- XR CHEST 1 F1988-55-55 08:07:00 FAX: Juan Beavers MD [phone] [place]: St: ADM FAX: Jerman Rodriguez I [phone] FAX: Lele Romero MD --------- Name: NICOLE TAN [facility] : 1935 Age/S: 83/F [address] [facility] it #: [id number] Loc: [address] [place] [address] Phys: Lele Rosa MD Acct: [id number] Dis Date: Status: ADM IN ONE #: [phone] Exam Date: 11/15/2018 0751 FAX #: [phone] Reason: chf EXAMS: CPT CODE: [id number] XR CHEST 1 V 00028 HISTORY: chf TECHNIQUE: AP chest x-ray COMPARISON: [...] HaiderLDP1 Orig Print D/T: S: 11/15/2018 ( 2208) PAGE 1 Signed Report BASIC METABOLIC [id number] 06:21:00* Test Item Value Reference Range Interpretation [...] code = CA) 7.6 mg/dL 8.5-10.1 L [id number] 06:21:00* Test Item Value Reference Range Interpretation Comments PHOSPHORUS (test code = PHOS) 0.7 mg/dL 2.5-4.9 L [id number] 06:21:00* Test Item Value Reference Range Interpretation Comments MAGNESIUM (test code = MAG) 1.5 mg/dL 1.8-2.4 L CBC W/AUTO [id number] 06:00:00* Test Item Value Reference Range Interpretation [...] NRBC#) 0.00 K/mm3 0.0-0.1 N BASIC METABOLIC [id number] 11:03:00* Test Item Value Reference Range Interpretation Comments SODIUM (test code = NA) 142 mmol/L 136-145 N POTASSIUM (test code = K) 2.7 mmol/L 3.5-5.1 Lucille casas called to JENNY [id number] by V.LAB.OA 11/13/18 1059Critical results verified and [...] code = CA) 7.7 mg/dL 8.5-10.1 L [id number] 11:03:00* Test Item Value Reference Range Interpretation Comments PHOSPHORUS (test code = PHOS) 0.7 mg/dL 2.5-4.9 L [id number] 11:03:00* Test Item Value Reference Range Interpretation Comments MAGNESIUM (test code = MAG) 1.5 mg/dL 1.8-2.4 L CBC W/AUTO [id number] 08:29:00* Test Item Value Reference Range Interpretation [...] NRBC#) 0.00 K/mm3 0.0-0.1 N BASIC METABOLIC [id number] 05:46:00* Test Item Value Reference Range Interpretation Comments SODIUM (test code = NA) 145 mmol/L 136-145 N POTASSIUM (test code = K) 2.6 mmol/L 3.5-5.1 Re sults called to AXD7003 by [email or web address] 11/12/18 0544Critical results verified and read back [...] code = CA) 7.7 mg/dL 8.5-10.1 L [id number] 05:46:00* Test Item Value Reference Range Interpretation Comments PHOSPHORUS (test code = PHOS) 1.1 mg/dL 2.5-4.9 L [id number] 05:46:00* Test Item Value Reference Range Interpretation Comments MAGNESIUM (test code = MAG) 1.8 mg/dL 1.8-2.4 N CBC W/AUTO [id number] 05:18:00* Test Item Value Reference Range Interpretation [...] NRBC#) 0.00 K/mm3 0.0-0.1 N BASIC METABOLIC [id number] 06:06:00* Test Item Value Reference Range Interpretation Comments SODIUM (test code = NA) 145 mmol/L 136-145 N POTASSIUM (test code = K) 2.4 mmol/L 3.5-5.1 Re elots called to ADW5654 by V.LAB.AG1 11/11/18 0605Critical results verified and [...] code = CA) 7.5 mg/dL 8.5-10.1 L [id number] 06:06:00* Test Item Value Reference Range Interpretation Comments PHOSPHORUS (test code = PHOS) 2.3 mg/dL 2.5-4.9 L [id number] 06:06:00* Test Item Value Reference Range Interpretation Comments MAGNESIUM (test code = MAG) 2.0 mg/dL 1.8-2.4 N CBC W/AUTO [id number] 05:38:00* Test Item Value Reference Range Interpretation [...] NRBC#) 0.00 K/mm3 0.0-0.1 N BASIC METABOLIC [id number] 08:03:00* Test Item Value Reference Range Interpretation [...] code = CA) 7.7 mg/dL 8.5-10.1 L [id number] 08:03:00* Test Item Value Reference Range Interpretation Comments PHOSPHORUS (test code = PHOS) 2.5 mg/dL 2.5-4.9 N [id number] 08:03:00* Test Item Value Reference Range Interpretation Comments MAGNESIUM (test code = MAG) 2.2 mg/dL 1.8-2.4 N BASIC METABOLIC [id number] 07:36:00* Test Item Value Reference Range Interpretation [...] CALCIUM (test code = CA) mg/dL 8.5-10.1 [id number] 07:36:00* Test Item Value Reference Range Interpretation Comments PHOSPHORUS (test code = PHOS) mg/dL 2.5-4.9 [id number] 07:36:00* Test Item Value Reference Range Interpretation Comments MAGNESIUM (test code = MAG) mg/dL 1.8-2.4 CBC W/MANUAL [id number] 07:31:00* Test Item Value Reference Range Interpretation [...] IMMAT) 0 % 0-0 N CBC W/MANUAL [id number] 06:55:00* Test Item Value Reference Range Interpretation [...] MORPHOLOGY (test code = PLTMORPH) CBC W/MANUAL [id number] 06:55:00* Test Item Value Reference Range Interpretation [...] MORPHOLOGY (test code = PLTMORPH) CBC W/MANUAL [id number] 06:55:00* Test Item Value Reference Range Interpretation [...] MORPHOLOGY (test code = PLTMORPH) CBC W/MANUAL [id number] 06:55:00* Test Item Value Reference Range Interpretation [...] MORPHOLOGY (test code = PLTMORPH) CBC W/MANUAL [id number] 06:55:00* Test Item Value Reference Range Interpretation [...] MORPHOLOGY (test code = PLTMORPH) CBC W/MANUAL [id number] 08:52:00* Test Item Value Reference Range Interpretation [...] IMMAT) 0 % 0-0 N COMPREHENSIVE METABOLIC [id number] 07:40:00* Test Item Value Reference Range Interpretation Comments SODIUM (test code = NA) 143 mmol/L 136-145 N POTASSIUM (test code = K) 2.7 mmol/L 3.5-5.1 Re sults called to [id number] by QING 11/09/18 0740Critical results verified and [...] reference range due to change in reagent. [id number] 07:40:00* Test Item Value Reference Range Interpretation Comments PHOSPHORUS (test code = PHOS) 2.7 mg/dL 2.5-4.9 N [id number] 07:40:00* Test Item Value Reference Range Interpretation Comments MAGNESIUM (test code = MAG) 2.2 mg/dL 1.8-2.4 N CBC W/MANUAL [id number] 07:28:00* Test Item Value Reference Range Interpretation [...] MORPHOLOGY (test code = PLTMORPH) CBC W/MANUAL [id number] 07:28:00* Test Item Value Reference Range Interpretation [...] MORPHOLOGY (test code = PLTMORPH) CBC W/MANUAL [id number] 07:28:00* Test Item Value Reference Range Interpretation [...] MORPHOLOGY (test code = PLTMORPH) CBC W/MANUAL [id number] 07:28:00* Test Item Value Reference Range Interpretation [...] MORPHOLOGY (test code = PLTMORPH) CBC W/MANUAL [id number] 07:28:00* Test Item Value Reference Range Interpretation [...] (test code = PLTMORPH) BODY FLUID CELL CT/[id number] 13:52:00* Test Item Value Reference Range Interpretation [...] = REVIEW) PATHOLOGIST Reviewed by Pathologist, Dr PARRY. BACTERIA PRESENT (? CONTAMINATION) SPECIMEN COMMENTS: BILE- CT ABD PELVIS W/O [id number] 12:05:00 Name: NICOLE TAN [facility] : 1935 Age/S: 83 / F [address] Unit #: [id number] Loc: [place] [address] Phys: Shahid Gonzalez PA Acct: [id number] Di s Date: Status: ADM IN PHONE #: Exam Date: 11/08/2018 1149 FAX #: Reason: abdominal pain, abd distention, dilation colon/ EXAMS: CPT CODE: [id number] CT ABD PELVIS W/O CONT 50879 HISTORY: Abdominal pain a nd distention with [...] Signed Report (CONTINUED) Name : NICOLE TAN [facility] : [birth year] Age/S: 83 / F [address] Unit #: [id number] Loc: [place] [address] Phys: Camron Gonzalez Acct: [id number] Dis Date: Status: ADM IN PHONE #: Exam Date: 11/08/2018 1149 FAX #: [phone] Reason: abdominal pain, abd distention, dilation colon/ EXAMS: CPT CODE: [id number] CT ABD PELVIS W/O CONT 34123 <Continued> the anterior left abdominal wall without [...] Technologist:Jovanna Xiong,RT(R),CT CTDI: DLP: Trnscb Date/Time: 11/08/2018 (5734) [email or web address] Orig Print D/T: S: 11/08/2018 (8415) PAGE 2 Signed Report - XR ABDOMEN AP 1 [id number] 10:25:00 FAX: Juan Beavers MD [phone] [place]: B St: ADM FAX: Daniele New MD [phone] FAX: Jerman Rodriguez I [phone] Name: NICOLE TAN [facility] : 1935 Age/S: 83/F [address] Unit #: [id number] Loc: V.S17 [place] [address] Phys: Daniele Purdy MD Acct: [id number] Dis Date: Status: ADM IN ONE #: [phone] Exam Date: 11/08/2018 1010 FAX #: [phone] Reason: lower abdominal pain EXAMS: CPT CODE: [id number] XR ABDOMEN AP 1 V 61864 HISTORY: Septic shock. COMPARISON: CT abdomen and [...] Trnsc rd Date/Time/By: 11/08/2018 (1025) : By: [email or web address] Orig Print D/T: S: 11/08/2018 (2013) PAGE 1 Signed R eport - USG NDL PLACEMENT (Bxg/Asp)2018-11-08 08:58:00 Name: NICOLE TAN [facility] : 1935 Age/S: 83 / F [address] Unit #: [id number] Loc: [place] [address] Phys: Bert Patel MD Acct: [id number] Dis Date: Status: ADM IN PHONE #: [phone] Exam Date: 11/07/2018 0100 FAX #: [phone] Reason: CHOLECYSTOMY TUBE PLACEMENT EXAMS: CPT CODE: [id number] USG NDL PLACEMENT (Bxg/Asp) 35312 REASON FOR EXAM: Sepsis, acute cholecystitis EXAM [...] tract was dilated to accept a 10 Samoan drainage tube. The tube was sutured to the subcutaneous tissue and connected to a drainage bag. The patient was transported to ICU in stable condition. MEDICATIONS: None Complications: No immediate Blood loss: Less than 5 cc IMPRESSION: Successful placement of a 10 Samoan drainage tube for treatment of acute cholecystitis at 0858 Reported and signed by: Linden Linton M.D. CC: Juan Anguiano; Bert Patel MD Technologist: Susanna Myrick RT(S), [facility] Trnscb Date/Time: 11/08/2018 (0858) [email or web address] Orig Print D/T: S: 11/08/2018 (0902) Probe: PAGE 1 Signed Report - [facility]IL[facility] [id number] 08:58:00 Name: NICOLE TAN [facility] : 1935 Age/S: 83 / F [address] [facility] Unit #: [id number] Loc: [place] [address] Phys: Bert Patel MD Acct: [id number] Dis Date: Status: ADM IN PHONE #: [phone] Exam Date: 11/07/2018 0107 FAX #: [phone] Reason: CHOLY TUBE PLACEMENT EXAMS: CPT CODE: [id number] [facility] BILIARY CATH 87422 Fluoro Time: 43 DAP (Gy m2): 2.77 [...] tract was dilated to accept a 10 Samoan drainage tube. The tube was sutured to the subcutaneous tissue and connected to a drainage bag. The patient was transported to ICU in stable condition. MEDICATIONS: None Complications: No imme diate Blood loss: Less than 5 cc IMPRESSION: Succe ssful placement of a 10 Samoan drainage tube for treatment of acute chol ecystitis at 085 8 Reported and signed by: Linden Linton M.D. CC: Juan Ellis; Bert Patel MD Technologist: Jackson Marcial RT(R) Trnscb Date/Time: 11/08/2018 (0858) lynsey [email or web address] Orig Print D/T: S: 11/08/2018 (0902) PAGE 1 Signed Report - INJ CHOLANG EXST ACCES [id number] 08:58:00 Name: NICOLE TAN [facility] : 1935 Age/S: 83 / F [address] [facility] Unit #: [id number] Loc: [place] [address] Phys: Bert Patel MD Acct: [id number] Dis Date: Status: ADM IN PHONE #: [phone] Exam Date: 11/07/2018 010 FAX #: [phone] Reason: CHOLY TUBE PLACEMENT EXAMS: CPT CODE: [id number] [place] [address] Fluoro Time: 43 DAP (Gy m2): 2.77 [...] tract was dilated to accept a 10 Samoan drainage tube. The tube was sutured to the subcutaneous tissue and connected to a drainage bag. The patient was transported to ICU in stable condition. MEDICATIONS: None Complications: No imme diate Blood loss: Less than 5 cc IMPRESSION: Succe ssful placement of a 10 Samoan drainage tube for treatment of acute chol ecystitis at 085 8 Reported and signed by: Linden Linton M.D. CC: Juan Ellis; Bert Patel MD Technologist: Jackson Marcial RT(R) Trnscb Date/Time: 11/08/2018 (0858) lynsey CISNEROS Orig Print D/T: S: 11/08/2018 (0902) PAGE 1 Signed Report - US ABDOMEN [id number] 08:58:00 Name: NICOLE TAN [facility] : 1935 Age/S: 83 / F [address] [facility] Unit #: [id number] Loc: [place] [address] Phys: Linden Linton MD Acct: [id number] Dis Date: Status: ADM IN PHONE #: [phone] Exam Date: 11/07/2018 0100 FAX #: [phone] Reason: CHOLECYSTOMY TUBE PLACEMENT. EXAMS: CPT CODE: [id number] US ABDOMEN LTD 25258 REASON FOR EXAM: Sepsis, acute cholecystitis EXAM [...] tract was dilated to accept a 10 Samoan drainage tube. The tube was sutured to the subcutaneous tissue and connected to a drainage bag. The patient was transported to ICU in stable condition. MEDICATIONS: None Complications: No immediate Blood loss: Less than 5 cc IMPRESSION: Successful placement of a 10 Samoan drainage tube for treatment of acute cholecystitis at 0858 Reported and signed by: Linden Linton M.D. CC: Juan Anguiano; Bert Patel MD Technologist: Susanna Myrick RT(S), [facility] Trnscb Date/Time: 11/08/2018 (0858) HaiderVTL Orig Print D/T: S: 11/08/2018 (0902) Probe: PAGE 1 Signed Report CBC W/MANUAL [id number] 06:16:00* Test Item Value Reference Range Interpretation [...] IMMAT) 0 % 0-0 N COMPREHENSIVE METABOLIC [id number] 05:41:00* Test Item Value Reference Range Interpretation [...] reference range due to change in reagent. [id number] 05:41:00* Test Item Value Reference Range Interpretation Comments PHOSPHORUS (test code = PHOS) 3.7 mg/dL 2.5-4.9 N [id number] 05:41:00* Test Item Value Reference Range Interpretation Comments MAGNESIUM (test code = MAG) 1.6 mg/dL 1.8-2.4 L COMPREHENSIVE METABOLIC [id number] 05:25:00* Test Item Value Reference Range Interpretation [...] TOTAL (test code = ALKP) IUnit/L 45-117 [id number] 05:25:00* Test Item Value Reference Range Interpretation Comments PHOSPHORUS (test code = PHOS) mg/dL 2.5-4.9 [id number] 05:25:00* Test Item Value Reference Range Interpretation Comments MAGNESIUM (test code = MAG) mg/dL 1.8-2.4 CBC W/MANUAL [id number] 05:04:00* Test Item Value Reference Range Interpretation [...] MORPHOLOGY (test code = PLTMORPH) CBC W/MANUAL [id number] 05:04:00* Test Item Value Reference Range Interpretation [...] MORPHOLOGY (test code = PLTMORPH) CBC W/MANUAL [id number] 05:04:00* Test Item Value Reference Range Interpretation [...] MORPHOLOGY (test code = PLTMORPH) CBC W/MANUAL [id number] 05:04:00* Test Item Value Reference Range Interpretation [...] MORPHOLOGY (test code = PLTMORPH) CBC W/MANUAL [id number] 05:04:00* Test Item Value Reference Range Interpretation [...] MORPHOLOGY (test code = PLTMORPH) CBC W/MANUAL [id number] 07:35:00* Test Item Value Reference Range Interpretation [...] IMMAT) 0 % 0-0 N COMPREHENSIVE METABOLIC [id number] 06:33:00* Test Item Value Reference Range Interpretation [...] reference range due to change in reagent. [id number] 06:33:00* Test Item Value Reference Range Interpretation Comments PHOSPHORUS (test code = PHOS) 2.1 mg/dL 2.5-4.9 L [id number] 06:33:00* Test Item Value Reference Range Interpretation Comments MAGNESIUM (test code = MAG) 1.5 mg/dL 1.8-2.4 L LACTIC [id number] 06:33:00* Test Item Value Reference Range Interpretation Comments LACTIC ACID (test code = LACT) 1.6 mmol/L 0.4-1.9 N CBC W/MANUAL [id number] 06:22:00* Test Item Value Reference Range Interpretation [...] MORPHOLOGY (test code = PLTMORPH) CBC W/MANUAL [id number] 06:22:00* Test Item Value Reference Range Interpretation [...] MORPHOLOGY (test code = PLTMORPH) CBC W/MANUAL [id number] 06:22:00* Test Item Value Reference Range Interpretation [...] MORPHOLOGY (test code = PLTMORPH) COMPREHENSIVE METABOLIC [id number] 06:21:00* Test Item Value Reference Range Interpretation [...] TOTAL (test code = ALKP) IUnit/L 45-117 [id number] 06:21:00* Test Item Value Reference Range Interpretation Comments PHOSPHORUS (test code = PHOS) mg/dL 2.5-4.9 [id number] 06:21:00* Test Item Value Reference Range Interpretation Comments MAGNESIUM (test code = MAG) mg/dL 1.8-2.4 CBC W/MANUAL [id number] 06:21:00* Test Item Value Reference Range Interpretation [...] MORPHOLOGY (test code = PLTMORPH) CBC W/MANUAL [id number] 06:21:00* Test Item Value Reference Range Interpretation [...] (test code = PLTMORPH) BODY FLUID CELL CT/[id number] 04:27:00* Test Item Value Reference Range Interpretation [...] REVIEW) PATHOLOGIST SPECIMEN COMMENTS: BILEBODY FLUID CELL CT/[id number] 04:26:00* Test Item Value Reference Range Interpretation [...] code = REVIEW) PATHOLOGIST SPECIMEN COMMENTS: BILELACTIC [id number] 03:31:00* Test Item Value Reference Range Interpretation Comments LACTIC ACID (test code = LACT) 2.0 mmol/L 0.4-1.9 H Results called to [id number] by TAM 11/07/18 0328Critical results verified and read back by Nurse? Y LACTIC [id number] 01:18:00* Test Item Value Reference Range Interpretation Comments LACTIC ACID (test code = LACT) 2.3 mmol/L 0.4-1.9 HH Results called to PHT2699 by TAM 11/07/18 0118Critical results verified and read back by Nurse? YSPECIMEN 4+ HEMOLYSIS - XR CHEST 1 [id number] 23:05:00 FAX: Juan Beavers MD [phone] [place]: St: [facility] FAX: Heriberto Monroe MD [phone] FAX: Bert Patel MD [phone] Name: NICOLE TAN [facility] : 1935 Age/S: 83/F [address] [facility] Unit #: [id number] Loc: [place] [address] Phys: Heriberto Monroe MD Acct: [id number] Dis Date: Status: ADM IN PH ONE #: [phone] Exam Date: 11/06/2018 2301 FAX #: [phone] Reason: cough EXAMS: CPT CODE: [id number] XR CHEST 1 V 91986 HISTOR Y: Cough Location: C3 COMPARISON:11/06/2018 FINDINGS: [...] Bert Patel MD Technologist: DANILO CARNES, RT(R); [facility] Date/Time/By: 11/06/2018 (6859) : By: [email or web address] Orig Print D/T: S: 11/06/2018 (5456) PAGE 1 Signed Report - US ABDOMEN LTD 2018-11-06 21:54:00 Name: NICOLE TAN [facility] : 1935 Age/S: 83 / F [address] [facility] #: [id number] Loc: [place] [address] Phys: Eleanor Junior MD Acct: [id number] Dis Date: Status: ADM IN PHONE #: [phone] Exam Date: 11/06/20182108 FAX #: [phone] Reason: PER RADS DILATED GB EXAMS: CPT CODE: [id number] ABDOMEN [facility] [address] HISTORY: Dilated gallbladder. COMPARISON: CT scan from [...] is very limited on this exam. at 3064 Reported and signed by: Neil Casiano M.D. CC: Juan Anguiano; Eleanor Junior MD Technologist: Susanna Myrick RT(S), RDSD Trnvtb Date/Time: 11/06/2018 (2153) [email or web address] Orig Print D/T: S: 11/06/2018 (2157) Probe: PAGE 1 Signed Report URINALYSIS [id number] 20:07:00* Test Item Value Reference Range Interpretation [...] FEW #/LPF FEW Urine Source? Clean CatchURINALYSIS [id number] 20:01:00* Test Item Value Reference Range Interpretation [...] per HPF NONE Urine Source? Clean CatchLACTIC [id number] 19:30:00* Test Item Value Reference Range Interpretation Comments LACTIC ACID (test code = LACT) 4.7 mmol/L 0.4-1.9 HH Results called to FDS6569 by V.LAB.JP1 11/06/181929Critical results verified and read back by Nurse? Y - CT ABD PELVIS W/[id number] 18:36:00 Name: NICOLE TAN [facility] : 1935 Age/S: 83 / F [address] [facility] Unit #: [id number] Loc: [place], [place] [address] Phys: Eleanor Junior MD Acct: [id number] Dis Date: Status: REG ER PHONE #: [phone] Exam Date: 11/06/2018 1810 FAX #: [phone] Reason: abd pain, sesis EXAMS: CPT CODE: [id number] CT ABD PELVIS W/CONT 12057 HISTORY: Abdominal pain and sepsis. COMPARISON: None [...] 1 Signed Report (CONTINUED) Name: NICOLE TAN [facility] : 1935 Age/S: 83 / F [address] [facility] Unit #: [id number] Loc: [place] [address] Phys: Eleanor Junior MD Acct: [id number] Dis Date: Status: REG ER PHONE #: [phone] Exam Date: 11/06/20181809 FAX #: [phone] Reason: abd pain, sesis EXAMS: CPT CODE: [id number] CT ABD PELVIS W/CONT 29829 < Continued> Phleboliths. No pelvic pathologic adenopathy. [...] RT(R),CT CTDI: DLP: Trnscb Date/Time: 11/06/2018 (1835) [email or web address] Orig Print D/T: S: 11/06/2018 (1838) PAGE [...] into account the patients history. POC LACTIC [id number] 16:56:00* Test Item Value Reference Range Interpretation Comments POC LACTIC ACID (test code = POCLAC) 2.09 MMOL/L 0.4-2.2 N BASIC METABOLIC [id number] 16:56:00* Test Item Value Reference Range Interpretation Comments SODIUM (test code = NA) 139 mmol/L 136-145 N POTASSIUM (test code = K) 2.2 mmol/L 3.5-5.1 LL Re sults called to XTL2647 by V.LAB.LDB 11/06/18 1654Critical results verified and [...] CA) 7.7 mg/dL 8.5-10.1 L HEPATIC FUNCTION [id number] 16:56:00* Test Item Value Reference Range Interpretation [...] reference range due to change in reagent. [id number] 16:56:00* Test Item Value Reference Range Interpretation Comments TROPONIN-I (test code = TROPI) 0.024 ng/mL 0-0.045 N LACTIC [id number] 16:56:00* Test Item Value Reference Range Interpretation Comments LACTIC ACID (test code = LACT) 2.0 mmol/L 0.4-1.9 H Results called to TBB1448 by V.LAB.LDB 11/06/18 1656Critical results verified and read back by Nurse? Y CBC W/AUTO [id number] 16:31:00* Test Item Value Reference Range Interpretation [...] K/mm3 0.0-0.1 N - XR CHEST 1 [id number] 16:15:00 FAX: Juan Beavers MD [phone] [place]: St: [facility] FAX: Eleanor Junior MD [phone] Name: NICOLE TAN [facility] : 1935 Age/S: 83/F [address] [facility] Unit #: [id number] Loc: [place] [address] Phys: Eleanor Junior MD Acct: [id number] Dis Date: Status: REG ER PHONE #: [phone] Exam Date: 11/06/2018 1602 FAX #: [phone] Reason: CODE SEPSIS EXAMS: CPT CODE: [id number] XR CHEST 1 V 14421 HISTORY: Sepsis. COMPARISON: May 06, 2013. Left ICD is unchanged in position. No acute infiltrates, effusion or congestion is noted. Suboptimal inspiration with dependent changes. With elevated right hemidiaphragm. Cardiomegaly. IMPRESSION: No acute infiltrates, effusion or congestion. at 1615 Reported and signed by: Neil Casiano M.D. CC: Juan Anguiano; Eleanor Junior MD Technologist: Randi Gallegos Trnscrd Date/Time/By: 11/06/2018 (8603) : By: [email or web address] Orig Print D/T: S: 11/06/2018 (8765) PAGE 1 Signed Report
[2019-09-12] MEDS ORDERED: POTASSIUM CHLORIDE 20MEQ/100ML 200 ML IV ONE (20:15)
[2019-09-12] MEDS ORDERED: ACETAMINOPHEN 325 MG TAB PO PRN (20:15)
[2019-09-12] MEDS ORDERED: SODIUM CHLORIDE 0.9% 250ML 250 ML IV ONE (20:15)
[2019-09-12] MEDS ORDERED: DOCUSATE SODIUM 100 MG CAP PO PRN (20:15)
[2019-09-12] MEDS ORDERED: VANCOMYCIN 1GM/NS 250 ML 250 ML IV ONE (20:15)
[2019-09-12] MEDS ORDERED: ONDANSETRON HCL INJ 2MG/ML 2ML 2 MG/ML VIAL IV PRN (20:15)
--- NOTE | 2019-09-12 20:24 | NUR ---
DR. HIGGINS AT BEDSIDE AT THIS TIME.
--- NOTE | 2019-09-12 20:38 | Diagnostic Imaging Report ---
Examination: Single AP view of the chest. COMPARISON: Portable chest 07/14/2019, CT abdomen and pelvis 09/12/2019 INDICATION: AMS, low blood pressure IMPRESSION: 1. Lines and Tubes: Stable left hemithorax device. 2. Hypoinflated lungs. Bibasilar atelectatic changes. No definite consolidation or effusion. 3. Cardiomediastinal silhouette is normal. Central pulmonary venous congestion due to low lung volumes. 4. No acute bony abnormalities. Signed by: Dr. Juan Rivas M.D. on 09/12/2019 8:34 PM
[2019-09-12] MEDS ORDERED: ACETAMINOPHEN 325 MG SUPP PR PRN (21:00)
[2019-09-12] MEDS ORDERED: ACETAMINOPHEN 650 MG SUPP PR PRN ×2 (21:00)
--- NOTE | 2019-09-12 21:05 | Diagnostic Imaging Report ---
EXAMINATION: CT of the abdomen and pelvis without contrast. TECHNIQUE: Spiral CT images of the abdomen and pelvis were performed from the lung bases to the lesser trochanters. No intravenous contrast was given per physician's request. Coronal and sagittal reformatted images were obtained. COMPARISON: None. CLINICAL HISTORY:AMS, low blood pressure, abdominal pain DISCUSSION: ABSENCE OF INTRAVENOUS CONTRAST DECREASES SENSITIVITY FOR DETECTION OF FOCAL LESIONS AND VASCULAR PATHOLOGY. ABDOMEN/PELVIS: LOWER THORAX: Coarsening of the pulmonary interstitium and bilateral lower lobes, suggesting mild fibrotic changes. Mild bilateral lower lobe bronchial wall thickening. Bilateral posterior lower lobe atelectatic changes. No consolidation or effusion. Atherosclerotic calcification of the coronary arteries and aortic valves and thoracic aorta. HEPATOBILIARY: No focal hepatic lesions. No intra or extrahepatic biliary ductal dilation. GALLBLADDER: Cholecystectomy clips. SPLEEN: No splenomegaly. PANCREAS: No focal masses or ductal dilatation. ADRENALS: Mild thickening of bilateral adrenal glands, left greater than right. No definite discrete lesions are identified. KIDNEYS/URETERS: No renal or ureteral calculi, hydronephrosis or obstruction. 2.1 cm fluid density lesion in the superior to mid right kidney (series 2, image 33), likely presenting a simple cyst. No other contour abnormalities. Left renal vascular calcifications. PELVIC ORGANS/BLADDER: Bladder is decompressed and there is a Lopez catheter in place. Uterus is not visualized. No adnexal masses. Multiple pelvic phleboliths. PERITONEUM/RETROPERITONEUM: No free air or fluid. LYMPH NODES: No intra-abdominal,retroperitoneal, pelvic or inguinal lymphadenopathy. VESSELS: Atherosclerotic calcification of the abdominal aorta and iliac vessels. GI TRACT: Moderate circumferential wall thickening in the rectum (for example series 2, image 81), with associated mild surrounding fat stranding (series 2, image 74). Mild wall thickening in the ascending colon, which is felt to represent under distention. Sigmoid colon diverticulosis, without evidence of diverticulitis. Stomach is unremarkable. BONES AND SOFT TISSUES: No aggressive lytic lesions. Generalized osteopenia. Multilevel degenerated discs in the lower thoracic and lumbosacral spine, with S-shaped curvature. No aggressive lytic or suspicious focal sclerotic lesion. Mild generalized soft tissue edema. IMPRESSION: 1. Moderate circumferential wall thickening in the rectum with associated mild surrounding fat stranding. This may represent proctitis, in the appropriate clinical setting. Recommend direct visualization with endoscopy if clinically feasible to exclude neoplasm. No evidence of bowel obstruction. 2. Mild fibrotic and atelectatic changes in bilateral lower lobes. No consolidation or effusion. 3. Mild thickening of bilateral adrenal glands, likely reflecting hyperplasia. No discrete focal lesions are noted. 4. Sigmoid colon diverticulosis, without diverticulitis. Signed by: Dr. Juan Rivas M.D. on 09/12/2019 9:02 PM
--- NOTE | 2019-09-12 21:10 | NUR ---
LEVOPHED TITRATED TO 20 MCG/MIN.
[2019-09-12 21:47] LABS: ANION GAP 25.1 mmol/L (8-16); CALCIUM 7.3 mg/dL (8.4-10.2); CREATININE, SERUM 7.3 mg/dL (0.57-1.11); POTASSIUM 3.1 mmol/L (3.5-5.1)
[2019-09-12] MEDS: PANTOPRAZOLE 40 MG 10ML VIAL IV SCH (22:09)
--- NOTE | 2019-09-12 22:25 | NUR ---
PT TO CT AT THIS TIME, AND THEN FOR ADMIT TO ICU ROOM 196, PT WAS ACCOMPANIED BY MYSELF, PRIMARY NURSE IN ED.
--- NOTE | 2019-09-12 22:40 | NUR ---
Received to 196 from ER. Placed on EKG, pulse ox & NBP for monitoring. Room air with sats 99%. Lopez cath with temp probe in place. Central line TLC to right femoral. Levophed infusing @ 25 mcg/min. Warming blanket on with core temp 97.
[2019-09-12 22:45] VITALS: BP 85/46
[2019-09-12 23:00] VITALS: BP 101/43
--- NOTE | 2019-09-12 23:00 | NUR ---
Call labs to Dr. Davis. Orders given. Addendum: 09/13/19 at 0144 by Myrtle Granda RN Dr. Madrid here. Spoke with Dr. Davis.
--- NOTE | 2019-09-12 23:10 | NUR ---
IV D5W at 150ml/hr. K-runs started--total 40mEq to be given.
[2019-09-12] MEDS: DEXTROSE 5% 1,000 ML IV SCH (23:15)
[2019-09-12] MEDS: METRONIDAZOLE 500MG/NS 100ML 100 ML IV SCH (23:23)
[2019-09-13] VITALS (19 sets, daily range): BP systolic 64–123; BP diastolic 34–51
--- NOTE | 2019-09-13 00:09 | Diagnostic Imaging Report ---
History:AMS Comparison studies:None Technique: Axial images were obtained from the skull base to the vertex. Coronal and sagittal images reconstructed from the axial data. Intravenous contrast: None Dose modulation, iterative reconstruction, and/or weight based adjustment of the mA/kV was utilized to reduce the radiation dose to as low as reasonably achievable. Findings: Scalp/skull: Right frontal metallic stimulator with its tip at the right anterior thalamus. Metallic wiring at the anterior parietal scalp. Extra-axial spaces: Left central dystrophic calcification attention to the mid falx cerebri, measuring approximately 1.1 cm, without mass effect, may represent a calcified meningioma. No fluid collections. Brain sulci: Moderately prominent. Ventricles: Moderate compensatory dilatation. No hydrocephalus. Parenchyma: Scattered small hypodensities in the supratentorial white matter are small vessel ischemic changes. No masses, hemorrhage, acute or chronic cortical vascular insults. Sellar/suprasellar region: No abnormalities. Craniocervical junction: Patent foramen magnum. No Chiari one malformation. Incidental findings: Atherosclerotic calcifications in the carotid siphons . Impression: No acute abnormalities. Chronic findings: 1. Moderate generalized volume loss. 2. Mild supratentorial white matter small vessel ischemic changes. 3. Left frontal deep brain stimulator. Signed by: DR Win Ahuja M.D. on 09/13/2019 12:06 AM
--- NOTE | 2019-09-13 00:32 | History and Physical ---
CHIEF COMPLAINT: Unresponsive anemia. HISTORY OF PRESENT ILLNESS: Information currently being obtained is from the two sons, one by phone and one at bedside, who are very poor historians. They do not know whole lot about their mother's history. An 83-year-old female, who apparently has baseline dementia according to the family, who was bed-bound for significant number of years, who apparently was sent in by the home health nurse due to found to be anemic on recent routine labs. Apparently, recently the home health agency val some labs and reported it to the primary care physician and the PCP today called the family, and told them to come to the hospital for further evaluation and management. The family is a very poor historian, cannot really explain to me exactly what is going on with her mother. He reports to me that his mother had normal blood pressure and no fever. Again, he could not really describe what has been going on over the last several days. I cannot get any information if there is any black tarry stool, any bright red blood per rectum, any hematemesis or hemoptysis. It seemed like the two brothers were going back and forth in terms of what the information is being provided. The patient was evaluated at bedside in the ER. She is currently on maxed out Levophed pressors for low blood pressure. She was found to be hypothermic as well. She is minimally responsive and kind of groans to pain. She currently has a right femoral central line as well. Her systolic blood pressure during my evaluation was in the low 90s. The patient is currently being treated for septic shock with multiorgan failure. She was found to be severely dehydrated on examination as well. I spoke with the two sons, one by phone Santana as well as the son at bedside and they expressed full code. Critical Care has been consulted. REVIEW OF SYSTEMS: Unable to obtain as the patient is not responsive. ALLERGIES: NO KNOWN DRUG ALLERGIES. MEDICATIONS: Home medications, currently not available at this time. PAST MEDICAL HISTORY: Baseline dementia, bed-bound, Parkinson disease with status post deep brain stimulator, anemia, hypertension, multiple decubitus ulcers, recent EGD June of 2019, shows mild distal esophagitis with gastritis. PAST SURGICAL HISTORY: Recent EGD with gastritis and esophagitis performed back in June of 2019. FAMILY HISTORY: Unable to obtain. SOCIAL HISTORY: Lives her children, very poor historians. Unsure of her smoking, drugs, or any alcohol history. PHYSICAL EXAMINATION: VITAL SIGNS: Temperature on admission was 93.9, now 95.5, pulse 80, respiratory rate is 18, recent blood pressure 97/32, pulse ox 100%. She is on nasal cannula. GENERAL: She is moaning. On examination, she is not alert or oriented. On examination, she was awake. HEENT: She has dry oral mucosa. PULMONARY: Clear to auscultation bilaterally. No wheezing, no rales, no rhonchi, no crackles appreciated. CARDIOVASCULAR: Positive S1 and S2. No murmurs, rubs, or gallops appreciated. ABDOMEN: Soft, nondistended, and nontender to palpation. Bowel sounds present. MUSCULOSKELETAL: Unable to obtain. NEUROLOGIC: She is currently baseline demented. SKIN: Intact. Warm to touch. She has multiple sacral wounds. EXTREMITIES: No edema. Good range of motion throughout. She is severely dehydrated. LABORATORY DATA: Show white count 10.3, hemoglobin 6.7, hematocrit is 20.4, platelets of 107. Chemistry; sodium 123, potassium 3.3, chloride 85, bicarbonate 16, anion gap of 25, BUN 116, creatinine is 8.1, glucose is 120, lactic acid 1, calcium 7.6, total bilirubin is 0.3, AST 32, ALT 6, alkaline phosphatase 76, CK is 764, CK-MB 16.7, troponin is 0.026, BNP 264, total protein 6.8, albumin is 1.6, lipase 213. Urinalysis; wbc's 11-20, rbc's 6-10, many bacteria. SEROLOGIES: Coronavirus PCR pending. MICROBIOLOGY: Blood cultures are pending. IMAGING STUDIES: Chest x-ray shows central pulmonary venous congestion due to low lung volumes. No definite consolidation or effusion. CT abdomen and pelvis and CT brain are pending. IMPRESSION: 1. Septic shock with multiorgan failure. 2. Anion gap metabolic acidosis with acute kidney injury, could be secondary to underlying dehydration. 3. Hyponatremia. 4. Hypokalemia. 5. Rhabdomyolysis. 6. Hypoalbuminemia. 7. Anemia of unknown source. Recent EGD back in June of 2019, shows esophagitis and gastritis. 8. Hypothermic. 9. Sacral wounds. PLAN: At this time, continue with broad-spectrum IV antibiotic therapy with IV Zosyn. Give IV vancomycin x1 dose. Blood and urine cultures were collected. She is on IV Levophed and we will go ahead and add IV vasopressin for blood pressure support. Pulmonary, Critical Care and ID were consulted. Stat sodium level was ordered due to 3 L of normal saline boluses were given, concern for a rise in sodium level too rapidly. Discussed with nursing staff to call me with the results. Replace potassium due to hypokalemia. As far as her acute kidney injury and rhabdo, this all seems to be from underlying dehydration leading to this result. She does have underlying severe protein-calorie malnutrition with hypoalbuminemia as well. I ordered 3 units of packed RBCs with type and screen as well. We will consult with GI. Placed on Protonix 40 mg IV b.i.d. As for the sacral wounds, we will have the Wound Care nurse come and evaluate the patient tomorrow. Put on SCDs for now. Avoid anticoagulation at the current moment due to underlying anemia. I had a long discussion with the patient's son at bedside including the other son Santana by phone and discussed the overall nature of his mother as she is severely ill and critical state with multiorgan failure. They understood that she is severely sick and ill, but want to continue with full code. At this time, we will continue with same plan of care as described above and continue with full code as per family's wishes. Overall prognosis will be critically ill and possibly very poor, as her overall health and quality of life is significantly poor. Consultants involved Pulmonary, Critical Care, GI and ID. MD PRISCILLA Marina/CHEMAL /[id number]
[2019-09-13] MEDS: PIPER-TAZ 3.375 GM 50 ML IV SCH ×3 (00:34→15:22)
--- NOTE | 2019-09-13 01:00 | NUR ---
Attempted to call sons for consent for blood transfusion. Unable to reach them. Notified Dr. Davis. He ordered to give the blood emergently.
[2019-09-13] MEDS ORDERED: SODIUM CHLORIDE 0.9% 250ML 250 ML ONE ×2 (01:21→06:26)
--- NOTE | 2019-09-13 01:30 | NUR ---
1st unit of blood started.
--- NOTE | 2019-09-13 01:52 | Consultation ---
DATE OF CONSULTATION: 09/12/2019 Pulmonary and Critical Care Consultation CHIEF COMPLAINT: Decreased responsiveness, acute kidney failure, and abnormal electrolytes. HISTORY OF PRESENT ILLNESS: The patient is an 83-year-old woman, who has a history of Parkinson disease and dementia. She also has a history of hypertension. She was hospitalized at [facility] in late June of 2019 with acute kidney injury and hypokalemia. She required IV fluids and replacement of her potassium at that time. She also received treatment for multiple decubitus wounds. She was seen by Gastroenterology and had an EGD and colonoscopy as well. There was no active bleeding found. The patient subsequently went to a assisted and then home to live with her family. She is continuing to receive wound care. She came in today with decreased responsiveness. She was found to have a creatinine of 8, increased from a baseline of 1. She also had hypotension and a low blood count. She received 2 L of normal saline in the ER as well as some antibiotics. She was typed and screen for blood, but has not received any blood yet. The patient had a femoral line placed. She was started on Levophed and is on Levophed at 25 mcg. PAST MEDICAL HISTORY: 1. Parkinson disease. 2. Hypertension. 3. Decubitus ulcers. 4. Hypothyroidism. PAST SURGICAL HISTORY: Prior brain surgery. ALLERGIES: NO KNOWN DRUG ALLERGIES. SOCIAL HISTORY: The patient lives with the family. She is not a known smoker or a known drinker. FAMILY HISTORY: Family history is noncontributory. REVIEW OF SYSTEMS: There is no history of fevers. She was less responsive at home. She did not have any headache. She had no chest pain. She had no difficulty breathing. There was no report of cough. She had no nausea or vomiting. There was no reported hematochezia or hematemesis. She does not have any leg swelling. She does have multiple decubitus wounds on her heels as well as her sacral area. PHYSICAL EXAMINATION: VITAL SIGNS: The patient is afebrile. The blood pressure is now 105/50 on 25 mcg of Levophed. HEENT: Shows no facial swelling or erythema. LYMPHATIC: Shows no submandibular, cervical, or supraclavicular adenopathy. CARDIAC: Reveals regular rate and rhythm with normal S1 and S2. LUNGS: Auscultation of lungs shows decreased breath sounds at the bases. There is no wheezing. ABDOMEN: Soft, nontender. There is no rebound or guarding. EXTREMITIES: Show no leg edema or calf tenderness. There are decubitus ulcers in both heels. The patient also has a sacral decubitus wound. NEUROLOGICAL: Shows the patient not interact well. She moans. She does not follow commands well. LABORATORY DATA: Hemoglobin is 6.7 with an MCV of 91.5. White blood cell count is 10.1, and platelet count is a 107. Creatinine is 3.13 with a sodium of 123 and chloride of 85. Carbon dioxide is 16 and potassium is 3.3. Anion gap is increased to 25. Albumin is 1.6. Urinalysis shows 10 to 20 white blood cells. IMPRESSION: 1. Acute renal failure. 2. Anemia secondary to chronic blood loss. 3. Hypovolemia. 4. Urinary tract infection with severe sepsis, present on admission. 5. Decubitus ulcers, present on admission. 6. Hyponatremia. 7. Metabolic encephalopathy. 8. Parkinson disease. PLAN: 1. The patient is scheduled to receive packed red blood cells. 2. Continue to give intravenous volume with close attention to the sodium. Nephrology is making a concerted effort not to correct the sodium too quickly. 3. Broad-spectrum antibiotics. 4. The patient has been batista-cultured. 5. Wound care. 6. Prognosis remains poor. Demarcus Madrid MD [facility]/MODL /[id number]
[2019-09-13] MEDS ORDERED: NOREPINEPHRINE 8 MG/D5W 250 ML 250 ML ONE ×3 (02:10→23:41)
[2019-09-13] MEDS ORDERED: NOREPINEPHRINE INJ 4MG/4ML 8 MG in DEXTROSE 5% 250ML 250 ML IV STA (02:16)
[2019-09-13] MEDS ORDERED: NOREPINEPHRINE INJ 4MG/4ML 8 MG in DEXTROSE 5% 250ML 250 ML IV SCH (02:30)
[2019-09-13 04:05] LABS: CREATINE KINASE MB 19.9 ng/mL (0-5.0)
[2019-09-13 04:16] LABS: ANION GAP 24.9 mmol/L (8-16); CALCIUM 7.2 mg/dL (8.4-10.2); CREATININE, SERUM 6.86 mg/dL (0.57-1.11)
[2019-09-13 04:18] LABS: POTASSIUM 3.9 mmol/L (3.5-5.1)
--- NOTE | 2019-09-13 05:10 | NUR ---
Labs called to Dr. Davis. Orders given. IV decreased to 75ml/hr.
[2019-09-13] MEDS: LEVOTHYROXINE SODIUM 125 MCG TAB PO SCH (06:00)
[2019-09-13] MEDS: METRONIDAZOLE 500MG/NS 100ML 100 ML IV SCH ×3 (06:00→22:00)
[2019-09-13] MEDS: DEXTROSE 5% 1,000 ML IV SCH (07:20)
[2019-09-13] MEDS: PANTOPRAZOLE 40 MG 10ML VIAL IV SCH ×2 (09:00→15:23)
[2019-09-13 09:38] LABS: BASOPHILS # (AUTO) 0.1 (0.0-0.1); BASOPHILS % 0.4 % (0.0-1.0); EOSINOPHILS % 0.2 % (0.0-6.0); HEMATOCRIT 35.5 % (34.2-44.1); HEMOGLOBIN 11.8 g/dL (12.0-16.0); LYMPHOCYTES % 6.2 % (18.0-39.1); MEAN CORPUSCULAR HEMOGLOBIN 29.5 pg (28-32); MEAN CORPUSCULAR HGB CONC 33.2 g/dL (31-35); MEAN CORPUSCULAR VOLUME 88.8 fL (81-99); MONOCYTES # (AUTO) 0.5 (0.2-0.8); MONOCYTES % 2.9 % (4.4-11.3); NEUTROPHILS # (AUTO) 14.6 (2.1-6.9); NEUTROPHILS % 89.6 % (38.7-80.0); PLATELET COUNT 85 x10e3/uL (140-360); RED CELL DISTRIBUTION WIDTH 15.7 % (11.7-14.4)
[2019-09-13 10:07] LABS: ALBUMIN 1.6 g/dL (3.5-5.0); ALBUMIN/GLOBULIN RATIO 0.3 (0.8-2.0); ANION GAP 24.5 mmol/L (8-16); CALCIUM 7.3 mg/dL (8.4-10.2); CREATININE, SERUM 6.4 mg/dL (0.57-1.11); POTASSIUM 3.5 mmol/L (3.5-5.1)
[2019-09-13] MEDS ORDERED: DEXTROSE 5%/0.9% SOD CHL 1,000 ML IV ONE (10:15)
[2019-09-13] MEDS ORDERED: SODIUM HYPOCHLORITE 0.25% 480 ML SOLN IR SCH (11:00)
--- NOTE | 2019-09-13 11:27 | NUR ---
consult [id number]
[2019-09-13] MEDS ORDERED: VASOPRESSIN 100 UNIT in DEXTROSE 5% 100ML 100 ML IV PRN (11:30)
[2019-09-13 11:49] LABS: CREATINE KINASE MB 17.6 ng/mL (0-5.0)
--- NOTE | 2019-09-13 13:15 | NUR ---
Nutrition Intervention Note RD Recommendation(s) for Physician: - As feasible, recommend trickle feeds of Vital AF at 10 ml/hr. When hemodynamically stable recommend advancing TF slowly to goal rate of 45 ml/hr (to provide 1296 kcal and 81 gm protein). - Water flushes and fluid management per MD. - Recommend Arsh 1 packet BID to promote wound healing. - Recommend Vitamin C and Zinc Sulfate for wound healing. Plan of Care: RD following, monitoring for tolerance and adequacy. TF, ONS, and vit/min rec's. Nutrition reason for involvement: MD Consult, Nutrition Risk Trigger RD Assessment 09/12: 83 YOF admitted for renal failure and septic shock, evaluated today per MST screen and consult. Pt with dementia and currently Covid PUI, unable to obtain hx. Pt wt stable per admit in June. Per RN pt with multiple PU's on admit, wound care consulted. Pt currently on Levophed at 30 mcg/min, MAP 65, and will possibly need Vasopressin as well per RN. TF rec's discussed with RN pending plan of care and hemodynamics. Chart reviewed. Will continue to monitor. Principal Problems/Diagnoses: renal failure, septic shock PMH: dementia, parkinson's, anemia, HTN, decub ulcers, distal esophagitis with gastritis GI: abd, large, round, non tender Skin: multiple DTI's to legs/hips, sacral PU- previously stage III per prior admit 07/14 Labs: 09/12: Na 125, K 3.5, BUN 97, Cr 6 Meds: abx, protonix, KCL IVPB, Na bicarb, colace, zofran IV/Drips: Levophed at 30 mcg/min Ht:61 in Wt: 140 lb BMI: 26.4 kg/m2 IBW: 105 lb Malnutrition Evaluation (09/13/19) The patient does not meet criteria for a specified degree of malnutrition at this time. Will re-evaluate at follow-up as appropriate. YOHANNES, COVID PUI pending Nutrition Prescription (Diet Order): NPO Estimated Nutritional Needs: 2700-2924 calories/day (18-22 kcal/kg CBW) 51-76 g protein/day (0.8-1.2 g pro/kg CBW) Diet Adequacy: Not meeting calorie needs, Not meeting protein needs Diet Tolerance: pending Diet Education Needs Assessment: Diet education not indicated, patient on temporary/transition diet. Nutrition Care Level: High Nutrition Diagnosis: Increased nutrient needs (protein, kcal, vitamin, mineral) related to skin integrity as evidenced by multiple PU on admit. Goal: Patient will meet 75-100% of estimated needs by follow up Progress: N/A Interventions: -EN: Composition, Rate, Route, Liquid supplement, Recommended Modifications, Multivitamin/mineral supplement therapy, Collaboration with other providers Monitoring/Evaluation: -Total energy intake, Total protein intake, Formula/Solution, Prescription medication, Liquid supplement Signed: Pattie Larios RD, LD, [facility]
--- NOTE | 2019-09-13 14:35 | Progress Note ---
DATE: 09/13/2019 Medicine Progress Note SUBJECTIVE: The patient is at her baseline. She is minimally responsive in the ICU. An NG tube was inserted for trickle feeds. She is still requiring max doses of IV pressors with Levophed. We have not initiated vasopressin at this time. Family is not at bedside. Palliative care was consulted. Family wanted full code, but they are in the process of coming here around 3 p.m. to discuss further management and care in relation to the mother. PHYSICAL EXAMINATION: VITAL SIGNS: Temperature is 99.5, pulse 84, respiratory rate is 20, blood pressure 122/50, currently on maxed out doses of IV Levophed. She is on 100% on room air. GENERAL: She is minimally responsive. She is breathing on her own. HEENT: Head; normocephalic, atraumatic. Eyes; pupils are equal, round, and reactive to light bilaterally. PULMONARY: Clear to auscultation bilaterally. No wheezing, no rales, no rhonchi, no crackles appreciated. CARDIOVASCULAR: Positive S1 and S2. No murmurs, rubs, or gallops appreciated. ABDOMEN: Soft, nondistended, and nontender to palpation. Has an NG tube. MUSCULOSKELETAL: Unable to assess. NEUROLOGIC: Unable to assess. SKIN: Intact. Warm to touch. Good cap refill. EXTREMITIES: No edema. Good range of motion throughout. LABORATORY DATA: Show white count 16.2, hemoglobin is 11.8 after blood transfusion, hematocrit is 35, and platelets of 85. Chemistry; sodium 125, potassium was 3.5, chloride 88, bicarbonate 16, anion gap of 24, BUN is 97, creatinine is 6.4, glucose is 205, and calcium is 7.3. LFTs; total bilirubin is 0.5, AST 41, ALT 8, and alkaline phosphatase 82. Troponin 0.192, CK-MB 17, and CK is 575. Albumin 1.6. Lipase level 213. Coronavirus PCR pending. MICROBIOLOGY: Blood cultures are pending. DIAGNOSTIC STUDIES: CT brain, no acute abnormalities. IMPRESSION: 1. Septic shock with multiorgan failure. 2. Anion gap metabolic acidosis with acute kidney injury secondary to underlying dehydration. 3. Hyponatremia. 4. Rhabdomyolysis. 5. Severe protein-calorie malnutrition with hypoalbuminemia. 6. Anemia, chronic in nature, status post EGD back in June of 2019, shows esophagitis and gastritis. 7. Hypothermic. 8. Sacral wounds and multiple lower extremity wounds. PLAN: At this time, blood cultures are no growth to date. Continue with broad-spectrum IV antibiotics and monitor blood and urine cultures. ID is following. In relation to her electrolytes, her sodium is 125. We are going to gradually increase her sodium over the next 24 hours. She is on D5 NS at 75 mL an hour. We will get a repeat sodium level around 4 p.m. this afternoon. She still has some gap acidosis. Her renal function is improving with IV fluid hydration. As for the CK, it is downtrending. An NG tube was inserted. Nutrition was consulted and trickle feeds will be initiated. Her hemoglobin is much improved. We will repeat CBC levels in the morning. Continue with IV Protonix, in which GI is following. Her temperature is much improved. Wound care was consulted for chronic wounds. Hold anticoagulation due to underlying anemia. Put RACHEL hoses. We will go ahead and consult with palliative care for goals of care as well as consideration of hospice. The patient also has mild elevation of troponin, we will go ahead and consult with Cardiology. Consultants; Pulmonary, Critical Care, GI, ID, and Palliative Care including Cardiology. The patient has a very poor prognosis. MD PRISCILLA Marina/MODL /[id number]
--- NOTE | 2019-09-13 15:00 | Progress Note ---
DATE: 09/13/2019 Pulmonary Critical Care Progress Note SUBJECTIVE: The patient received 3 units of packed red blood cells. She remains on Levophed at 25 mcg. She is also receiving antibiotics and intravenous fluids. PHYSICAL EXAMINATION: VITAL SIGNS: The blood pressure is 123/50 on 25 mcg of Levophed. Her respiratory rate is normal. Her saturation is 100%. Her T-max is 99.9. HEENT: Shows no facial swelling or erythema. CARDIAC: Reveals regular rate and rhythm with normal S1 and S2. LUNGS: Auscultation of lungs reveals decreased breath sounds at the bases. There is no wheezing. ABDOMEN: Soft and nontender. There is no rebound or guarding. EXTREMITIES: Shows decubitus ulcers on the heels. There is a sacral decubitus ulcer. NEUROLOGIC: Shows poor responsiveness. LABORATORY DATA: White blood cell count is 16.3 with a hemoglobin of 11.8 and a platelet count of 85. The BUN to creatinine ratio is 97 to 6.4 and the sodium is 125. The carbon dioxide is 16. The anion gap is 24.5. Albumin is 1.6. IMPRESSION: 1. Acute kidney failure. 2. Severe sepsis secondary to urinary source, present on admission. 3. Anemia secondary to chronic blood loss. 4. Decubitus ulcers, present on admission. 5. Hyponatremia. 6. Parkinson disease. 7. Metabolic encephalopathy. PLAN: 1. Continue to give intravascular volume judiciously. Nephrology is monitoring the sodium level closely. 2. Continue current antibiotics and await culture results. 3. Await GI consultation to rule out possible GI bleeding. 4. Wound care. 5. Prognosis remains very poor. 6. Case discussed with nursing staff, Nephrology, and Internal Medicine. Greater than 35 minutes in direct critical care time. MD RAJ Castelan/KAROLINA /[id number]
--- NOTE | 2019-09-13 15:14 | Diagnostic Imaging Report ---
TECHNIQUE: Single view of the abdomen. HISTORY: ^NGT placement verification ^[id number] ^2110. COMPARISON: None. IMPRESSION: Enteric catheter tip projects over the gastric fundus. Nonobstructive radiographic bowel gas pattern. No acute bony abnormality. No free air within the imaged abdomen. Signed by: Everette Nichols MD on 09/13/2019 3:11 PM
[2019-09-13] MEDS: MIDODRINE HCL 5 MG TABLET NG SCH (15:16)
[2019-09-13] MEDS ORDERED: MIDODRINE HCL 5 MG TABLET PO SCH (16:00)
[2019-09-13] MEDS ORDERED: MIDODRINE 2.5 MG TAB NG SCH (16:00)
[2019-09-13 16:46] LABS: ANION GAP 23.9 mmol/L (8-16); CALCIUM 7.3 mg/dL (8.4-10.2); CREATININE, SERUM 5.97 mg/dL (0.57-1.11); POTASSIUM 3.9 mmol/L (3.5-5.1)
--- NOTE | 2019-09-13 16:50 | Consultation ---
DATE OF CONSULTATION: 09/13/2019 REASON FOR CONSULTATION: Status post septic shock. HISTORY OF PRESENT ILLNESS: Ms. Torres is an 83-year-old female, who has history of Parkinson disease, dementia, hypertension, from the [facility]. She was here from the [facility] in June with acute kidney injury, hyperkalemia. She was on IV fluid. She had colonoscopy, EGD. No active disease. She went to skilled care facility. She was getting wound care. The patient comes here now with altered mental status, not doing well, currently in intensive care unit. The patient does have history of Parkinson disease, hypertension, decubitus ulcer, hypothyroidism, and brain surgery before. ALLERGIES: NKA. SOCIAL HISTORY: From a care home currently. FAMILY HISTORY: Could not be obtained. REVIEW OF SYSTEMS: Could not be obtained. The patient is currently in intensive care unit. She is currently on vasopressors. Since admission, she received 3 units of packed blood and she is on Levophed. PHYSICAL EXAMINATION: GENERAL: She is noncommunicative. VITAL SIGNS: Stable, currently afebrile, on vasopressors HEENT: She is not icteric. NECK: Supple. CHEST: Few crackles bilateral. COR: S1 and S2. No S3, S4, or murmur. ABDOMEN: Soft. Bowel sounds present. No tenderness. EXTREMITIES: No edema. SKIN: No rash. LABORATORY DATA: Blood culture is still pending. Her white count when she first came was 10.13, today 16.29. Her hemoglobin 6.7, today is 11.8. Her sodium 125, potassium 3.5 with creatinine of 6.40 and her CK-MB was 19.9. The patient who had a chest x-ray and CT of the abdomen and pelvis. She had wall thickening of the rectum associated with mild surrounding represents proctitis. The patient was currently lying in bed comfortably in ICU on vasopressors. PHYSICAL EXAMINATION: VITAL SIGNS: As mentioned above on vasopressors. Afebrile since admission. Blood pressure of 123/51. HEENT: Not icteric. NECK: Supple. CHEST: Clear. COR: No murmur. ABDOMEN: Soft. IMPRESSION: 1. Sepsis on admission, concerned about colitis. Concern about ischemic colitis versus Clostridium difficile colitis. We will put her on cefepime and Flagyl. Discontinue Zosyn. 2. Acute on chronic kidney disease from septic shock. 3. Prognosis is extremely poor. Discussed with the medical team. Further recommendations to follow. MD FRANCHESKA Weinberg/MODL /[id number]
[2019-09-13 17:15] LABS: CREATINE KINASE MB 17.3 ng/mL (0-5.0)
--- NOTE | 2019-09-13 17:25 | Consultation ---
DATE OF CONSULTATION: 09/13/2019 Wound Consultation Thank you, Dr. Davis, for asking me to see this patient. HISTORY OF PRESENT ILLNESS: An 83-year-old female patient brought from home, follows up with Dr. Juan Anguiano, admitted for altered mental status. The patient states she moans and groans. The patient has multiple wounds. Wound consult was called. She is admitted for septic shock and renal failure. Remains confused, poor historian, severely deconditioned, bedbound. Has ulcers to the sacrum, right hip, multiple DTI to the lower extremity. PAST MEDICAL HISTORY: Alzheimer dementia, Parkinson disease, and cardiac arrhythmia. PAST SURGICAL HISTORY: Brain surgery and defibrillator implantation. PERSONAL HISTORY: No history of smoking or alcohol. PHYSICAL EXAMINATION: VITAL SIGNS: On admission, temperature 96.2, blood pressure 99/37, and pulse 85. HEENT: Normal. NECK: No JVD. LUNGS: Diminished air entry at the bases. CVS: Normal. ABDOMEN: Soft, not distended. EXTREMITIES: Lower extremities contracted, toes contracted. SKIN: The patient has stage IV pressure ulcer with necrotic to the sacrum, measures 8 x 9 cm x 0.5 cm, 100% necrotic. Right hip, the patient has unstageable 100% necrotic, scant serous drainage with blisters. Wound margin attached to base. Left lateral leg, the patient has stage IV pressure ulcer, measures 15 x 4 cm x 0.3 cm. DTI to the heel noted. Left lateral foot, pressure injury and unstageable ulcer present. Right infra-axillary area, the patient has deep tissue injury bruise. Left toes are all black with petechiae. ASSESSMENT: Multiple pressure ulcers, sacral stage IV, right foot stage IV, left leg stage IV, deep tissue injury to the right upper back, left foot, bilateral heel, left toes. PLAN: We will apply Dakin moistened 4 x 4 to the sacrum, right hip, left lateral leg and Mepilex to the other DTI. Offload. Thank you for consultation. We will follow up. MD SAHBBIR Alcala/MODL /[id number]
[2019-09-13] MEDS: SODIUM BICARBONATE 650 MG TAB NG SCH (17:44)
[2019-09-13] MEDS ORDERED: CEFEPIME 1GM/NS 0.9% 50 ML 50 ML IV SCH ×2 (18:00→21:00)
--- NOTE | 2019-09-13 19:00 | NUR ---
Report received. Assumed care. Assessment done. See interventions. IV D5NS @ 150ml/hr & Levophed @ 30mcg/min or 56.3ml/hr. NGT to Ottoniel amaya.
--- NOTE | 2019-09-13 21:00 | NUR ---
Spoke with son (Santana). Family requests DNAR. Will notify Dr. Davis.
[2019-09-13] MEDS: DEXTROSE 5%/0.9% SOD CHL 1,000 ML IV SCH (21:07)
--- NOTE | 2019-09-13 21:30 | NUR ---
Lab results called to Dr. Davis. Advised of family request DNAR. Dr. Davis will speak with son.
--- NOTE | 2019-09-13 22:38 | NUR ---
Call from Dr. Davis. He spoke with son (Santana). Family wishes DNAR. Order entered into [facility].
[2019-09-13] MEDS: NOREPINEPHRINE 8 MG/D5W 250 ML 250 ML IV SCH (23:46)
[2019-09-14] VITALS (25 sets, daily range): BP systolic 61–125; BP diastolic 29–54
--- NOTE | 2019-09-14 00:52 | Progress Note ---
DATE: 09/13/2019 SUBJECTIVE: The patient's overall state is still in critical condition. I spoke with the patient's son, Santana in which he spoke with sibling, Alex and a sister in [place] in terms of code status. At this time, they have agreed to DNR/DNI. They understand that their mom's critical state is still in very critical condition and overall prognosis was significantly poor. I discussed the overall findings currently, as she is on IV pressors for blood pressure support as well as being treated for underlying infection etiology. Overall prognosis is significantly poor. She has been very medically debilitated over the last several months, and she has also been bed-bound for a significant number of years. At this time, I also reiterated this to Emili, who is the nurse taking care of this patient this evening, and which Santana spoke with Emili by phone and he voiced to her that he wants her mom to be DNR/DNI. I have called Santana, the son of the patient at [phone]. I spoke with him about his mom's current state and discussed with him about the code status. At this time, as the whole entire family, Alex and Santana including his sister who is in [place] have agreed to DNR/DNI. The order has been placed into the system. A will be provided. Currently, now the patient will be DNR/DNI as per family's wishes. I discussed this with Emili, the nurse who was taking care of the patient. She verbalized understanding and she will document this in the chart as well. MD PRISCILLA Marina/KAROLINA /[id number]
[2019-09-14] MEDS: DEXTROSE 5%/0.9% SOD CHL 1,000 ML IV SCH ×2 (03:36→13:15)
--- NOTE | 2019-09-14 03:50 | NUR ---
Blood drawn and sent to lab. Yells out with any stimulation.
--- NOTE | 2019-09-14 03:57 | Consultation ---
DATE OF CONSULTATION: 09/13/2019 Cardiology Consult Note REASON FOR CONSULT: Elevated troponin. CHIEF COMPLAINT: Could not be obtained due to altered mental status. HISTORY OF PRESENT ILLNESS: An 83-year-old female with history of dementia, bed-bound for several years, who presented to the hospital with possible GI bleeding, severe sepsis, hypotension. We have consulted due to elevated troponin. Past medical history is unclear. Social history and family history could not be reliably obtained due to altered mental status. REVIEW OF SYSTEMS: Could not be obtained. OUTPATIENT MEDICATIONS: Reviewed as listed in the MAR. ALLERGIES: NO KNOWN DRUG ALLERGIES. PHYSICAL EXAMINATION: VITAL SIGNS: Temperature afebrile, pulse 84, respiratory rate 18, blood pressure 117/46, saturating 99% on room air. GENERAL: Elderly female, in no acute distress. CARDIOVASCULAR: Regular rate and rhythm. No murmurs, rubs, or gallops. LUNGS: Coarse breath sounds bilaterally. ABDOMEN: Soft, nontender, and nondistended. PSYCH: Disoriented. INPATIENT MEDICATIONS: Reviewed. LABORATORY DATA: Reviewed. Notable for admission hemoglobin of 6.7, elevated CK and CK-MB of 628 and 19.9 respectively. Hyponatremia with sodium of 125, elevated lactic acid of 2.2, GFR of 6. IMAGING DATA: Reviewed. TELEMETRY DATA: Reviewed, shows sinus rhythm. ASSESSMENT/PLAN: 1. Elevated CK and CK-MB. 2. Acute on chronic systolic congestive heart failure. 3. Acute blood loss anemia. 4. Severe sepsis. PLAN: Elevated CK and CK-MB, likely due to metabolic issues and infection and bleeding not secondary to ACS. Troponins are not elevated. Echocardiogram was pending. The patient has been made DNR/DNI per the family. We will continue conservative care and medical management. Thank you for this consult. We will continue to follow. MD YAZAN Bautista/KAROLINA /[id number]
[2019-09-14 04:10] LABS: BASOPHILS % 0.3 % (0.0-1.0); EOSINOPHILS # (AUTO) 0.1 (0.0-0.4); EOSINOPHILS % 0.5 % (0.0-6.0); HEMATOCRIT 36.2 % (34.2-44.1); HEMOGLOBIN 12.6 g/dL (12.0-16.0); LYMPHOCYTES # (AUTO) 0.9 (1.0-3.2); LYMPHOCYTES % 6.9 % (18.0-39.1); MEAN CORPUSCULAR HGB CONC 34.8 g/dL (31-35); MEAN CORPUSCULAR VOLUME 86.2 fL (81-99); MONOCYTES # (AUTO) 0.2 (0.2-0.8); MONOCYTES % 1.6 % (4.4-11.3); NEUTROPHILS # (AUTO) 12.2 (2.1-6.9); PLATELET COUNT 74 x10e3/uL (140-360); RED CELL DISTRIBUTION WIDTH 16.4 % (11.7-14.4)
[2019-09-14 04:21] LABS: CREATININE, SERUM 5.1 mg/dL (0.57-1.11)
[2019-09-14 04:33] LABS: CALCIUM 6.7 mg/dL (8.4-10.2)
[2019-09-14] MEDS ORDERED: NOREPINEPHRINE 8 MG/D5W 250 ML 250 ML ONE (04:47)
[2019-09-14] MEDS: NOREPINEPHRINE 8 MG/D5W 250 ML 250 ML IV SCH (04:49)
[2019-09-14] MEDS ORDERED: DEXTROSE 50% SYRINGE 50 ML IV PRN (05:30)
[2019-09-14] MEDS ORDERED: CALCIUM GLUCONATE 10% INJ 9.3 MEQ in SODIUM CHLORIDE 0.9% 100 ML 100 ML IV ONE (05:30)
[2019-09-14] MEDS ORDERED: POTASSIUM CHLORIDE 20MEQ/15ML UDC ONE (05:39)
[2019-09-14] MEDS: METRONIDAZOLE 500MG/NS 100ML 100 ML IV SCH ×2 (05:46→13:29)
[2019-09-14] MEDS: LEVOTHYROXINE SODIUM 125 MCG TAB PO SCH (05:46)
[2019-09-14] MEDS: MIDODRINE HCL 5 MG TABLET NG SCH ×2 (08:11→13:29)
[2019-09-14] MEDS: SODIUM BICARBONATE 650 MG TAB NG SCH (08:11)
[2019-09-14] MEDS: PANTOPRAZOLE 40 MG 10ML VIAL IV SCH (08:11)
[2019-09-14] MEDS ORDERED: POTASSIUM CHLORIDE 20MEQ/15ML UDC NG SCH (09:00)
--- NOTE | 2019-09-14 14:43 | Progress Note ---
DATE: 09/14/2019 SUBJECTIVE: Dr. Davis has discussed the case with the family. Given the poor prognosis, they prefer comfort measures. The patient is still receiving some intravenous fluid. PHYSICAL EXAMINATION: VITAL SIGNS: The blood pressure is 115/48, saturation is 100% and pulse is 90. HEENT: No facial swelling or erythema. CARDIAC: Regular rate and rhythm with normal S1, S2. LUNGS: Auscultation of the lungs shows decreased breath sounds at the bases. There is no wheezing. ABDOMEN: Soft, nontender. There is no rebound or guarding. EXTREMITIES: No leg edema or calf tenderness. There is no cyanosis or clubbing. SKIN: No rashes. LABORATORY DATA: White blood cell count is 13.5 and hemoglobin is 12.6. The platelet count is 74. The BUN to creatinine ratio is 87-5.1 and the potassium is 3.0. IMPRESSION: 1. Acute renal failure. 2. Severe sepsis secondary to urinary tract infection, present on admission. 3. Anemia secondary to chronic blood loss. 4. Decubitus ulcers, present on admission. 5. Parkinson disease. 6. Metabolic encephalopathy. PLAN: 1. Continue fluids as per Nephrology. 2. Continue current antibiotics. 3. Continue to monitor for any GI bleeding. 4. Wound care. 5. Family has opted for palliative care. Demarcus Madrid MD [facility]/MODL /[id number]
[2019-09-14] MEDS ORDERED: SCOPOLAMINE 1.5 MG PATCH TOP NR (14:45)
[2019-09-14] MEDS ORDERED: LORAZEPAM INJ 2 MG/ML VIAL IV PRN (14:45)
--- NOTE | 2019-09-14 15:18 | NUR ---
dr gardner spoke with family regarding comfort measures only and stop levophed and all other orders except those for comfort.
--- NOTE | 2019-09-14 15:54 | Progress Note ---
DATE: 09/14/2019 Medicine Progress Note SUBJECTIVE: I met with the patient's two son at bedside with nurse Lizeth present throughout the entire conversation, which now the family wants to do comfort measures only. The patient does not have any kind of medical power of civil litigation attorney paperwork and her children make decisions on behalf of the patient. Currently her spouse has several years ago. I already spoke to all the siblings and they have all agreed to go with comfort measures only and want withdrawal of care. They would like to see how she does here in the hospital after withdrawing care and if she is still alive, they will consider hospice to home tomorrow. PHYSICAL EXAMINATION: VITAL SIGNS: Temperature is 99.3, pulse 90, respiratory rate is 20, blood pressure 115/48, pulse ox 100% on room air. GENERAL: She is nonresponsive on examination. PULMONARY: Clear to auscultation bilaterally. No wheezing, rales, or rhonchi. No crackles appreciated. CARDIOVASCULAR: Positive S1, S2. No murmurs, rubs, or gallops appreciated. ABDOMEN: Soft, nondistended, nontender to palpation. Bowel sounds present. MUSCULOSKELETAL: Unable to assess. NEUROLOGICAL: She is unresponsive on exam. SKIN: Intact, warm to touch. Good capillary refill. PSYCHIATRIC: Unable to assess. EXTREMITIES: No edema. Good range of motion throughout. LABORATORY DATA: Labs show white count 13.5, hemoglobin 12.6, hematocrit 36, platelets of 74. Chemistry; sodium 128, potassium 3, chloride 93, bicarb 17, anion gap of 21, BUN is 87, creatinine is 5.1. Her glucose is 194, calcium down to 6.7. LFTs are noted. Troponin 0.213. Albumin was 1.6. Urinalysis noted. Serologies; clark virus PCR pending. Microbiology blood cultures no growth. IMAGING STUDIES: Just abdominal x-ray from yesterday showed evidence of the tip of the NG tube goes into the gastric fundus. No free air noted. Nonobstructive radiographic bowel gas pattern. IMPRESSION: 1. Septic shock with multiorgan failure. 2. Anion gap metabolic acidosis with underlying acute kidney injury secondary to dehydration. 3. Hyponatremia. 4. Hypokalemia. 5. Rhabdomyolysis. 6. Severe protein calorie malnutrition. 7. Anemia, chronic in nature. Status post EGD back in June 2019, shows esophagitis and gastritis. 8. Hypothermic, improved. 9. Sacral wounds of multiple lower extremity wounds. 10. Parkinson disease. PLAN: At this time, I had a long discussion with the two children at bedside Santana including another brother with the nurse, Lizeth present throughout the entire conversation. At this time, they are interested in only comfort measures only. They want to stop all medications and just keep their mother very comfortable. We will go ahead and discontinue all medications except for Ativan as well as IV morphine. We will also add scopolamine patch. Palliative Care also spoke with the family and they discussed this with them as well and they are on board with leaving her mom very comfortable and making her just comfort measures only. Once again, the nurse was present throughout this entire conversation and we will respect their wishes. The patient will now be comfort measures only. She is also DNR DNI, which I spoke with them last night the family by phone and they verbalized their wishes. MD PRISCILLA Marina/KAROLINA /[id number]
--- NOTE | 2019-09-14 18:20 | Progress Note ---
DATE: 09/14/2019 SUBJECTIVE: Ms. Torres remains in intensive care unit, noncommunicative. Met with the family. Discussed with Internal Medicine. The patient, who is extremely ill, on vasopressors. PHYSICAL EXAMINATION: HEENT: She is not icteric. NECK: Supple. CHEST: Few rhonchi. HEART: S1 and S2. No S3, S4, or murmurs. ABDOMEN: Soft. IMPRESSION: Sepsis, on admission with septic shock. Discussed with family. Prognosis is extremely poor. They elected to comfort care. They are going to stop all the antibiotic. Answered all of their question and agreed. We will discontinue oral antibiotic. Discontinue all supportive care. The patient is comfort care. We will sign off. MD FRANCHESKA Weinberg/MODOttoniel /[id number]
--- NOTE | 2019-09-14 23:10 | NUR ---
Received patient from ICU. Patient is fairly stable, patient bp dangerously low, however patient is dnr and family member at beside made aware of patient status.
[2019-09-15] VITALS (9 sets, daily range): BP systolic 64–75; BP diastolic 31–66
[2019-09-15] MEDS: MORPHINE SULFATE 2 MG/ML SYR 1ML IV PRN (15:18)
--- NOTE | 2019-09-15 16:37 | NUR ---
Follow Up Note Per MD note, pt is now placed on comfort measures only. Pt is currently NPO. RD signing off at this time. Consult RD as needed.
--- NOTE | 2019-09-15 18:54 | Progress Note ---
DATE: 09/15/2019 Pulmonary Critical Care Progress Note SUBJECTIVE: The patient is transferred out of the Intensive Care Unit. Family has opted for palliative care. She is hypotensive. Family has opted not to receive additional Levophed. PHYSICAL EXAMINATION: VITAL SIGNS: The patient is afebrile. The blood pressure is 69/33 and pulse is 79. HEENT: Shows no facial swelling or erythema. CARDIAC: Reveals regular rate and rhythm with normal S1 and S2. LUNGS: Auscultation of lungs shows decreased breath sounds at the bases. There is no wheezing. ABDOMEN: Soft, nontender. There is no rebound or guarding. EXTREMITIES: Show no leg edema or calf tenderness. There is no cyanosis or clubbing. SKIN: Shows no rashes. NEUROLOGICAL: Shows no focal abnormalities. IMPRESSION: 1. Acute kidney failure. 2. Severe sepsis secondary to urinary tract infection, present on admission. 3. Decubitus ulcers. 4. Parkinson disease. 5. Metabolic encephalopathy. PLAN: 1. The patient is on palliative care. 2. Continue to monitor. 3. Continue antibiotics. 4. Pain control. 5. Wound care. Demarcus Madrid MD [facility]/MODL /[id number]
--- NOTE | 2019-09-15 19:00 | NUR ---
Received patient from day nurse, patient is alert but non verbal, son at bed side. Safety and fall precautions maintained as per hospital protocol: bed in lowest position and locked, needed items beside bed and call gaona close to patient. patient is currently stable will continue to monitor.
--- NOTE | 2019-09-15 22:56 | Progress Note ---
DATE: 09/15/2019 Medicine Progress Note SUBJECTIVE: The patient was evaluated approximately around 1:25 p.m. this afternoon. I spoke with the son, Santana at bedside. Her blood pressure was still in the 70s systolically when I evaluated her. She is unresponsive. Family still wants comfort measures only. They are not interested in transferring to home on hospice. They would like for her to stay here. PHYSICAL EXAMINATION: VITAL SIGNS: Temperature is 98.3, pulse 79, respiratory rate is 18, systolic blood pressure was 73/36, pulse ox 100% on room air. GENERAL: She is nonresponsive. HEENT: Unresponsive. PULMONARY: Clear to auscultation bilaterally. No wheezing, no rales, no rhonchi, no crackles appreciated. CARDIOVASCULAR: Positive S1 and S2. No murmurs, rubs, or gallops appreciated. ABDOMEN: Soft, nondistended, and nontender to palpation. Bowel sounds present. MUSCULOSKELETAL: Unable to assess. NEUROLOGIC: Unable to assess, unresponsive. LABORATORY DATA: None. MICROBIOLOGY: None. IMAGING: None. IMPRESSION: 1. Septic shock with multiorgan failure, now on comfort measures only. 2. Anion gap metabolic acidosis with acute kidney injury secondary to dehydration. 3. Electrolyte abnormalities. 4. Rhabdomyolysis. 5. Severe protein-calorie malnutrition. 6. Anemia, status post EGD back in June of 2019 with esophagitis and gastritis. 7. Hypothermic-resolved. 8. Multiple wounds and sacral wounds. 9. Parkinson disease. 10. Comfort measures only. PLAN: At this time, family does not want any medical management, instead want comfort measures only. She has been comfort measures only since yesterday. She is unresponsive on exam. I spoke with the son, Santana. He is not interested in transferring his mother today to home on hospice. He would like to see how she does an additional night while here. At this time, we will continue with comfort measures with morphine, Ativan, and scopolamine patch. I discussed this with the nursing staff and the patient's son, Santana at bedside and they verbalized understanding. MD PRISCILLA Marina/KAROLINA /[id number]
[2019-09-16] VITALS: BP 72/42
[2019-09-16 04:08] VITALS: BP 72/42
--- NOTE | 2019-09-16 07:00 | NUR ---
bedside rounds complete pt in stable condition, family at bedside, will continue to monitor
[2019-09-16] MEDS: MORPHINE SULFATE 2 MG/ML SYR 1ML IV PRN ×2 (07:25→13:37)
--- NOTE | 2019-09-16 07:43 | NUR ---
patient endorsed to next shift for continuity of care.
[2019-09-16 08:42] VITALS: BP 75/39
[2019-09-16 08:43] VITALS: BP 75/39
--- NOTE | 2019-09-16 09:00 | NUR ---
bedside shift report received pt in stable condition, moans upon movement, dave to bsd with yellow urine noted, dsg noted to LLE c/d/i, family at bedside no other co voiced call light in reach will continue to monitor
--- NOTE | 2019-09-16 09:15 | NUR ---
Spoke with catrina Dillon and Alex at bedside regarding hospice. Plan is for pt to go home with hospice at Alex's house. Catrina states to use company that would take pt's insurance. Choice letter signed for [facility], [facility] and [facility]. Signed letter placed in chart. Copy to Santana. Informed them that CM will have Molly with [facility] call them to set up time to meet. IMM letter delivered and discussed. They verbalized understanding. Signed copy placed in chart. Copy to Santana. Hospice referral faxed to [facility] at [phone] / . Molly was notified of referral and will contact family
[2019-09-16 13:13] VITALS: BP 89/55
--- NOTE | 2019-09-16 14:27 | NUR ---
Molly with [facility] met with pt's sons. They signed paperwork. ETA for transportation [phone] at this time.
--- NOTE | 2019-09-16 15:26 | NUR ---
Transportation set up with Shana for [id number].
--- NOTE | 2019-09-16 15:28 | Progress Note ---
DATE: 09/16/2019 SUBJECTIVE: The patient is now on palliative care. She is saturating better. PHYSICAL EXAMINATION: VITAL SIGNS: The blood pressure is 89/55 and the pulse is 97. HEENT: Shows no facial swelling or erythema. CARDIAC: Reveals regular rate and rhythm with normal S1 and S2. LUNGS: Auscultation of lungs reveals decreased breath sounds at the bases. There is no wheezing. ABDOMEN: Soft and nontender. There is no rebound or guarding. EXTREMITIES: Shows no leg edema or calf tenderness. There is no cyanosis or clubbing. SKIN: Shows no rashes. NEUROLOGICAL: Shows no focal abnormalities. IMPRESSION: 1. Septic shock. 2. Severe protein-calorie malnutrition. 3. Anemia secondary to acute blood loss. 4. Parkinson disease. 5. Decubitus ulcers. PLAN: 1. Continue current antibiotics. 2. IV fluids as needed. 3. Pain control. 4. Awaiting hospice consultation. MD RAJ Castelan/KAROLINA /[id number]
[2019-09-16 16:00] VITALS: BP 89/46
--- NOTE | 2019-09-16 16:48 | Progress Note ---
DATE: 09/16/2019 SUBJECTIVE: Ms. Torres is out of ICU. She is comfort care and weak. PHYSICAL EXAMINATION: VITAL SIGNS: Temperature 98.7, heart rate 79, respiration 22, and blood pressure 72/42. HEENT: She is not icteric. NECK: Supple. CHEST: Few crackles. COR: S1 and S2. No S3, S4, or murmurs. ABDOMEN: Soft. IMPRESSION: Sepsis, mood disorder, multiorgan failure, rhabdomyolysis, severe protein-calorie malnutrition, and Parkinson disease. The patient is comfort care. MD FRANCHESKA Weinberg/MODL /[id number]
--- NOTE | 2019-09-16 18:20 | NUR ---
femoral line removed pressure to sites held x 10mins pressure dressing applied, pt tolerated well,
--- NOTE | 2019-09-16 18:40 | NUR ---
ambulance here for transport to home for hospice pt left in stable condtion
--- NOTE | 2019-09-17 04:17 | Discharge Summary ---
FINAL DISCHARGE DIAGNOSES: 1. Septic shock with multiorgan failure, now comfort measures only. 2. Anion gap metabolic acidosis with acute kidney injury secondary to dehydration. 3. Electrolyte abnormalities. 4. Rhabdomyolysis. 5. Severe protein-calorie malnutrition. 6. Anemia, status post EGD back in June of 2019, with esophagitis and gastritis. 7. Hypothermic-resolved. 8. Multiple wounds with sacral wound. 9. Parkinson's disease. 10. Comfort measures only. Now, discharged on hospice. CONSULTANTS: We had Pulmonary Critical Care, ID, and Cardiology. PHYSICAL EXAMINATION: VITAL SIGNS: Temperature is 97.6, pulse 96, respiratory rate 19, blood pressure was 89/46, pulse ox 100% on room air. LABORATORY DATA: Show white count was 13.5, hemoglobin 12.6, hematocrit 36, platelets of 74. Chemistry; sodium 128, potassium 3, chloride 93, bicarb 17, anion gap of 20, BUN is 87, creatinine 5.10, glucose 104, calcium is 7.3, lactic acid was elevated at 2.2. LFTs; total bilirubin is 0.3, AST 32, ALT 6, alkaline phosphatase 76. Troponin was 0.026, CK-MB 16.7, CK is 764, BNP 264, albumin 1.6, lipase 213. Urinalysis concerning for underlying UTI with many bacteria, 11-20 wbc's, 6-10 rbc's, 2+ protein. Coronavirus PCR was found to be negative. Blood cultures were no growth x2. DIAGNOSTIC STUDIES: CT of abdomen and pelvis shows a moderate circumferential wall-thickening in the rectum with associated mild surrounding fat stranding, which represented proctitis in appropriate clinical setting. No evidence of bowel obstruction. Mild fibrotic and atelectatic changes in the bilateral lower lobes. No consolidation or effusion. Mild thickening of the bilateral adrenal glands. Sigmoid colon diverticulosis without evidence of diverticulitis. Chest x-ray shows central venous vascular congestion with low lung volumes. The CT brain showed no acute findings. Abdominal x-ray shows no acute bony abnormality. Nonobstructive radiographic bowel gas pattern. No free air within the abdomen. HOSPITAL COURSE: This is an 83-year-old female with multiple comorbidities, of note Parkinson's dementia, bedbound, severely demented, came in with underlying septic shock, multiorgan failure, and found to be severely anemic. The patient was admitted with several consultants involved including ID, Cardiology, and Pulmonary Critical Care. The patient maintained on broad-spectrum IV antibiotics for multiorgan failure and septic shock and required some IV pressors for blood pressure support. The patient's blood cultures were negative. The patient continued to decompensate throughout the hospital course. She was found to be in acute kidney injury secondary to severe dehydration, which was improving with IV fluid hydration as well as blood transfusion. Her electrolytes were replaced accordingly. Her rhabdomyolysis was noted on admission, likely secondary to being bed-bound. She also had severe protein-calorie malnutrition as well, in which her oral intake has been severely low. In relation to her anemia, she recently had an EGD back in June 2019, that showed esophagitis and gastritis, in which the patient required blood transfusion while here in the hospital stay with much improvement. She was also hypothermic, which resolved with a Aryan Hugger. We did have Wound Care involved for the local wound cares and sacral wounds. After further discussion with the family including the son, Santana and another son at bedside with the palliative care team, we have discussed with them about goals of care and during the hospital stay, they agreed to DNR/DNI. The patient was eventually transitioned to comfort measures only as per family's wishes. The patient maintained here in the hospital for 2 days, in which the family decided to go home with hospice. The family wanted to withdrawal all care as per the patient's wishes in the past. All care was withdrawn and she was only on comfort measures only just kept to be pain-free with morphine, Ativan, and scopolamine patch. 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 I have discussed this with the family at bedside with the nursing staff present and they verbalized understanding and agreed with comfort measures. On discharge, the patient was at baseline with no complaints. She was already approved for discharge to home with hospice services. DISPOSITION: To home with hospice. CONDITION: Guarded. MEDICATIONS: See med reconciliation form. DIET: Pleasure feeds. In the event of any worsening symptoms, the patient was advised to come back to the ED for further evaluation. The patient was discharged home with hospice as per family's wishes. MD PRISCILLA Marina/KAROLINA /[id number]
== END 2019-09-16 18:45 | disposition hospice, home (50) | DRG 871 ==
LOC: ER 18:29 → ERHOLD 20:07 → ICU 22:44 → IMCU 09-14 23:43
PROVIDERS: ADMIT Internal Medicine; ATTEND Internal Medicine
DX: A41.9 Sepsis, unspecified organism (principal); G93.41 Metabolic encephalopathy; E87.2 Acidosis; N17.9 Acute kidney failure, unspecified; E87.1 Hypo-osmolality and hyponatremia; M62.82 Rhabdomyolysis; N39.0 Urinary tract infection, site not specified; E86.0 Dehydration; E87.6 Hypokalemia; E88.09 Other disorders of plasma-protein metabolism, not elsewhere classified; T68.XXXA Hypothermia, initial encounter; L89.156 Pressure-induced deep tissue damage of sacral region; L89.626 Pressure-induced deep tissue damage of left heel; L89.896 Pressure-induced deep tissue damage of other site; Z11.59 Encounter for screening for other viral diseases
CPT/HCPCS: 36415; 36556; 51700; 70450; 71045; 74018; 74176; 80048; 80053; 81001; 82550; 82553; 82948; 83605; 83690; 83880; 84295; 84484; 85025; 85045; 86850; 86900; 86920; 87040; 87071; 87205; 87635; 93005; 93306; 97139; 99284; J0610; J0692; J2270; J2543; J3370; J3480; J7030; J7042; J7050; J7070; P9016